=== PATIENT | female | born 1945 | race Caucasian/White ===

== ENCOUNTER → 2017-07-24 09:44 | Outpatient (CLI) | payer MEDICARE, SELFPAY ==
[2017-07-24 11:54] LABS: Absolute Lymphocyte Count 1.71 X10^3/ul (0.83-4.51); Absolute Neutrophil Count 6.3 X10^3/uL (2.0-7.7); Basophil# 0.04 X10^3/uL; Basophil% 0.4 % (0-1); Eosinophil# 0.16 X10^3/uL; Eosinophils% 1.8 % (0-5); Hematocrit 40.5 % (37-47); Hemoglobin 13.5 g/dl (12.0-15.0); Lymphocyte # 1.71 X10^3/ul (4.0); Lymphocyte % 19.2 % (19-41); Mean Corp Hgb Conc 33.3 g/gl (32-36); Mean Corpuscular Hgb 32.6 pg (27.0-32.0); Mean Corpuscular Volume 97.8 fL (81-99); Mean Platelet Vol. 10.5 fl (6.2-12.0); Monocyte# 0.65 X10^3/uL; Monocyte% 7.3 % (0-10); Neutrophil # 6.34 X10^3/uL (2.7-7.7); Neutrophil % 71.2 % (47-70); Platelet Count 335 K/mm3 (150-450); RBC Distribution Width CV 13.5 % (11.6-14.6); RBC Distribution Width SD 48.5 fl (35.1-43.9); Red Blood Count 4.14 M/mm3 (4.2-5.4); White Blood Count 8.9 K/mm3 (4.4-11.0)
[2017-07-24 11:57] LABS: POSITIVE COUNT NO; POSITIVE DIFFERENTIAL NO; POSITIVE MORPHOLOGY NO
[2017-07-24 12:16] LABS: ALB/GLOB Ratio 1.2 RATIO (0.9-2.4); AST(SGOT) 17 U/L (15-37); Alanine Aminotransfer ALT/SGPT 25 U/L (13-56); Albumin, Serum 3.9 g/dL (3.2-5.0); Alkaline Phosphatase 46 U/L (45-117); Anion Gap 9 (5-15); BUN 19 mg/dL (7-18); BUN/Creat Ratio 29.7 RATIO (10-20); Calcium,Total 9.1 mg/dL (8.5-10.1); Chloride 102 mmol/L (98-107); Cholesterol 214 mg/dL (200); Creatinine, Serum 0.64 mg/dL (0.55-1.02); EST Glomerular Filtration Rate 97 mL/min (>60); Est Glom Filt Rate - Afr Amer 117 mL/min (>60); Globulin 3.2 g/dL (2.2-4.2); Glucose 98 mg/dL (74-106); High Density Lipoprotein 83 mg/dL; Potassium 4.2 mmol/L (3.5-5.1); Protein, Total 7.1 g/dL (6.4-8.2); Sodium Level 138 mmol/L (136-145); T4 Total, Thyroxin 8.1 ug/dL (4.8-13.9); Thyroid Stim Hormone (TSH) 1.47 uIU/mL (0.358-3.74); Triglycerides 92 mg/dL; Very Low Density Lipoprotein 18 mg/dL (5-40)
== END ==
PROVIDERS: Family Provider Internal Medicine; PCP Internal Medicine; Visit Provider Physician Assistant
DX: R20.3 Hyperesthesia (principal); R25.1 Tremor, unspecified
CPT/HCPCS: 36415; 80053; 80061; 84436; 84443; 85025

== ENCOUNTER 2017-09-01 15:44 | Emergency (ER) | payer MEDICARE, SELFPAY ==
[2017-09-01 15:45] VITALS: BP 160/72; PULSE 82; RESP 18; TEMP 36.9; O2SAT 99; BMI 19.5
--- NOTE | 2017-09-01 16:04 | CT_ITS ---
STUDY: CT BRAIN WITHOUT CONTRAST REASON FOR EXAM: Female, 72 years old. Tremors. RADIATION DOSAGE (If Supplied By Facility): CTDIvol = ( 44.99 ) mGy, DLP = ( 728.62 ) mGycm TECHNIQUE: Transaxial CT imaging of the brain was performed without administration of intravenous contrast material. Individualized dose optimization techniques were used for this CT. COMPARISON: 08/02/2015. FINDINGS: Normal soft tissue structures. Normal calvarium. Normal size ventricles and extra-axial spaces for the patient's age. Normal white matter tracts of the cerebral hemispheres. Normal basal ganglia and thalami. Normal brainstem. Normal cerebellum. There is no intracranial hemorrhage. There are no findings of an acute ischemic infarction. Normal visualized paranasal sinuses. CT/Brain/Head without Contrast IMPRESSION: Normal unenhanced CT scan of the brain. Electronically Signed: Don Iyer MD at 17:25 EDT , Service support ,
--- NOTE | 2017-09-01 16:04 | EKG12_ITS ---
Test Reason : CP Blood Pressure : / mmHG Vent. Rate : 068 BPM Atrial Rate : 068 BPM P-R Int : 180 ms QRS Dur : 090 ms QT Int : 414 ms P-R-T Axes : 069 046 069 degrees QTc Int : 440 ms Normal sinus rhythm Normal ECG Confirmed by JAME MAGAÑA MD ([id number]), editor greeting card ALEXIA CORADO ([id number]) on 09/04/2017 2:29:45 PM Referred By: ED PHYSICIAN Confirmed By:JAME MAGAÑA MD
--- NOTE | 2017-09-01 16:05 | RAD_ITS ---
STUDY: X-RAY CHEST REASON FOR EXAM: Female, 72 years old. Palpitations. TECHNIQUE: Frontal and lateral views of the chest. COMPARISON: None. FINDINGS: Soft tissue density in both lung apices, most likely scarring but since there are no prior studies, CT scan with contrast recommended. The lungs are hyperexpanded. There are coarsened interstitial markings suggestive of mild chronic fibrosis. No gross focal infiltrates. No gross effusions. Normal size heart. Normal mediastinum and shawna. Normal visualized pulmonary arteries. Normal visualized aortic arch and descending thoracic aorta. Normal visualized thoracic spine. Normal visualized ribs, clavicles, and shoulders. There is no demonstrated abnormality of the visualized soft tissue structures of the upper abdomen. RAD/Chest PA and Lateral IMPRESSION: COPD. Soft tissue prominence in both lung apices, most likely scarring but CT scan with contrast recommended. Electronically Signed: Don Iyer MD at 17:16 EDT , Service support ,
--- NOTE | 2017-09-01 16:12 | ED.DCSUM_ITS ---
- ER Visit Summary Date of Service: 09/01/17 Chief Complaint: Tremors History of Present Illness: The patient is a 72 F increasing tremors. Patient states been dealing with left upper extremity tremors for the past year, over the past 3 months states she feels my insides are going to jump out.. Over the past 2 days starting having right upper extremity tremors. A month ago PCP started sertraline 25 mg daily. 4 days ago discussed with her PCP was increased to 50 mg. Denies any family history or history of Parkinson's. States has urinary frequency. No cough. Denies headache or vision changes. Denies history of strokes or heart attacks. Patient's history is limited states symptoms have been increasing and is concerned. Has an appointment with her PCP in 5 days. She does state feels like her heart is pounding. Physical Examination: General: Alert and oriented ?3, no acute distress HEENT: Normocephalic, atraumatic. Moist mucosa membranes Neck: supple, nontender. Cardiovascular: Regular rate and rhythm, no murmurs Respiratory: Normal breath sounds, symmetric, no distress Abdomen: Soft, nontender, nondistended Extremities: Nontender, no edema, pulses intact ?4 Neuro: no focal neurological deficits. No active tremors or resting tremors on exam. Test Results: CT head: No acute process. Two-view chest x-ray: Soft tissue prominence in the apices. CT chest: Apical scarring right greater than left. EKG sinus rate of 68, flattening T-wave in aVL. CBC hemoglobin 13.2 white count 10.7. Chemistries with potassium 3.9. Creatinine 0.67. UA with no infection. Emergency Department Course and Treatment: Patient vital signs stable, no active tremors on my evaluation. However she subjectively complains of this. She was given metoprolol 12 1/2 mg p.o. Workup initiated. Infectious workup negative. Head CT negative. Chest x-ray noted concerns for soft tissue prominences and the pain persists and recommended CT scan per radiology report. This is obtained noting concern for apical scarring right greater than left. They did recommend reevaluation 4-6 months time due to asymmetry. Discussed with patient and updated, tremors felt better. I did speak with covering PCP, Dr. Thompson, agrees with continuing Toprol at this time. Will decrease her sertraline down to 25 mg. She will keep her appointment as an outpatient. Discussed with patient who understands and agrees with plan. Treatment Plan: [] Disposition: Discharge Impression: 1. Tremors This note was generated with [employer] dictation software. It may contain incorrect words, spelling, and punctuation that were not noted in review of the chart prior to signing ED Disposition - Plan for ED Patient: Disposition: Home or Assisted Living Chief Complaint: General Illness Diagnosis: Tremors of nervous system Instructions: Essential Tremor Disorder Prescriptions: Metoprolol Succinate 12.5 mg PO DAILY #30 tab.er.24h Referrals: Kelly Leone DO [Primary Care Provider] - Keep Lyudmila appointment Additional Instructions: Decrease your sertraline to 25 mg daily. Take new prescription as prescribed. Follow-up with your doctor as scheduled.
[2017-09-01 16:21] VITALS: BP 161/74; PULSE 70; RESP 16; O2SAT 98
[2017-09-01] MEDS: Metoprolol Tartrate 25 MG Tablet 12.5 MG PO (16:22)
[2017-09-01 16:39] VITALS: BP 152/69; PULSE 65; RESP 16; O2SAT 99
[2017-09-01 16:52] LABS: Absolute Neutrophil Count 7.8 X10^3/uL (2.0-7.7); Basophil# 0.02 X10^3/uL; Basophil% 0.2 % (0-1); Eosinophil# 0.11 X10^3/uL; Eosinophils% 1.1 % (0-5); Hematocrit 38.2 % (37-47); Hemoglobin 13.2 g/dl (12.0-15.0); Lymphocyte % 17.4 % (19-41); Mean Corp Hgb Conc 34.6 g/gl (32-36); Mean Corpuscular Hgb 33.8 pg (27.0-32.0); Mean Corpuscular Volume 97.7 fL (81-99); Mean Platelet Vol. 9.6 fl (6.2-12.0); Monocyte# 0.63 X10^3/uL; Monocyte% 6.1 % (0-10); Neutrophil # 7.75 X10^3/uL (2.7-7.7); Platelet Count 367 K/mm3 (150-450); RBC Distribution Width CV 13.4 % (11.6-14.6); RBC Distribution Width SD 47.2 fl (35.1-43.9); Red Blood Count 3.91 M/mm3 (4.2-5.4); White Blood Count 10.3 K/mm3 (4.4-11.0)
[2017-09-01 16:53] LABS: POSITIVE COUNT NO; POSITIVE DIFFERENTIAL NO; POSITIVE MORPHOLOGY NO
[2017-09-01 17:09] LABS: Anion Gap 8 (5-15); BUN 22 mg/dL (7-18); BUN/Creat Ratio 32.8 RATIO (10-20); Calcium,Total 8.9 mg/dL (8.5-10.1); Chloride 99 mmol/L (98-107); Creatinine, Serum 0.67 mg/dL (0.55-1.02); EST Glomerular Filtration Rate 92 mL/min (>60); Est Glom Filt Rate - Afr Amer 111 mL/min (>60); Estimated Creatinine Clearance 39.47 ml/min; Glucose 102 mg/dL (74-106); Potassium 3.9 mmol/L (3.5-5.1); Sodium Level 133 mmol/L (136-145)
--- NOTE | 2017-09-01 17:30 | CT_ITS ---
STUDY: CT CHEST WITH CONTRAST REASON FOR EXAM: Female, 72 years old. Abnormal chest x-ray. RADIATION DOSAGE (If Supplied By Facility): CTDIvol = ( 9.23 ) mGy, DLP = ( 192.69 ) mGycm TECHNIQUE: Transaxial imaging was performed following intravenous administration of 100CC ml of Isovue 300 contrast material. Individualized dose optimization techniques were used for this CT. COMPARISON: None. FINDINGS: The soft tissue density seen in the apices on chest x-ray appears to represent asymmetric scarring, right worse than left, but to ensure benignity, recommend follow-up in 4-6 months. Lungs show hyperexpansion consistent with COPD. No focal infiltrates or effusions. Normal heart and pericardium. Normal mediastinum. Normal hilar regions. Normal enhanced pulmonary arteries. There is atherosclerotic calcification of the aortic arch with tortuosity and elongation of the aortic arch and descending thoracic aorta. Normal osseous structures. There is no demonstrated abnormality of the visualized upper abdomen. CT/Chest WITH Contrast IMPRESSION: Findings most consistent with scarring in the lung apices but there is some asymmetry and recommend follow-up in 4-6 months to ensure stability. There is probable COPD. Electronically Signed: Don Iyer MD at 19:07 EDT , Service support ,
[2017-09-01 17:55] LABS: Bacteria 0 SEEN /hpf (None Seen); Mucous, Urine 0 SEEN /hpf (<or=2+); White Blood Cells 0 SEEN /hpf (0-5)
[2017-09-01 17:57] LABS: Color, Urine Yellow (Yellow); Glucose, Dipstick Normal (Normal); Ketone-Dipstick Negative (Negative); Leukocyte Esterase-Dipstick Negative /ul (Negative); Nitrite-Dipstick Negative (Negative); Occult Blood-Urine 10 /ul (Negative); Protein-Dipstick Negative (Negative); Urine Bilirubin Dipstick Negative (Negative); Urine Clarity Clear (Clear); Urine Urobilinogen Normal (Normal)
[2017-09-01 18:03] LABS: Red Blood Cells-Urine 0-5 SEEN /hpf (0-5); Squamous Epithelial Cells - UA 0-5 SEEN /hpf (5-10); Transitional Epithelial - Ur 0 SEEN /hpf (0-5)
[2017-09-01 19:26] VITALS: BP 160/75; PULSE 66; RESP 15; O2SAT 99
[2017-09-01 19:44] VITALS: BP 139/68; PULSE 63; RESP 16; O2SAT 97
== END 2017-09-01 19:45 | disposition home or self-care (01) ==
PROVIDERS: Emergency Provider Emergency Medicine; Family Provider Internal Medicine; PCP Internal Medicine
DX: R25.1 Tremor, unspecified (principal); Z79.899 Other long term (current) drug therapy; Z72.0 Tobacco use
CPT/HCPCS: 70450; 71046; 71260; 80048; 81001; 85025; 93005; 96360; 99285; J7030; J7040; Q9967; A4216

== ENCOUNTER → 2017-11-27 12:14 | Outpatient (CLI) | payer MEDICARE, SELFPAY ==
--- NOTE | 2017-11-27 12:17 | BI_ITS ---
MAMMOGRAPHY - BILATERAL SCREENING REASON FOR EXAM: Female, 72 years old. Routine annual screening examination. PERTINENT HISTORY: Aunt with breast cancer. TECHNIQUE: Digital bilateral breast jayla (3D mammographic acquisition) in the CC and MLO projections. 2-D mediolateral oblique (MLO) and craniocaudad (CC) views of both breasts were obtained. CAD: Full Field Digital Mammography with Computer Added Detection was performed. COMPARISON: Comparison is made with prior study dated August 08, 2016 and October 09, 2014. FINDINGS: Breast Composition: The breasts are heterogeneously dense, which may obscure small masses. There are no dominant masses or suspicious calcifications. No other significant abnormalities are identified. There has been no significant change since the prior study. BI/SCREENING MAMM (CAD), BILAT IMPRESSION: Stable bilateral screening mammogram. Yearly follow-up mammogram recommended. (A) ASSESSMENT CATEGORY: BIRADS Category 1: Negative. A letter regarding these results will be sent to the patient by the facility within 30 days. Approximately 10% of breast cancers are not detected by mammography. A normal mammogram should not delay biopsy of a clinically suspicious abnormality. [id number] Electronically Signed: Shun Gallardo MD at 13:03 EDT Tel [phone], Service support ,
== END ==
PROVIDERS: Family Provider Internal Medicine; PCP Internal Medicine; Visit Provider Internal Medicine
DX: Z12.31 Encounter for screening mammogram for malignant neoplasm of breast (principal)
CPT/HCPCS: 77063; 77067

== ENCOUNTER → 2017-12-28 13:17 | Outpatient (CLI) | payer MEDICARE, SELFPAY ==
--- NOTE | 2017-12-28 13:25 | CT_ITS ---
STUDY: CT CHEST WITH CONTRAST REASON FOR EXAM: Female, 72 years old. COPD. Evaluate upper lobe abnormalities on prior scan RADIATION DOSAGE (If Supplied By Facility): CTDIvol = ( 10.79 ) mGy, DLP = ( 182.27 ) mGycm TECHNIQUE: Transaxial imaging was performed following intravenous administration of 100 ml of Isovue 300 contrast material. Multiplanar coronal and sagittal images were reformatted. Individualized dose optimization techniques were used for this CT. COMPARISON: September 01, 2017 FINDINGS: The lungs are normal. There is stable parenchymal and pleural fibrotic thickening of the pulmonary lung apices on the right more than the left, series 4 images through . Nodular components measuring up to 0.7 cm are stable. There are calcifications of the coronary arteries. Normal mediastinum. Normal hilar regions. Normal enhanced pulmonary arteries. There is atherosclerotic calcification of the aortic arch with tortuosity and elongation of the aortic arch and descending thoracic aorta. Degenerative change of the upper lumbar spine There is no demonstrated abnormality of the visualized upper abdomen. CT/Chest WITH Contrast IMPRESSION: Stable apical pleural and parenchymal fibrotic densities. Electronically Signed: Cb Krause MD at 10:07 EDT , Service support ,
[2017-12-28 13:45] LABS: CREATININE FINGERSTICK < 0.6 mg/dL (0.55-1.02); EGFR FINGERSTICK > 60.0000 mL/min (>60)
== END ==
PROVIDERS: Family Provider Internal Medicine; PCP Internal Medicine; Visit Provider Internal Medicine
DX: R91.8 Other nonspecific abnormal finding of lung field (principal)
CPT/HCPCS: 71260; Q9967

== ENCOUNTER → 2018-01-22 11:22 | Outpatient (CLI) | payer MEDICARE, SELFPAY ==
[2018-01-22 14:43] LABS: Ferritin 70 ng/mL (8-252); Iron 149 ug/dL (50-170); Iron Binding Capacity,Total 386 ug/dL (250-450); PERCENT IRON SATURATION 38.6 % (15.0-55.0); T4 Free Direct 0.89 ng/dL (0.76-1.46)
[2018-01-22 15:45] LABS: Absolute Lymphocyte Count 2.56 X10^3/ul (0.83-4.51); Basophil# 0.03 X10^3/uL; Basophil% 0.3 % (0-1); Eosinophil# 0.16 X10^3/uL; Eosinophils% 1.7 % (0-5); Hematocrit 38.6 % (37-47); Hemoglobin 13.5 g/dl (12.0-15.0); Lymphocyte # 2.56 X10^3/ul (4.0); Lymphocyte % 27.4 % (19-41); Mean Corpuscular Hgb 34.1 pg (27.0-32.0); Mean Corpuscular Volume 97.5 fL (81-99); Mean Platelet Vol. 10.2 fl (6.2-12.0); Monocyte# 0.58 X10^3/uL; Monocyte% 6.2 % (0-10); Neutrophil # 5.99 X10^3/uL (2.7-7.7); Neutrophil % 64.2 % (47-70); POSITIVE COUNT NO; POSITIVE DIFFERENTIAL NO; POSITIVE MORPHOLOGY NO; Platelet Count 327 K/mm3 (150-450); RBC Distribution Width CV 13.1 % (11.6-14.6); RBC Distribution Width SD 46.1 fl (35.1-43.9); Red Blood Count 3.96 M/mm3 (4.2-5.4); White Blood Count 9.3 K/mm3 (4.4-11.0)
[2018-01-23 08:41] LABS: T3 Total - Triiodothyronine 0.76 ng/mL (0.6-1.81); Vitamin B12 774 pg/mL (211-911); Vitamin D,25 Hydroxy 46.3 ng/mL (29.95-100.01)
[2018-01-24 18:44] LABS: Thyroid Stim Hormone (TSH) 1.18 uIU/mL (0.358-3.74)
[2018-01-24 20:07] LABS: Vitamin D 1,25-Dihydroxy 46.2 pg/mL (19.9-79.3)
[2018-01-25 11:33] LABS: ANTINUCLEAR ANTIBODIES DIRECT Negative (Negative)
[2018-01-27 09:36] LABS: DHEA Sulfate 53.3 ug/dL (20.4-186.6); T3 Reverse 12.3 ng/dL (9.2-24.1); Testosterone, % Free 2.19 % (0.50-2.80); Testosterone, Free 0.88 ng/dL (0.10-0.85); Testosterone, Total 40 ng/dL (3-41)
[2018-01-27 11:57] LABS: Zinc, Plasma or Serum 78 ug/dL (56-134)
== END ==
PROVIDERS: Family Provider Internal Medicine; PCP Internal Medicine; Visit Provider Dermatology
DX: L65.0 Telogen effluvium (principal)
CPT/HCPCS: 36415; 82306; 82607; 82627; 82652; 82728; 82746; 83540; 83550; 84402; 84403; 84439; 84443; 84480; 84481; 84482; 84630; 85025; 86038; 82626

== ENCOUNTER → 2018-03-15 10:05 | Outpatient (CLI) | payer MEDICARE, SELFPAY ==
--- NOTE | 2018-03-15 10:13 | MRI_ITS ---
STUDY: MRI LUMBAR SPINE WITHOUT CONTRAST REASON FOR EXAM: Female, 73 years old. Lumbago. Scoliosis. Sciatic nerve pain into right leg. TECHNIQUE: Standardized fat and water weighted pulse sequences were obtained in the sagittal and axial planes. COMPARISON: 08/18/2016. FINDINGS: T10-T11: (Sagittal only). Schmorl's nodes in the vertebral endplates. Normal disc height and morphology. Normal central canal and bilateral intervertebral neural foramina. T11-T12: (Sagittal only). Schmorl's node in the T11 inferior endplate. Normal T12 superior endplate. No ventral extradural defect. Normal central canal and bilateral intervertebral neural foramina. T12-L1: (Sagittal only). Normal endplates. Normal disc height and morphology. Normal central canal and bilateral intervertebral neural foramina. Normal lumbar lordosis. Moderate levo rotary scoliosis of the lumbar spine. Normal conus medullaris that terminates at the lower T12 vertebral body level. L1-2: Anterior and posterior marginal spurs. Pronounced disc space height narrowing with mild Modic type I degenerative vertebral marrow edema underneath the vertebral endplates. No extruded disc fragment. Small posterior bulging disc. Normal central canal and bilateral lateral recesses. Normal facet joints. Normal bilateral intervertebral neural foramina. L2-3: Anterior and posterior marginal spurs. Mild degenerative retrolisthesis of L2 on L3 and right lateral subluxation of L2 on L3. Moderately pronounced disc space height narrowing. Normal central canal and bilateral lateral recesses. Mild asymmetric degenerative facet arthropathy. Normal bilateral intervertebral neural foramina. L3-4: Normal endplates. Grade 1 right lateral subluxation of L3 on L4. Small right posterior paramedian disc protrusion causing right lateral recess stenosis. Normal central canal and left lateral recesses. Mild asymmetric degenerative facet arthropathy. Mild stenosis of the right intervertebral neural foramen. Normal left intervertebral neural foramen. L4-5: Mild left lateral subluxation of L4 on L5 and pronounced right-sided disc space height narrowing. Mild Modic type I degenerative vertebral marrow edema underneath the vertebral endplates. Normal central canal and right lateral recesses. Mild stenosis of the left lateral recesses. Mild degenerative facet arthropathy. L5-S1: Pronounced left-sided disc space height narrowing. Normal central canal and bilateral lateral recesses. Mild degenerative facet arthropathy. Moderate stenosis of the left intervertebral neural foramen with suspicious impingement of the left L5 nerve. Normal visualized sacral ala. Normal visualized paraspinous soft tissue structures. MRI/Spine Lumbar (Routine) IMPRESSION: 1. Grade 1 right lateral subluxation of L3 on L4, small right posterior paramedian disc protrusion and right lateral recess stenosis. 2. Right lateral subluxation of L2 on L3, mild degenerative retrolisthesis of L2 on L3 and moderately pronounced disc space height narrowing. 3. Pronounced L1-L2 disc space height narrowing with mild Modic type I degenerative vertebral marrow edema underneath the vertebral endplates and small posterior bulging disc. 4. Mild left lateral subluxation of L4 on L5, pronounced right-sided disc space height narrowing, mild Modic type I degenerative vertebral marrow edema underneath the vertebral endplates and mild stenosis of the left lateral recesses. 5. Pronounced left-sided L5-S1 disc space height narrowing and moderate stenosis of the left intervertebral neural foramen with suspicious impingement of the left L5 nerve. 6. No MRI evidence of lumbar extruded disc fragment. Electronically Signed: Castro Russ MD at 13:33 EDT , Service support ,
--- NOTE | 2018-03-15 10:13 | MRI_ITS ---
STUDY: MRI CERVICAL SPINE WITHOUT CONTRAST REASON FOR EXAM: Female, 73 years old. Right shoulder pain. Arthritis. TECHNIQUE: Standardized fat and water weighted pulse sequences were obtained in the sagittal and axial planes. COMPARISON: None FINDINGS: Normal foramen magnum and brainstem-cervical cord junction. Normal craniovertebral junction. Normal anterior atlantoaxial articulation. Normal odontoid process. Mild cervical kyphosis. Normal vertebral bodies and posterior osseous elements. C2-3: Normal endplates. Normal disc height, signal and morphology. Normal central canal and intervertebral neural foramina. C3-4: Normal endplates. Anterior and posterior marginal spurs. Pronounced disc space height narrowing. Normal central canal and bilateral intervertebral neural foramina. C4-5: Normal endplates. Small anterior and posterior marginal spurs. No extruded disc fragment. Normal central canal and bilateral intervertebral neural foramina. C5-6: Normal endplates. Prominent anterior marginal spurs. Pronounced disc space height narrowing. Normal central canal and bilateral intervertebral neural foramina. C6-7: Pronounced disc space height narrowing with Modic type I degenerative vertebral marrow edema underneath the vertebral endplates. Minimal anterior posterior marginal spurs. Normal central canal and bilateral intervertebral neural foramina. C7-T1: Normal endplates. Normal disc height, signal and morphology. Normal central canal and intervertebral neural foramina. T1-T2: (Sagittal only). Normal endplates. Normal disc height. Small posterior bulging disc. Normal central canal and bilateral intervertebral neural foramina. T2-T3: (Sagittal only). Normal T2 inferior endplate. Minimal anterior wedging of T3 superior endplates may be developmental or from remote injury. Tiny posterior bulging disc. Normal central canal and bilateral intervertebral neural foramina. T3-T4: (Sagittal only). Normal endplates. Normal disc height and morphology. Normal central canal and bilateral intervertebral neural foramina. T4-T5: (Sagittal only). Normal endplates. Normal disc height and morphology. Normal central canal and bilateral intervertebral neural foramina. Normal cervical cord. Normal upper thoracic spinal cord. Normal visualized soft tissue structures. MRI/Spine Cervical (Routine) IMPRESSION: 1. No MRI evidence of cervical extruded disc fragment, spinal stenosis or cervical nerve root displacement. 2. Pronounced C6-C7 disc space height narrowing with Modic type I degenerative vertebral marrow edema underneath the vertebral endplates. 3. Pronounced C5-C6 disc space height narrowing with prominent anterior marginal spurs. 4. Pronounced C3-C4 disc space height narrowing with anterior and posterior marginal spurs. Electronically Signed: Castro Russ MD at 14:09 EDT , Service support ,
== END ==
PROVIDERS: Family Provider Internal Medicine; PCP Internal Medicine
DX: M54.2 Cervicalgia (principal); M54.5 Low back pain
CPT/HCPCS: 72141; 72148

== ENCOUNTER 2018-05-30 10:00 | Outpatient (RCR) | payer MEDICARE, SELFPAY ==
--- NOTE | 2018-04-30 13:01 | HP.PTEVAL ---
Patient's Visit Information LYNN MEYERS is a 73 year old F referred to Physical Therapy by MACKENZIE JAIN with a diagnosis of SCOLIOSIS,PAIN LUMBAR SPONDYLOSIS. Date of Evaluation: 04/30/18 Physical Therapist: Simon Ashley PT, - Visit Plan Frequency: 2x /Week Duration: 4 Weeks Plan: POSTURAL EX'S,DLS,MODALTIES ,LE STRENGTHENING - Subjective Findings: This 73 y/o female presents to physical therapy with lumbar pain with radicular symtoms right leg . Patient seen DR Jain [facility] who was referred from pain management. Patient tried Chiropractor didnt help and tried epidural injections with no releive. Patient has parathesia/tingling right leg. Coughing/sneezing -. Bowel/bladder-. Pain can affect sleeping. Symptoms worse with walking ,standing,bending, lifting. Symptoms better with sitting,resting. Patient pain affects QOL and housework chores and ADL'S.Morning symtoms better,as the day goes on worse. VOCATION: retired. SOCIAL: - Pain Right Back Pain Intensity (Out of 10): 4 Pain Intensity Range: 10 Bilateral Lower Extremity Pain Intensity (Out of 10): 5 Pain Intensity Range: 10 - Objective POSTURE: mild foward posture. GAIT: mild foward posture reciprocal pattern. NEURO: c/o parathesia/tingling right leg,reflexes L3-4,L4-5,L5-S1. SYMMTRIES: MMT: quads/hams 4/5,hip flexion 4-/5,ankle 4/5. FLEXABLITY: hams WNL. LUMBAR ROM: flexion WFL,extesnion min loss , - Special Tests L/S Slump test left side: Negative L/S Slump test right side: Negative L/S Left Straight Leg Raise: Negative L/S Right Straight Leg Raise: Negative Lumbar Standing: Flexion - Mechanical Response: No effect Lumbar Standing: Flexion - Symptoms During Testing: Decreases Lumbar Standing: Flexion - Symptoms After Testing: No better Lumbar Standing: Extension - Mechanical Response: No effect Lumbar Standing: Extension - Symptoms During Testing: Increases Lumbar Standing: Extension - Symptoms After Testing: No worse Lumbar Lying: Flexion - Mechanical Response: No effect Lumbar Lying: Flexion - Symptoms During Testing: Decreases Lumbar Lying: Flexion - Symptoms After Testing: Better Lumbar Lying: Extension - Mechanical Response: No effect Lumbar Lying: Extension - Symptoms During Testing: Decreases Lumbar Lying: Extension - Symptoms After Testing: Better - Goals Goal 1:: Independant with HEP Goal Time Frame: 4-6 Weeks Goal 2:: Independant with posture for ADL'S Goal Time Frame: 4-6 Weeks Goal 3:: Patient to pain by 50% or greater to improve function with and standing. Goal Time Frame: 4-6 Weeks Goal 4:: Patient to improve lumbar ROM fot function of recovery . Goal Time Frame: 4-6 Weeks Goal 5:: Patient improve ERIC score by 5 points to improve QOL Goal Time Frame: 4-6 Weeks - Rehabilitation Potential Physical Therapy Diagnosis: Patient has lumbar pain with radicular symptosm with weakness legs ,core pain affecting ADL'S,impairs function with walking standing thus benifit from skilled PT Rehabilitation Potential: Good - Anticipated Interventions Patient/Client Instruction: Educate patient on: Condition, Plan of Care For the Purpose of:: To decrease pain, To increase ROM, To improve muscle performance and motor function, To increase tolerance to activity/condition/position, To improve ability of physical actions for home/community/work/leisure, To improve health of tissue, To decrease soft tissue restriction, To increase flexibility/ROM, To reduce risk of recurrence, To improve ability to perform tasks related to life management Therapeutic Exercise to Include: Strength training, Body mechanics, Postural training, Flexibilty training, Dynamic Lumbar Stabilization For the Purpose of:: To decrease pain, To increase ROM, To improve muscle performance and motor function, To increase tolerance to activity/condition/position, To improve ability of physical actions for home/community/work/leisure, To improve health of tissue, To decrease soft tissue restriction, To improve ability to perform tasks related to life management TENS: Yes IF ES: Yes Cryotherapy (ice pack, ice massage): Yes Thermo therapy (hot pack): Yes Ultrasound (thermal/non thermal): Yes Pelvic traction supine: Yes For the Purpose of:: To decrease pain, To decrease swelling/inflammation, To improve nutrient delivery to tissue, To improve muscle performance and motor function, To improve health of tissue, To decrease soft tissue restriction, To increase flexibility/ROM Thank you for the opportunity to evaluate your patient. For Medicare and Medicare HMO plans, please review the plan of care and approve it. It will need to be FAXED BACK to us at [phone] for Medicare purposes. For Medicare only, by signing this I certify the plan of care. Please let me know if there are questions or concerns regarding this plan of care. Physician Signature: Date:
--- NOTE | 2018-08-22 09:29 | HP.PTDCNRP_ITS ---
HP - Discharge Summary (1) - Patient Information LYNN MEYERS was seen in my office for initial evaluation on 04/30/18. The following Plan of Care was established for this patient: Initial Frequency: 2x /Week Initial Duration: 4 Weeks - Anticipated Interventions Patient/Client Instruction: Educate patient on: Condition, Plan of Care For the Purpose of:: To decrease pain, To increase ROM, To improve muscle perfor katherine and motor function, To increase tolerance to activity/condition/position, To improve ability of physical actions for home/community/work/leisure, To improve health of tissue, To decrease soft tissue restriction, To increase flexibility/ROM, To reduce risk of recurrence, To improve ability to perform tasks related to life management Therapeutic Exercise to Include: Strength training, Body mechanics, Postural training, Flexibilty training, Dynamic Lumbar Stabilization For the Purpose of:: To decrease pain, To increase ROM, To improve muscle performance and motor function, To increase tolerance to activity/condition/position, To improve ability of physical actions for home/community/work/leisure, To improve health of tissue, To decrease soft tissue restriction, To improve ability to perform tasks related to life management TENS: Yes IF ES: Yes Cryotherapy (ice pack, ice massage): Yes Thermo therapy (hot pack): Yes Ultrasound (thermal/non thermal): Yes Pelvic traction supine: Yes For the Purpose of:: To decrease pain, To decrease swelling/inflammation, To improve nutrient delivery to tissue, To improve muscle performance and motor function, To improve health of tissue, To decrease soft tissue restriction, To increase flexibility/ROM This patient was last seen in our office 05/30/18. Pertinent comments regarding their Physical therapy will appear below: This patient was seen for PT for lumbar pain focusing on DLS,postural ex's,modaliteis .Patient progressing towards goals. At this point I will be discontinuing this patient from physical therapy. I would be happy to see this patient again in the future if found appropriate by the physician. Thank you! Simon Ashley, PT, Cert MDT, OCS
== END 2018-05-30 19:00 | disposition home or self-care (01) ==
LOC: PT 10:00
PROVIDERS: Family Provider Internal Medicine; PCP Internal Medicine
DX: M41.9 Scoliosis, unspecified (principal); M47.896 Other spondylosis, lumbar region
CPT/HCPCS: 97035; 97110; 97162; 97530

== ENCOUNTER → 2018-12-04 | Outpatient (CLI) | payer MEDICARE, SELFPAY ==
--- NOTE | 2018-12-04 10:25 | BI_ITS ---
MAMMOGRAPHY - BILATERAL SCREENING REASON FOR EXAM: Female, 73 years old. Routine annual screening examination. PERTINENT HISTORY: Aunt with breast cancer. TECHNIQUE: Digital bilateral breast jayla (3D mammographic acquisition) in the CC and MLO projections. 2-D mediolateral oblique (MLO) and craniocaudad (CC) views of both breasts were obtained. CAD: Full Field Digital Mammography with Computer Added Detection was performed. COMPARISON: Comparison is made with prior study dated November 27, 2017 and August 08, 2016. FINDINGS: Breast Composition: The breasts are extremely dense, which lowers the sensitivity of mammography. There are no dominant masses or suspicious calcifications. No other significant abnormalities are identified. There has been no significant change since the prior study. BI/SCREENING MAMM (CAD), BILAT IMPRESSION: Stable bilateral screening mammogram. Yearly follow-up mammogram recommended. (A) ASSESSMENT CATEGORY: BIRADS Category 1: Negative. A letter regarding these results will be sent to the patient by the facility within 30 days. Approximately 10% of breast cancers are not detected by mammography. A normal mammogram should not delay biopsy of a clinically suspicious abnormality. [id number] Electronically Signed: Shun Gallardo, at 12:33 EDT , Service support ,
--- NOTE | 2018-12-04 11:17 | RAD_ITS ---
STUDY: X-RAY - SACRUM/COCCYX REASON FOR EXAM: Female, 73 years old. Tailbone pain TECHNIQUE: 3 view(s) of the sacrum and coccyx were obtained. COMPARISON: None. FINDINGS: Normal bilateral sacroiliac joints. Normal visualized sacral ala and fused sacral bodies. Normal sacrococcygeal junction with a normal angulation. Normal coccygeal segments. The presacral soft tissue structures are unremarkable. Scoliosis and degenerative changes lumbosacral spine. RAD/Sacrum-Coccyx min 2 Views IMPRESSION: Normal x-rays of the sacrum and coccyx. Electronically Signed: Nba Garcias MD at 23:25 EDT , Service support ,
== END | disposition home or self-care (01) ==
PROVIDERS: Family Provider Internal Medicine; PCP Internal Medicine; Referring Provider Internal Medicine; Visit Provider Internal Medicine
DX: Z12.31 Encounter for screening mammogram for malignant neoplasm of breast (principal); M53.3 Sacrococcygeal disorders, not elsewhere classified
CPT/HCPCS: 72220; 77067

== ENCOUNTER 2019-01-13 11:31 | Observation (INO) | payer MEDICARE, SELFPAY ==
[2019-01-13] VITALS (15 sets, daily range): BP systolic 116–177; BP diastolic 58–105; PULSE 58–73; RESP 15–18; TEMP 36.7–36.9; O2SAT 96–100; BMI 19.5; BMI 18.7; BMI 18.8
--- NOTE | 2019-01-13 11:47 | EKG12_ITS ---
Test Reason : WEAKNESS Blood Pressure : / mmHG Vent. Rate : 057 BPM Atrial Rate : 057 BPM P-R Int : 180 ms QRS Dur : 092 ms QT Int : 446 ms P-R-T Axes : 063 043 064 degrees QTc Int : 434 ms Sinus bradycardia Possible Left atrial enlargement Nonspecific ST and T wave abnormality Abnormal ECG Confirmed by MICHAEL LIMON, THALIA ([id number]), editor city JING MCCOY ([id number]) on 01/15/2019 11:52:32 AM Referred By: Payton Jenkins Confirmed By:THALIA RODRIGUEZ MD
--- NOTE | 2019-01-13 11:47 | RAD_ITS ---
STUDY: X-RAY CHEST REASON FOR EXAM: Female, 74 years old. Generalized weakness. TECHNIQUE: Single AP portable view of the chest. COMPARISON: September 01, 2017. Chest CT dated December 28, 2017. FINDINGS: Cardiac silhouette unremarkable. Pulmonary vascularity unremarkable. Aorta calcified. No focal patchy airspace opacities. No pleural effusions. COPD/emphysema. Basilar scar/atelectasis. Biapical capping. Upper abdomen unremarkable. Osseous structures intact. No pneumothorax. RAD/Chest 1 View IMPRESSION: No acute cardiopulmonary findings COPD/emphysema with basilar atelectasis/scar Biapical capping Electronically Signed: Kenyon Wylie DO at 12:22 EDT Tel , Service support ,
--- NOTE | 2019-01-13 11:47 | CT_ITS ---
STUDY: CT BRAIN WITHOUT CONTRAST REASON FOR EXAM: Female, 74 years old. Weakness. RADIATION DOSAGE (If Supplied By Facility): CTDIvol = ( 60.81 ) mGy, DLP = ( 1044.28 ) mGycm TECHNIQUE: Transaxial CT imaging of the brain was performed without administration of intravenous contrast material. Individualized dose optimization techniques were used for this CT. COMPARISON: January 01, 2018 FINDINGS: Normal soft tissue structures. Normal calvarium. Normal size ventricles and extra-axial spaces for the patient's age. There are areas of decreased attenuation within the white matter tracts of the supratentorial brain, consistent with microvascular disease changes. Normal basal ganglia and thalami. Normal brainstem. Normal cerebellum. There is no intracranial hemorrhage. There are no findings of an acute ischemic infarction. There is a stable round calcified focus within the left ethmoid sinuses which may reflect an underlying osteoma. CT/Brain/Head without Contrast IMPRESSION: No acute intracranial process. Small vessel ischemia. Electronically Signed: Elizabet Callahan MD at 12:26 EDT Tel , Service support ,
--- NOTE | 2019-01-13 11:49 | ED.VIS.STROK ---
History of Present Illness Chief Complaint: Weakness Informant: Patient, Family, Significant Other Onset: Today Quality and Location: Right Facial Droop, Right Arm Weakness, Slurred Speech Current Severity: Gone Associated Symptoms: Negative for: Headache Narrative: Patient had a 15 to 20-minute episode of what the was thought was right facial droop right arm weakness fall possibly right leg weakness and speech difficulties. This has significantly improved. This started about 2 hours ago. She currently has minimal symptoms. No injury. No prior events. Past Medical History - Allergies and Home Meds Allergies/Adverse Reactions: Allergies amoxicillin Allergy (Verified 09/01/17 16:25) Hives prednisone Adverse Reaction (Verified 09/01/17 16:25) Unknown Primary Care Physician: Kelly Leone DO [Primary Care Provider] - Prior records reviewed: Yes Past Medical History: - - Reviewed see Jorge L Surgical History: noncontributory Smoking Status: Current every day smoker Review of Systems All systems negative except as indicated General: Denies: Chills, Fever Eyes: Denies: Visual changes - left Cardiovascular: Denies: Chest pain, Heart racing Respiratory: Denies: Dyspnea, Cough Gastrointestinal: Denies: Abdominal pain, Nausea Musculoskeletal: Denies: Myalgias, Arthralgias Skin: Denies: Rash Neurological: Reports: Weakness, - - As in HPI. Denies: Headache Psych: Denies: Depression Hematologic: Denies: Easy bruising STROKE Vital Signs/Narrative: Vital Signs Temp Pulse Resp BP Pulse Ox 01/13/19 11:32 98.2 F 60 18 145/72 H 100 Inital Vital Signs reviewed: Yes - NIHSS Initial 1a Level of Consciousness: 0 1b LOC Questions (Score 2 if aphasic/stupor): 0 1c LOC Commands (Only score 1st attempt): 0 2 Best Gaze (If aphasic, use reflexive mvmts.): 0 3 Visual: 0 4 Facial Palsy: 0 5 Motor Arm Right (UN = amputation/fusion): 1 5 Motor Arm Left: 0 6 Motor Leg Right: 0 6 Motor Leg Left: 0 7 Limb ataxia (Only + if out of proportion): 0 8 Sensory (Aphasia/stupor=0 or 1, coma=2): 0 9 Best Language: 0 10 Dysarthria (mute, coma=2, intubated=UN): 0 11 Extinction and Inattention (only scored if +): 0 Total Score: 1 General: Well developed Head: Normocephalic ENT: Moist mucous membranes, No rhinorrhea Neck: Supple Cardiovascular: Regular rate, Regular rhythm Respiratory: No distress, CTA bilaterally Abdomen: Soft, Nontender Back: Nontender, Normal Inspection Extremities: Nontender, No edema Skin: Normal color, No rash Neurological: Alert, Oriented x3, - - Otherwise see NIH stroke scale Psychological: Normal affect Diagnostic/Tx/Re-eval - Medical Decision Making Stroke Team Activated: No - NIH is 1. Symptoms apparently almost fully resolved. Patient has an unremarkable work-up, however my worry is for a left MCA distribution ischemia. Her NIH stroke scale initially was a 1 now it is 0. I will admit for a neurological work-up Admit stable condition ED Disposition - Plan for ED Patient: Disposition: Home or Assisted Living Diagnosis: TIA (transient ischemic attack)
[2019-01-13 11:51] LABS: Bedside Glucose 119 mg/dL (70-110)
[2019-01-13 11:53] LABS: Absolute Lymphocyte Count 2.07 X10^3/uL (0.83-4.51); Absolute Neutrophil Count 5.9 X10^3/uL (2.0-7.7); Basophil# 0.07 X10^3/uL; Basophil% 0.8 % (0-1); Eosinophil# 0.23 X10^3/uL; Eosinophils% 2.6 % (0-5); Hematocrit 39.5 % (37-47); Hemoglobin 13.5 g/dL (12.0-15.0); Lymphocyte # 2.07 X10^3/ul (4.0); Lymphocyte % 23.1 % (19-41); Mean Corp Hgb Conc 34.2 g/dL (32-36); Mean Corpuscular Volume 99.5 fL (81-99); Mean Platelet Vol. 9.7 fl (6.2-12.0); Monocyte# 0.69 X10^3/uL; Monocyte% 7.7 % (0-10); NRBC Flagged by Analyzer 0 % (0-5); Neutrophil # 5.87 X10^3/uL (2.7-7.7); Neutrophil % 65.4 % (47-70); Platelet Count 316 K/mm3 (150-450); RBC Distribution Width CV 12.8 % (11.6-14.6); RBC Distribution Width SD 47.3 fl (35.1-43.9); Red Blood Count 3.97 M/mm3 (4.2-5.4)
[2019-01-13 11:56] LABS: Prothrombin Time (Protime)PT. 12.7 SECONDS (11.7-14.9)
[2019-01-13 11:57] LABS: Partial Thromboplast Time 23.9 Seconds (24.1-36.2)
[2019-01-13 12:11] LABS: Anion Gap 8 (5-15); BUN 17 mg/dL (7-18); BUN/Creat Ratio 21.7 RATIO (10-20); Chloride 102 mmol/L (98-107); Creatinine, Serum 0.78 mg/dL (0.55-1.02); EST Glomerular Filtration Rate 76 mL/min (>60); Est Glom Filt Rate - Afr Amer 92 mL/min (>60); Estimated Creatinine Clearance 38.29 ml/min; Glucose 98 mg/dL (74-106); Potassium 4.1 mmol/L (3.5-5.1); Sodium Level 136 mmol/L (136-145)
--- NOTE | 2019-01-13 13:02 | PCM.HP.STD ---
Problem List (1) TIA (transient ischemic attack) Status: Acute (2) COPD (chronic obstructive pulmonary disease) Status: Chronic Qualifiers: Emphysema type: unspecified (3) Hypertension Status: Chronic Qualifiers: Hypertension type: essential hypertension Qualified Code(s): I10 - Essential (primary) hypertension (4) Tobacco use Status: Chronic (5) Chronic back pain Status: Chronic Qualifiers: Back pain location: back pain in other location Qualified Code(s): M54.9 - Dorsalgia, unspecified; G89.29 - Other chronic pain (6) Essential tremor Status: Chronic (7) Chronic malnutrition Status: Chronic History of Present Illness Date of Admission: 01/13/19 Chief Complaint: Weakness, confusion, facial droop The patient is a 74 y/o F w/ PMHx: Tobacco use, chronic COPD, moderate to severe protein calorie malnutrition, hypertension, chronic neck pain following with pain management on chronic narcotic therapy, essential tremor, history of migraines who presents to [facility] on 01/13/19 with history of approximately 2.5 hours prior to ED presentation at approximately 11:30 AM following return from grocery store upon entering the door noted to be fatigued with questionable facial drooping per with then following attempt to bend over and take the collar off the dog collapse onto the floor secondary to severity of weakness, possibly right hemiplegia with difficulty speaking and concern for spouse of facial droop with improvement upon it ED presentation. In the ED NIH scale was given to for right arm drift and facial droop. Work-up in the ED included T 98.2, heart rate 60, BP 145/72, respiratory rate 18, 100% room air, CBC with W BC 9, hemoglobin 13.5, platelet 316 without shift, coags with PTT 23.9 otherwise unremarkable, BMP unremarkable, troponin less than 0.015, EKG with no acute evidence of ischemia, chest x-ray with no acute cardia pulmonary findings with chronic COPD, emphysematous changes with bibasilar atelectasis and scarring, biapical capping, CT head with no acute intercranial process with small vessel ischemic changes. Following evaluation of patient in the ED discussed case with neurologist, Dr. Spencer who noted intention to evaluate the patient. Past Medical History Past Medical History (Chronic Problems): Chronic Problems COPD (chronic obstructive pulmonary disease) (Chronic) Hypertension (Chronic) Tobacco use (Chronic) Chronic back pain (Chronic) Essential tremor (Chronic) Chronic malnutrition (Chronic) Allergies amoxicillin Allergy (Verified 09/01/17 16:25) Hives prednisone Adverse Reaction (Verified 09/01/17 16:25) Unknown Home Medications: Ambulatory Orders Medication Instructions Recorded Acetaminophen [Tylenol] 1,000 mg PO QHS 01/13/19 Albuterol IH (ProAir) [Proair Hfa 2 puff INHALATION Q6H PRN PRN 01/13/19 (SP)Vent Pts] Ascorbic Acid [Vitamin C] 1,000 mg PO DAILY 01/13/19 Biotin 5 mg PO DAILY 01/13/19 Budesonide/Formoterol 160/4.5 2 inhaler INHALATION BID 01/13/19 [Symbicort 160/4.5 Mcg Inhaler (SP)] Cholecalciferol (Vitamin D3) 1,000 unit PO DAILY 01/13/19 [Vitamin D3] Levocetirizine Dihydrochloride 5 mg PO DAILY PRN 01/13/19 [Xyzal] Lorazepam [Ativan] 0.5 mg PO DAILY PRN 01/13/19 Metoprolol Succinate 25 mg PO BID 01/13/19 Primidone 50 mg PO BID 01/13/19 Sertraline HCl [Zoloft] 50 mg PO DAILY 01/13/19 Tizanidine HCl [Zanaflex] 4 mg PO DAILY 01/13/19 Topiramate [Topamax] 50 mg PO DAILY 01/13/19 Surgical History: - - Neck fusion, tonsillectomy, appendectomy, bilateral tubal ligation. 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 Tobacco Use: Cigarettes Alcohol: None Drugs: None - *Family History Maternal History Items: - - Patient notes a maternal family history of WA, heart disease, at age 56 secondary to WA. Paternal History Items: - - Patient notes no market paternal family history clean heart disease, diabetes or cancer. Review of Systems Constitutional: Reports: Malaise, Weakness, Fatigue. Denies: Chills, Fever HEENT: Denies: Head Aches, Sinus Congestion, Sinus Drainage Cardiovascular: Denies: Chest Pain, Palpitations Respiratory: Denies: Cough, Shortness of breath at rest, Sputum production Gastrointestinal: Denies: Abdominal Pain, Nausea, Vomiting Genitourinary: Denies: Dysuria Musculoskeletal: Reports: Back Pain, Neck Pain. Denies: Joint Pain, Joint Tenderness Skin: Denies: Rash, Wounds Neurological: Reports: Balance problems, Confusion, Focal weakness. Denies: Numbness, Tingling Psychiatric: Denies: Anxiety, Depression, Homicidal Ideations, Suicidal Ideations Hematologic/ Lymphatic: Reports: Easy Bruising, Easy Bleeding VTE Information - Inpt Only VTE Present on Admission: No VTE Mechan Device Prophylaxis: SCD's VTE Pharm Prophylaxis ordered?: Yes Patient Problems: Active and Suspected Problems TIA (transient ischemic attack) (Acute) Stroke-like symptoms (Acute) Subjective: Seated upright in ED bed, fatigued appearance, no acute distress. Objective: Physical Examination: General: awake, alert, to self, place, gave wrong year and wrong president, remains cooperative, seated upright in the ED bed in no apparent distress. Skin: normal color, turgor, no icterus, cyanosis. HEENT: AT/NC, EOMI, PERRLA, mildly dry MM, no carotid bruits or JVD noted. Lungs: CTA bilaterally, moderate effort, moderate decrease BL bases, no rales, ronchi or wheezing. Heart: Regular rate and rhythm; no gallop, rub audible. Abdomen: soft, thin habitus, NTTP, ND, normal BS, no HSM. Extremities: no cyanosis, clubbing, or edema. Neurological: patient awake, alert, oriented as noted with wrong year and wrong president given; cognitive function not baseline intact; pupils equally reactive to light and accomodation; cranial nerves II-XII grossly normal except noted mild left-sided facial droop with flattening of the nasolabial fold as well as asymmetric left-sided inability to purse cheeks, moving all 4 extremities, negative Babinski, [id number] and [id number] bilaterally appropriate. Psychiatric: affect appears fatigued, no acute evidence of depressive or anxiety feelings. - Physical Exam Vital Signs Temp Pulse Resp BP Pulse Ox 98.2 F 60 18 145/72 H 100 01/13/19 11:32 01/13/19 11:32 01/13/19 11:32 01/13/19 11:32 01/13/19 12:04 Oxygen Delivery Method Room Air Weight: 110 lb 0.171 oz Body Mass Index (BMI) 19.5 Finger Stick Blood Glucose 119 Laboratory Tests Past 24 Hrs 01/13/19 01/13/19 01/13/19 11:40 11:40 11:40 WBC 9.0 RBC 3.97 L Hgb 13.5 Hct 39.5 MCV 99.5 H MCH 34.0 H MCHC 34.2 RDW Std Deviation 47.3 H RDW Coeff of Elvia 12.8 Plt Count 316 MPV 9.7 Immature Gran % (Auto) 0.400 Neut % (Auto) 65.4 Lymph % (Auto) 23.1 [place] % (Auto) 7.7 Eos % (Auto) 2.6 Baso % (Auto) 0.8 Absolute Neuts (auto) 5.9 Absolute Lymphs (auto) 2.07 Nucleated RBC % 0 PT 12.7 INR 1.0 APTT 23.9 L Sodium 136 Potassium 4.1 Chloride 102 Carbon Dioxide 26.0 Anion Gap 8 BUN 17 Creatinine 0.78 Estim Creat Clear Calc 38.29 Est GFR (MDRD) Af Amer 92 Est GFR (MDRD) Non-Af 76 BUN/Creatinine Ratio 21.7 H Glucose 98 Calcium 9.0 Troponin I < 0.015 POC Glucose 01/13/19 11:41 POC Glucose 119 H Assessment/Plan All Active Problems TIA (transient ischemic attack) (Acute) Stroke-like symptoms (Acute) The patient is a 74 y/o F w/ PMHx: Tobacco use, chronic COPD, moderate to severe protein calorie malnutrition, hypertension, chronic neck pain following with pain management on chronic narcotic therapy, essential tremor, migraine history who presents to [facility] on 01/13/19 with history of approximately 2.5 hours prior to ED presentation at approximately 11:30 AM following return from grocery store upon entering the door noted to be fatigued with questionable facial drooping per with then following attempt to bend over and take the collar off the dog collapse onto the floor secondary to severity of weakness, possibly right hemiplegia with difficulty speaking and concern for spouse of facial droop with improvement upon it ED presentation. 1. Aphasia, questionable right-sided hemiplegia, left-sided facial droop concerning for TIA/CVA versus questionable atypical complex migraine given history of migraines: Work-up in the ED included T 98.2, heart rate 60, BP 145/72, respiratory rate 18, 100% room air, CBC with WBC 9, hemoglobin 13.5, platelet 316 without shift, coags with PTT 23.9 otherwise unremarkable, BMP unremarkable, troponin less than 0.015, EKG with no acute evidence of ischemia, chest x-ray with no acute cardia pulmonary findings with chronic COPD, emphysematous changes with bibasilar atelectasis and scarring, biapical capping, CT head with no acute intercranial process with small vessel ischemic changes. Will admit to PCU, will obtain MRI Brain, CTA head and Neck, ECHO, PT/OT/Speech/Nutrition evaluation per protocol. Will consult Neurology for evaluation. Will allow permissive HTN, maintain on asa, moderate dose statin w/ AM FLP, fall precautions. Hemoglobin A1c, magnesium, TSH pending. 2. Chronic COPD: ATC duonebs, PRN albuterol, HOB, IS parameters. 3. Moderate to severe protein calorie malnutrition: Evidenced per habitus, muscle and fat loss evident, likely secondary to chronic underlying comorbidities as noted, nutrition consulted. 4. Tobacco Abuse: Encouraged cessation, inpatient consultation per RT, NR if desired. 5. Hypertension: We will maintain on permissive hypertension given #1 and transition to regimen once appropriate. 6. Anxiety and depression: Continue home Ativan and Zoloft regimen. 7. Chronic cervical pain: We will continue home Zanaflex regimen. Patient did note that she was on narcotic therapy but currently does not have any opiate on this. We will have hydrocodone pending med reconciliation. 8. History of migraines: We will continue home Topamax regimen. 1. DVT prophylaxis: SCDs, Lovenox. Code Visit Inpatient E&M: 30515 Init Hosp L3
--- NOTE | 2019-01-13 14:08 | ECHOD_ITS ---
Reason For Study: TIA/CVA Procedure This was a 2D Doppler, Color Flow transthoracic echocardiogram. The exam was of adequate technical quality. Exam performed portable in patient room. Left Ventricle Normal LV size. Left ventricular systolic function is normal. The estimated ejection fraction is 60 %. Diastolic function is indeterminate. No regional wall motion abnormalities noted. Right Ventricle Normal RV size. Normal systolic function. Atria Normal left atrium. Normal right atrium. No doppler evidence for ASD. Bubble contrast study negative for right to left interatrial shunt. Mitral Valve There is no mitral annular calcification. Mild diffuse mitral valve thickening. Mild mitral valve prolapse. Trivial mitral valve insufficiency. Tricuspid Valve Normal tricuspid valve. Trivial tricuspid valve insufficiency. Aortic Valve Trisinus/trileaflet aortic valve. Mild diffuse aortic valve thickening. Mild focal aortic valve calcification. Mild aortic stenosis. Mild (1+) aortic valve insufficiency. Pulmonic Valve The pulmonic valve is not well visualized. Trivial eccentric pulmonic valve insufficiency. Great Vessels Normal sized aortic root. Pericardium/Pleural No pericardial effusion. Medication Performed a rapid injection of agitated mix of 9 cc saline and 1cc air to assess for atrial septal defect. MMode/2D Measurements & Calculations LVIDd: 5.0 cm IVSd: 0.88 cm LVOT diam: 2.0 cm LVIDs: 3.4 cm LVPWd: 0.98 cm RVDd: 3.0 cm FS: 31.9 % LVOT area: 3.2 cm2 Ao root diam: 3.0 cm LAV(MOD-bp): 41.2 ml LVAd ap4: 25.2 cm2 LAV(MOD-bp) Indexed: 28.0 ml/m2 EDV(MOD-sp4): 75.4 ml LAV(MOD-sp2): 33.6 ml EDV(sp4-el): 77.2 ml LAV(MOD-sp4): 43.2 ml LVAs ap4: 15.7 cm2 ESV(MOD-sp4): 33.7 ml ESV(sp4-el): 34.1 ml EF(MOD-sp4): 55.3 % EF(sp4-el): 55.8 % SV(MOD-sp4): 41.7 ml SV(sp4-el): 43.1 ml LA A4 area: 16.6 cm2 LA dimension(2D): 3.4 cm RA A4 area: 13.1 cm2 Time Measurements MV dec time: 0.32 sec Doppler Measurements & Calculations MV E max ashok: 68.0 cm/sec Lat Peak E' Ashok: 8.1 cm/sec Med Peak E' Ashok: 5.9 cm/sec MV A max ashok: 96.1 cm/sec E/E' lat: 8.4 E/E' med: 11.5 MV E/A: 0.71 Ao V2 max: 230.7 cm/sec AI max ashok: 487.1 cm/sec LV V1 max: 105.9 cm/sec Ao max P.3 mmHg AI max P.9 mmHg LV V1 max P.5 mmHg Ao V2 mean: 158.9 cm/sec AI dec slope: 250.1 cm/sec2 LV V1 mean P.2 mmHg Ao mean P.5 mmHg AI P1/2t: 570.3 msec LV V1 mean: 69.7 cm/sec Ao V2 VTI: 53.7 cm LV V1 VTI: 22.9 cm MARYANN(I,D): 1.4 cm2 MARYANN(V,D): 1.5 cm2 SV(LVOT): 73.6 ml PA V2 max: 105.3 cm/sec Interpretation Summary Left ventricular systolic function is normal. The estimated ejection fraction is 60 %. Mild diffuse mitral valve thickening. Mild mitral valve prolapse. Trivial mitral valve insufficiency. Trivial tricuspid valve insufficiency. Mild aortic stenosis. Mild (1+) aortic valve insufficiency. Trivial eccentric pulmonic valve insufficiency. Diastolic function is indeterminate. Bubble contrast study negative for right to left interatrial shunt. Ordering Physician: Payton Jenkins Referring Physician: Payton Jenkins Performed By: Jennifer Alcala RDCS
--- NOTE | 2019-01-13 14:08 | CT_ITS ---
STUDY: CTA HEAD AND NECK WITH CONTRAST REASON FOR EXAM: Female, 74 years old. Stroke RADIATION DOSAGE (If Supplied By Facility): CTDIvol = ( 15.11 ) mGy, DLP = ( 438.56 ) mGycm TECHNIQUE: CT angiography was performed with a multi-detector CT scanner. Data acquisition was obtained from the skull base through the vertex following intravenous administration of 100CC IV Isovue 370. MIP images were reconstructed from the axial data set. Post-processing of the angiographic images was performed, with multiplanar reformation and 3D reconstruction. Individualized dose optimization techniques were used for this CT. COMPARISON: MR brain January 13, [address] head same day FINDINGS: Normal bilateral petrous carotid arteries. Normal right cavernous carotid artery with a normal supraclinoid bifurcation. Normal left cavernous carotid artery with a normal supraclinoid bifurcation. Normal right A1 segments of the anterior cerebral artery. Normal left A1 segments of the anterior cerebral artery. Normal intact anterior communicating artery (ACOM). Normal bilateral A2 segments of the anterior cerebral arteries. Normal right M1 and M2 segments of the middle cerebral arteries, with a normal M1 bifurcation. Normal left M1 and M2 segments of the middle cerebral arteries, with a normal M1 bifurcation. 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 Normal left posterior communicating artery (PCOM). Normal bilateral vertebral arteries. Normal basilar artery with a normal basilar bifurcation. The visualized bilateral superior cerebellar (SCA) arteries are normal. Normal bilateral P1, P2 and visualized P3 segments of the posterior cerebral arteries. There is no demonstrated aneurysm of the [place]. There is no demonstrated abnormality of the visualized brain. AORTIC ARCH: Normal visualized aortic arch. Normal origins of the brachiocephalic, left common carotid, Mild to moderate stenosis proximal left vertebral artery just proximal to the vertebral artery origin. RIGHT CAROTID ARTERIES: Normal right common carotid artery (CCA). There is mild atherosclerotic plaque formation with minimal narrowing of the right carotid bulb. There is mild atherosclerotic plaque formation of the origin of the right internal carotid artery with less than 50% cross sectional diameter stenosis. Normal visualized cervical portion of the right internal carotid artery. Normal origin of the right external carotid artery (ECA). LEFT CAROTID ARTERIES: Normal left common carotid artery (CCA). There is mild atherosclerotic plaque formation with minimal narrowing of the left carotid bulb. There is mild atherosclerotic plaque formation of the origin of the left internal carotid artery with less than 50% cross sectional diameter stenosis. Normal visualized cervical portion of the left internal carotid artery. Normal origin of the left external carotid artery (ECA). VERTEBRAL ARTERIES: Moderate focal plaque and moderate stenosis proximal vertebral artery on the right at the P1 P2 junction. Mixed plaque At the origin of the left vertebral artery and subclavian artery causing moderate stenosis at the origin of the vertebral arteries. 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 Moderate stenosis proximal right vertebral artery. Electronically Signed: Nba Garcias MD at 18:16 EDT , Service support ,
--- NOTE | 2019-01-13 14:08 | MRI_ITS ---
STUDY: MRI BRAIN WITHOUT CONTRAST REASON FOR EXAM: Female, 74 years old. CVA and bilateral leg weakness TECHNIQUE: Standardized multiplanar fat and water weighted pulse sequences were obtained. COMPARISON: CT brain January 13, 2019 FINDINGS: There is mild cerebral atrophy with widening of the extra-axial spaces and ventricular dilatation. There are a limited number of small white matter hyperintensities, distributed throughout the deep white matter tracts of the cerebral hemispheres, consistent with mild chronic white matter ischemic changes. There is no evidence for recent intracranial ischemia or other cause of cytotoxic edema on diffusion weighted imaging (DWI). Normal bilateral basal ganglia. Normal thalami. There is no extra-axial fluid accumulation. Normal flow voids within the major intracranial circulation suggesting patency by spin echo criteria. Normal sella turcica, pituitary gland, infundibular stalk, optic chiasm and hypothalamus. Normal tectal plate and pineal gland. Normal midbrain, mak and medulla. Normal cerebellum. Normal basal cisterns. Normal bilateral temporal bones. Normal bilateral internal auditory canals. No demonstrated orbital abnormality, within the constraints of a routine brain study. Normal visualized paranasal sinuses. Normal calvarium and skull base. Normal visualized soft tissue structures. Normal visualized upper cervical spine. MRI/Brain without Contrast IMPRESSION: No acute disease. Electronically Signed: Nba Garcias MD at 16:21 EDT , Service support ,
[2019-01-13 14:43] LABS: Magnesium 1.8 mg/dL (1.6-2.6); Thyroid Stim Hormone (TSH) 1.06 uIU/mL (0.358-3.74)
--- NOTE | 2019-01-13 14:48 | PCM.CONS.GEN ---
Problem List (1) Stroke-like symptoms Status: Acute Reason for Consult Date of Consultation: 01/13/19 Reason for Consultation: Strokelike symptoms History of Present Illness: The patient is a 74 year old F PMH HTN, chronic low back pain and neck pain, COPD, tobacco abuse, anxiety/depression admitted with strokelike symptoms. Per patient she is stooped down to remove the collar from her dog this morning 01/13/2019 at around 11 AM when she felt that both her legs were weak, had to be helped by the to get up, per documentation had noted right-sided facial weakness, right-sided weakness at that time, which had improved in about 15 to 20 minutes, NIHSS was 1 per ED documentation on admission. At present patient denies any focal motor weakness, sensory loss, headache, dizziness, speech disturbances, visual disturbances or facial weakness. Per patient she lives with her , does drive, denies any frequent falls, does not use any cane or walker to ambulate, does not need any help need assistance with her ADLs. She is not on aspirin at baseline. Patient has very easy bruisability. [] Past Medical History Allergies amoxicillin Allergy (Verified 09/01/17 16:25) Hives prednisone Adverse Reaction (Verified 09/01/17 16:25) Unknown Home Medications: Ambulatory Orders Medication Instructions Recorded Metoprolol Succinate 12.5 mg PO DAILY #30 tab.er.24h 09/01/17 Surgical History: noncontributory Lives: Spouse/ Significant Other Smoking Status: Current every day smoker Alcohol: None Drugs: None Review of Systems Constitutional: Reports: - - Complete ROS negative except as documented in HPI Patient Problems: Active and Suspected Problems TIA (transient ischemic attack) (Acute) Stroke-like symptoms (Acute) - Physical Exam General: Alert HEENT: Normocephalic Neck: Supple Lungs: Normal air movement Cardiovascular: Normal S1, Normal S2 Abdomen: Bowel Sounds Present Extremities: No cyanosis Neurological: - - Conscious, alert, CN II through XII grossly intact, power 5 x 5 both upper and lower extremities, no sensory loss, no cerebellar signs, gait deferred, reflexes + B/L B/S/T/K/A, NIHSS 0 at present, mRS 0 at baseline Psych/Mental Status: Normal Affect Vital Signs Temp Pulse Resp BP Pulse Ox 98.2 F 58 L 18 163/62 H 99 01/13/19 14:10 01/13/19 14:10 01/13/19 14:10 01/13/19 14:10 01/13/19 14:10 Oxygen Delivery Method Room Air Weight: 48 kg Body Mass Index (BMI) 18.7 Finger Stick Blood Glucose 119 Laboratory Tests Past 24 Hrs 01/13/19 01/13/19 01/13/19 11:40 11:40 11:40 WBC 9.0 RBC 3.97 L Hgb 13.5 Hct 39.5 MCV 99.5 H MCH 34.0 H MCHC 34.2 RDW Std Deviation 47.3 H RDW Coeff of Elvia 12.8 Plt Count 316 MPV 9.7 Immature Gran % (Auto) 0.400 Neut % (Auto) 65.4 Lymph % (Auto) 23.1 [place] % (Auto) 7.7 Eos % (Auto) 2.6 Baso % (Auto) 0.8 Absolute Neuts (auto) 5.9 Absolute Lymphs (auto) 2.07 Nucleated RBC % 0 PT 12.7 INR 1.0 APTT 23.9 L Sodium 136 Potassium 4.1 Chloride 102 Carbon Dioxide 26.0 Anion Gap 8 BUN 17 Creatinine 0.78 Estim Creat Clear Calc 38.29 Est GFR (MDRD) Af Amer 92 Est GFR (MDRD) Non-Af 76 BUN/Creatinine Ratio 21.7 H Glucose 98 Hemoglobin A1c Calcium 9.0 Magnesium Troponin I < 0.015 TSH 01/13/19 01/13/19 11:40 11:40 WBC RBC Hgb Hct MCV MCH MCHC RDW Std Deviation RDW Coeff of Elvia Plt Count MPV Immature Gran % (Auto) Neut % (Auto) Lymph % (Auto) [place] % (Auto) Eos % (Auto) Baso % (Auto) Absolute Neuts (auto) Absolute Lymphs (auto) Nucleated RBC % PT INR APTT Sodium Potassium Chloride Carbon Dioxide Anion Gap BUN Creatinine Estim Creat Clear Calc Est GFR (MDRD) Af Amer Est GFR (MDRD) Non-Af BUN/Creatinine Ratio Glucose Hemoglobin A1c Pending Calcium Magnesium 1.8 Troponin I TSH 1.06 POC Glucose 01/13/19 11:41 POC Glucose 119 H Assessment/Plan All Active Problems TIA (transient ischemic attack) (Acute) Stroke-like symptoms (Acute) The patient is a 74 year old F PMH HTN, chronic low back pain and neck pain, COPD, tobacco abuse, anxiety/depression admitted with strokelike symptoms. Per patient she is stooped down to remove the collar from her dog this morning 01/13/2019 at around 11 AM when she felt that both her legs were weak, had to be helped by the to get up, per documentation had noted right-sided facial weakness, right-sided weakness at that time, which had improved in about 15 to 20 minutes, NIHSS was 1 per ED documentation on admission. At present patient denies any focal motor weakness, sensory loss, headache, dizziness, speech disturbances, visual disturbances or facial weakness. Per patient she lives with her , does drive, denies any frequent falls, does not use any cane or walker to ambulate, does not need any help need assistance with her ADLs. She is not on aspirin at baseline. Patient has very easy bruisability. Impression Possible TIA Plan ?Started on aspirin 81 mg once daily. Bleeding risk discussed in detail with the patient. Patient she has easy bruisability, has multiple ecchymotic areas in the extremities and also around the right elbow. Patient not on aspirin at baseline. ?Lipitor 40 mg p.o. nightly ?CT head done on admission did not report anything acute. ?MRI brain without contrast ?CTA head/neck ?TTE ?LDL?, HbA1c? ?Stroke risk factors discussed in detail with the patient and stroke education provided. ?Patient counseled to quit smoking ?Permissive hypertension for at least 24 hours. ?PT/OT/ST ?GI/DVT prophylaxis ?Fall precautions ?Further medical management per hospitalist team ?Please call with questions if any ?Follow-up with neurology as outpatient in 3 to 4 weeks ?Thank you for allowing us to part spent in patient's care and management This note has been generated using [employer] dictation software. It may contain incorrect words, spellings and punctuation's that were not noted in the review of the note prior to signing. Code Visit Inpatient E&M: 78110 Init Hosp L3
[2019-01-13 14:57] LABS: Hemoglobin A1c 5.8 % (4.2-6.3)
[2019-01-13] MEDS: Aspirin 325 MG Tablet PO (16:19)
[2019-01-13] MEDS: 0.9% Normal Saline 1,000 ML 125 ML IV (16:19)
[2019-01-13] MEDS: Ipratropium/Albuterol Sulfate 3 ML AMPUL.NEB INHALATION (19:06)
[2019-01-13] MEDS: Acetaminophen 500 MG Tablet 1000 MG PO (22:04)
[2019-01-13] MEDS: Primidone 50 MG Tablet PO (22:04)
[2019-01-13] MEDS: Atorvastatin Calcium 40 MG Tablet PO (22:04)
[2019-01-14 00:10] VITALS: BMI 18.7
[2019-01-14] MEDS: 0.9% Normal Saline 1,000 ML 125 ML IV ×2 (00:17→08:56)
[2019-01-14 03:03] VITALS: PULSE 61
[2019-01-14 04:02] VITALS: BP 153/67; PULSE 64; RESP 10; TEMP 36.6; O2SAT 98
[2019-01-14] MEDS: Enoxaparin 40 MG/0.4 ML Syringe SC (05:57)
[2019-01-14 06:08] LABS: Absolute Lymphocyte Count 2.11 X10^3/uL (0.83-4.51); Absolute Neutrophil Count 3.7 X10^3/uL (2.0-7.7); Basophil# 0.07 X10^3/uL; Eosinophil# 0.25 X10^3/uL; Eosinophils% 3.7 % (0-5); Hemoglobin 12.1 g/dL (12.0-15.0); Lymphocyte # 2.11 X10^3/ul (4.0); Lymphocyte % 31.2 % (19-41); Mean Corp Hgb Conc 33.6 g/dL (32-36); Mean Corpuscular Hgb 33.2 pg (27.0-32.0); Mean Corpuscular Volume 98.9 fL (81-99); Mean Platelet Vol. 9.9 fl (6.2-12.0); Monocyte# 0.61 X10^3/uL; NRBC Flagged by Analyzer 0 % (0-5); Neutrophil % 54.7 % (47-70); Platelet Count 286 K/mm3 (150-450); RBC Distribution Width CV 13.1 % (11.6-14.6); RBC Distribution Width SD 47.7 fl (35.1-43.9); Red Blood Count 3.64 M/mm3 (4.2-5.4); White Blood Count 6.8 K/mm3 (4.4-11.0)
[2019-01-14 06:29] LABS: Anion Gap 6 (5-15); BUN 18 mg/dL (7-18); BUN/Creat Ratio 28.1 RATIO (10-20); Calcium,Total 8.4 mg/dL (8.5-10.1); Chloride 109 mmol/L (98-107); Cholesterol 204 mg/dL (200); Creatinine, Serum 0.64 mg/dL (0.55-1.02); EST Glomerular Filtration Rate 96 mL/min (>60); Est Glom Filt Rate - Afr Amer 116 mL/min (>60); Estimated Creatinine Clearance 36.83 ml/min; Glucose 94 mg/dL (74-106); High Density Lipoprotein 73 mg/dL; Potassium 4.2 mmol/L (3.5-5.1); Sodium Level 140 mmol/L (136-145); Triglycerides 133 mg/dL; Very Low Density Lipoprotein 27 mg/dL (5-40)
[2019-01-14 07:11] VITALS: PULSE 62
[2019-01-14] MEDS: Ipratropium/Albuterol Sulfate 3 ML AMPUL.NEB INHALATION ×2 (07:30→14:02)
[2019-01-14 08:03] VITALS: O2SAT 96
[2019-01-14] MEDS: Sertraline 50 MG Tablet PO (08:54)
[2019-01-14] MEDS: tiZANidine HCl 2 MG Tablet 4 MG PO (08:54)
[2019-01-14] MEDS: Primidone 50 MG Tablet PO (08:55)
[2019-01-14] MEDS: Aspirin 81 MG TAB.CHEW PO (08:55)
[2019-01-14] MEDS: Loratadine 10 MG Tablet 5 MG PO (08:55)
[2019-01-14 09:14] VITALS: BP 155/53; PULSE 66; RESP 18; TEMP 36.8; O2SAT 100
--- NOTE | 2019-01-14 11:02 | CASEMGMT ---
SW completed PHQ-9 as patient may have had a TIA per Neurology's note. However, when SW went to complete document patient told SW the doctor told her she did not have either. However, she was willing to complete a PHQ-9 with SW. Patient scored a 2 which indicates minimal depression. Kimberli THOMAS MSW
--- NOTE | 2019-01-14 11:16 | DCINST_ITS ---
- Discharge Diagnoses Current Active Problems: Current Active and Chronic Problems TIA (transient ischemic attack) (Acute) Stroke-like symptoms (Acute) COPD (chronic obstructive pulmonary disease) (Chronic) Hypertension (Chronic) Tobacco use (Chronic) Chronic back pain (Chronic) Essential tremor (Chronic) Chronic malnutrition (Chronic) You will use the following diet at home:: Regular Your food should be the consistency of: Regular Discharge Activity: May Not Drive Call your doctor if you observe: Fever of 101 or Higher, Numbness or Tingling, Inability to urinate, Inability to have a bowel movement, Using more than one pad per hour, Shortness of breath, Dizziness, Fainting spells, Swelling in the ankles, Chest pain, Increased palpitations (irregular heartbeat) Allergies/Adverse Reactions: Allergies amoxicillin Allergy (Verified 09/01/17 16:25) Hives prednisone Adverse Reaction (Verified 09/01/17 16:25) Unknown Medications to take at Discharge Acetaminophen [Tylenol] 1,000 mg PO QHS 01/13/19 Albuterol IH (ProAir) [Proair Hfa] 2 puff INHALATION Q6H PRN PRN 01/13/19 Ascorbic Acid [Vitamin C] 1,000 mg PO DAILY 01/13/19 Biotin 5 mg PO DAILY 01/13/19 Budesonide/Formoterol 160/4.5 [Symbicort 160/4.5 Mcg Inhaler (SP)] 2 inhaler INHALATION BID 01/13/19 Cholecalciferol (Vitamin D3) [Vitamin D3] 1,000 unit PO DAILY 01/13/19 Levocetirizine Dihydrochloride [Xyzal] 5 mg PO DAILY PRN 01/13/19 Lorazepam [Ativan] 0.5 mg PO DAILY PRN 01/13/19 Metoprolol Succinate 25 mg PO BID 01/13/19 Primidone 50 mg PO BID 01/13/19 Sertraline HCl [Zoloft] 50 mg PO DAILY 01/13/19 Topiramate [Topamax] 50 mg PO DAILY 01/13/19 Aspirin [Aspirin, Baby] 81 mg PO DAILY@0800 #30 tab.chew 01/14/19 Atorvastatin Calcium [Lipitor] 40 mg PO QHS #30 tab 01/14/19 Tizanidine HCl [Zanaflex] 2 mg PO DAILY #0 08/27/19 The following prescriptions were given: Aspirin [Aspirin, Baby] 81 mg PO DAILY@0800 #30 tab.chew Transmission Status: Pending to [id number] Atorvastatin Calcium [Lipitor] 40 mg PO QHS #30 tab Transmission Status: Pending to [id number] Primary Care Physician: Kelly Leone DO [Primary Care Provider] - Please follow up with your Primary Care Physician in: in 1-2 week Test Results: Test results from this visit will be discussed in further detail at your follow- up appointment, if applicable. Please Follow Up With: Frederick Spencer MD When: in 4 weeks Please Follow Up With: Raleigh Gonzalez MD When: in 4 weeks for subclavian steel syndrome.
--- NOTE | 2019-01-14 11:22 | PN.NEURO_ITS ---
Patient Problems: Active and Suspected Problems TIA (transient ischemic attack) (Acute) Stroke-like symptoms (Acute) Subjective: No issues overnight. MRI brain did not show any acute stroke. CTA head/neck did not show any hemodynamically significant stenosis of the ICA but reported to show moderate stenosis proximal left vertebral artery and subclavian artery. No symptoms suggestive of subclavian steal clinically at present. - Physical Exam General: Alert HEENT: Normocephalic Neck: Supple Lungs: Normal air movement Cardiovascular: Normal S1, Normal S2 Abdomen: Bowel Sounds Present Extremities: No cyanosis Neurological: - - Conscious, alert, CN II through XII grossly intact, power 5 x 5 both upper and lower extremities, no sensory loss, no cerebellar signs, gait deferred, reflexes + B/L B/S/T/K/A, NIHSS 0 at present, mRS 0 at baseline Psych/Mental Status: Normal Affect Vital Signs Temp Pulse Resp BP Pulse Ox 98.2 F 66 18 155/53 H 100 01/14/19 09:14 01/14/19 09:14 01/14/19 09:14 01/14/19 09:14 01/14/19 09:14 Oxygen Delivery Method Room Air Weight: 48 kg Body Mass Index (BMI) 18.7 Finger Stick Blood Glucose 119 Intake and Output for Last 24 Hours 01/12/19 01/13/19 01/14/19 23:59 23:59 23:59 Intake Total 960 / 960 Balance 960 / 960 Laboratory Tests Past 24 Hrs 01/13/19 01/13/19 01/13/19 11:40 11:40 11:40 WBC 9.0 RBC 3.97 L Hgb 13.5 Hct 39.5 MCV 99.5 H MCH 34.0 H MCHC 34.2 RDW Std Deviation 47.3 H RDW Coeff of Elvia 12.8 Plt Count 316 MPV 9.7 Immature Gran % (Auto) 0.400 Neut % (Auto) 65.4 Lymph % (Auto) 23.1 [place] % (Auto) 7.7 Eos % (Auto) 2.6 Baso % (Auto) 0.8 Absolute Neuts (auto) 5.9 Absolute Lymphs (auto) 2.07 Nucleated RBC % 0 PT 12.7 INR 1.0 APTT 23.9 L Sodium 136 Potassium 4.1 Chloride 102 Carbon Dioxide 26.0 Anion Gap 8 BUN 17 Creatinine 0.78 Estim Creat Clear Calc 38.29 Est GFR (MDRD) Af Amer 92 Est GFR (MDRD) Non-Af 76 BUN/Creatinine Ratio 21.7 H Glucose 98 Hemoglobin A1c Calcium 9.0 Magnesium Troponin I < 0.015 Triglycerides Cholesterol LDL Cholesterol VLDL Cholesterol HDL Cholesterol TSH 01/13/19 01/13/19 01/14/19 11:40 11:40 05:40 WBC 6.8 RBC 3.64 L Hgb 12.1 Hct 36.0 L MCV 98.9 MCH 33.2 H MCHC 33.6 RDW Std Deviation 47.7 H RDW Coeff of [place]via 13.1 Plt Count 286 MPV 9.9 Immature Gran % (Auto) 0.400 Neut % (Auto) 54.7 Lymph % (Auto) 31.2 [place] % (Auto) 9.0 Eos % (Auto) 3.7 Baso % (Auto) 1.0 Absolute Neuts (auto) 3.7 Absolute Lymphs (auto) 2.11 Nucleated RBC % 0 PT INR APTT Sodium Potassium Chloride Carbon Dioxide Anion Gap BUN Creatinine Estim Creat Clear Calc Est GFR (MDRD) Af Amer Est GFR (MDRD) Non-Af BUN/Creatinine Ratio Glucose Hemoglobin A1c 5.8 Calcium Magnesium 1.8 Troponin I Triglycerides Cholesterol LDL Cholesterol VLDL Cholesterol HDL Cholesterol TSH 1.06 01/14/19 05:40 WBC RBC Hgb Hct MCV MCH MCHC RDW Std Deviation RDW Coeff of [place]via Plt Count MPV Immature Gran % (Auto) Neut % (Auto) Lymph % (Auto) [place] % (Auto) Eos % (Auto) Baso % (Auto) Absolute Neuts (auto) Absolute Lymphs (auto) Nucleated RBC % PT INR APTT Sodium 140 Potassium 4.2 Chloride 109 H Carbon Dioxide 25.0 Anion Gap 6 BUN 18 Creatinine 0.64 Estim Creat Clear Calc 36.83 Est GFR (MDRD) Af Amer 116 Est GFR (MDRD) Non-Af 96 BUN/Creatinine Ratio 28.1 H Glucose 94 Hemoglobin A1c Calcium 8.4 L Magnesium Troponin I Triglycerides 133 Cholesterol 204 H LDL Cholesterol 104 VLDL Cholesterol 27 HDL Cholesterol 73 TSH POC Glucose 01/13/19 11:41 POC Glucose 119 H Medical Necessity - Tobacco Use Smoking Status: Current every day smoker Tobacco Use: Cigarettes Assessment/Plan All Active Problems TIA (transient ischemic attack) (Acute) Stroke-like symptoms (Acute) The patient is a 74 year old F PMH HTN, chronic low back pain and neck pain, COPD, tobacco abuse, anxiety/depression admitted with strokelike symptoms. Per patient she is stooped down to remove the collar from her dog yesterday morning 01/13/2019 at around 11 AM when she felt that both her legs were weak, had to be helped by the to get up, per documentation had noted right-sided facial weakness, right-sided weakness at that time, which had improved in about 15 to 20 minutes, NIHSS was 1 per ED documentation on admission. At present patient denies any focal motor weakness, sensory loss, headache, dizziness, speech disturbances, visual disturbances or facial weakness. Per patient she lives with her , does drive, denies any frequent falls, does not use any cane or walker to ambulate, does not need any help need assistance with her ADLs. She is not on aspirin at baseline. Patient has very easy bruisability. Impression Possible TIA Plan ?Started on aspirin 81 mg once daily. Bleeding risk discussed in detail with the patient. Patient she has easy bruisability, has multiple ecchymotic areas in the extremities and also around the right elbow. Patient not on aspirin at baseline. ?Lipitor 40 mg p.o. nightly ?CT head done on admission did not report anything acute. ?MRI brain without contrast no acute stroke ?CTA head/neck did not show any hemodynamically significant stenosis of the ICA but reported to show moderate stenosis proximal left vertebral artery and subclavian artery. But no symptoms of subclavian steal present clinically at present ?TTE-p ?LDL?104, HbA1c?5.8 ?Vascular surgery consult as outpatient for moderate subclavian stenosis as reported in the CTA head/neck. ?Stroke risk factors discussed in detail with the patient and stroke education provided. ?Patient counseled to quit smoking ?Goal blood pressure less than 130/80 mmHg and goal HbA1c less than 7%. ?PT/OT/ST ?GI/DVT prophylaxis ?Fall precautions ?Further medical management per hospitalist team ?Please call with questions if any ?Follow-up with neurology as outpatient in 3 to 4 weeks ?Thank you for allowing us to part spent in patient's care and management This note has been generated using [employer] software. It may contain incorrect words, spellings and punctuation's that were not noted in the review of the note prior to signing.
--- NOTE | 2019-01-14 12:36 | CASEMGMT ---
TERRI NORRIS Note: Intro role of CM to patient and [facility] form explained re: Observation status for treatment of TIA. Explained hospitalization will be paid per? insurance policy for Outpatient billing?and condition will continue to be evaluated for Inpt necessity. Also let pt know that [facility] sends paper in the billing packet with their phone number if questions arise. Discussed Pharmacy section of [facility] form and self administered medication guideline.? Pt verbalizes understanding and does not have further questions. Form signed and placed in chart, copy to pt. ALLISON MURRAY BSN CM
--- NOTE | 2019-01-14 13:21 | PCM.DC.SUM ---
Discharge Date and Diagnosis - Problem List Patient Problems: Active and Suspected Problems TIA (transient ischemic attack) (Acute) Stroke-like symptoms (Acute) Date of Admission: 01/13/19 Date of Discharge: 01/14/19 - Primary Discharge Diagnosis Active and Suspected Problems TIA (transient ischemic attack) (Acute) - Secondary Discharge Diagnosis Chronic Problems COPD (chronic obstructive pulmonary disease) (Chronic) Hypertension (Chronic) Tobacco use (Chronic) Chronic back pain (Chronic) Essential tremor (Chronic) Chronic malnutrition (Chronic) Hospital Course and Treatment Summary of Care Provided: The patient is a 74 year old F with multiple comorbidities including hypertension, COPD, chronic neck and back pain follows Dr. Vasquez and is on pain management and muscle relaxant was admitted which she felt both legs for a week when she bent down to remove collar from her dog. As per the , she also had right-sided facial drooping, right-sided weakness at that time which improved in 15 to 20 minutes. In ED, NIH stroke scale was 1. The patient was admitted on PCU. Full stroke work-up was done. MRI brain is negative. CTA head and neck did not report acute. CTA head neck shows moderate proximal stenosis of left vertebral artery and subclavian artery. On exam, no clinical findings of subclavian steal syndrome was found. Patient was started on baby aspirin although she has minor easy bruising. Fasting profile shows total cholesterol 204, LDL 104, TG 133, HDL 73. Started on atorvastatin 40 mg daily. A1c 5.8. Patient had TTE reported normal. EF 60%. Normal left atrium. Bubble contrast study negative. Patient was seen by PT OT speech evaluation. PT recommended outpatient rehab. Patient was advised for fall precaution. Discharge medication reconciliation done. Discharge follow-up instructions completed. Discharge process discussed with the patient and all questions were answered to patient's satisfaction. Follow-up in neurology clinic in 4 weeks, vascular surgery, Dr. Gonzalez in 4 weeks and PCP in 1 to 2 weeks. Patient was counseled for smoking cessation. Total time spent, exact 35 minutes on discharge meds reconciliation, examination, review of imaging and blood test and discussion with the patient on follow-up instructions. [] Laboratory Results 01/13/19 11:40: Magnesium 1.8, TSH 1.06 01/13/19 11:40: Hemoglobin A1c 5.8 01/14/19 05:40: WBC 6.8, RBC 3.64 L, Hgb 12.1, Hct 36.0 L, MCV 98.9, MCH 33.2 H, MCHC 33.6, RDW Std Deviation 47.7 H, RDW Coeff of Elvia 13.1, Plt Count 286, MPV 9.9, Immature Gran % (Auto) 0.400, Neut % (Auto) 54.7, Lymph % (Auto) 31.2, [place] % (Auto) 9.0, Eos % (Auto) 3.7, Baso % (Auto) 1.0, Absolute Neuts (auto) 3.7, Absolute Lymphs (auto) 2.11, Nucleated RBC % 0 01/14/19 05:40: Sodium 140, Potassium 4.2, Chloride 109 H, Carbon Dioxide 25.0, Anion Gap 6, BUN 18, Creatinine 0.64, Estim Creat Clear Calc 36.83, Est GFR (MDRD) Af Amer 116, Est GFR (MDRD) Non-Af 96, BUN/Creatinine Ratio 28.1 H, Glucose 94, Calcium 8.4 L, Triglycerides 133, Cholesterol 204 H, LDL Cholesterol 104, VLDL Cholesterol 27, HDL Cholesterol 73 Clinical Impression(s) from Imaging Studies Brain CT 01/13/19 11:47 IMPRESSION: No acute intracranial process. Small vessel ischemia. 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 Electronically Signed: Nba Garcias MD at 16:21 EDT , Service support , Head/Neck CTA 01/13/19 14:08 IMPRESSION: Moderate stenosis proximal left vertebral artery and subclavian artery. Query subclavian steal syndrome. Moderate stenosis proximal right vertebral artery. Patient Problems: Active and Suspected Problems TIA (transient ischemic attack) (Acute) Stroke-like symptoms (Acute) - Physical Exam General: Alert, Oriented x3, Cooperative HEENT: Atraumatic, PERRLA, EOMI, Normocephalic Neck: Supple, No JVD, Negative Carotid Bruits Lungs: Clear to auscultation, No rhonchi, No wheeze, No rales, Diminished Cardiovascular: Regular rate, Regular Rhythm, Normal S1, Normal S2, Murmur - Systolic murmur present. Abdomen: Bowel Sounds Present, Soft, Non Tender, Non-Distended Extremities: No edema, Capillary Refill Less than 3 Seconds, - - To examine clinically significant left subclavian stenosis, left upper extremity was raised and active rotation was done but patient did not feel dizzy, lightheaded or blurry vision. No arm claudication. Skin: No rashes, No breakdown Musculoskeletal: No Tenderness to Palpation of Joints or Extremities, Arthritic Changes, Muscle Wasting Neurological: Cranial nerves II-XII grossly intact, Deep Tendon Reflexes 2+/4 and Symmetrical, Neuro grossly intact, Motor Exam 5/5 strength throughout - Gross muscle strength is 5/5 at major joints in upper and lower extremities. Psych/Mental Status: Normal Affect, Appropriate Vital Signs Temp Pulse Resp BP Pulse Ox 98.2 F 66 18 155/53 H 100 01/14/19 09:14 01/14/19 09:14 01/14/19 09:14 01/14/19 09:14 01/14/19 09:14 Oxygen Delivery Method Room Air Weight: 105 lb 13.15 oz Body Mass Index (BMI) 18.7 Finger Stick Blood Glucose 119 Intake and Output for Last 24 Hours 01/12/19 01/13/19 01/14/19 23:59 23:59 23:59 Intake Total 960 / 960 2423.75 / 2423.75 Balance 960 / 960 2423.75 / 2423.75 Laboratory Tests Past 24 Hrs 01/13/19 01/13/19 01/14/19 11:40 11:40 05:40 WBC 6.8 RBC 3.64 L Hgb 12.1 Hct 36.0 L MCV 98.9 MCH 33.2 H MCHC 33.6 RDW Std Deviation 47.7 H RDW Coeff of Elvia 13.1 Plt Count 286 MPV 9.9 Immature Gran % (Auto) 0.400 Neut % (Auto) 54.7 Lymph % (Auto) 31.2 [place] % (Auto) 9.0 Eos % (Auto) 3.7 Baso % (Auto) 1.0 Absolute Neuts (auto) 3.7 Absolute Lymphs (auto) 2.11 Nucleated RBC % 0 Sodium Potassium Chloride Carbon Dioxide Anion Gap BUN Creatinine Estim Creat Clear Calc Est GFR (MDRD) Af Amer Est GFR (MDRD) Non-Af BUN/Creatinine Ratio Glucose Hemoglobin A1c 5.8 Calcium Magnesium 1.8 Triglycerides Cholesterol LDL Cholesterol VLDL Cholesterol HDL Cholesterol TSH 1.06 01/14/19 05:40 WBC RBC Hgb Hct MCV MCH MCHC RDW Std Deviation RDW Coeff of Elvia Plt Count MPV Immature Gran % (Auto) Neut % (Auto) Lymph % (Auto) [place] % (Auto) Eos % (Auto) Baso % (Auto) Absolute Neuts (auto) Absolute Lymphs (auto) Nucleated RBC % Sodium 140 Potassium 4.2 Chloride 109 H Carbon Dioxide 25.0 Anion Gap 6 BUN 18 Creatinine 0.64 Estim Creat Clear Calc 36.83 Est GFR (MDRD) Af Amer 116 Est GFR (MDRD) Non-Af 96 BUN/Creatinine Ratio 28.1 H Glucose 94 Hemoglobin A1c Calcium 8.4 L Magnesium Triglycerides 133 Cholesterol 204 H LDL Cholesterol 104 VLDL Cholesterol 27 HDL Cholesterol 73 TSH Discharge Activity: May Not Drive Call your doctor if you observe: Fever of 101 or Higher, Numbness or Tingling, Inability to urinate, Inability to have a bowel movement, Using more than one pad per hour, Shortness of breath, Dizziness, Fainting spells, Swelling in the ankles, Chest pain, Increased palpitations (irregular heartbeat) Home Medications: Medications to take at Discharge Acetaminophen [Tylenol] 1,000 mg PO QHS 01/13/19 Albuterol IH (ProAir) [Proair Hfa] 2 puff INHALATION Q6H PRN PRN 01/13/19 Ascorbic Acid [Vitamin C] 1,000 mg PO DAILY 01/13/19 Biotin 5 mg PO DAILY 01/13/19 Budesonide/Formoterol 160/4.5 [Symbicort 160/4.5 Mcg Inhaler (SP)] 2 inhaler INHALATION BID 01/13/19 Cholecalciferol (Vitamin D3) [Vitamin D3] 1,000 unit PO DAILY 01/13/19 Levocetirizine Dihydrochloride [Xyzal] 5 mg PO DAILY PRN 01/13/19 Lorazepam [Ativan] 0.5 mg PO DAILY PRN 01/13/19 Metoprolol Succinate 25 mg PO BID 01/13/19 Primidone 50 mg PO BID 01/13/19 Sertraline HCl [Zoloft] 50 mg PO DAILY 01/13/19 Topiramate [Topamax] 50 mg PO DAILY 01/13/19 Aspirin [Aspirin, Baby] 81 mg PO DAILY@0800 #30 tab.chew 01/14/19 Atorvastatin Calcium [Lipitor] 40 mg PO QHS #30 tab 01/14/19 Tizanidine HCl [Zanaflex] 2 mg PO DAILY #0 01/14/19 Following Prescrptions Were Given to Patient: Aspirin [Aspirin, Baby] 81 mg PO DAILY@0800 #30 tab.chew Transmission Status: Pending to [id number] Atorvastatin Calcium [Lipitor] 40 mg PO QHS #30 tab Transmission Status: Pending to [id number] Primary Care Physician: Kelly Leone DO [Primary Care Provider] - Please follow up with your Primary Care Physician in: in 1-2 week Please Follow Up With: Frederick Spencer MD When: in 4 weeks Please Follow Up With: Raleigh Gonzalez MD When: in 4 weeks for subclavian steel syndrome. Medical Necessity - Tobacco Use Smoking Status: Current every day smoker Tobacco Use: Cigarettes Meaningful Use Info Meaningful Use Diagnoses (Choose all that apply): None applicable Code Visit OBSV E&M: 86381 Observation care discharge
--- NOTE | 2019-01-14 13:36 | CASEMGMT ---
Therapy is recommending OP PT for pt at this time. This RN CM to room to discuss therapy recommendations at this time and pt declines OP therapy at this time. Pt voices no further questions/concerns/needs at this time. S[place]en RN CM
== END 2019-01-14 13:51 | disposition home or self-care (01) ==
LOC: ED 12:58 → PCU 01-14 07:23
PROVIDERS: Admitting Provider Family Medicine; Emergency Provider Emergency Medicine; Family Provider Internal Medicine; PCP Internal Medicine; Referring Provider Family Medicine; Visit Provider Internal Medicine
DX: G45.9 Transient cerebral ischemic attack, unspecified (principal); J44.9 Chronic obstructive pulmonary disease, unspecified; I10 Essential (primary) hypertension; G25.0 Essential tremor; G89.29 Other chronic pain; E43 Unspecified severe protein-calorie malnutrition; Z68.1 Body mass index [BMI] 19.9 or less, adult; F17.210 Nicotine dependence, cigarettes, uncomplicated; R29.810 Facial weakness; R47.81 Slurred speech; Z79.899 Other long term (current) drug therapy; Z79.51 Long term (current) use of inhaled steroids; Z79.891 Long term (current) use of opiate analgesic; G43.909 Migraine, unspecified, not intractable, without status migrainosus; F41.9 Anxiety disorder, unspecified; F32.9 Major depressive disorder, single episode, unspecified
CPT/HCPCS: 36415; 70450; 70496; 70498; 70551; 71045; 80048; 80061; 82962; 83036; 83735; 84443; 84484; 85025; 85610; 85730; 92610; 93005; 93306; 94640; 96360; 96361; 96372; 97162; 97166; 99218; 99284; 99406; J7030; Q9967; A4216; G0378

== ENCOUNTER 2019-08-01 13:00 | Outpatient (RCR) | payer MEDICARE, SELFPAY ==
--- NOTE | 2019-06-24 16:09 | HP.PTEVAL_ITS ---
Patient's Visit Information LYNN MEYERS is a 74 year old F referred to Physical Therapy by Kelly Leone DO with a diagnosis of Sciatica. lumbar DDD. Date of Evaluation: 06/24/19 Physical Therapist: Kenyon Cintron DPT, OCS, CSCS - Visit Plan Frequency: 2x /Week Duration: 4-6 Weeks Plan: 2x/week for 3-6 weeks starting with AT for core adn LE strength and ROM lumbar and thoracic. Teach NS. May progress to I pool or land exercises depending on patients desire. start with 3 weeks in the water. - Subjective Findings: I have scoliosis and arthirtis. Sciatica is bad. Also has tremors. Daily back pain, from R neck to LB and R LE laterally. Daily gets to 6/10 much of time. Worse with walking adn steps to basement. Sweeping adn cleaning is worse. Feels better to sit. Lying in recliner or bed is pretty good. Needs to lie down daily. Sleep is not great but not due to back pain. Basic ADLS and bathing and bathrrom and dress are all I. Not employed. Spends day cookign adn cleaning and shopping. Lives with and a dog and cat. Had one fall when dog took bath rug away, otherwise no falls. - Pain LB, R LE Pain Intensity (Out of 10): 1 Pain Intensity Range: 0, 8 - Objective R rib hum thoracic scolisosis. Kyphotic thoracic posture, decreased lumbar lordosis. LB AROM, ext max limited, flexion mod limited, SB mod limited B, all without increased pain today. LE flexibility WFL. reflexes 2/3 patella and achilles without clonus, does havve some tremors in hands as she sits. Sensa tion LE WNL to gross light touch. Strength LE 4/5 ankles and knees, 4- hips and 3+ core. UE AROM and strength WFL. - slump and SLR test. - lumbar compression test. - Balance Scores Functional Gait Assessment Score: 25 % Disability: 16.6700 - Goals Goal 1:: Patient feel 75% better overall in pain with 1/10 at worst. Goal Time Frame: 4-6 Weeks Goal 2:: Able to housekeeper cleaning cooking without increased pain. Goal Time Frame: 4-6 Weeks Goal 3:: I appropr HEP to minimize future problems. Goal Time Frame: 4-6 Weeks Goal 4:: Oswestry 25% disability or less Goal Time Frame: 4-6 Weeks - Rehabilitation Potential Physical Therapy Diagnosis: Sciatica Rehabilitation Potential: Fair - Anticipated Interventions Patient/Client Instruction: Educate patient on: Condition, Plan of Care For the Purpose of:: To decrease pain, To improve muscle performance and motor function, To increase tolerance to activity/condition/position, To improve ability of physical actions for home/community/work/leisure Therapeutic Exercise to Include: Strength training, Postural training, Flexibilty training, Gait and locomotor training, Neuromotor development, In an aquatic setting, Passive ROM, Active ROM, Dynamic Lumbar Stabilization For the Purpose of:: To decrease pain, To improve muscle performance and motor function, To increase tolerance to activity/condition/position, To improve ability of physical actions for home/community/work/leisure Thank you for the opportunity to evaluate your patient. For Medicare and Medicare HMO plans, please review the plan of care and approve it. It will need to be FAXED BACK to us at [phone] for Medicare purposes. For Medicare only, by signing this I certify the plan of care. Please let me know if there are questions or concerns regarding this plan of care. Physician Signature: Date:
--- NOTE | 2019-07-17 11:16 | HP.PTREVAL_ITS ---
Kelly Leone, DO, It has been my pleasure to treat LYNN MEYERS over the last 8 visits for Sciatica. lumbar DDD. Please see the progress note below for an update on the physical therapy plan of care! Subjective: Still sore R shoulder adn down sciatic. Up to 5/10 daily. Feels good when gets out of water but the same by the time she gets home. Sleeping is fine. Lukas had pain clinic in past which made her back worse. Also had other treatment LB whcih did not help. Dr. Vasquez's office has her on pain pills 3x/day. Will see pain doctor in three weeks. Doing neck ROM at home and LE stretches quad daily. Objective/Function: LB AROM ext min limited no pain increased. Flexion mod limited with tightness HS described as pain. sB full without pain. Pt ambulates I but stiff in legs and trunk with very little movment. 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 Goals appropriate but progress will be slow. Plan Plan: 2x/week for 3 weeks for. continued pool instruction in ex to gain I with ...core strength, HS/quad stretching, LE strength adn UE /postural strength then pics to I. Goals Goal 1:: Patient feel 75% better overall in pain with 1/10 at worst. Goal Time Frame: 4-6 Weeks Goal Progress: Not Progressing Goal 2:: Able to cooker sulfate without increased pain. Goal Time Frame: 4-6 Weeks Goal Progress: Not Progressing Goal 3:: I appropr HEP to minimize future problems. Goal Time Frame: 4-6 Weeks Goal Progress: Progressing Goal 4:: Oswestry 25% disability or less Goal Time Frame: 4-6 Weeks Goal Progress: not met. Anticipated Interventions Patient/Client Instruction: Educate patient on: Condition, Plan of Care For the Purpose of:: To decrease pain, To improve muscle performance and motor function, To increase tolerance to activity/condition/position, To improve ability of physical actions for home/community/work/leisure Therapeutic Exercise to Include: Strength training, Postural training, Flexibilty training, Gait and locomotor training, Neuromotor development, In an aquatic setting, Passive ROM, Active ROM, Dynamic Lumbar Stabilization For the Purpose of:: To decrease pain, To improve muscle performance and motor function, To increase tolerance to activity/condition/position, To improve ability of physical actions for home/community/work/leisure Please do not hesitate to contact me at [phone] by phone or if you have questions or concerns regarding this new plan of care! Sincerely, Kenyon Cintron, IVÁNT, OCS, CSCS
--- NOTE | 2019-07-23 11:45 | HP.PTREVAL_ITS ---
Kelly Leone, DO, It has been my pleasure to treat LYNN MEYERS over the last 9 visits for Sciatica. lumbar DDD. Please see the progress note below for an update on the physical therapy plan of care! Subjective: Wants to do land onstead of pool, more likely to stic with it senior care. Will change appointments up front. Objective/Function: Did well with exercises adn can do at home. Same POC on land instad of in pool, same goals, fair prognosis Plan Plan: Change of plan to 2x/week for 3 weeks for land based therapy... ensure LB ROM and add HS stretch, mat based adn band based core and postural strength to HEP as tolerated, also RC strength. Goals Goal 1:: Patient feel 75% better overall in pain with 1/10 at worst. Goal Time Frame: 4-6 Weeks Goal Progress: Not Progressing Goal 2:: Able to cooker cleaner without increased pain. Goal Time Frame: 4-6 Weeks Goal Progress: Not Progressing Goal 3:: I appropr HEP to minimize future problems. Goal Time Frame: 4-6 Weeks Goal Progress: Progressing Goal 4:: Oswestry 25% disability or less Goal Time Frame: 4-6 Weeks Goal Progress: not met. Anticipated Interventions Patient/Client Instruction: Educate patient on: Condition, Plan of Care For the Purpose of:: To decrease pain, To improve muscle performance and motor function, To increase tolerance to activity/condition/position, To improve ability of physical actions for home/community/work/leisure Therapeutic Exercise to Include: Strength training, Postural training, Flexibilty training, Gait and locomotor training, Neuromotor development, In an aquatic setting, Passive ROM, Active ROM, Dynamic Lumbar Stabilization For the Purpose of:: To decrease pain, To improve muscle performance and motor function, To increase tolerance to activity/condition/position, To improve ability of physical actions for home/community/work/leisure Please do not hesitate to contact me at [phone] by phone or if you have questions or concerns regarding this new plan of care! Sincerely, Kenyon Cintron, DPT, OCS, CSCS
--- NOTE | 2019-10-14 14:32 | HP.PT.NRP ---
LYNN MEYERS was seen in my office for initial evaluation on 06/24/19. The following Plan of Care was established for this patient: Initial Frequency: 2x /Week Initial Duration: 4-6 Weeks Patient/Client Instruction: Educate patient on: Condition, Plan of Care For the Purpose of:: To decrease pain, To improve muscle performance and motor function, To increase tolerance to activity/condition/position, To improve ability of physical actions for home/community/work/leisure Therapeutic Exercise to Include: Strength training, Postural training, Flexibilty training, Gait and locomotor training, Neuromotor development, In an aquatic setting, Passive ROM, Active ROM, Dynamic Lumbar Stabilization For the Purpose of:: To decrease pain, To improve muscle performance and motor function, To increase tolerance to activity/condition/position, To improve ability of physical actions for home/community/work/leisure This patient was last seen in our office 08/01/19. Pertinent comments regarding their Physical therapy will appear below: Pt seen 11 visits adn was doing pretty well with her therapy. She cancelled or no showed the next 2 weeks of visits presumably due to coronavirus. I have called two times to see if she needed to return unable to get thorough. I will disocntinue at this time due to nonattendance. At this point I will be discontinuing this patient from physical therapy. I would be happy to see this patient again in the future if found appropriate by the physician. Thank you! Kenyon Cintron, DPT, OCS, CSCS
== END 2019-08-01 19:00 | disposition home or self-care (01) ==
LOC: PT 13:00
PROVIDERS: Family Provider Internal Medicine; PCP Internal Medicine; Referring Provider Internal Medicine; Visit Provider Internal Medicine
DX: M51.16 Intervertebral disc disorders with radiculopathy, lumbar region (principal)
CPT/HCPCS: 97110; 97113; 97162; 97164

== ENCOUNTER → 2019-10-07 11:13 | Outpatient (CLI) | payer MEDICARE, SELFPAY ==
[2019-10-07 12:50] LABS: Absolute Lymphocyte Count 1.45 X10^3/uL (0.83-4.51); Absolute Neutrophil Count 6.5 X10^3/uL (2.0-7.7); Basophil# 0.08 X10^3/uL; Basophil% 0.9 % (0-1); Eosinophil# 0.23 X10^3/uL; Eosinophils% 2.6 % (0-5); Lymphocyte # 1.45 X10^3/ul (4.0); Lymphocyte % 16.3 % (19-41); Mean Corp Hgb Conc 32.5 g/dL (32-36); Mean Corpuscular Hgb 33.1 pg (27.0-32.0); Mean Corpuscular Volume 101.8 fL (81-99); Mean Platelet Vol. 10.2 fl (6.2-12.0); Monocyte# 0.56 X10^3/uL; Monocyte% 6.3 % (0-10); NRBC Flagged by Analyzer 0 % (0-5); Neutrophil # 6.52 X10^3/uL (2.7-7.7); Neutrophil % 73.6 % (47-70); Platelet Count 350 K/mm3 (150-450); RBC Distribution Width CV 12.9 % (11.6-14.6); RBC Distribution Width SD 48.8 fl (35.1-43.9); Red Blood Count 3.93 M/mm3 (4.2-5.4); White Blood Count 8.9 K/mm3 (4.4-11.0)
[2019-10-07 13:06] LABS: Vitamin D,25 Hydroxy 33.2 ng/mL
[2019-10-07 13:12] LABS: ALB/GLOB Ratio 1.2 RATIO (0.9-2.4); AST(SGOT) 15 U/L (15-37); Alanine Aminotransfer ALT/SGPT 30 U/L (13-56); Alkaline Phosphatase 59 U/L (45-117); Anion Gap 6 (5-15); BUN 17 mg/dL (7-18); BUN/Creat Ratio 22.4 RATIO (10-20); Calcium,Total 9.1 mg/dL (8.5-10.1); Chloride 101 mmol/L (98-107); Cholesterol 238 mg/dL (200); Creatinine, Serum 0.76 mg/dL (0.55-1.02); EST Glomerular Filtration Rate 79 mL/min (>60); Est Glom Filt Rate - Afr Amer 95 mL/min (>60); Globulin 3.3 g/dL (2.2-4.2); Glucose 102 mg/dL (74-106); High Density Lipoprotein 98 mg/dL; Potassium 3.7 mmol/L (3.5-5.1); Protein, Total 7.3 g/dL (6.4-8.2); Sodium Level 135 mmol/L (136-145); Thyroid Stim Hormone (TSH) 1.02 uIU/mL (0.358-3.74); Triglycerides 103 mg/dL; Very Low Density Lipoprotein 21 mg/dL (5-40)
== END ==
PROVIDERS: PCP Internal Medicine; Referring Provider Internal Medicine; Visit Provider Internal Medicine
DX: E78.00 Pure hypercholesterolemia, unspecified (principal); E55.9 Vitamin D deficiency, unspecified; R25.1 Tremor, unspecified
CPT/HCPCS: 36415; 80053; 80061; 82306; 84443; 85025

== ENCOUNTER → 2020-06-04 10:24 | Outpatient (CLI) | payer MEDICARE, SELFPAY ==
[2020-06-04 12:36] LABS: Absolute Lymphocyte Count 1.41 X10^3/uL (0.83-4.51); Absolute Neutrophil Count 8.8 X10^3/uL (2.0-7.7); Basophil# 0.09 X10^3/uL; Basophil% 0.8 % (0-1); Eosinophil# 0.21 X10^3/uL; Eosinophils% 1.9 % (0-5); Hematocrit 36.7 % (37-47); Hemoglobin 12.4 g/dL (12.0-15.0); Lymphocyte # 1.41 X10^3/ul (4.0); Lymphocyte % 12.7 % (19-41); Mean Corp Hgb Conc 33.8 g/dL (32-36); Mean Corpuscular Hgb 33.4 pg (27.0-32.0); Mean Corpuscular Volume 98.9 fL (81-99); Mean Platelet Vol. 10.2 fl (6.2-12.0); Monocyte# 0.61 X10^3/uL; Monocyte% 5.5 % (0-10); NRBC Flagged by Analyzer 0 % (0-5); Neutrophil # 8.77 X10^3/uL (2.7-7.7); Neutrophil % 78.7 % (47-70); Platelet Count 348 K/mm3 (150-450); RBC Distribution Width CV 13.2 % (11.6-14.6); RBC Distribution Width SD 47.6 fl (35.1-43.9); Red Blood Count 3.71 M/mm3 (4.2-5.4); White Blood Count 11.1 K/mm3 (4.4-11.0)
[2020-06-04 12:42] LABS: Prothrombin Time (Protime)PT. 12.6 SECONDS (11.7-14.9)
[2020-06-04 12:43] LABS: Partial Thromboplast Time 25.5 Seconds (24.1-36.2)
[2020-06-04 12:57] LABS: Vitamin B12 735 pg/mL (211-911)
[2020-06-04 12:59] LABS: ALB/GLOB Ratio 1.5 RATIO (0.9-2.4); AST(SGOT) 17 U/L (15-37); Alanine Aminotransfer ALT/SGPT 10 U/L (13-56); Albumin, Serum 4.1 g/dL (3.2-5.0); Alkaline Phosphatase 52 U/L (45-117); Anion Gap 6 (5-15); BUN 24 mg/dL (7-18); BUN/Creat Ratio 29.7 RATIO (10-20); Calcium,Total 9.2 mg/dL (8.5-10.1); Chloride 101 mmol/L (98-107); Creatinine, Serum 0.81 mg/dL (0.55-1.02); EST Glomerular Filtration Rate 73 mL/min (>60); Est Glom Filt Rate - Afr Amer 88 mL/min (>60); Globulin 2.8 g/dL (2.2-4.2); Glucose 113 mg/dL (74-106); Protein, Total 6.9 g/dL (6.4-8.2); Sodium Level 133 mmol/L (136-145)
== END ==
PROVIDERS: PCP Internal Medicine; Referring Provider Dermatology; Visit Provider Dermatology
DX: D75.89 Other specified diseases of blood and blood-forming organs (principal); L30.9 Dermatitis, unspecified; R23.3 Spontaneous ecchymoses; E24.9 Cushing's syndrome, unspecified
CPT/HCPCS: 80053; 82530; 82607; 85025; 85610; 85730

== ENCOUNTER → 2020-06-10 | Outpatient (CLI) | payer MEDICARE, SELFPAY ==
[2020-06-13 14:07] LABS: Cortisol, Urinary Free 6 ug/L (Undefined)
[2020-06-13 15:21] LABS: Cortisol, Free 24Ur 10 ug/24 hr (6-42)
== END | disposition home or self-care (01) ==
PROVIDERS: PCP Internal Medicine; Referring Provider Dermatology; Visit Provider Dermatology
DX: E24.9 Cushing's syndrome, unspecified (principal); R23.3 Spontaneous ecchymoses
CPT/HCPCS: 81050; 82530

== ENCOUNTER → 2020-07-29 10:14 | Outpatient (CLI) | payer MEDICARE, SELFPAY ==
[2020-07-29 12:09] LABS: Absolute Neutrophil Count 6.3 X10^3/uL (2.0-7.7); Basophil# 0.07 X10^3/uL; Basophil% 0.8 % (0-1); Eosinophil# 0.29 X10^3/uL; Eosinophils% 3.4 % (0-5); Hematocrit 37.5 % (37-47); Hemoglobin 11.9 g/dL (12.0-15.0); Lymphocyte % 17.4 % (19-41); Mean Corp Hgb Conc 31.7 g/dL (32-36); Mean Corpuscular Hgb 32.4 pg (27.0-32.0); Mean Corpuscular Volume 102.2 fL (81-99); Mean Platelet Vol. 10.7 fl (6.2-12.0); Monocyte# 0.43 X10^3/uL; NRBC Flagged by Analyzer 0 % (0-5); Neutrophil # 6.28 X10^3/uL (2.7-7.7); Neutrophil % 72.8 % (47-70); Platelet Count 293 K/mm3 (150-450); RBC Distribution Width CV 13.2 % (11.6-14.6); RBC Distribution Width SD 50.2 fl (35.1-43.9); Red Blood Count 3.67 M/mm3 (4.2-5.4); White Blood Count 8.6 K/mm3 (4.4-11.0)
== END ==
PROVIDERS: PCP Internal Medicine; Referring Provider Dermatology; Visit Provider Dermatology
DX: R23.3 Spontaneous ecchymoses (principal)
CPT/HCPCS: 36415; 85025

== ENCOUNTER 2020-08-20 11:24 | Emergency (ER) | payer MEDICARE, SELFPAY ==
[2020-08-20 11:25] VITALS: BP 134/88; PULSE 65; RESP 14; TEMP 35.8; O2SAT 100; BMI 20.2
--- NOTE | 2020-08-20 11:47 | CT_ITS ---
STUDY: CT PELVIS WITHOUT CONTRAST REASON FOR EXAM: Female, 75 years old. Inguinal pain RADIATION DOSAGE (If Supplied By Facility): CTDIvol = ( 27.38 ) mGy, DLP = ( 825.65 ) mGycm TECHNIQUE: Transaxial imaging of the pelvis was performed with oral contrast, and without intravenous administration of contrast material. Individualized dose optimization techniques were used for this CT. COMPARISON: None. FINDINGS: Normal urinary bladder. Normal visualized small intestine. Normal visualized colon. There is no pelvic fluid. There is no pelvic mass lesion or lymphadenopathy. Atherosclerotic calcification of the distal abdominal aorta. Minimal dilatation of the distal abdominal aorta with a transverse dimension of 2.7 cm. Calcified plaques of the common iliac arteries bilaterally. No evidence of inguinal hernia. Disc space narrowing and spondylosis at the L3-L4 and L4-L5 levels. Levoscoliosis. CT/Pelvis without IV Contrast IMPRESSION: No evidence of a inguinal hernia. Electronically Signed: Shun Gallardo MD at 12:19 EDT , Service support ,
--- NOTE | 2020-08-20 12:07 | RAD_ITS ---
STUDY: X-RAY - RIGHT KNEE REASON FOR EXAM: Female, 75 years old. Injury/Pain TECHNIQUE: 4 view(s) of the knee. COMPARISON: None. FINDINGS: Normal visualized distal femur. Normal visualized proximal tibia and fibula. Normal proximal tibiofibular articulation. Normal medial femorotibial compartment. Normal lateral femorotibial compartment. Normal patellofemoral articulation. Tiny joint effusion. RAD/Knee 4 or More Views IMPRESSION: Tiny joint effusion. Electronically Signed: Shun Gallardo MD at 12:21 EDT , Service support ,
--- NOTE | 2020-08-20 12:42 | ED.DCSUM_ITS ---
- ER Visit Summary Date of Service: 08/20/20 Chief Complaint: Right hip and knee pain History of Present Illness: The patient is a 75 F who presents with right hip and knee pain that has been getting worse over the past 3 weeks. Patient states that has gradually gotten worse. Patient states the pain is constant. Patient states the pain is worse with weightbearing. Patient describes the pain as aching and just hurts. Patient denies any paresthesias or weakness. Patient denies any trauma or injury. Patient states that her primary care physician referred her to the emergency department for x-rays. Physical Examination: Vital signs are stable. Patient is afebrile. Patient is in no acute distress. Musculoskeletal exam reveals some mild tenderness in the right inguinal area as well as the posterior aspect of the right hip. There is no deformity. There is no pain with internal and external rotation. There is good range of motion of the right hip. There is mild tenderness over the right knee as well. There is no deformity. There is no effusion. There is no bony crepitance or step-off. There is good range of motion. There is no laxity appreciated. Abdomen is soft. Bowel sounds are normal. There is no abdominal tenderness. I do not appreciate an inguinal or femoral hernia. Cranial nerves II through XII are intact. There are no focal motor or sensory deficits noted. Patient was able to stand and ambulate from chair to cot. Test Results: CT scan of the pelvis was obtained. There is no inguinal hernia. There is no hip fracture. This was interpreted by the radiologist and reviewed by myself. X-rays of the right knee were obtained. There are 4 views. On my interpretation, there is no acute fracture. There are no degenerative changes. There is no dislocation. Radiologist also interpreted the x-ray and agrees. Emergency Department Course and Treatment: Patient was advised of her findings. Patient was instructed to use ice to the area. Patient was instructed to cont inue Tylenol or ibuprofen as needed for pain. Patient was instructed to follow- up with her primary care physician in 5 to 7 days. Patient understood and was agreeable with the plan. All questions were answered. Disposition: Discharge home Impression: 1. Right hip strain 2. Right knee pain This note was generated with [employer] software. It may contain incorrect words, spelling, and punctuation that were not noted in review of the chart prior to signing ED Disposition - Plan for ED Patient: Disposition: Home or Assisted Living Diagnosis: Strain of right hip and thigh Instructions: ED Hip Strain Referrals: Kelly Leone DO [Primary Care Provider] - 5-7 Days
== END 2020-08-20 12:53 | disposition home or self-care (01) ==
PROVIDERS: Emergency Provider Emergency Medicine; PCP Internal Medicine
DX: M25.561 Pain in right knee (principal); S76.011A Strain of muscle, fascia and tendon of right hip, initial encounter; J44.9 Chronic obstructive pulmonary disease, unspecified; K21.9 Gastro-esophageal reflux disease without esophagitis; I10 Essential (primary) hypertension; Z86.73 Personal history of transient ischemic attack (TIA), and cerebral infarction without residual deficits; Z87.891 Personal history of nicotine dependence; Z79.51 Long term (current) use of inhaled steroids; Z79.899 Other long term (current) drug therapy; X58.XXXA Exposure to other specified factors, initial encounter; Y93.89 Activity, other specified; Y92.89 Other specified places as the place of occurrence of the external cause; Y99.8 Other external cause status
CPT/HCPCS: 72192; 73564; 99282

== ENCOUNTER → 2020-09-10 12:11 | Outpatient (CLI) | payer MEDICARE, SELFPAY ==
--- NOTE | 2020-09-10 12:13 | RAD_ITS ---
STUDY: X-RAY - PELVIS AND RIGHT HIP REASON FOR EXAM: Female, 75 years old. Hip pain. TECHNIQUE: 3 views of the pelvis and hip. COMPARISON: None. FINDINGS: There is a non-specific bowel gas pattern. Normal visualized soft tissue structures. Generalized osteopenia. Normal bilateral iliac wings, sacroiliac joints and visualized sacrum. Normal bilateral superior and inferior pubic rami. Normal pubic symphysis. Normal bilateral ischial tuberosities. Mild arthrosis of both hips. RAD/HIP, UNI W/ Pelvis 2-3 Views IMPRESSION: Osteopenia with mild arthrosis of both hips. Electronically Signed: Eddie Wolfe MD at 12:43 EDT , Service support ,
== END ==
PROVIDERS: PCP Internal Medicine; Referring Provider Nurse Practitioner Family; Visit Provider Nurse Practitioner Family
DX: M25.551 Pain in right hip (principal)
CPT/HCPCS: 73502

== ENCOUNTER → 2020-10-01 10:52 | Outpatient (CLI) | payer MEDICARE, SELFPAY ==
--- NOTE | 2020-10-01 11:12 | MRI_ITS ---
STUDY: MRI LUMBAR SPINE WITHOUT CONTRAST REASON FOR EXAM: Female, 75 years old. ARTHROPATHY, LUMBAR SPINAL STENOSIS, DISPLACEMENT OF DISC TECHNIQUE: Standardized fat and water weighted pulse sequences were obtained in the sagittal and axial planes. COMPARISON: 03/15/2018 FINDINGS: T12-L1: Normal endplates. Normal disc height, hydration and morphology. Normal bilateral facet joints. Normal central canal and bilateral lateral recesses. Normal bilateral intervertebral neural foramina. Normal lumbar lordosis. Moderate levoscoliosis centered at L4 Normal conus medullaris that terminates at the T12/L1. L1-2: No change in the mild bilobed disc protrusion asymmetric to the left with a left foraminal protrusion which produces mild spinal stenosis and moderate left neural foraminal stenosis. L2-3: Moderate bilateral facet hypertrophy with fluid in the facet joints consistent with instability and moderate ligament flavum hypertrophy. No change in the 2 mm retrolisthesis of L2 on L3 with a mild bilobed disc protrusion which produces mild spinal stenosis and moderate bilateral neural foraminal stenosis. L3-4: Moderate bilateral facet hypertrophy with fluid in the facet joints consistent with instability and moderate ligament flavum hypertrophy. No change in the 2 mm retrolisthesis of L3 on L4 with a moderate broad disc protrusion which produces moderate spinal stenosis with mild right lateral recess stenosis, moderate left lateral recess stenosis with abutment of the left L4 nerve root, severe right neural foraminal stenosis and moderate left neural foraminal stenosis. L4-5: Mild bilateral facet hypertrophy and moderate ligament flavum hypertrophy. No change in the mild broad disc protrusion which produces mild spinal stenosis, severe right neural foraminal stenosis and mild left neural foraminal stenosis. L5-S1: No change in the mild broad disc protrusion and left foraminal protrusion which produces mild spinal stenosis, mild right lateral recess stenosis, moderate left lateral recess stenosis with abutment of the left S1 nerve root and severe left neural foraminal stenosis with effacement the left L5 nerve root laterally. Normal visualized sacral ala. Normal visualized paraspinous soft tissue structures. MRI/Spine Lumbar (Routine) IMPRESSION: No change from 03/15/2018. Electronically Signed: Rui Cao MD at 13:32 EDT Tel , Service support ,
== END ==
PROVIDERS: PCP Internal Medicine; Referring Provider Nurse Practitioner Family; Visit Provider Nurse Practitioner Family
DX: M51.37 Other intervertebral disc degeneration, lumbosacral region (principal); M48.061 Spinal stenosis, lumbar region without neurogenic claudication; M47.817 Spondylosis without myelopathy or radiculopathy, lumbosacral region; M46.96 Unspecified inflammatory spondylopathy, lumbar region; M48.07 Spinal stenosis, lumbosacral region; M51.16 Intervertebral disc disorders with radiculopathy, lumbar region
CPT/HCPCS: 72148

== ENCOUNTER 2020-10-27 15:49 | Emergency (ER) | payer MEDICARE, SELFPAY ==
[2020-10-20 09:03] VITALS: BMI 20.2
[2020-10-27 15:52] VITALS: BP 128/63; PULSE 74; RESP 18; TEMP 37; O2SAT 98; BMI 20.3
[2020-10-27] MEDS: Morphine 4 MG/ML Syringe IV (16:46)
[2020-10-27] MEDS: Ondansetron 4 MG/2 ML Vial IV (16:46)
--- NOTE | 2020-10-27 16:59 | ED.VIS.BACK ---
HPI History of Present Illness Chief Complaint: Back Informant: patient Onset/Context/Timing Onset: Weeks Timing: Continuous Quality: Aching Location: Lumbar, Buttock and Right Leg Current Severity: Severe Maximum Severity: Severe Worsened by: improves with Movement, Ambulation, Bending and Lifting Relieved by: Nothing Associated Symptoms Associated Symptoms: Radiation to Right Leg; Negative for Numbness, Tingling, Radiation to Left Leg, Fever, Abdominal Pain, Dysuria, Unable to Ambulate, Unable to Transfer, Urinary Retention, Urinary Incontinence, Constipation and Fecal Incontinence Narrative Narrative: Patient is an elderly woman with history of back problems. She had an MRI of the lumbar spine performed on August 01. The MRI was compared to image obtained March 15, 2018. Conclusion by the radiologist was no change from March 15, 2018. She reports pain in her right buttocks low back anterior right thigh. She also complains of pain in her groin. She denies bowel bladder dysfunction. She denies saddle paresthesia or anesthesia. She denies foot drop. Denies buckling of her knees. She states the medicine she has been prescribed to control the pain is not working. She denies fever, chills night sweats. She has had no recent injection. She has no other symptoms. MRI reveals moderate levoscoliosis centered at L4. There is a normal conus medullary us that terminates at T12-L1. There is no change in the mild bilobed disc protrusion asymmetric to the left with left foraminal protrusion which produces minor spinal stenosis and moderate left neuroforaminal stenosis. There is moderate bilateral facet hypertrophy with fluid in the facet joints consistent with instability and moderate ligamentum flavum hypertrophy at L2-L3. There is no change in the retrolisthesis of L2 on L3. There is mild bilobed disc protrusion which produces mild spinal stenosis and moderate bilateral neural foramen stenosis. Similar findings are noted at L3-4. There is moderate left lateral recess stenosis with abutment of the left L4 nerve root and severe right neural foramen stenosis and moderate left neuroforaminal stenosis. There is mild bilateral facet hypertrophy and moderate ligamentum flavum hypertrophy at L4-5. This is unchanged. There is severe right neuronal foramen stenosis and mild left stenosis. There is no change in the mild broad disc protrusion and left foraminal protrusion which produces mild spent spinal stenosis at L 5?S1. There is recess stenosis with abutment of the left S1 nerve root. Patient has no significant findings noted on the right that would explain today's symptoms. [facility] Medical History Anxiety COPD (chronic obstructive pulmonary disease) GERD (gastroesophageal reflux disease) Hypercholesteremia Lumbar disc disease with radiculopathy Memory impairment Memory loss Myalgia, unspecified site Osteopenia Other intervertebral disc degeneration, lumbar region Postmenopausal Sciatica Scoliosis Tremor Vitamin D deficiency Home Medications acetaminophen 1,000 mg PO QHS 01/13/19 [History Last Taken Unknown] albuterol sulfate 2 puff INHALATION Q6H PRN PRN 01/13/19 [History Last Taken Unknown] ascorbic acid (vitamin C) 1,000 mg PO DAILY 01/13/19 [History Last Taken Unknown] biotin 5 mg PO DAILY 01/13/19 [History Last Taken Unknown] budesonide-formoterol 2 inhaler INHALATION BID 01/13/19 [History Last Taken Unknown] cholecalciferol (vitamin D3) 1,000 unit PO DAILY 01/13/19 [History Last Taken Unknown] levocetirizine 5 mg PO DAILY PRN 01/13/19 [History Last Taken Unknown] lorazepam 0.5 mg PO DAILY PRN 01/13/19 [History Last Taken Unknown] metoprolol succinate 25 mg PO BID 01/13/19 [History Last Taken Unknown] sertraline 100 mg PO DAILY 01/13/19 [History Last Taken Unknown] omega-3 fatty acids 1,000 mg capsule 1,000 mg PO DAILY 10/09/19 [History Last Taken Unknown] tramadol 50 mg tablet 100 mg PO DAILY tablet 03/30/20 [History Last Taken Unknown] trazodone 50 mg tablet See Rx Instructions .ROUTE .COMPLEX #30 tablet 07/06/20 [Rx Last Taken Unknown] buspirone 5 mg tablet 5 mg PO BID #180 tablet 09/09/20 [Rx Last Taken Unknown] carbidopa 25 mg-levodopa 100 mg tablet 1 tab PO TID #270 tablet 09/09/20 [Rx Last Taken Unknown] pramipexole 0.125 mg tablet 0.125 mg PO TID #90 tablet 09/09/20 [Rx Last Taken Unknown] tizanidine 4 mg capsule 4 mg PO BID PRN cap 09/09/20 [History Last Taken Unknown] Allergy/AdvReac Type Severity Reaction Status Date / Time amoxicillin Allergy Hives Verified 10/27/20 15:50 Penicillins AdvReac Intermediate Hives Verified 10/27/20 15:50 prednisone AdvReac Unknown Verified 10/27/20 15:50 Family History Father H/O ulcer disease Mother Heart disease Sister Cancer Sister Thyroid disorder Surgical History H/O tubal ligation History of appendectomy History of tonsillectomy Social History (Updated 10/27/20 @ 17:[address] Jeovanny Snider MD) household members: spouse Smoking Status: Former smoker quit date: 05/21/19 alcohol intake: current alcohol intake frequency: holidays/special occasions only substance use type: does not use ROS ROS ED Constitutional Constitutional ED: Denies chills, fever(s), subjective, sweats or weight loss Eyes Eyes: Denies blurry vision or change in vision ENT ENT ED: Denies ear pain, rhinorrhea or sore throat Cardiovascular Cardiovascular: Denies chest pain, orthopnea, paroxysmal nocturnal dyspnea or racing heartbeat Respiratory/Chest Respiratory/Chest: Denies dyspnea, dyspnea on exertion, orthopnea, paroxysmal nocturnal dyspnea or sputum Gastrointestinal Gastrointestinal: Denies abdominal pain, constipation, diarrhea, nausea or vomiting Genitourinary Genitourinary ED: Denies dysuria, hematuria or urinary frequency Musculoskeletal Musculoskeletal: Reports back pain; Denies arthralgias, myalgias or neck pain Integumentary Denies rash Neurologic Neurologic: Denies headache(s), paresthesias or weakness Hematologic/Lymphatic Hematologic/Lymphatic: Denies easy bleeding or easy bruising EXAM Physical Exam Const Vital Signs: 10/27/20 15:52 Temperature 98.6 F Temperature Source Oral Pulse Rate 74 Respiratory Rate 18 Blood Pressure 128/63 H Blood Pressure Mean 84 Pulse Ox 98 Oxygen Delivery Method Room Air Positive well nourished and well developed General Appearance ED: well developed and other Place him with a flat affect. ; Negative for pallor HEENT Reports moist mucous membranes HEENT Narrative: There is no asymmetry. Nares patent. Posterior pharynx erythema or exudate. Negative for trauma or tenderness Eyes PERRL and EOMs intact bilaterally General Eye ED: Negative for pale conjunctiva or scleral icterus Neck no lymphadenopathy, supple and no JVD Resp normal respiratory effort and clear to auscultation bilaterally Cardio regular rate, regular rhythm, S1 normal heart sound, S2 normal heart sound and no murmurs GI normal to inspection, nondistended, normoactive bowel sounds, soft to palpation, non-tender and non-distended GI Narrative: There is no abdominal bruit. Palpation: Negative for hepatomegaly, splenomegaly or pulsatile mass Back/Spine normal to inspection General Back: Negative for CVA tenderness Cervical Spine: Negative for cervical spine tenderness Thoracic Spine / Upper Back: paraspinal muscle tenderness Lumbar Spine / Lower Back: straight leg raise negative bilaterally, straight leg raise positive right and straight leg raise positive - left Extremity normal to inspection and no clubbing, cyanosis or edema Extremity Narrative: DP and PT pulse are palpable and symmetric. Patient complained of pain in the buttocks area with logrolling of the right lower extremity. General Extremety ED: Negative for edema or tenderness General Extremity: Negative for edema Neuro Neuro Narrative: There is no clonus. There is 5/5 strength with plantar and dorsiflexion of the foot. Deep Tendon Reflexes: Rt Patellar (L4): 1+, Lt Patellar (L4): 1+, Rt Ankle (S1): 1+ and Lt Ankle (S1): 1+ Deep Tendon Reflexes Back: Rt Patellar (L4): 1+, Lt Patellar (L4): 1+, Rt Ankle (S1): 1+ and Lt Ankle (S1): 1+ Plantar Reflex: Downgoing: bilateral Psych Mood & Affect: depressed Skin no rashes or lesions noted and no wounds General Skin Exam: Negative for jaundice or pallor MDM MDM MDM Narrative Medical decision making narrative: Patient has muscular low back pain most likely due to degenerative disc disease. Will review MRI. MRI reveals more significant pathology on the left side and does not explain her right-sided pain. Since patient has no objective unilateral findings will treat her with IV morphine and she is to follow-up with her physician regarding pain management since this has been an ongoing process for years. Discharge Plan Triage Chief Complaint: Back ED Provider: Jeovanny Snider Dx/Rx/DC Orders Clinical Impression: Acute exacerbation of chronic low back pain Instructions: ED Back Pain (Acute or Chronic) Prescriptions: No Action omega-3 fatty acids [Fish Oil Concentrate] 1,000 mg capsule 1,000 mg PO DAILY RF: 0 tramadol 50 mg tablet 100 mg PO DAILY RF: 0 trazodone 50 mg tablet See Rx Instructions .ROUTE .COMPLEX Qty: 30 RF: 2 tizanidine 4 mg capsule 4 mg PO BID PRN (Reason: muscle spasticity) RF: 0 buspirone 5 mg tablet 5 mg PO BID Qty: 180 RF: 0 carbidopa-levodopa [Sinemet] 25-100 mg tablet 1 tab PO TID Qty: 270 RF: 0 pramipexole 0.125 mg tablet 0.125 mg PO TID Qty: 90 RF: 2 biotin 5 MG capsule 5 mg PO DAILY RF: 0 ascorbic acid (vitamin C) 1,000 MG tablet extended release 1,000 mg PO DAILY RF: 0 acetaminophen 500 MG tablet 1,000 mg PO QHS RF: 0 lorazepam 0.5 MG tablet 0.5 mg PO DAILY PRN (Reason: Anxiety) RF: 0 metoprolol succinate 25 MG tablet extended release 24 hr 25 mg PO BID RF: 0 albuterol sulfate 1 PUFF inhaler 2 puff INHALATION Q6H PRN PRN (Reason: BREATHING) RF: 0 sertraline 50 MG tablet 100 mg PO DAILY RF: 0 cholecalciferol (vitamin D3) 1,000 UNIT capsule 1,000 unit PO DAILY RF: 0 budesonide-formoterol 1 INHALER inhaler 2 inhaler INHALATION BID RF: 0 levocetirizine 5 MG tablet 5 mg PO DAILY PRN (Reason: NASAL DRAINAGE) RF: 0 Primary Care Provider: Kelly Leone Referrals: Kelly Leone DO [Primary Care Provider] - As Needed Disposition Disposition: Home, self care
[2020-10-27 17:24] VITALS: BP 150/75; PULSE 71; RESP 18; O2SAT 98
--- NOTE | 2020-10-27 17:27 | ED.RN ---
ATTEMPTED TO CALL , BUT NO ANSWER. WILL ATTEMPT AGAIN
== END 2020-10-27 18:05 | disposition home or self-care (01) ==
PROVIDERS: Emergency Provider Emergency Medicine; PCP Internal Medicine
DX: G89.29 Other chronic pain (principal); M54.5 Low back pain; F41.9 Anxiety disorder, unspecified; J44.9 Chronic obstructive pulmonary disease, unspecified; K21.9 Gastro-esophageal reflux disease without esophagitis; E78.00 Pure hypercholesterolemia, unspecified; Z79.51 Long term (current) use of inhaled steroids; Z79.899 Other long term (current) drug therapy; Z87.891 Personal history of nicotine dependence
CPT/HCPCS: 96374; 96375; 99285; A4216; J2405

== ENCOUNTER 2020-10-28 08:05 | Observation (INO) | payer MEDICARE, SELFPAY ==
[2020-10-27 15:52] VITALS: BMI 20.3
[2020-10-28] VITALS (8 sets, daily range): BP systolic 122–151; BP diastolic 56–70; PULSE 74–90; RESP 15–18; TEMP 36.6–37.1; O2SAT 96–99; BMI 19.5; BMI 18.0
--- NOTE | 2020-10-28 08:24 | EKG12_ITS ---
Test Reason : FALL Blood Pressure : / mmHG Vent. Rate : 073 BPM Atrial Rate : 073 BPM P-R Int : 176 ms QRS Dur : 094 ms QT Int : 398 ms P-R-T Axes : 071 037 072 degrees QTc Int : 438 ms Normal sinus rhythm Possible Left atrial enlargement ST & T wave abnormality, consider anterolateral ischemia Abnormal ECG Confirmed by GÓMEZ LIMON, JAME ([id number]), city editor JING MCCOY ([id number]) on 11/01/2020 1:48:57 PM Referred By: MYRNA Confirmed By:JAME MAGAÑA MD
--- NOTE | 2020-10-28 08:26 | VDLE_ITS ---
Reason For Study: swelling RIGHT GSV is normal. CFV is compressible, spontaneous, phasic, competent and demonstrates normal augmentation. FV is compressible, spontaneous, phasic, competent and demonstrates normal augmentation. POP V is compressible, spontaneous, phasic, competent and demonstrates normal augmentation. T/P Trunk is compressible. PTV, Peroneal V, and Soleus V are dilated and noncompressible. Procedure This is a venous duplex using B-mode, color flow and spectral Doppler. Exam performed portable in ED. The exam was abbreviated due to the COVID 19 protocol. The exam was diagnostic. A preliminary report was called and/or faxed to ED RN. VL/Venous Duplex US, Unilateral Interpretation Summary Acute deep vein thrombosis is noted in the right posterior tibial vein. Acute d eep vein thrombosis is noted in the right peroneal vein. Acute deep vein thrombosis is noted in the right soleus vein. The remainder of the right lower extremity deep venous system is patent and com pressible. Valvular competence appears intact within the proximal deep venous system on the right . The right great saphenous vein appears patent and compressible segmentally. Ordering Physician: Kaity Iyer Performed By: Declan Vaughn RVT
--- NOTE | 2020-10-28 08:28 | EDS_ITS ---
HPI HPI - Fall History of Present Illness Chief Complaint: Fall Informant: patient Narrative Narrative: Patient is a 75-year-old female with history of chronic low back pain, sciatica, dementia and Parkinson's disease presenting for multiple falls. Patient been dealing with severe pain in her right lower back rating to her leg. She is seen in the ER yesterday for pain. Since her discharge patient has had 2 more falls. States each time she tries to get out of her chair she has severe pain in her right leg and her leg gives out and she falls. Patient denies any numbness in her leg. She notes it has been slightly more swollen. Patient had a recent MRI which did not show any acute changes but patient does have associated disease to cause the pain. Patient notes the pain does not radiate into her groin if she tries to move her leg. She states she can lift her leg off the bed because it is too painful. She took a tramadol last night before she went to bed. Patient did not hit her head with the falls. She and her do not feel that she is safe to be at home currently with at least falls. Patient denies any incontinence. She has some chronic constipation which is unchanged. She denies any numbness in her perineal region. No other complaints at this time. Tetanus Immunization: Unknown Prior similar symptoms: Yes PFSH [facility] Medical History Anxiety COPD (chronic obstructive pulmonary disease) GERD (gastroesophageal reflux disease) Hypercholesteremia Lumbar disc disease with radiculopathy Memory impairment Memory loss Myalgia, unspecified site Osteopenia Other intervertebral disc degeneration, lumbar region Postmenopausal Sciatica Scoliosis Tremor Vitamin D deficiency Home Medications acetaminophen 1,000 mg PO QHS 01/13/19 [History Last Taken Unknown] albuterol sulfate 2 puff INHALATION Q6H PRN PRN 01/13/19 [History Last Taken Unknown] ascorbic acid (vitamin C) 1,000 mg PO DAILY 01/13/19 [History Last Taken Unknown] biotin 5 mg PO DAILY 01/13/19 [History Last Taken Unknown] budesonide-formoterol 2 inhaler INHALATION BID 01/13/19 [History Last Taken Unknown] cholecalciferol (vitamin D3) 1,000 unit PO DAILY 01/13/19 [History Last Taken Unknown] levocetirizine 5 mg PO DAILY PRN 01/13/19 [History Last Taken Unknown] lorazepam 0.5 mg PO DAILY PRN 01/13/19 [History Last Taken Unknown] metoprolol succinate 25 mg PO BID 01/13/19 [History Last Taken Unknown] sertraline 100 mg PO DAILY 01/13/19 [History Last Taken Unknown] omega-3 fatty acids 1,000 mg capsule 1,000 mg PO DAILY 10/09/19 [History Last Taken Unknown] tramadol 50 mg tablet 100 mg PO DAILY tablet 03/30/20 [History Last Taken Unknown] trazodone 50 mg tablet See Rx Instructions .ROUTE .COMPLEX #30 tablet 07/06/20 [Rx Last Taken Unknown] buspirone 5 mg tablet 5 mg PO BID #180 tablet 09/09/20 [Rx Last Taken Unknown] carbidopa 25 mg-levodopa 100 mg tablet 1 tab PO TID #270 tablet 09/09/20 [Rx Last Taken Unknown] pramipexole 0.125 mg tablet 0.125 mg PO TID #90 tablet 09/09/20 [Rx Last Taken Unknown] tizanidine 4 mg capsule 4 mg PO BID PRN cap 09/09/20 [History Last Taken Unknown] Allergy/AdvReac Type Severity Reaction Status Date / Time amoxicillin Allergy Hives Verified 10/28/20 08:07 Penicillins AdvReac Intermediate Hives Verified 10/28/20 08:07 prednisone AdvReac Unknown Verified 10/28/20 08:07 Family History Father H/O ulcer disease Mother Heart disease Sister Cancer Sister Thyroid disorder Surgical History H/O tubal ligation History of appendectomy History of tonsillectomy Social History (Updated 10/27/20 @ 17:[address] Jeovanny Snider MD) household members: spouse Smoking Status: Former smoker quit date: 05/21/19 alcohol intake: current alcohol intake frequency: holidays/special occasions only substance use type: does not use ROS ROS ED Constitutional Constitutional ED: Reports frequent falls; Denies fever(s) Eyes Eyes: Denies change in vision or eye pain ENT ENT ED: Denies dental pain, mouth lesions or nasal trauma Cardiovascular Cardiovascular: Denies chest pain or syncope Respiratory/Chest Respiratory/Chest: Denies cough or dyspnea Gastrointestinal Gastrointestinal: Denies abdominal pain or nausea Genitourinary Genitourinary ED: Denies dysuria or hematuria Musculoskeletal Musculoskeletal: Reports back pain and other Details: right hip pain ; Denies myalgias Integumentary Reports Abrasions; Denies wounds Neurologic Neurologic: Reports weakness; Denies headache(s) or paresthesias Psychiatric Psychiatric: Denies anxiety or depression Hematologic/Lymphatic Hematologic/Lymphatic: Denies easy bleeding or easy bruising EXAM Physical Exam Const Vital Signs: 10/28/20 08:07 10/28/20 10:06 10/28/20 10:37 Temperature 98.8 F 98.8 F Temperature Source Oral Oral Pulse Rate 74 79 79 Respiratory Rate 16 15 15 Respiratory Effort Normal Non-Labored Respiratory Depth Normal Respiratory Pattern Normal Blood Pressure 122/70 H 122/70 H 122/70 H Blood Pressure Mean 87 87 87 Pulse Ox 98 99 99 Oxygen Delivery Method Room Air Room Air Room Air Positive well nourished and well developed General Appearance ED: well developed HEENT Reports head/scalp atraumatic, hearing grossly normal bilaterally and TM's normal bilaterally normocephalic and atraumatic; Negative for Stockton's sign, raccoon eyes or scalp tenderness Nose: no nasal discharge Tympanic Membrane ED: Yes TM's normal bilaterally Tympanic Membrane: TM's normal bilaterally Mouth ED: Yes other Mouth: other Other Details: No Malocclusion Eyes PERRL Neck full ROM Thyroid: Negative for tender Chest Wall inspection of chest normal and palpation of chest normal Chest: Negative for crepitus Resp normal respiratory effort, no retractions and clear to auscultation bilaterally Cardio regular rate and regular rhythm Jugular Venous Distention: Negative for JVD Peripheral Pulses: pulses 2+ throughout GI non-tender and non-distended Palpation: soft; Negative for guarding or rebound tenderness present Back/Spine Cervical Spine: Negative for cervical spine tenderness Thoracic Spine / Upper Back: Negative for thoracic spinal tenderness Lumbar Spine / Lower Back: Negative for lumbar spinal tenderness Extremity normal to inspection and full ROM Extremity Narrative: pelvis stable, patient holds her right lower extremity externally rotated and is slightly shortened. Patient is tenderness palpation with logroll of her right lower extremity and hip/groin area. No direct tenderness palpation of the hip itself. She has equal pulses in her feet bilaterally. No significant edema of the lower extremities is appreciated however patient does have some slight swelling around her. Normal range of motion of the left elbow and no pain with flexion, extension, pronation or supination. No bony tenderness. Neuro oriented x3, moves all extremities and no sensory deficits noted Sensorium / Orientation: alert Motor Exam: strength 5/5 throughout Psych mental status grossly normal Skin no wounds Skin Narrative: 3cm skin tear of her left elbow Trauma: abrasion MDM MDM MDM Narrative Medical decision making narrative: Patient evaluated after 2 falls since disch arge from the ER yesterday. On evaluation she is not having significant pain this time. She is holding her right lower extremity externally rotated and shortened so I did obtain a hip and pelvis x-ray. In addition she notes that she has been having some swelling around her knee when she stands so venous duplex obtained. Patient is found to have thrombus of the posterior tibial vein, peroneal vein and soleus vein. In addition on hip x-ray she has destruction of the right femoral head and femoral neck with associated soft tissue swelling. There is concern for osteomyelitis based on the read so I did add on ESR and a CRP as well as blood cultures. Case is discussed with orthopedic on-call, Dr. Tran, who will see her in the hospital but feels that treating her blood clot is the first priority. Patient is admitted to medicine service and started on a heparin drip in case she does need any intervention. Her CRP is elevated however her white blood cell count is normal. I do question if she could have some type of septic arthritis however we will hold off on antibiotics at this time as she does not have any systemic symptoms and the destruction could be more of an avascular necrosis process. Patient is agreeable with this plan of care. Lab Data Labs: Laboratory Results - last 24 hr 10/28/20 10/28/20 10/28/20 08:55 08:55 08:55 WBC 8.4 RBC 3.72 L Hgb 11.9 L Hct 36.2 L MCV 97.3 MCH 32.0 MCHC 32.9 RDW Std Deviation 43.4 RDW Coeff of Elvia 12.1 Plt Count 416 MPV 9.4 Immature Gran % (Auto) 0.700 Neut % (Auto) 74.9 H Lymph % (Auto) 14.5 L [place] % (Auto) 8.2 Eos % (Auto) 1.3 Baso % (Auto) 0.4 Absolute Neuts (auto) 6.3 Absolute Lymphs (auto) 1.22 Nucleated RBC % 0 ESR APTT Sodium 132 L Potassium 4.3 Chloride 95 L Carbon Dioxide 32.0 Anion Gap 5 BUN 16 Creatinine 0.69 Estim Creat Clear Calc 37.70 Est GFR (MDRD) Af Amer 106 Est GFR (MDRD) Non-Af 88 BUN/Creatinine Ratio 23.2 H Glucose 115 H Calcium 9.6 Troponin I < 0.015 C-React Prot Ext Range Urine Color Urine Clarity Urine pH Ur Specific [place] Urine Protein Urine Glucose (UA) Urine Ketones Urine Occult Blood Urine Nitrite Urine Bilirubin Urine Urobilinogen Ur Leukocyte Esterase Urine RBC Urine WBC Ur Squamous Epith Cells Urine Bacteria Urine Mucus 10/28/20 10/28/20 10/28/20 08:55 08:55 10:10 WBC RBC Hgb Hct MCV MCH MCHC RDW Std Deviation RDW Coeff of Elvia Plt Count MPV Immature Gran % (Auto) Neut % (Auto) Lymph % (Auto) [place] % (Auto) Eos % (Auto) Baso % (Auto) Absolute Neuts (auto) Absolute Lymphs (auto) Nucleated RBC % ESR 27 APTT Sodium Potassium Chloride Carbon Dioxide Anion Gap BUN Creatinine Estim Creat Clear Calc Est GFR (MDRD) Af Amer Est GFR (MDRD) Non-Af BUN/Creatinine Ratio Glucose Calcium Troponin I C-React Prot Ext Range 103.00 H Urine Color Straw Urine Clarity Clear Urine pH 7.0 Ur Specific [place] 1.010 Urine Protein Negative Urine Glucose (UA) Normal Urine Ketones 5 H Urine Occult Blood 10 H Urine Nitrite Negative Urine Bilirubin Negative Urine Urobilinogen Normal Ur Leukocyte Esterase Negative Urine RBC 0 SEEN Urine WBC 0 SEEN Ur Squamous Epith Cells 0-5 SEEN Urine Bacteria 1+ Urine Mucus 0 SEEN 10/28/20 10:45 WBC RBC Hgb Hct MCV MCH MCHC RDW Std Deviation RDW Coeff of Elvia Plt Count MPV Immature Gran % (Auto) Neut % (Auto) Lymph % (Auto) [place] % (Auto) Eos % (Auto) Baso % (Auto) Absolute Neuts (auto) Absolute Lymphs (auto) Nucleated RBC % ESR APTT Cancelled Sodium Potassium Chloride Carbon Dioxide Anion Gap BUN Creatinine Estim Creat Clear Calc Est GFR (MDRD) Af Amer Est GFR (MDRD) Non-Af BUN/Creatinine Ratio Glucose Calcium Troponin I C-React Prot Ext Range Urine Color Urine Clarity Urine pH Ur Specific [place] Urine Protein Urine Glucose (UA) Urine Ketones Urine Occult Blood Urine Nitrite Urine Bilirubin Urine Urobilinogen Ur Leukocyte Esterase Urine RBC Urine WBC Ur Squamous Epith Cells Urine Bacteria Urine Mucus Radiography Diagnostic Testing: Radiology Impression Hip/Pelvis X-Ray 10/28/20 09:20 IMPRESSION: Destruction of the right femoral head and femoral neck with cephalic migration of the distal femur. Diffuse soft tissue swelling. Osteomyelitis should be ruled out. Electronically Signed: Shun Gallardo MD at 9:41 EDT , Service support , Rhythm Strip Rhythm Strip: Sinus Rhythm Rate: 73 Ectopy: None EKG Initial EKG: Attestation: I personally reviewed and interpreted this EKG as follows: Interpretation: Sinus Rhythm Comments: Normal sinus rhythm rate of 73 Normal axis Normal intervals Normal ST segments Discharge Plan Triage Chief Complaint: Fall ED Provider: Kaity Iyer Dx/Rx/DC Orders Clinical Impression: Acute deep vein thrombosis (DVT) of distal vein of right lower extremity, Avascular necrosis of bone of right hip, Falls frequently, Skin tear of left elbow without complication Primary Care Provider: Kelly Leone Disposition Disposition: Acute Care [facility]
[2020-10-28] MEDS: Diphth,Pertuss(Acell),Tet Vac 0.5 ML Vial IM (08:58)
[2020-10-28] MEDS: Morphine 2 MG/ML Syringe IV (09:03)
[2020-10-28 09:09] LABS: Absolute Lymphocyte Count 1.22 X10^3/uL (0.83-4.51); Absolute Neutrophil Count 6.3 X10^3/uL (2.0-7.7); Basophil# 0.03 X10^3/uL; Basophil% 0.4 % (0-1); Eosinophil# 0.11 X10^3/uL; Eosinophils% 1.3 % (0-5); Hematocrit 36.2 % (37-47); Hemoglobin 11.9 g/dL (12.0-15.0); Lymphocyte # 1.22 X10^3/ul (0.83-4.51); Lymphocyte % 14.5 % (19-41); Mean Corp Hgb Conc 32.9 g/dL (32-36); Mean Corpuscular Volume 97.3 fL (81-99); Mean Platelet Vol. 9.4 fl (6.2-12.0); Monocyte# 0.69 X10^3/uL; Monocyte% 8.2 % (0-10); NRBC Flagged by Analyzer 0 % (0-5); Neutrophil # 6.29 X10^3/uL (2.7-7.7); Neutrophil % 74.9 % (47-70); Platelet Count 416 K/mm3 (150-450); RBC Distribution Width CV 12.1 % (11.6-14.6); RBC Distribution Width SD 43.4 fl (35.1-43.9); Red Blood Count 3.72 M/mm3 (4.2-5.4); White Blood Count 8.4 K/mm3 (4.4-11.0)
[2020-10-28 09:19] LABS: Anion Gap 5 (5-15); BUN 16 mg/dL (7-18); BUN/Creat Ratio 23.2 RATIO (10-20); Calcium,Total 9.6 mg/dL (8.5-10.1); Chloride 95 mmol/L (98-107); Creatinine, Serum 0.69 mg/dL (0.55-1.02); EST Glomerular Filtration Rate 88 mL/min (>60); Est Glom Filt Rate - Afr Amer 106 mL/min (>60); Glucose 115 mg/dL (74-106); Potassium 4.3 mmol/L (3.5-5.1); Sodium Level 132 mmol/L (136-145)
--- NOTE | 2020-10-28 09:20 | RAD_ITS ---
STUDY: X-RAY - PELVIS AND RIGHT HIP REASON FOR EXAM: Female, 75 years old. Injury/Pain TECHNIQUE: 3 views of the pelvis and hip. COMPARISON: Comparison is made with prior study dated 09/10/2020. FINDINGS: There is a non-specific bowel gas pattern. Normal visualized soft tissue structures. There is narrowing with cortical sclerosis and osteophyte formation of the sacroiliac joint consistent with degenerative osteoarthritic changes. Normal bilateral superior and inferior pubic rami. Normal pubic symphysis. Normal bilateral ischial tuberosities. Since prior study, there has been destruction of the right femoral head and neck with cephalic migration of the distal femur. Diffuse soft tissue swelling. Osteomyelitis should be ruled out. RAD/HIP, UNI W/ Pelvis 2-3 Views IMPRESSION: Destruction of the right femoral head and femoral neck with cephalic migration of the distal femur. Diffuse soft tissue swelling. Osteomyelitis should be ruled out. Electronically Signed: Shun Gallardo MD at 9:41 EDT , Service support ,
[2020-10-28 10:14] LABS: Mucous, Urine 0 SEEN /hpf (<or=2+); Red Blood Cells-Urine 0 SEEN /hpf (0-5); White Blood Cells 0 SEEN /hpf (0-5)
[2020-10-28 10:18] LABS: Color, Urine Straw (Yellow); Glucose, Dipstick Normal (Normal); Ketone-Dipstick 5 mg/dl (Negative); Leukocyte Esterase-Dipstick Negative /ul (Negative); Nitrite-Dipstick Negative (Negative); Occult Blood-Urine 10 /ul (Negative); Protein-Dipstick Negative (Negative); Urine Bilirubin Dipstick Negative (Negative); Urine Clarity Clear (Clear); Urine Urobilinogen Normal (Normal)
[2020-10-28 10:19] LABS: Erythrocyte Sedimentation Rate 27 mm/hr (0-30)
[2020-10-28 10:25] LABS: Bacteria 1+ /hpf (None Seen); Squamous Epithelial Cells - UA 0-5 SEEN /hpf (5-10)
--- NOTE | 2020-10-28 10:30 | NURSING ---
DR GAO FOR DR LEON
--- NOTE | 2020-10-28 10:38 | NURSING ---
MED SURG DVT, RT HIP INJURY MURRAY
[2020-10-28] MEDS: Heparin Injection (Vial) 5,000 UNIT/ML VIAL 3500 UNIT IV (10:51)
--- NOTE | 2020-10-28 10:59 | NURSING ---
PT NEEDS HEMOLIZED. NEEDS REDRAWN
--- NOTE | 2020-10-28 11:26 | ED.RN ---
Pt updated at this time on admission. States he will not be in till this afternoon.
[2020-10-28] MEDS: HEPARIN/D5w 25,000 UNITS 25,000 UNITS/250 ML IV.SOLN. 7 UNITS IV (11:32)
[2020-10-28 11:39] LABS: Partial Thromboplast Time 196.7 Seconds (24.1-36.2)
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
--- NOTE | 2020-10-28 13:59 | NURSING ---
Heparin gtt restarted, see EMAR for time. This nurse decreased rate of infusion by 3ml/hr, pt was running at 7mls/hr so pt is now running at 4ml/hr. Next PTT draw is ordered for today 10/28/20 at 1800. Will continue to monitor.
[2020-10-28] MEDS: 0.9% Saline Lock 10 ML Syringe IV (14:01)
[2020-10-28] MEDS: tiZANidine HCl 2 MG Tablet 4 MG PO (16:20)
[2020-10-28] MEDS: Carbidopa/Levodopa 25/100 Tablet PO (16:21)
[2020-10-28] MEDS: Pramipexole Di-HCl 0.125 MG Tablet PO ×2 (16:21→21:26)
--- NOTE | 2020-10-28 16:25 | NT.THERAPY_ITS ---
Medical Nutrition Therapy - History Nutrition Services has been consulted to:: Manage nutrient details of diet order Current diet/nutrition support order:: Regular diet. 120ml ensure enlive 4 times per day w/ medpass - Anthropometric Measurements Height:: 5 ft 3.5 in Weight:: 46.9 kg Body Mass Index (BMI):: 18.0 - Relevant Labs Relevant Labs:: RBC 3.72 M/mm3 (4.2-5.4) L 10/28/20 08:55 Hgb 11.9 g/dL (12.0-15.0) L 10/28/20 08:55 Hct 36.2 % (37-47) L 10/28/20 08:55 Neut % (Auto) 74.9 % (47-70) H 10/28/20 08:55 Lymph % (Auto) 14.5 % (19-41) L 10/28/20 08:55 APTT 196.7 Seconds (24.1-36.2) H* 10/28/20 11:20 Sodium 132 mmol/L (136-145) L 10/28/20 08:55 Chloride 95 mmol/L (98-107) L 10/28/20 08:55 BUN/Creatinine Ratio 23.2 RATIO (10-20) H 10/28/20 08:55 Glucose 115 mg/dL (74-106) H 10/28/20 08:55 C-React Prot Ext Range 103.00 mg/L (0.0-3.0) H 10/28/20 08:55 - Assessment Food and Nutrient Intake: Pt loved ensure enlive today and also willing to try magic cup with meals. PO/hao used to be better but, has been quite poor due to ongoing hip pain. UBE~113-114 lbs about 2-3 months ago; calculated ~10% wt loss which is significant for severe malnutrition. +NFPA showing muscle/fat wasting in face, clavicle and temporal region as well as arms and legs. Pt denies difficulty chewing/swallowing. - Nutrition Diagnosis: Clinical Problem Acute Disease or Injury Related Malnutrition Clinical Problem - Etiology: Severe malnutrition in the context of acute injury related to hip injury/pain; ongoing poor appetite Clinical Problem - Signs/Symptoms: as evidenced by ~10% wt loss in the past 2-3 months, oral intake meeting less than 50% estimated nutrition needs x past 2-3 months and +NFPA showing moderate to severe muscle/fat wasting in face, clavicle and temporal region as well as arms and legs. Status: Active Problem - Protein Calorie Malnutrition Evidence of Malnutrition Exists: Yes Severe Protein Calorie Malnutrition:: Acute Illness/Injury - Nutrition Intervention Nutrition Prescription: Estimated nutrition needs~4713-7996 kcal (35 kcal/Kg) and ~60-65 gm pro (1.3 gm pro/Kg) per day. Estimated fluid needs~1400- 1600ml/day (30-34 ml/Kg). - Food / Nutrient Delivery Interventions Summary of nutrition intervention:: Nutrition education provided, Provide oral nutrition supplement Nutrition support ordered as / adjusted to:: Continue regular diet. Continue 120ml ensure enlive 4 times per day with medpass for additional 700 calories and 40 gm protein per day. Will add chocolate magic cup BID with lunch and dinner for additional 580 calories and 18 gm protein per day. Will adjust ONS as needed to optimize oral intake and replete nutrition for wt gain. Nutrition education provided?: Yes - MNT Monitoring Active Nutrition Patient: Yes Nutrition Status: Requires Follow Up 3-5 Days
[2020-10-28] MEDS: traMADol 50 MG Tablet 100 MG PO (17:16)
[2020-10-28 18:28] LABS: Partial Thromboplast Time 31.3 Seconds (24.1-36.2)
[2020-10-28] MEDS: Heparin Injection (Vial) 5,000 UNIT/ML VIAL IV (18:41)
[2020-10-28] MEDS: Albuterol 2.5 MG/3 ML VIAL.NEB. INHALATION (18:47)
[2020-10-28] MEDS: Budesonide Respules 0.5 MG/2 ML AMPUL.NEB. INHALATION (18:47)
[2020-10-28] MEDS: Metoprolol(XL)Succ 25 MG Tablet PO (21:26)
[2020-10-28] MEDS: traZODone 50 MG Tablet 25 MG PO (21:26)
[2020-10-28] MEDS: Acetaminophen 500 MG Tablet 1000 MG PO (21:27)
[2020-10-28] MEDS: busPIRone 5 MG Tablet PO (21:27)
[2020-10-29] VITALS (7 sets, daily range): BP systolic 107–135; BP diastolic 50–72; PULSE 72–82; RESP 15–18; TEMP 36.5–36.9; O2SAT 96–100
[2020-10-29 01:16] LABS: Partial Thromboplast Time 44.7 Seconds (24.1-36.2)
[2020-10-29] MEDS: tiZANidine HCl 2 MG Tablet 4 MG PO ×2 (03:06→23:08)
[2020-10-29] MEDS: Carbidopa/Levodopa 25/100 Tablet PO ×3 (06:12→16:33)
[2020-10-29] MEDS: Pramipexole Di-HCl 0.125 MG Tablet PO ×3 (06:12→20:16)
[2020-10-29] MEDS: Albuterol 2.5 MG/3 ML VIAL.NEB. INHALATION (07:13)
[2020-10-29] MEDS: Budesonide Respules 0.5 MG/2 ML AMPUL.NEB. INHALATION (07:13)
[2020-10-29 07:19] LABS: Absolute Lymphocyte Count 1.51 X10^3/uL (0.83-4.51); Basophil# 0.04 X10^3/uL; Basophil% 0.5 % (0-1); Eosinophil# 0.28 X10^3/uL; Eosinophils% 3.8 % (0-5); Hematocrit 32.6 % (37-47); Hemoglobin 10.7 g/dL (12.0-15.0); Lymphocyte # 1.51 X10^3/ul (0.83-4.51); Lymphocyte % 20.4 % (19-41); Mean Corp Hgb Conc 32.8 g/dL (32-36); Mean Corpuscular Hgb 31.8 pg (27.0-32.0); Mean Platelet Vol. 9.6 fl (6.2-12.0); Monocyte% 8.1 % (0-10); NRBC Flagged by Analyzer 0 % (0-5); Neutrophil # 4.96 X10^3/uL (2.7-7.7); Neutrophil % 66.8 % (47-70); Platelet Count 407 K/mm3 (150-450); RBC Distribution Width CV 12.1 % (11.6-14.6); RBC Distribution Width SD 43.3 fl (35.1-43.9); Red Blood Count 3.36 M/mm3 (4.2-5.4); White Blood Count 7.4 K/mm3 (4.4-11.0)
[2020-10-29 07:32] LABS: Anion Gap 6 (5-15); BUN 19 mg/dL (7-18); BUN/Creat Ratio 33.7 RATIO (10-20); Calcium,Total 9.2 mg/dL (8.5-10.1); Chloride 98 mmol/L (98-107); Creatinine, Serum 0.56 mg/dL (0.55-1.02); EST Glomerular Filtration Rate 111 mL/min (>60); Est Glom Filt Rate - Afr Amer 134 mL/min (>60); Estimated Creatinine Clearance 35.44 ml/min; Glucose 132 mg/dL (74-106); Potassium 4.1 mmol/L (3.5-5.1); Sodium Level 134 mmol/L (136-145)
[2020-10-29 07:38] LABS: Partial Thromboplast Time 59.7 Seconds (24.1-36.2)
--- NOTE | 2020-10-29 07:52 | NURSING ---
This nurse is aware of PTT result of 59.7 and per policy/order for heparin gtt protocol, rate is to stay the same at this time.
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
--- NOTE | 2020-10-29 10:25 | CASEMGMT ---
TERRI NORRIS Assessment: Face to Face with pt for initial transition planning/care coordination assessment. TERRI NORRIS introduced self and role at [facility], pt voices understanding and consents to assessment. Pt is A/O x4 and answers all questions appropriately at this time. Pt sitting up in bed in no distress. Care providers, pharmacy, and demographics verified/updated. Admitting Dx: DVT, R hip injury PCP: Sulema Specialists: Rm, surgeon; neurologist- pt unsure of name Preferred Pharmacy: [facility] Insurance: [employer] [facility] Prescription Benefit: yes LW/HPOA: Pt denies having a LW/DPOA. LNOK: David Jacobo, Living Arrangements: Pt lives with in a single story house with 4 steps to enter with a rail. Pt states she needs a little assistance with ADL's although she does not have it. She states she sponge bathes herself now. She reports that her has a bad back and cannot help. Transportation: Pt states she can drive but has not recently. States her transports to medical appts. Denies concerns with transportation. DME/HHC/SNF: Pt has a cane, walker and grab bars in the bathroom. She normally does not use AD. Pt denies previous history of HHC or SNF. Pt states no concerns with going home at time of dc if she does not need assistance. If she needs assistance she states her cannot take care of her. She would be willing to go for therapy short term if needed. Notified MICHAELA Mohr. Pt states no further concerns/needs. CM to follow. Advised pt to ask CM if any further question/concerns/needs arise, voices understanding. Pt Goal: Home Plan: TBD
[2020-10-29] MEDS: Omega-3 Acid Ethyl Esters 1 GM Capsule PO (10:52)
[2020-10-29] MEDS: Ascorbic Acid 500 MG Tablet 1000 MG PO (10:53)
[2020-10-29] MEDS: Sertraline 100 MG Tablet PO (10:54)
[2020-10-29] MEDS: busPIRone 5 MG Tablet PO ×2 (10:55→20:16)
[2020-10-29] MEDS: Cholecalciferol (VIT D3) 25 MCG TABLET (1,000 UNITS) PO (10:55)
[2020-10-29] MEDS: traMADol 50 MG Tablet 100 MG PO (10:57)
[2020-10-29] MEDS: Metoprolol(XL)Succ 25 MG Tablet PO ×2 (10:57→20:16)
--- NOTE | 2020-10-29 12:36 | MRI_ITS ---
STUDY: MR PELVIS WITH T WITHOUT CONTRAST REASON FOR EXAM: Female, 75 years old. Destruction of right femoral head TECHNIQUE: Standardized fat and water weighted pulse sequences were obtained in all 3 orthogonal planes, pre-and post contrast administration. iv 10cc dotarem was administered for the contrast portion of the examination. COMPARISON: None. FINDINGS: Normal urinary bladder. Normal visualized small intestine. Normal visualized colon. There is no pelvic fluid. There is no pelvic mass lesion or lymphadenopathy. Normal visualized pelvic arteries. Moderate size joint effusion of the right hip joint with destruction of the femoral head and neck with a distracted pathologic fracture as well as destruction of the acetabulum of the hip joint consistent with septic arthritis. There is extension of the joint effusion with a sinus tract extending anteriorly terminating in a 2 x 12 cm fluid collection along the anterior aspect of the right rectus femoris muscle consistent with an abscess. Normal abdominal wall. MRI/Pelvis W/WO Contrast IMPRESSION: Septic arthritis of the right hip joint with destruction of the femoral head and neck with a pathologic fracture, osteomyelitis of the acetabulum and a 2 x 12 cm abscess along the anterior aspect of the rectus femoris muscle. Electronically Signed: Rui Cao MD at 17:40 EDT Tel , Service support ,
[2020-10-29 13:34] LABS: Partial Thromboplast Time 39.2 Seconds (24.1-36.2)
[2020-10-29] MEDS: Heparin Injection (Vial) 5,000 UNIT/ML VIAL IV (14:49)
--- NOTE | 2020-10-29 14:52 | NURSING ---
PTT is 39.2. This nurse followed protocol of heparin gtt and increased rate of heparin to 9ml/hr and bolused with 1000mg of heparin via IV. Next PTT will be in 6hrs.
--- NOTE | 2020-10-29 14:52 | CASEMGMT ---
TERRI NORRIS in to pt room. Pt gives permission to write that pt is currently in the hospital on [facility] letterhead and requests it be given to her so she can give to her . This was done at this time. Letter reads as follows: 10.29.2020 To Whom It May Concern, Vicky Jacobo is currently hospitalized at [facility]. Thank you, Marissa Alvarenga RN CM [phone]
[2020-10-29] MEDS: HEPARIN/D5w 25,000 UNITS 25,000 UNITS/250 ML IV.SOLN. 9 UNITS IV (16:32)
[2020-10-29] MEDS: Morphine 2 MG/ML Syringe IV (18:22)
[2020-10-29] MEDS: 0.9% Saline Lock 10 ML Syringe IV (18:23)
[2020-10-29] MEDS: Acetaminophen 500 MG Tablet 1000 MG PO (20:16)
[2020-10-29] MEDS: traZODone 50 MG Tablet 25 MG PO (20:17)
[2020-10-29 21:31] LABS: Partial Thromboplast Time 69.1 Seconds (24.1-36.2)
[2020-10-30] VITALS (7 sets, daily range): BP systolic 139–150; BP diastolic 59–81; PULSE 70–78; RESP 16–18; TEMP 36.4–37; O2SAT 91–97
[2020-10-30 04:09] LABS: Absolute Lymphocyte Count 2.27 X10^3/uL (0.83-4.51); Absolute Neutrophil Count 5.9 X10^3/uL (2.0-7.7); Basophil# 0.06 X10^3/uL; Basophil% 0.6 % (0-1); Eosinophil# 0.46 X10^3/uL; Eosinophils% 4.9 % (0-5); Hematocrit 35.4 % (37-47); Hemoglobin 11.3 g/dL (12.0-15.0); Lymphocyte # 2.27 X10^3/ul (0.83-4.51); Lymphocyte % 24.1 % (19-41); Mean Corp Hgb Conc 31.9 g/dL (32-36); Mean Corpuscular Hgb 31.7 pg (27.0-32.0); Mean Corpuscular Volume 99.2 fL (81-99); Mean Platelet Vol. 9.9 fl (6.2-12.0); Monocyte# 0.72 X10^3/uL; Monocyte% 7.6 % (0-10); NRBC Flagged by Analyzer 0 % (0-5); Neutrophil # 5.86 X10^3/uL (2.7-7.7); Neutrophil % 62.2 % (47-70); Platelet Count 424 K/mm3 (150-450); RBC Distribution Width CV 12.2 % (11.6-14.6); RBC Distribution Width SD 44.3 fl (35.1-43.9); Red Blood Count 3.57 M/mm3 (4.2-5.4); White Blood Count 9.4 K/mm3 (4.4-11.0)
[2020-10-30 04:16] LABS: Partial Thromboplast Time 36.5 Seconds (24.1-36.2)
[2020-10-30] MEDS: Heparin Injection (Vial) 5,000 UNIT/ML VIAL IV (04:31)
[2020-10-30] MEDS: Carbidopa/Levodopa 25/100 Tablet PO ×3 (05:23→14:36)
[2020-10-30] MEDS: Pramipexole Di-HCl 0.125 MG Tablet PO ×2 (05:23→14:36)
[2020-10-30] MEDS: Budesonide Respules 0.5 MG/2 ML AMPUL.NEB. INHALATION (07:25)
[2020-10-30] MEDS: Albuterol 2.5 MG/3 ML VIAL.NEB. INHALATION ×2 (07:25→13:51)
--- NOTE | 2020-10-30 08:19 | CASEMGMT ---
Tertiary facilities in-network with patient's insurance: [facility], [facility], Dian, Christi Verma, EMMANUEL, , Alen, VIDAU
--- NOTE | 2020-10-30 10:26 | PCA ---
Received phone call from [employer] transfer line requesting a demographic sheet, pt demographic sheet faxed to [facility] @ [phone]
--- NOTE | 2020-10-30 10:38 | PCM.DC ---
Discharge Instructions Follow Up Care Test Results: Test results from this visit will be discussed in further detail at your follow-up appointment, if applicable. Discharge Plan Admission Admit Date/Time: 10/28/20 12:48 Attending Provider: Alcon Van Primary Care Provider: Kelly Leone Consulting Providers: Theo Nunez Discharge Orders/Prescriptions Prescriptions: No Action omega-3 fatty acids [Fish Oil Concentrate] 1,000 mg capsule 1,000 mg PO DAILY RF: 0 tramadol 50 mg tablet 100 mg PO DAILY RF: 0 trazodone 50 mg tablet See Rx Instructions .ROUTE .COMPLEX Qty: 30 RF: 2 tizanidine 4 mg capsule 4 mg PO BID PRN (Reason: muscle spasticity) RF: 0 buspirone 5 mg tablet 5 mg PO BID Qty: 180 RF: 0 carbidopa-levodopa [Sinemet] 25-100 mg tablet 1 tab PO TID Qty: 270 RF: 0 pramipexole 0.125 mg tablet 0.125 mg PO TID Qty: 90 RF: 2 biotin 5 MG capsule 5 mg PO DAILY RF: 0 ascorbic acid (vitamin C) 1,000 MG tablet extended release 1,000 mg PO DAILY RF: 0 acetaminophen 500 MG tablet 1,000 mg PO QHS RF: 0 lorazepam 0.5 MG tablet 0.5 mg PO DAILY PRN (Reason: Anxiety) RF: 0 metoprolol succinate 25 MG tablet extended release 24 hr 25 mg PO BID RF: 0 albuterol sulfate 1 PUFF inhaler 2 puff INHALATION Q6H PRN PRN (Reason: BREATHING) RF: 0 sertraline 50 MG tablet 100 mg PO DAILY RF: 0 cholecalciferol (vitamin D3) 1,000 UNIT capsule 1,000 unit PO DAILY RF: 0 budesonide-formoterol 1 INHALER inhaler 2 inhaler INHALATION BID RF: 0 levocetirizine 5 MG tablet 5 mg PO DAILY PRN (Reason: NASAL DRAINAGE) RF: 0 Referrals / Follow Up: Kelly Leone DO [Primary Care Provider] - Disposition Disposition (needs filled in before D/C Order can be placed): [facility]
[2020-10-30] MEDS: busPIRone 5 MG Tablet PO (10:44)
[2020-10-30] MEDS: Omega-3 Acid Ethyl Esters 1 GM Capsule PO (10:44)
[2020-10-30] MEDS: Ascorbic Acid 500 MG Tablet 1000 MG PO (10:45)
[2020-10-30] MEDS: Metoprolol(XL)Succ 25 MG Tablet PO (10:45)
[2020-10-30] MEDS: Sertraline 100 MG Tablet PO (10:46)
[2020-10-30] MEDS: traMADol 50 MG Tablet 100 MG PO (10:49)
[2020-10-30] MEDS: Cholecalciferol (VIT D3) 25 MCG TABLET (1,000 UNITS) PO (10:50)
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
[2020-10-30 11:59] LABS: Partial Thromboplast Time 87.3 Seconds (24.1-36.2)
--- NOTE | 2020-10-30 13:14 | PCA ---
[facility] tx line called. Bed available for pt. pt going to surgical unit, 5260 report number is [phone]
--- NOTE | 2020-10-30 14:00 | NURSING ---
attempt to call report to [facility] x2 unsuccessful, nurse unavailable to call report
[2020-10-30] MEDS: HEPARIN/D5w 25,000 UNITS 25,000 UNITS/250 ML IV.SOLN. 9 UNITS IV (14:34)
--- NOTE | 2020-10-30 15:32 | NURSING ---
[facility] after report given to them and [facility]
== END 2020-10-30 15:30 | disposition short-term general hospital (02) | DRG 549 ==
LOC: ED 10:41 → MS3 11:09
PROVIDERS: Admitting Provider Family Medicine; Emergency Provider Emergency Medicine; PCP Internal Medicine; Visit Provider Family Medicine
DX: M00.9 Pyogenic arthritis, unspecified (principal); I82.441 Acute embolism and thrombosis of right tibial vein; I82.451 Acute embolism and thrombosis of right peroneal vein; M89.8X5 Other specified disorders of bone, thigh; G89.29 Other chronic pain; R29.6 Repeated falls; Z23 Encounter for immunization; M25.551 Pain in right hip; E78.5 Hyperlipidemia, unspecified; F02.80 Dementia in other diseases classified elsewhere, unspecified severity, without behavioral disturbance, psychotic disturbance, mood disturbance, and anxiety; G20 Parkinson's disease; I10 Essential (primary) hypertension; J44.9 Chronic obstructive pulmonary disease, unspecified; I82.461 Acute embolism and thrombosis of right calf muscular vein; F41.9 Anxiety disorder, unspecified; F32.9 Major depressive disorder, single episode, unspecified; K21.9 Gastro-esophageal reflux disease without esophagitis; E55.9 Vitamin D deficiency, unspecified; M41.9 Scoliosis, unspecified; S51.012A Laceration without foreign body of left elbow, initial encounter; M51.16 Intervertebral disc disorders with radiculopathy, lumbar region; Z79.51 Long term (current) use of inhaled steroids; Z87.891 Personal history of nicotine dependence; Z79.899 Other long term (current) drug therapy; W19.XXXA Unspecified fall, initial encounter
CPT/HCPCS: 36415; 72197; 73502; 80048; 81001; 84484; 85025; 85652; 85730; 86140; 87040; 90715; 93005; 93971; 94640; 96365; 96366; 96374; 96375; 96376; 99285; A9575; A4216; J2405

== ENCOUNTER → 2020-12-14 16:37 | Outpatient (CLI) | payer MEDICARE, SELFPAY ==
[2020-10-28 16:27] VITALS: BMI 18.0
--- NOTE | 2020-12-14 12:59 | EKG12_ITS ---
Test Reason : PREOP Blood Pressure : / mmHG Vent. Rate : 062 BPM Atrial Rate : 062 BPM P-R Int : 184 ms QRS Dur : 090 ms QT Int : 438 ms P-R-T Axes : 068 048 078 degrees QTc Int : 444 ms Normal sinus rhythm ST & T wave abnormality, consider lateral ischemia Abnormal ECG Confirmed by MICHAEL LIMON, THALIA ([id number]), editorial assistant JING MCCOY ([id number]) on 12/15/2020 1:16:19 PM Referred By: Remigio Sanders Confirmed By:THALIA RODRIGUEZ MD
--- NOTE | 2020-12-14 13:00 | RAD_ITS ---
STUDY: X-RAY CHEST REASON FOR EXAM: Female, 75 years old. PREOP TECHNIQUE: PA and lateral views of the chest. COMPARISON: Comparison is made with prior study dated 01/13/2019. FINDINGS: There is hyperinflation of the lungs consistent with chronic obstructive lung disease (COPD). There is no demonstrated pleural abnormality. Normal size heart. Normal mediastinum and shawna. Normal visualized pulmonary arteries. There is atherosclerotic calcification of the aortic arch with tortuosity. There are degenerative changes of the visualized thoracic spine. Normal visualized ribs, clavicles, and shoulders. There is no demonstrated abnormality of the visualized soft tissue structures of the upper abdomen. RAD/Chest PA and Lateral IMPRESSION: Hyperinflation. Electronically Signed: Shun Gallardo MD at 22:37 EDT , Service support ,
[2020-12-14 13:01] LABS: Absolute Lymphocyte Count 1.43 X10^3/uL (0.83-4.51); Absolute Neutrophil Count 7.2 X10^3/uL (2.0-7.7); Basophil# 0.06 X10^3/uL; Basophil% 0.6 % (0-1); Eosinophils% 2.1 % (0-5); Hemoglobin 11.8 g/dL (12.0-15.0); Lymphocyte # 1.43 X10^3/ul (0.83-4.51); Lymphocyte % 15.1 % (19-41); Mean Corp Hgb Conc 32.8 g/dL (32-36); Mean Corpuscular Hgb 31.8 pg (27.0-32.0); Mean Platelet Vol. 9.8 fl (6.2-12.0); Monocyte# 0.59 X10^3/uL; Monocyte% 6.2 % (0-10); NRBC Flagged by Analyzer 0 % (0-5); Neutrophil # 7.16 X10^3/uL (2.7-7.7); Neutrophil % 75.7 % (47-70); Platelet Count 290 K/mm3 (150-450); RBC Distribution Width CV 14.6 % (11.6-14.6); RBC Distribution Width SD 51.8 fl (35.1-43.9); Red Blood Count 3.71 M/mm3 (4.2-5.4); White Blood Count 9.5 K/mm3 (4.4-11.0)
[2020-12-14 13:09] LABS: International Normalized Ratio 1.2; Partial Thromboplast Time 27.7 Seconds (24.1-36.2); Prothrombin Time (Protime)PT. 14.1 SECONDS (11.7-14.9)
[2020-12-14 13:34] LABS: AST(SGOT) 13 U/L (15-37); Alanine Aminotransfer ALT/SGPT 16 U/L (13-56); Albumin, Serum 3.4 g/dL (3.2-5.0); Alkaline Phosphatase 77 U/L (45-117); Anion Gap 5 (5-15); BUN 15 mg/dL (7-18); BUN/Creat Ratio 28.5 RATIO (10-20); Bilirubin, Direct 0.08 mg/dL (0.00-0.30); Calcium,Total 9.4 mg/dL (8.5-10.1); Chloride 99 mmol/L (98-107); Creatinine, Serum 0.53 mg/dL (0.55-1.02); EST Glomerular Filtration Rate 120 mL/min (>60); Est Glom Filt Rate - Afr Amer 145 mL/min (>60); Globulin 3.4 g/dL (2.2-4.2); Glucose 112 mg/dL (74-106); Potassium 3.8 mmol/L (3.5-5.1); Protein, Total 6.8 g/dL (6.4-8.2); Sodium Level 134 mmol/L (136-145)
== END ==
PROVIDERS: Anesthesiology; PCP Internal Medicine; Referring Provider Specialist; Visit Provider Specialist
DX: Z01.818 Encounter for other preprocedural examination (principal)
CPT/HCPCS: 36415; 71046; 80048; 80076; 83735; 85025; 85610; 85730; 87077; 87081; 93005

== ENCOUNTER → 2020-12-27 06:44 | Outpatient (CLI) | payer MEDICARE, SELFPAY ==
[2020-10-28 16:27] VITALS: BMI 18.0
--- NOTE | 2020-12-29 12:14 | STRESSREP_ITS ---
Stress Test Report Date: 12/27/2020 Procedure: Pharmacologic stress nuclear imaging study Indications: Abnormal EKG Consent: Per the patient Procedure: The patient underwent pharmacologic (Regadenoson) evaluation with a peak heart rate of 85 beats per minute (59%predicted maximal heart rate) and a peak blood pressure of 140/88 mmHg. The baseline ECG demonstrated normal sinus rhythm, nonspecific ST-T changes. EKG during lexiscan infusion revealed no significant ischemic ST-T changes. EKG post infusion revealed no significant ischemic ST-T changes [There were no cardiac dysrhythmias pretest, during pharmacologic infusion, or recovery]. [There was no complaint of chest discomfort during pharmacologic infusion or recovery]. The examination was discontinued secondary to completion of protocol. Impression: 1. Lexiscan stress test test is negative for Lexiscan infusion induced EKG changes of ischemia. 2. Lexiscan stress test test is negative for Lexiscan infusion induced chest pain. 3. Results of the nuclear portion of the test is as below Myocardial perfusion imaging study: Technique: The patient was injected with 12 millicuries of technetium 99m Cardiolite and subsequently rest SPECT Cardiolite nuclear imaging was obtained in the horizontal long, vertical long, and short axis views. The patient underwent pharmacologic [Regadenoson 0.4mg] evaluation. Please see above for details. The patient was injected with 32.7 millicuries of technetium 99m Cardiolite and subsequently stress SPECT Cardiolite nuclear imaging was obtained in the horizontal long, vertical long, and short axis views. A gated Cardiolite study at peak stress was obtained. Interpretation: Rest and stress SPECT Cardiolite nuclear imaging status post realignment, normalization, and attenuation correction demonstrate overall normal myocardial radioisotope uptake. Gated images reveal no significant regional wall motion abnormalities. The reported LVEF is 69%. Impression: 1. There is no evidence of significant ischemia or infarction. 2. Estimated ejection fraction is 69%. This note was generated with [employer] software. It may contain incorrect words, spelling, and punctuation that were not noted in checking the note before signing.
== END ==
PROVIDERS: PCP Internal Medicine; Referring Provider Internal Medicine; Visit Provider Internal Medicine
DX: R94.31 Abnormal electrocardiogram [ECG] [EKG] (principal)
CPT/HCPCS: 78452; 93017; A9500; A4216; J2785

== ENCOUNTER 2021-02-02 15:56 | Observation (INO) | payer MEDICARE, SELFPAY ==
[2021-02-02] VITALS (18 sets, daily range): BP systolic 126–165; BP diastolic 44–120; PULSE 56–90; RESP 16–18; TEMP 36.1–36.8; O2SAT 95–100; BMI 18.6
--- NOTE | 2021-02-02 | HIP_PTH ---
PATIENT: LYNN MEYERS LOC: [facility] U#:[id number] AGE/SX: 76/F ROOM: [facility]319 RE02/02/[address]: Dr. Kenyon Armstrong DO : 1945 BED: 1 DIS: 02/04/2021 SPEC #: [id number] RECD: 02/03/21 10:59 STATUS: OMAYRA REQ #: [id number] MICKEY: 02/02/21 00:[address]: Remigio Sanders DEPT: SURGICAL PATHOLOGY RECD BY: Clifton Montgomery ENTERED: 02/03/21 10:59 SP TYPE: TOTAL HIP OTHR DR: DO Dr. Arnold Reddy MD Dr. Kathleen Fearon, DO Dr. Robert Leininger, MD Dr. Steven Widmer, MD Tissues: Hip, NOS Procedures: Decalcification bone/plaque Surgery Specimen Level IV Comments: @ Ordering doctor for DEC edited from to @ sonny SALAZAR at 02/03/21 1449 @ Ordering doctor for SUIV edited from to @ by MARTIN at 02/03/21 1449 @ Submitting doctor edited from to DR.SWIDME Dulce Maria SALAZAR at 02/03/21 1449 HEADER OPERATION: ERAS, antibiotic spacer, right hip PRE-OP DIAGNOSIS: Destruction of right femoral head, concern for infection TISSUE SUBMITTED: Femoral head right hip MICROSCOPIC DIAGNOSIS Bone and soft tissue of right hip, total hip resection: Severe articular erosion with reactive and reparative change. AM:noe 02/07/2021 MICROSCOPIC DESCRIPTION Slides are reviewed. GROSS DESCRIPTION Received in fixative is one container labeled with the patient's name and designated left femoral head. The specimen consists of multiple irregular fragments of gomez bone ranging in size from 1.7 to 4 cm. Light gomez adherent soft tissue measures 2 x 2 x 0.5 cm. Distinct articular surface is not identified. Veneer Stacker sections are submitted in two cassettes as follows: 1 ? soft tissue, 2 ? bone after decalcification. / AM:noe 02/03/21 TC:5 CPT: 59791, 84382
[2021-02-02] MEDS: Celecoxib 200 MG Capsule 400 MG PO (10:48)
[2021-02-02] MEDS: Acetaminophen 500 MG Tablet 1000 MG PO ×2 (10:48→20:17)
[2021-02-02] MEDS: Gabapentin 600 MG Tablet PO (10:48)
[2021-02-02] MEDS: Lactated Ringers 1,000 ML 100 ML IV ×2 (10:49→16:30)
[2021-02-02] MEDS: Metoprolol Tartrate 25 MG Tablet PO (11:51)
[2021-02-02 13:05] LABS: Bedside Glucose 86 mg/dL (70-110)
[2021-02-02] MEDS: Cefazolin 2 GM in 0.9% Normal Saline 100 ML IV (13:15)
--- NOTE | 2021-02-02 14:42 | OP.PCM_ITS ---
Report of Operation Date of Procedure: 02/02/21 Pre-Operative Diagnosis: Right hip [place] infection with osteomyelitis Post-Operative Diagnosis: Right hip severe inflammatory process with femoral head necrosis Surgery/Procedure Performed:: Right hip debridement of muscle synovium bone and fascia with hemiarthroplasty and placement of nonbiodegradable antibiotic delivery system Description of Surgical Findings:: Patient had significant osteonecrosis of the femoral head. Femoral head was lodged in the acetabulum. The femoral neck had severe necrosis and was proximallized. It appeared to be severe surrounding inflammatory disease. None of negative evidence to proceed with plan other than what was previously discussed however no gross purulence or definitive signs of infection. Anterior fluid collections appear to be all synovial fluid. Surgeon: Remigio Sanders valve repairer reclamation: Isai Juárez Type of Anesthesia: Spinal Anesthesiologist: Kody Mcintosh Special Medications: 2 g Ancef, 2 g TXA lavage and wound at completion of case. Specimen's removed: Femoral head and neck cut were sent to pathology. 3 separate specimens were sent to micrology Estimated Blood Loss (mL): 250 Fluids Replaced: 1000 mL crystalloid Description of Procedure: Components used: 1. [place] Accolade c size 2 collared stem, 127 neck angle 2. Andreas cobalt-chromium Unitrax femoral head with 12 mm sleeve. Brief history operative indications: 76-year-old female presented to my office with significant history of severe right hip pain. She had bounced around from different hospitals on admission. She had significant evidence of inflammation with anterior fluid collections consistent with potential abscesses on a MRI. She was shipped to a tertiary care center eventually because she developed a DVT in her case became complex. She did have an aspiration that showed no growth however no cell count was appreciated from the outside institution. On my review of her case due to the severe bone necrosis and evidence of significant inflammation on the MRI I did recommend a antibiotic spacer with tissues specimens prior to proceeding with total hip replacement implants. Patient demonstrated understanding and did wish to proceed. Risks and benefits were discussed with the patient which included but were not limited to blood loss, DVTs, PEs, infection, neurovascular damage, and dislocation. In light of all this patient did agree to proceed with a right hip spacer. In the meantime patient developed atrial fibrillation and required cardiac clearance which took significant time. She eventually obtain medical clearance. Procedure: On the date of procedure the patient's r hip was marked in the preoperative area. Patient was then taken back to the operating room where anesthesia ass umed control of the C-spine and airway and administered anesthetic. Patient was transferred to the operating table and placed in the lateral decubitus position with the affected hip up. The patient was secured in the bed with the lateral positioners and leg lengths were checked. The r lower extremity was then prepped out in a sterile fashion using chlorhexidine while the surgeon scrubbed. Upon reentering the room the r lower extremity was draped in the standard orthopedic fashion and the incision was marked. A timeout was called and everyone agreed upon the side, the site, the procedure be performed, antibiotics given, and patient's identity. At this time incision was made through skin, subcutaneous tissue, and fat down to fascia. The fascia was then incised and a Charley retractor was placed. The soft tissue was then cleared from the posterior external rotators and the piriformis was identified. Piriformis was taken down and tagged. The remainder of the short external rotators were taken down. Capsulotomy was made and the posterior capsule was tagged. The retractors were then placed inside the capsule. The femoral neck was identified and a cleanup cut was made. The head had been significantly necrosis off and we originally thought had been completely eroded. We completed our synovectomy at this point directing our attention anteriorly. The anterior fluid noted on the MRI appeared to be synovial in nature no purulence or abscess was encountered. There was significant tissue collection in the acetabulum and as we carefully debrided this out we were able to note the residual femoral head still in the acetabulum. This was removed and sent to pathology. At this point based on the abnormal shape of the acetabulum we did elect to ream the acetabulum for mary ridement in preparation for the hemiarthroplasty spacer. We reamed up to 47 mm and obtained a good fit. At this time we took the trial head and noted good fit with stability. Attention was then turned to the femur where the proximal femur was appropriately exposed using a chaparro retractor. The paperboard boxes estimator was used to remove the lateral bone. Canal finder was used to verify the canal. The pro ximal femoral femur was then sequentially broached to a size 3 broach which had an appropriate fit. The broach was left in place. The calcar reamer was used to clean up the neck cut. We trialed with a size 3 knowing that we were going to use a size 2 with a collar in order to get a bigger cement mantle for local cement delivery. We trialed with a +8. Knowing that the size 2 stem would be 5 mm less in length than the size 3. This gave us a stable hip. Leg lengths were not completely corrected however based on the patient's significant leg length discrepancy from the femoral head corrosion we are happy with the correction we got as the hip was tight. The hip was dislocated, trial components were removed. Wound was copiously irrigated out with normal saline 6 L under low- pressure lavage. While we are doing this on the back table we opened up 2 g of vancomycin and 2.4 g of tobramycin for our cement. Cement was mixed on the back table by hand. After the cement was ready and the wound had been copiously irrigated out with a normal saline the proximal femur was again exposed. The final components were verified and opened. The wound was copiously irrigated out with normal saline. The acetabulum was checked for any residual debris. The final components were placed and cemented. The size 2 stem with a collar sat precisely where the femoral neck cut had been made. After this was done we verified we had the appropriate depth and position of the implant we opened up the +12 mm 47 mm femoral head. Trunnion was cleaned and femoral head was impacted into place. Frankel taper was verified. Traction and external rotation were again used to reduce the hip. After adequate reduction the hip remained stable with appropriate leg lengths. The wound was then copiously irrigated with normal saline once more, and hemostasis was obtained. The posterior capsule and piriformis were repaired through drill holes to the greater trochanter . Closure was then done using #1 Vicryl to close the fascia. A 2-0 Vicryl interrupted sutures were used to close the subcutaneous skin. Skin kanu were used for final skin closure. A sterile dressing was placed. Patient was awakened by anesthesia and transferred [facility]. Patient was then transferred to the PACU for recovery. Postoperative plan: We will consult infectious disease for their input on antibiotic treatment. My plan at this time is to proceed with treatment for infection and follow cultures. If all cultures are negative we may be able to expedite the process. Plan is for the patient to have a second surgery with more permanent implants after we can appropriately treat infection or verify no significant infection. Patient will get in-house physical therapy and will be 50% weightbearing on the right lower extremity. Patient will follow up in office in 2 weeks for a wound check and x-rays. Admit VTE Documentation VTE Present on Admission: No VTE Mechan Device Prophylaxis: SCD's and Thigh High JAY Hose VTE Pharm Prophylaxis ordered?: Yes
--- NOTE | 2021-02-02 15:35 | RAD_ITS ---
HISTORY: Post Op -- AP both hips on single zoraida/lateral of op hip PACU EXAMINATION/TECHNIQUE: XR Hip Unilateral with Pelvis when performed; 2-3 Views: COMPARISON: 10/28/20 FINDINGS: 2 views of the right hip show right hip replacement in anatomic alignment with overlying skin kanu and subcutaneous emphysema. Left hip is unchanged. No acute fracture or destructive bony lesion identified. RAD/Hip Min 2 Views (Portable) IMPRESSION: Status post right hip replacement. at 1628 Reported and signed by: Bhavin Mueller MD Electronically Signed: Bhavin Mueller MD at 16:26 EDT Tel , Service support ,
[2021-02-02] MEDS: Lactated Ringers 1,000 ML 999 ML IV (15:37)
--- NOTE | 2021-02-02 16:32 | SUR.PHASEI ---
Patient resting comfortably in PACU, awaiting clean room on third floor. Report given to Haily MURRAY, [facility]. Patient unable to grossly move legs or feel sensation from the spinal. Will continue to monitor.
[2021-02-02] MEDS: Albuterol 2.5 MG/3 ML VIAL.NEB. INHALATION (18:56)
[2021-02-02] MEDS: Budesonide Respules 0.5 MG/2 ML AMPUL.NEB. INHALATION (18:57)
[2021-02-02 19:10] LABS: Anion Gap 5 (5-15); BUN 19 mg/dL (7-18); BUN/Creat Ratio 28.4 RATIO (10-20); Calcium,Total 8.9 mg/dL (8.5-10.1); Chloride 102 mmol/L (98-107); Creatinine, Serum 0.67 mg/dL (0.55-1.02); EST Glomerular Filtration Rate 91 mL/min (>60); Est Glom Filt Rate - Afr Amer 110 mL/min (>60); Estimated Creatinine Clearance 35.42 ml/min; Glucose 133 mg/dL (74-106); Potassium 4.7 mmol/L (3.5-5.1); Sodium Level 135 mmol/L (136-145)
[2021-02-02] MEDS: Carbidopa/Levodopa 25/100 Tablet PO (19:20)
[2021-02-02] MEDS: oxyCODONE 5 MG Tablet PO (20:17)
--- NOTE | 2021-02-02 20:17 | PN.HOSP_ITS ---
Subjective Subjective Patient is 76-year-old female significant history of Parkinson disease; TIA and COPD who is status post right hip debridement of muscle synovium bone and fascia with hemiarthroplasty and placement of nonbiodegradable antibiotic delivery system of postop day 0. Hospital medicine has been consulted for management of chronic medical conditions. Patient complains of pain in her right hip. She denies any other symptoms at this time. Objective Data Objective Data Vital Signs: Vital Signs Temp Pulse Resp BP Pulse Ox 97.8 F 80 16 131/68 H 98 02/02/21 18:53 02/02/21 18:56 02/02/21 18:56 02/02/21 18:53 02/02/21 18:56 Oxygen Flow Rate (L/min) 2 Oxygen Delivery Method Room Air Weight: 47.627 kg Body Mass Index (BMI) 18.6 Intake & Output: Intake and Output for Last 24 Hours 01/31/21 02/01/21 02/02/21 23:59 23:59 23:59 Intake Total 2453 / 2453 Balance 2453 / 2453 Lab / Micro Data Result Diagrams: 02/02/21 18:22 02/02/21 18:22 Labs: Laboratory Results - last 24 hr 02/02/21 10:25: POC Glucose 86 02/02/21 18:22: Sodium 135 L, Potassium 4.7, Chloride 102, Carbon Dioxide 28.0, Anion Gap 5, BUN 19 H, Creatinine 0.67, Estim Creat Clear Calc 35.42, Est GFR (MDRD) Af Amer 110, Est GFR (MDRD) Non-Af 91, BUN/Creatinine Ratio 28.4 H, Glucose 133 H, Calcium 8.9 Micro: Microbiology 02/01/21 12:40 Interface Orders SARS-CoV-2 Antigen (Rapid) - Final Radiography Diagnostic Testing: Radiology Impression Hip X-Ray 02/02/21 15:35 IMPRESSION: Status post right hip replacement. at 1168 Reported and signed by: Bhavin Mueller MD Electronically Signed: Bhavin Mueller MD at 16:26 EDT Tel , Service support , Physical Exam Narrative Physical exam: General: Well-nourished, well-developed. Head: Normocephalic, atraumatic, no tenderness Eyes: PERRLA, EOMI ENT, no trauma, moist mucous membranes, no rhinorrhea Neck: Nontender, full range of motion, no spinal tenderness, deformities, step- off CVS: Regular rate and rhythm. S1-S2 present. Murmur is present. No gallop or rub. Respiratory : clear to auscultation bilaterally, chest wall nontender, no wheezing Abdomen: Soft, nontender, nondistended, normal bowel sounds, no masses : Deferred Back: Nontender, no CVA tenderness, no midline spinal tenderness, deformities, step-offs Extremities: Tender right hip. Dressing of right hip in place. Left hip nontender. Skin: Normal color, no trauma, abrasions Neuro: Alert, oriented, cranial nerves II through XII grossly intact. Psychiatry: Normal mood. Normal affect. Not depressed. Not anxious. Assessment & Plan Assessment/Plan (1) Femur head necrosis: QUALIFIERS: Laterality: right Qualified Code(s): M87.051 - Idiopathic aseptic necrosis of right femur (2) Osteomyelitis hip: (3) Essential hypertension: (4) Parkinson's disease: (5) COPD (chronic obstructive pulmonary disease): QUALIFIERS: COPD type: chronic bronchitis Chronic bronchitis type: simple Qualified Code(s): J41.0 - Simple chronic bronchitis PLAN: Femoral head necrosis/osteomyelitis Status post right hip debridement of muscle synovium bone and fascia with hemiarthroplasty and placement of nonbiodegradable antibiotic delivery system. Agrees with vancomycin and cefepime. Agrees with current pain regimen Counselled to use incentive spirometer. Parkinson's disease Carbidopa levodopa continued Depression/anxiety disorder Zoloft continue History of TIA Eliquis continued Hypertension Blood pressure is not within goal Metoprolol continued. Trend blood pressure and adjust blood pressure medications. COPD Stable Inhalers continued DVT prophylaxis On Eliquis; JAY gimenez and SHIRAs. Thank you for the consult. Internal medicine service to continue to follow. Charges/Coding Visit Charges Inpatient E&M: 15310 Subs Hosp L2
[2021-02-02] MEDS: Pramipexole Di-HCl 0.125 MG Tablet PO (20:18)
[2021-02-02] MEDS: Senna/Docusate Sodium 1 Tablet 2 TABLET PO (20:18)
[2021-02-02] MEDS: traZODone 50 MG Tablet PO (20:18)
[2021-02-02] MEDS: busPIRone 5 MG Tablet PO (20:18)
[2021-02-02] MEDS: Metoprolol(XL)Succ 25 MG Tablet PO (20:26)
--- NOTE | 2021-02-02 20:58 | PCM.RX.CS ---
Consult Pharmacy has been consulted to manage selected antiobiotic: Vancomycin Type of Consult: New start Suspected Infection: Osteomyelitis Labs: Sodium 135 mmol/L (136-145) L 02/02/21 18:22 Potassium 4.7 mmol/L (3.5-5.1) 02/02/21 18:22 Chloride 102 mmol/L (98-107) 02/02/21 18:22 Carbon Dioxide 28.0 mmol/L (21.0-32.0) 02/02/21 18:22 Anion Gap 5 (5-15) 02/02/21 18:22 BUN 19 mg/dL (7-18) H 02/02/21 18:22 Creatinine 0.67 mg/dL (0.55-1.02) 02/02/21 18:22 Est GFR (MDRD) Af Amer 110 mL/min (>60) 02/02/21 18:22 Est GFR (MDRD) Non-Af 91 mL/min (>60) 02/02/21 18:22 BUN/Creatinine Ratio 28.4 RATIO (10-20) H 02/02/21 18:22 Glucose 133 mg/dL (74-106) H 02/02/21 18:22 Microbiology: Microbiology 02/01/21 12:40 Interface Orders SARS-CoV-2 Antigen (Rapid) - Final Goal Trough: 15-20 mcg/mL Pharmacy Plan for Drug Dosing: NEW START IV VANCOMYCIN Consulting Physician: Dr. Villaseñor Indication: R-hip osteo Goal Trough: 15-20 SrCr: 0.67 CrCl: 35 mL/min Comments: Loading dose of 1250mg IV x1 ordered and administered 02/02/21 @1920 Vancomcyin Dose: 750mg IV Q24hr to start 02/03/21 @1900 Pending Level: 02/04/21 @1830, prior to 3rd total dose per protocol Pharmacy Service will continue to monitor and adjust dosing as required.
[2021-02-03] VITALS (8 sets, daily range): BP systolic 100–140; BP diastolic 40–60; PULSE 79–86; RESP 16–18; TEMP 36.6–36.8; O2SAT 94–100
[2021-02-03] MEDS: Pramipexole Di-HCl 0.125 MG Tablet PO ×3 (06:10→22:47)
[2021-02-03] MEDS: Carbidopa/Levodopa 25/100 Tablet PO ×2 (06:10→16:26)
[2021-02-03] MEDS: Acetaminophen 500 MG Tablet 1000 MG PO ×3 (06:10→22:42)
[2021-02-03 06:33] LABS: Anion Gap 5 (5-15); BUN 16 mg/dL (7-18); BUN/Creat Ratio 26.2 RATIO (10-20); Calcium,Total 8.7 mg/dL (8.5-10.1); Chloride 104 mmol/L (98-107); Creatinine, Serum 0.61 mg/dL (0.55-1.02); EST Glomerular Filtration Rate 101 mL/min (>60); Est Glom Filt Rate - Afr Amer 122 mL/min (>60); Estimated Creatinine Clearance 35.42 ml/min; Glucose 116 mg/dL (74-106); Potassium 4.3 mmol/L (3.5-5.1); Sodium Level 136 mmol/L (136-145)
[2021-02-03 06:38] LABS: Hematocrit 32.5 % (37-47); Hemoglobin 10.7 g/dL (12.0-15.0); Mean Corp Hgb Conc 32.9 g/dL (32-36); Mean Corpuscular Hgb 32.9 pg (27.0-32.0); Mean Platelet Vol. 10.1 fl (6.2-12.0); Platelet Count 259 K/mm3 (150-450); RBC Distribution Width CV 13.8 % (11.6-14.6); RBC Distribution Width SD 50.9 fl (35.1-43.9); Red Blood Count 3.25 M/mm3 (4.2-5.4); White Blood Count 9.3 K/mm3 (4.4-11.0)
[2021-02-03] MEDS: Budesonide Respules 0.5 MG/2 ML AMPUL.NEB. INHALATION ×2 (07:05→19:27)
[2021-02-03] MEDS: Albuterol 2.5 MG/3 ML VIAL.NEB. INHALATION ×2 (07:06→19:27)
[2021-02-03] MEDS: Famotidine 20 MG Tablet PO (08:22)
[2021-02-03] MEDS: busPIRone 5 MG Tablet PO ×2 (08:23→22:42)
[2021-02-03] MEDS: Multivitamins,Therapeutic Tablet 1 TABLET PO (08:23)
[2021-02-03] MEDS: Ascorbic Acid 500 MG Tablet 1000 MG PO (08:23)
[2021-02-03] MEDS: Cholecalciferol (VIT D3) 25 MCG TABLET (1,000 UNITS) 100 MCG PO (08:24)
[2021-02-03] MEDS: APIXABAN 5 MG TABLET PO ×2 (08:24→22:47)
[2021-02-03] MEDS: Metoprolol(XL)Succ 25 MG Tablet PO ×2 (08:24→22:47)
[2021-02-03] MEDS: Senna/Docusate Sodium 1 Tablet 2 TABLET PO ×2 (08:24→22:43)
[2021-02-03] MEDS: oxyCODONE 5 MG Tablet PO (08:28)
[2021-02-03] MEDS: Ensure Surgery 237 ML LIQUID PO ×3 (08:29→17:16)
--- NOTE | 2021-02-03 09:01 | PCS.PANDOC ---
PANDEMIC DOCUMENTATION INITIATED: Date: 01/03/2021 Time: 189902/02/21 184
--- NOTE | 2021-02-03 09:18 | CASEMGMT ---
Social Work Note SW received email from TCU stating pt's daughter Delilah Laurent ([phone]) is requesting TCU for pt at discharge. TCU is able to accept pt. SW will meet with pt to confirm discharge plans. Kaci Mohr GRIZZLYMAN, PNEUMATIC DRUM SANDER
[2021-02-03] MEDS: Sertraline 50 MG Tablet PO (09:29)
--- NOTE | 2021-02-03 09:49 | PN.ORTHO_ITS ---
Subjective Subjective The patient was sitting in bedside chair upon examination. Patient denies any chest pain, shortness of breath, dizziness, lightheadedness, nausea or vomiting, or calf pain. Pain is controlled on medications. No adverse overnight events. Per nursing patient has had confusion overnight. Upon walking into the room patient handed me her hospital phone to talk with her . Her states her daughter has reached out to the stepdown unit here at the hospital and states there is a room available. He had many questions with regards to postoperative care. I discussed with him that she will be followed by her infectious disease doctor and are waiting plan with regards to antibiotics. I instructed him that the current cultures are pending. Discharge planning will be determined once infectious disease has examined the patient and chart. Patient's voiced understanding and agreement with treatment plan. Objective Data Objective Data Vital Signs: Vital Signs Temp Pulse Resp BP Pulse Ox 97.9 F 79 16 100/40 L 94 02/03/21 08:00 02/03/21 08:24 02/03/21 08:00 02/03/21 08:00 02/03/21 08:00 Oxygen Flow Rate (L/min) 2 Oxygen Delivery Method Room Air Weight: 47.627 kg Body Mass Index (BMI) 18.6 Intake & Output: Intake and Output for Last 24 Hours 02/01/21 02/02/21 02/03/21 23:59 23:59 23:59 Intake Total 2828 / 3178 1650 / 1650 Output Total 1600 / 1600 Balance 2828 / 2678 50 / 50 Lab / Micro Data Result Diagrams: 02/03/21 05:50 02/03/21 05:50 Labs: Laboratory Results - last 24 hr 02/02/21 10:25: POC Glucose 86 02/02/21 18:22: Sodium 135 L, Potassium 4.7, Chloride 102, Carbon Dioxide 28.0, Anion Gap 5, BUN 19 H, Creatinine 0.67, Estim Creat Clear Calc 35.42, Est GFR (MDRD) Af Amer 110, Est GFR (MDRD) Non-Af 91, BUN/Creatinine Ratio 28.4 H, Glucose 133 H, Calcium 8.9 02/03/21 05:50: WBC 9.3, RBC 3.25 L, Hgb 10.7 L, Hct 32.5 L, MCV 100.0 H, MCH 32.9 H, MCHC 32.9, RDW Std Deviation 50.9 H, RDW Coeff of Elvia 13.8, Plt Count 259, MPV 10.1 02/03/21 05:50: Sodium 136, Potassium 4.3, Chloride 104, Carbon Dioxide 27.0, Anion Gap 5, BUN 16, Creatinine 0.61, Estim Creat Clear Calc 35.42, Est GFR (MDRD) Af Amer 122, Est GFR (MDRD) Non-Af 101, BUN/Creatinine Ratio 26.2 H, Glucose 116 H, Calcium 8.7 Micro: Microbiology 02/01/21 12:40 Interface Orders SARS-CoV-2 Antigen (Rapid) - Final Radiography Diagnostic Testing: Radiology Impression Hip X-Ray 02/02/21 15:35 IMPRESSION: Status post right hip replacement. at 1628 Reported and signed by: Bhavin Mueller MD Electronically Signed: Bhavin Mueller MD at 16:26 EDT Tel , Service support , Physical Exam Narrative Vital signs stable and afebrile. Patient is able to plantarflex and dorsiflex actively. Sensation is intact to light touch to saphenous, sural, superficial and deep peroneal, and tibial distribution. Dressing is clean dry and intact. Negative Homans bilaterally, negative signs and symptoms of DVT. Const alert and no apparent distress Assessment & Plan Assessment/Plan (1) Osteomyelitis hip: (2) Femur head necrosis: QUALIFIERS: Laterality: right Qualified Code(s): M87.051 - Idiopathic aseptic necrosis of right femur PLAN: 1. S/P right hip debridement of muscle synovium bone and fascia with hemiarthroplasty and placement of nonbiodegradable antibiotic delivery system POD #1 2. Continue Pain Medications: Tylenol. Oxycodone was discontinued as she was having postoperative confusion. She was placed on tramadol for breakthrough pain 3. DVT Prophylaxis: Patient is currently placed back on her Eliquis for DVT prophylaxis. Patient reports previous DVT in the past 4. PT/OT: 50% weightbearing right lower extremity with walker. Appreciate assessment from physical therapy. Patient has been very limited with her mobility prior to the surgery due to her presurgical circumstances. Patient was primarily in a wheelchair before surgery. 5. H & H: 10.7/32.5, asymptomatic. Postoperative anemia secondary to acute blood loss from surgery without any intra operative complications. 6. Continue postoperative medical management per medicine 7. Infectious disease consult: Appreciate input for management of antibiotics. Current cultures are pending in the chart. 8. Encouraged Incentive Spirometry 9. Disposition: Case was discussed with case management and there is a bed laureen ilable for patient at the transitional care unit at [facility]. Discharge planning will be determined once infectious disease has established appropriate treatment plan. I discussed with the patient and her the possibility of IV antibiotics and placement of PICC line if needed per infectious disease. Probable discharge could be tomorrow depending upon plan set forth by infectious disease. I discussed with nursing to minimize narcotics due to confusion overnight. She will utilize Tylenol primarily and I did switch from oxycodone to tramadol. Per patient's OARRS report she has been on tramadol in the past. I have reviewed the [place] Automated Rx Reporting System (OARRS) report for this patient for refill pattern and other prescriber involvement as part of the hao ropriate surveillance for the provision of acute and chronic controlled medications. The report was requested and reviewed on the date of this entry and was considered in the prescribing process.
--- NOTE | 2021-02-03 10:36 | CASEMGMT ---
Social Work Assessment Referral Date: 02/03/2021 Date of Assessment: 02/03/2021 Reason for consult: TCU Informant: JAYLEEN SABILLON Personal Status: SW met with pt to complete initial assessment. SW introduced self and role at [facility]. Pt is alert and orientated x3. Living Arrangements: Pt states she lives with her in a one story home with ramps to enter. Pt states there are railings by the ramps. ADLs: Pt states she was able to walk, but required assistance with cooking, cleaning, freight trucker. Transportation: [employer]: Walker, wheelchair, bar in tub, shower seat PCP: Dr. Leone Pharmacy: Pt states she is currently using [facility], but states her is in the middle of changing her pharmacy to [facility] pharmacy\ Supports: Pt also states she has two step daughters: Delilah and Kassi Substance Abuse Hx: Pt states she used to smoke cigarettes but quit 2.5 years ago Mental Health Hx: Pt denied. Pt states she will sometimes get down about her pain and restrictions. Pt states I am able to get out of it though, I am not a depressed person. HHC: Pt states she has had HHC in the past, not sure of agency SNF: Pt states she has been to [facility] SW spoke with pt that her step daughter Delilah had called in and requested [facility] TCU at discharge. Pt states she is aware of this, agreeable to [facility] TCU. Patient was provided a list of SNF providers including quality and resource use data and consistent with the patient?s preferred geographic region, medical needs, and insurance network. Pt preferred provider is [facility] TCU. MICHAELA explained that TCU is able to accept pt when pt is medically ready, likely tomorrow. Pt states understanding. SW placed a call to [facility] with TCU and updated her likely discharge tomorrow. Plan: TCU tomorrow Kaci Mohr TRASH MAN, CALL PERSON
--- NOTE | 2021-02-03 11:31 | PCM.CONS.GEN ---
Assessment & Plan Assessment/Plan (1) Femur head necrosis: QUALIFIERS: Laterality: right Qualified Code(s): M87.051 - Idiopathic aseptic necrosis of right femur PLAN: Taken to OR 02/02/[address] Sanders for R hip spacer placement. Surg cx pending. On empiric vanc/cefepime. No systemic symptoms. Will order picc. Reports hives with PCN. Plan at this point will be to treat suspected osteo with 6 weeks iv abx, depending on further cx growth. Reports prior h/o covid, encouraged her to get vaccine for prevention. Will follow, thank you, d/w Dr. Sanders yesterday HPI Consult Data Date of Consult: 02/03/21 HPI Narrative HPI Narrative: LYNN MEYERS, is a 76 F who presented for spacer placement in R hip by Dr. Sanders on 02/02/21. Had longstanding R hip pain, worsened over past 7 months. No fever or chills, no night sweats, no redness or drainage. Had covid a month ago, has not been vaccinated. Had aspiration done at OSH, reportedly neg. Taken to OR yesterday, fluid collections drained, osteonecrosis resected, spacer placed. Surg cx pending. Given cefazolin tia-op, then vanc/cefepime. Feeling ok this AM. Full ROS performed and neg except as noted above. [facility] Medical History Anxiety Arthritis Cardiology follow-up encounter Chronic back pain Chronic malnutrition Chronic pain COPD (chronic obstructive pulmonary disease) Depression Difficulty swallowing DVT (deep venous thrombosis) Easy bruising Essential hypertension Essential tremor Former smoker GERD (gastroesophageal reflux disease) History of pain when walking History of Parkinson's disease Hx of cardiovascular stress test Hypercholesteremia Hypertension Lumbar disc disease with radiculopathy Memory loss Mild cognitive impairment Myalgia, unspecified site Osteopenia Other intervertebral disc degeneration, lumbar region Parkinson's disease Postmenopausal Sciatica Scoliosis Skin tear of left elbow without complication TIA (transient ischemic attack) (01/13/19) Tremor Uses wheelchair Vitamin D deficiency Wears partial dentures Home Medications acetaminophen 1,000 mg PO TID 01/13/19 [History Last Taken 02/02/21] albuterol sulfate 2 puff INHALATION Q6H PRN PRN 01/13/19 [History Last Taken Unknown] ascorbic acid (vitamin C) 1,000 mg PO DAILY 01/13/19 [History Last Taken Unknown] biotin 5 mg PO DAILY 01/13/19 [History Last Taken Unknown] budesonide-formoterol 2 inhaler INHALATION BID 01/13/19 [History Last Taken Unknown] cholecalciferol (vitamin D3) 4,000 unit PO DAILY 01/13/19 [History Last Taken Unknown] metoprolol succinate 25 mg PO BID 01/13/19 [History Last Taken Unknown] sertraline 50 mg PO DAILY 01/13/19 [History Last Taken Unknown] apixaban [Eliquis] 5 mg PO BID 12/10/20 [History Last Taken Unknown] buspirone 5 mg PO BID 12/10/20 [History Last Taken Unknown] calcium carb-mag ox-zinc gluc 1 tab PO DAILY 12/10/20 [History Last Taken Unknown] multivitamin 1 cap PO DAILY 12/10/20 [History Last Taken Unknown] polyethylene glycol 3350 [Miralax] 17 g PO PRN PRN 12/10/20 [History Last Taken Unknown] pramipexole 0.125 mg PO TID 12/10/20 [History Last Taken Unknown] trazodone 50 mg PO QHS 12/10/20 [History Last Taken Unknown] carbidopa-levodopa 1 tab PO BID 01/20/21 [History Last Taken Unknown] Allergy/AdvReac Type Severity Reaction Status Date / Time amoxicillin Allergy Hives Verified 02/02/21 10:03 Penicillins AdvReac Intermediate Hives Verified 02/02/21 10:03 prednisone AdvReac Unknown Verified 02/02/21 10:03 Family History Father H/O ulcer disease Mother Heart disease Sister Cancer Sister Thyroid disorder Surgical History H/O tubal ligation History of appendectomy History of tonsillectomy Social History household members: spouse Smoking Status: Former smoker quit date: 05/21/19 alcohol intake: current alcohol intake frequency: holidays/special occasions only substance use type: does not use Physical Exam Const alert, oriented x3 and no apparent distress General Appearance: cooperative Exam Limitations: no limitations HEENT normocephalic and head/scalp atraumatic Eyes PERRL and EOMs intact bilaterally Neck supple and No nodes Lymph Lymphatic: no lymphadenopathy noted Resp normal air movement and clear to auscultation bilaterally Cardio regular rate and regular rhythm GI normal to inspection, nondistended, normoactive bowel sounds Extremity no clubbing, cyanosis or edema Skin no rashes or lesions noted Skin Narrative: Hip bandaged Neuro CN's II-XII intact bilaterally Lab / Micro Data Result Diagrams: 02/03/21 05:50 02/03/21 05:50 Labs: Laboratory Results - last 24 hr 02/02/21 18:22: Sodium 135 L, Potassium 4.7, Chloride 102, Carbon Dioxide 28.0, Anion Gap 5, BUN 19 H, Creatinine 0.67, Estim Creat Clear Calc 35.42, Est GFR (MDRD) Af Amer 110, Est GFR (MDRD) Non-Af 91, BUN/Creatinine Ratio 28.4 H, Glucose 133 H, Calcium 8.9 02/03/21 05:50: WBC 9.3, RBC 3.25 L, Hgb 10.7 L, Hct 32.5 L, MCV 100.0 H, MCH 32.9 H, MCHC 32.9, RDW Std Deviation 50.9 H, RDW Coeff of Elvia 13.8, Plt Count 259, MPV 10.1 02/03/21 05:50: Sodium 136, Potassium 4.3, Chloride 104, Carbon Dioxide 27.0, Anion Gap 5, BUN 16, Creatinine 0.61, Estim Creat Clear Calc 35.42, Est GFR (MDRD) Af Amer 122, Est GFR (MDRD) Non-Af 101, BUN/Creatinine Ratio 26.2 H, Glucose 116 H, Calcium 8.7 Micro: Microbiology 02/03/21 10:35 Nasal Secretion SARS-CoV-2 Antigen (Rapid) - Final 02/02/21 14:20 Tissue - Synovium Gram Stain - Final 02/02/21 14:20 Tissue - Synovium Wound Culture - Preliminary No growth-Final to follow 02/02/21 14:17 Tissue - Acetabular Membrane, Right Gram Stain - Final 02/02/21 14:17 Tissue - Acetabular Membrane, Right Wound Culture - Preliminary No growth-Final to follow 02/02/21 14:14 Bone - Femoral Head Gram Stain - Final 02/02/21 14:14 Bone - Femoral Head Wound Culture - Preliminary No growth-Final to follow
[2021-02-03] MEDS: traMADol 50 MG Tablet PO (11:52)
[2021-02-03] MEDS: traZODone 50 MG Tablet PO (22:46)
[2021-02-04] VITALS (9 sets, daily range): BP systolic 114–139; BP diastolic 52–58; PULSE 74–94; RESP 16–18; TEMP 36.3–37.1; O2SAT 90–100
[2021-02-04] MEDS: traMADol 50 MG Tablet PO ×3 (02:56→21:20)
[2021-02-04 05:23] LABS: Hematocrit 32.4 % (37-47); Hemoglobin 10.6 g/dL (12.0-15.0); Mean Corp Hgb Conc 32.7 g/dL (32-36); Mean Corpuscular Hgb 32.6 pg (27.0-32.0); Mean Corpuscular Volume 99.7 fL (81-99); Mean Platelet Vol. 10.5 fl (6.2-12.0); Platelet Count 236 K/mm3 (150-450); RBC Distribution Width SD 51.3 fl (35.1-43.9); Red Blood Count 3.25 M/mm3 (4.2-5.4); White Blood Count 8.8 K/mm3 (4.4-11.0)
[2021-02-04] MEDS: Pramipexole Di-HCl 0.125 MG Tablet PO ×3 (06:00→21:19)
[2021-02-04] MEDS: Acetaminophen 500 MG Tablet 1000 MG PO ×3 (06:00→21:20)
[2021-02-04] MEDS: Carbidopa/Levodopa 25/100 Tablet PO ×2 (06:02→16:51)
--- NOTE | 2021-02-04 06:22 | PN.ORTHO_ITS ---
Subjective Subjective The patient was sitting in bed upon examination. Patient denies any chest pain, shortness of breath, dizziness, lightheadedness, nausea or vomiting, or calf pain. Pain is controlled on medications. No adverse overnight events. Patient appears to be doing well this morning. Infectious disease had seen her yesterd ay. He will continue with IV antibiotics vancomycin/cefepime. Patient is scheduled to get PICC line this morning. She states the right hip pain is well controlled. Objective Data Objective Data Vital Signs: Vital Signs Temp Pulse Resp BP Pulse Ox 98.7 F 75 18 139/52 H 100 02/04/21 02:46 02/04/21 02:46 02/04/21 02:46 02/04/21 02:46 02/04/21 02:46 Oxygen Flow Rate (L/min) 2 Oxygen Delivery Method Room Air Weight: 47.627 kg Body Mass Index (BMI) 18.6 Intake & Output: Intake and Output for Last 24 Hours 02/02/21 02/03/21 02/04/21 23:59 23:59 23:59 Intake Total 2828 / 3178 3355 / 3355 200 / 200 Output Total 3300 / 3300 900 / 900 Balance 2828 / 2678 55 / 55 -700 / -700 Lab / Micro Data Result Diagrams: 02/04/21 04:55 02/03/21 05:50 Labs: Laboratory Results - last 24 hr 02/03/21 05:50: WBC 9.3, RBC 3.25 L, Hgb 10.7 L, Hct 32.5 L, MCV 100.0 H, MCH 32.9 H, MCHC 32.9, RDW Std Deviation 50.9 H, RDW Coeff of Elvia 13.8, Plt Count 2 59, MPV 10.1 02/03/21 05:50: Sodium 136, Potassium 4.3, Chloride 104, Carbon Dioxide 27.0, Anion Gap 5, BUN 16, Creatinine 0.61, Estim Creat Clear Calc 35.42, Est GFR (MDRD) Af Amer 122, Est GFR (MDRD) Non-Af 101, BUN/Creatinine Ratio 26.2 H, Glucose 116 H, Calcium 8.7 02/04/21 04:55: WBC 8.8, RBC 3.25 L, Hgb 10.6 L, Hct 32.4 L, MCV 99.7 H, MCH 32.6 H, MCHC 32.7, RDW Std Deviation 51.3 H, RDW Coeff of Elvia 14.0, Plt Count 236, MPV 10.5 Micro: Microbiology 02/03/21 10:35 Nasal Secretion SARS-CoV-2 Antigen (Rapid) - Final 02/02/21 14:20 Tissue - Synovium Gram Stain - Final 02/02/21 14:20 Tissue - Synovium Wound Culture - Preliminary No growth-Final to follow 02/02/21 14:17 Tissue - Acetabular Membrane, Right Gram Stain - Final 02/02/21 14:17 Tissue - Acetabular Membrane, Right Wound Culture - Preliminary No growth-Final to follow 02/02/21 14:14 Bone - Femoral Head Gram Stain - Final 02/02/21 14:14 Bone - Femoral Head Wound Culture - Preliminary No growth-Final to follow 02/01/21 12:40 Interface Orders SARS-CoV-2 Antigen (Rapid) - Final Physical Exam Narrative Vital signs stable and afebrile. Patient is able to plantarflex and dorsiflex actively. Sensation is intact to light touch to saphenous, sural, superficial and deep peroneal, and tibial distribution. Dressing is clean dry and intact. Negative Homans bilaterally, negative signs and symptoms of DVT. Const alert and no apparent distress Assessment & Plan Assessment/Plan (1) Osteomyelitis hip: (2) Femur head necrosis: QUALIFIERS: Laterality: right Qualified Code(s): M87.051 - Idiopathic aseptic necrosis of right femur PLAN: 1. S/P right hip debridement of muscle synovium bone and fascia with hemiarthroplasty and placement of nonbiodegradable antibiotic delivery system POD #2 2. Continue Pain Medications: Continue with Tylenol primarily for pain control. Utilize tramadol for breakthrough pain 3. DVT Prophylaxis: Patient is currently placed back on her Eliquis for DVT prophylaxis. Patient reports previous DVT in the past 4. PT/OT: 50% weightbearing right lower extremity with walker. Appreciate assessment from physical therapy. Patient has been very limited with her mobility prior to the surgery due to her presurgical circumstances. Patient was primarily in a wheelchair before surgery. Physical therapy does recommend continued skilled therapy to facilitate increase safety of transfers and gait and safe return to home 5. H & H: 10.6/32.4, asymptomatic. Postoperative anemia secondary to acute blood loss from surgery without any intra operative complications. 6. Continue postoperative medical management per medicine 7. Infectious disease consult: Current plan will be placement of PICC line this morning. Continue with recommendations from infectious disease with antibiotics vancomycin/cefepime. Patient will continue to follow infectious disease. Current microbiology cultures are without growth 8. Encouraged Incentive Spirometry 9. Disposition: Plan is for discharge to the transitional care unit at [facility] today. Patient will require PICC line for 6 weeks of IV antibiotics. Patient will continue to follow with infectious disease for this management of antibiotics. Her pain is been well controlled on Tylenol and occasional tramadol. She will continue with her Eliquis for DVT prophylaxis. Patient will follow-up per our postop instructions. She will remain 50% weightbearing on the right lower extremity with a walker. I have reviewed the [place] Automated Rx Reporting System (OARRS) report for this patient for refill pattern and other prescriber involvement as part of the appropriate surveillance for the provision of acute and chronic controlled medications. The report was requested and reviewed on the date of this entry and was considered in the prescribing process.
--- NOTE | 2021-02-04 06:29 | TREXTCAR_ITS ---
Diet 02/03/21 04:40 Diet: Regular - General Is pt able to select menu?: Yes Wound(s) right hip: Wound Type: Surgical Incision Dressing Change: Okay to remove dressing on February 08, 2021. No tape on skin Therapies Weight Bearing: Partial weight bearing (50% weightbearing right lower extremity with walker) Physical Therapy: Eval and Treat Occupational Therapy: Eval and Treat Problem/Diagnosis (1) Osteomyelitis hip: Status: Acute Comment: Continue antibiotics per infectious disease: Currently on vancomycin/cefepime (2) Femur head necrosis: Status: Acute Allergies/Procedures Done in Hospital Allergies amoxicillin Allergy (Verified 02/02/21 10:03) Hives Penicillins Adverse Reaction (Intermediate, Verified 02/02/21 10:03) Hives prednisone Adverse Reaction (Verified 02/02/21 10:03) Unknown Procedures: PICC line placement (We will continue 6 weeks IV antibiotics per infectious disease) Type of Care/Length of Stay Estimated LOS: Convalescent Care Less Than 30 days Type of Care Needed: Skilled Rehab Potential: Good Prognosis: Good Additional Orders/Day of Discharge Day of Discharge: 02/04/21 Dietary and Speech Recommendations Dietitian Recommendations/Changes: Continue Regular diet with ensure sx. Discharge Plan Admission Admit Date/Time: 02/02/21 15:56 Attending Provider: Kenyon Armstrong Primary Care Provider: Kelly Leone Consulting Providers: Arnold Ramirez ; Steven Villaseñor Discharge Orders/Prescriptions Prescriptions: New cefepime 2 gram Recon Soln 2 g IV Q8 Qty: 0 RF: 0 sennosides-docusate sodium [Stool Softener-Stimulant Laxat] 8.6-50 mg Tablet 2 tab PO BID Qty: 0 RF: 0 tramadol 50 mg Tablet 50 mg PO Q6H PRN PRN (Reason: Pain Score 4-10) Qty: 28 RF: 0 acetaminophen 500 mg Tablet 1,000 mg PO TID Qty: 0 RF: 0 vancomycin in 0.9 % sodium chl 750 mg/250 mL solution 750 mg IV Q24H Qty: 250 RF: 0 vancomycin 1,000 mg Recon Soln 1 ea IV PRN PRN (Reason: Rx To Dose) Qty: 0 RF: 0 Continued biotin 5 MG capsule 5 mg PO DAILY RF: 0 ascorbic acid (vitamin C) 1,000 MG tablet extended release 1,000 mg PO DAILY RF: 0 metoprolol succinate 25 MG tablet extended release 24 hr 25 mg PO BID RF: 0 albuterol sulfate 1 PUFF inhaler 2 puff INHALATION Q6H PRN PRN (Reason: BREATHING) RF: 0 sertraline 50 MG tablet 50 mg PO DAILY RF: 0 cholecalciferol (vitamin D3) 1,000 UNIT capsule 4,000 unit PO DAILY RF: 0 budesonide-formoterol 1 INHALER inhaler 2 inhaler INHALATION BID RF: 0 polyethylene glycol 3350 [Miralax] 17 gram Powder In Packet 17 g PO PRN PRN (Reason: Constipation) RF: 0 multivitamin Capsule 1 cap PO DAILY RF: 0 Eliquis 5 mg Tablet 5 mg PO BID RF: 0 calcium carb-mag ox-zinc gluc 333-133-5 mg Tablet 1 tab PO DAILY RF: 0 buspirone 5 mg tablet 5 mg PO BID RF: 0 trazodone 50 mg tablet 50 mg PO QHS RF: 0 pramipexole 0.125 mg tablet 0.125 mg PO TID RF: 0 carbidopa-levodopa 25-100 mg tablet 1 tab PO BID RF: 0 Discontinued acetaminophen 500 MG tablet 1,000 mg PO TID RF: 0 Referrals / Follow Up: Kelly Leone DO [Primary Care Provider] - Isai Juárez PA-C [PHYSICIAN SUPERVISOR INSTRUMENT MECHANICS] - 02/17/21 2:15 pm Disposition Disposition (needs filled in before D/C Order can be placed): [facility]
[2021-02-04] MEDS: Albuterol 2.5 MG/3 ML VIAL.NEB. INHALATION ×4 (06:52→19:24)
[2021-02-04] MEDS: Budesonide Respules 0.5 MG/2 ML AMPUL.NEB. INHALATION ×2 (06:52→19:24)
[2021-02-04] MEDS: Metoprolol(XL)Succ 25 MG Tablet PO ×2 (08:45→21:21)
[2021-02-04] MEDS: Sertraline 50 MG Tablet PO (08:45)
[2021-02-04] MEDS: Famotidine 20 MG Tablet PO (08:46)
[2021-02-04] MEDS: Multivitamins,Therapeutic Tablet 1 TABLET PO (08:46)
[2021-02-04] MEDS: busPIRone 5 MG Tablet PO ×2 (08:46→21:27)
[2021-02-04] MEDS: Senna/Docusate Sodium 1 Tablet 2 TABLET PO ×2 (08:46→21:20)
[2021-02-04] MEDS: APIXABAN 5 MG TABLET PO ×2 (08:46→21:20)
[2021-02-04] MEDS: Ascorbic Acid 500 MG Tablet 1000 MG PO (08:46)
[2021-02-04] MEDS: Cholecalciferol (VIT D3) 25 MCG TABLET (1,000 UNITS) 100 MCG PO (08:48)
[2021-02-04] MEDS: Ensure Surgery 237 ML LIQUID PO ×2 (08:55→12:06)
--- NOTE | 2021-02-04 09:08 | CASEMGMT ---
Addendum entered by Kaic Mohr 02/04/21 10:43: SW in to speak with pt. SW informed pt that she will be discharged to TCU today. Pt states understanding. SW asked pt if he is aware that she will be discharged to TCU and pt states he is aware but she was going to call him to let him know where. SW offered to call pt's David to update, pt agreeable. SW attempted to call pt's David, no answer, unable to leave message. Plan: TCU skilled today Original Note: Social Work Note Pt to discharge to TCU today. SW placed a call to Krystin with TCU and left message updating her pt to discharge to TCU today. Plan: Discharge to TCU skilled today Kaci Mohr GEARMAN, JEEP MECHANIC
--- NOTE | 2021-02-04 12:58 | CHAPLAIN ---
Type of Pastoral Visit _x__ Initial Visit ___ Follow-up Visit ___ On-call Visit ___ General Patient Visit ___ Spiritual Assessment ___ Family Conference ___ Bereavement ___ Rapid Response ___ Code Blue ___ Other (describe below) Pastoral Care Referral From _x__ Patient ___ Family ___ Nurse ___ Physician ___ Restaurant Inspector ___ [place]lower ___ Other (describe below) Sacrament/Intervention _x__ Active listening ___ Anointing ___ Pentecostalism ___ Bereavement ___ Communion ___ Leesa exploration ___ _x__ Life review _x__ Prayer ___ Reconciliation ___ Sacrament of Sick ___ Supportive presence ___ Wedding ___ Other (describe below) Pastoral Comments patient is eager to talk and have visit for spiritual care; pt explains her recent health needs; pt welcomes prayer
--- NOTE | 2021-02-04 15:51 | PN.ID_ITS ---
Physical Exam Narrative Feeling ok, picc pending, no fever, no n/v/d. Const alert General Appearance: cooperative Resp normal air movement and clear to auscultation bilaterally Cardio regular rate and regular rhythm GI normal to inspection, nondistended, normoactive bowel sounds Skin no rashes or lesions noted ID ID: Route of nutrition/ use of supplements: [] Nutritional Intake: [] IV Site: [] Baker Catheter: [] Assessment & Plan Assessment/Plan (1) Femur head necrosis: QUALIFIERS: Laterality: right Qualified Code(s): M87.051 - Idiopathic aseptic necrosis of right femur PLAN: Taken to OR 02/02/[address] Sanders for R hip spacer placement. Surg cx neg so far. On empiric vanc/cefepime. No systemic symptoms. Reports hives with PCN. Plan at this point will be to treat suspected osteo with 6 weeks iv vanc/ceftriaxone, stop 03/16/21. Reports prior h/o covid, encouraged her to get vaccine for prevention. Will follow, d/w case management associate
--- NOTE | 2021-02-04 18:15 | NURSING ---
Report called to TCU RN. Patient ready to be moved to that floor. That RN will call when they have her room ready.
--- NOTE | 2021-02-04 18:36 | CASEMGMT ---
Social Work Note SW is leaving for the day. SW in to speak with pt. Pt states she hasn't been able to get a hold of her David. MICHAELA informed David that this worker also tried to call David earlier but he didn't answer. SW informed pt that this worker will try and call David again. Pt states understanding. MICHAELA palced a call to pt's David and updated him that pt will discharge to TCU today. David states understanding. Plan: TCU skilled today Kaci Mohr COMMISSIONING AGENT, AZURE ARCHITECT
[2021-02-04 18:55] LABS: Vancomycin, Trough Level 4.6 ug/mL (5.0-15.0)
[2021-02-04] MEDS: traZODone 50 MG Tablet PO (21:20)
--- NOTE | 2021-02-04 21:41 | NURSING ---
called tcu rn rosario notified her that pt has had her hs meds and to see if tcu ready for pt to come over. tcu aide to come and transport pt. ms primary rn notified.
--- NOTE | 2021-02-04 22:46 | PCM.RX.CS ---
Consult Pharmacy has been consulted to manage selected antiobiotic: Vancomycin Type of Consult: Follow-up Suspected Infection: Osteomyelitis Prior Doses of Antibiotics Received/Current Regimen: Medications Vancomycin HCl () 500 mg in 100 mls @ 100 mls/hr IV Q12H ANT Vancomycin HCl 750 mg/ Sodium (Chloride) 265 mls @ 250 mls/hr IV Q24H ANT Stop: 02/04/21 23:00 Last Admin: 02/04/21 22:23 Dose: Infused Labs: Sodium 136 mmol/L (136-145) 02/03/21 05:50 Potassium 4.3 mmol/L (3.5-5.1) 02/03/21 05:50 Chloride 104 mmol/L (98-107) 02/03/21 05:50 Carbon Dioxide 27.0 mmol/L (21.0-32.0) 02/03/21 05:50 Anion Gap 5 (5-15) 02/03/21 05:50 BUN 16 mg/dL (7-18) 02/03/21 05:50 Creatinine 0.61 mg/dL (0.55-1.02) 02/03/21 05:50 Est GFR (MDRD) Af Amer 122 mL/min (>60) 02/03/21 05:50 Est GFR (MDRD) Non-Af 101 mL/min (>60) 02/03/21 05:50 BUN/Creatinine Ratio 26.2 RATIO (10-20) H 02/03/21 05:50 Glucose 116 mg/dL (74-106) H 02/03/21 05:50 Vancomycin Trough 4.6 ug/mL (5.0-15.0) L 02/04/21 18:18 Microbiology: Microbiology 02/02/21 14:14 Bone - Femoral Head Gram Stain - Final 02/02/21 14:14 Bone - Femoral Head Wound Culture - Preliminary No growth-Final to follow 02/02/21 14:14 Bone - Femoral Head Anaerobic Culture - Preliminary No growth in 48 hours. 02/02/21 14:17 Tissue - Acetabular Membrane, Right Gram Stain - Final 02/02/21 14:17 Tissue - Acetabular Membrane, Right Wound Culture - Preliminary No growth-Final to follow 02/02/21 14:17 Tissue - Acetabular Membrane, Right Anaerobic Culture - Preliminary No growth in 48 hours. 02/02/21 14:20 Tissue - Synovium Gram Stain - Final 02/02/21 14:20 Tissue - Synovium Wound Culture - Preliminary No growth-Final to follow 02/02/21 14:20 Tissue - Synovium Anaerobic Culture - Preliminary No growth in 48 hours. 02/03/21 10:35 Nasal Secretion SARS-CoV-2 Antigen (Rapid) - Final 02/01/21 12:40 Interface Orders SARS-CoV-2 Antigen (Rapid) - Final Weight used for dosin kg Estimated Creatinine Clearance: 44 Goal Trough: 15-20 mcg/mL Pharmacy Plan for Drug Dosing: Vancomycin trough level of 4.6 was well below target range of 15-20. Dosing will be adjusted to 500mg q12h, and another trough will be drawn prior to the 4th dose of the new regimen. Pharmacy Service will continue to monitor and adjust dosing as required. Follow-Up Labs: Trough Vancomycin Labs to be done on [date and time ordered]: 02/06/21 @2030
== END 2021-02-04 22:30 | DRG 482 ==
LOC: MS3 02-04 08:35 → ACINP 09-15 15:23
PROVIDERS: Internal Medicine Infectious Disease; Admitting Provider Specialist; PCP Internal Medicine
PROC: (CPT 20704; principal; 2021-02-02 12:20)
DX: M87.051 Idiopathic aseptic necrosis of right femur (principal); G20 Parkinson's disease; J44.9 Chronic obstructive pulmonary disease, unspecified; E78.00 Pure hypercholesterolemia, unspecified; F32.9 Major depressive disorder, single episode, unspecified; F41.9 Anxiety disorder, unspecified; I10 Essential (primary) hypertension; Z99.3 Dependence on wheelchair; Z86.73 Personal history of transient ischemic attack (TIA), and cerebral infarction without residual deficits; Z66 Do not resuscitate; Z86.718 Personal history of other venous thrombosis and embolism; Z87.891 Personal history of nicotine dependence; Z79.02 Long term (current) use of antithrombotics/antiplatelets; Z79.51 Long term (current) use of inhaled steroids; Z79.01 Long term (current) use of anticoagulants; K21.9 Gastro-esophageal reflux disease without esophagitis; M51.36 Other intervertebral disc degeneration, lumbar region; M41.9 Scoliosis, unspecified; R25.1 Tremor, unspecified; E55.9 Vitamin D deficiency, unspecified
CPT/HCPCS: 27125; 11981; 01210; 36415; 36569; 73502; 80048; 80202; 82962; 85027; 87015; 87070; 87075; 87102; 87116; 87205; 87206; 87426; 88305; 88311; 94640; 96365; 96366; 96367; 97162; 97166; 97530; 99218; 99251; C1776; C9803; J7040; J7050; J7120; G0378; G0463; J0696; J3260; J3475

== ENCOUNTER 2021-02-04 22:25 | Inpatient (IN) | payer MEDICARE, SELFPAY ==
[2021-02-04 23:12] VITALS: BP 108/46; PULSE 84; RESP 14; O2SAT 99; BMI 20.4
--- NOTE | 2021-02-04 23:14 | HP.PCM_ITS ---
HPI - General General Date of Admission: 02/04/21 HPI Narrative LYNN MEYERS, is a 76 Female with followin02/02/2021 Dr. Sanders performed right hip debridement of muscle synovium bone and fascia with hemiarthroplasty. And placement of nonbiodegradable antibiotic delivery system. 02/03/2021 Dr. Villaseñor consulted for idiopathic with aseptic necrosis of right femur. Surgical cultures pending. Vancomycin/Cefepime, plan intravenous antibiotics for 6 weeks for osteomyelitis right hip. Surgical cultures negative so far. PICC line ordered. Stop date antibiotics 03/16/2021. 02/04/2021 Admit to TCU with debility, here for rehabilitation, strengthening, intravenous antibiotics prior to discharge home with . [facility] Medical History Anxiety Arthritis Cardiology follow-up encounter Chronic back pain Chronic malnutrition Chronic pain COPD (chronic obstructive pulmonary disease) Depression Difficulty swallowing DVT (deep venous thrombosis) Easy bruising Essential hypertension Essential tremor Former smoker GERD (gastroesophageal reflux disease) History of pain when walking History of Parkinson's disease Hx of cardiovascular stress test Hypercholesteremia Hypertension Lumbar disc disease with radiculopathy Memory loss Mild cognitive impairment Myalgia, unspecified site Osteopenia Other intervertebral disc degeneration, lumbar region Parkinson's disease Postmenopausal Sciatica Scoliosis Skin tear of left elbow without complication TIA (transient ischemic attack) (01/13/19) Tremor Uses wheelchair Vitamin D deficiency Wears partial dentures Home Medications albuterol sulfate 2 puff INHALATION Q6H PRN PRN 01/13/19 [History Last Taken Unknown] ascorbic acid (vitamin C) 1,000 mg PO DAILY 01/13/19 [History Last Taken Unknown] biotin 5 mg PO DAILY 01/13/19 [History Last Taken Unknown] budesonide-formoterol 2 inhaler INHALATION BID 01/13/19 [History Last Taken Unknown] cholecalciferol (vitamin D3) 4,000 unit PO DAILY 01/13/19 [History Last Taken Unknown] metoprolol succinate 25 mg PO BID 01/13/19 [History Last Taken Unknown] sertraline 50 mg PO DAILY 01/13/19 [History Last Taken Unknown] Eliquis 5 mg PO BID 12/10/20 [History Last Taken Unknown] buspirone 5 mg PO BID 12/10/20 [History Last Taken Unknown] calcium carb-mag ox-zinc gluc 1 tab PO DAILY 12/10/20 [History Last Taken Unknown] multivitamin 1 cap PO DAILY 12/10/20 [History Last Taken Unknown] polyethylene glycol 3350 [Miralax] 17 g PO PRN PRN 12/10/20 [History Last Taken Unknown] pramipexole 0.125 mg PO TID 12/10/20 [History Last Taken Unknown] trazodone 50 mg PO QHS 12/10/20 [History Last Taken Unknown] carbidopa-levodopa 1 tab PO BID 01/20/21 [History Last Taken Unknown] acetaminophen 1,000 mg PO TID 02/04/21 [History Last Taken Unknown] ceftriaxone 2 g IV DAILY #40 ea 02/04/21 [Rx Last Taken Unknown] sennosides-docusate sodium [Stool Softener-Stimulant Laxat] 2 tab PO BID 02/04/21 [History Last Taken Unknown] tramadol 50 mg PO Q6H PRN PRN #28 tab 02/04/21 [Rx Last Taken Unknown] vancomycin 1 ea IV PRN PRN #0 ea 02/04/21 [Rx Last Taken Unknown] vancomycin 750 mg IV DAILY 02/04/21 [History Last Taken Unknown] Allergy/AdvReac Type Severity Reaction Status Date / Time amoxicillin Allergy Hives Verified 02/02/21 10:03 Penicillins AdvReac Intermediate Hives Verified 02/02/21 10:03 prednisone AdvReac Unknown Verified 02/02/21 10:03 Family History Father H/O ulcer disease Mother Heart disease Sister Cancer Sister Thyroid disorder Surgical History H/O tubal ligation History of appendectomy History of tonsillectomy Social History household members: spouse Smoking Status: Former smoker quit date: 05/21/19 alcohol intake: current alcohol intake frequency: holidays/special occasions only substance use type: does not use ROS Constitutional Constitutional: Denies chills, fever(s) or weight gain ENT HEENT: Denies headache(s), nasal congestion or nasal discharge Cardiovascular Cardiovascular: Denies chest pain or palpitations Respiratory/Chest Respiratory/Chest: Denies cough, excessive phlegm production or shortness of breath with exertion Gastrointestinal Gastrointestinal: Denies abdominal pain, nausea or vomiting Genitourinary Genitourinary: Denies dysuria Musculoskeletal Musculoskeletal: Denies joint pain or joint swelling Integumentary Integumentary: Denies rash or wounds Neurologic Neurologic: Denies focal weakness, numbness or tingling Psychiatric Psychiatric: Reports auditory hallucinations; Denies anxiety, depression, homicidal ideation or suicidal ideation Physical Exam Const alert and oriented x3 General Appearance: cooperative HEENT normocephalic Eyes PERRL and EOMs intact bilaterally Neck supple, no JVD and no carotid bruits Resp normal respiratory effort, normal air movement and clear to auscultation bilaterally Cardio regular rate and regular rhythm GI normal to inspection, nondistended, normoactive bowel sounds, non-tender and non-distended Extremity normal capillary refill General Extremity: Negative for edema Skin no rashes or lesions noted General Skin Exam: no breakdown Psych affect normal Appearance: appropriate Assessment & Plan Assessment/Plan (1) 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 Sanders, admitted to TCU with debility, here for rehabilitation, strengthening, vermin exterminator intravenous antibiotics, prior to discharge home with . * Debility - PT/OT. * Pain - Tylenol 1000mg TID, Tramadol 50mg Q6H PRN pain (4-10). * Bowel - Miralax 17mg daily PRN, Senna/colace 2 tablets twice daily, * Adult immunization - Administer prevnar 13, pneumovax 23, fluzone, covid19 vaccine as appropriate. * DVT prophylaxis - Not necessary, on Eliquis. * Right hip infection status post debridement, hemiarthroplasty, antibiotic spacer - Cefepime 2gm IV Q8H, Vancomycin 750mg IV Q24H thru 03/16/2021, consult Dr. Villaseñor. * Biotin deficiency - Biotin 5mg daily. * Vitamin C deficiency - Vitamin C 1000mg daily. * Hypertension - Metoprolol succinate 25mg twice daily. * COPD - Symbicort 160/4.5mg 2 puffs twice daily, Albuterol MDI 2 puffs Q6H PRN. * Depression - Sertraline 50mg daily, stable chronic vermin exterminator use, GDR not recommended. * Vitamin D deficiency - D3 1000IU daily. * Nutrition - MVI daily. * DVT/PE - Eliquis 5mg twice daily. * Anxiety - Buspar 5mg twice daily, stable chronic fdc use, GDR not recommended. * Insomnia - Trazodone 50mg QHS. * Parkinson Disease - Sinemet 25/100mg twice daily, Mirapex 0.125mg TID.
--- NOTE | 2021-02-05 | NURSING ---
Pt. declines to complete admission paperwork, too tired
--- NOTE | 2021-02-05 01:50 | PCM.RX.CS ---
Consult Pharmacy has been consulted to manage selected antiobiotic: Vancomycin Type of Consult: New start Suspected Infection: Osteomyelitis Prior Doses of Antibiotics Received/Current Regimen: Medications Vancomycin HCl () 500 mg in 100 mls @ 100 mls/hr IV Q12H ANT Weight used for dosin kg Estimated Creatinine Clearance: 66 Goal Trough: 15-20 mcg/mL Pharmacy Plan for Drug Dosing: Continuing vancomycin dosing from [facility] transfer. 02/04 trough draw there was low at 4.6. Dosing was increased to 500mg q12h, which will be continued. Another trough will be drawn 02/06/21. The stop date of 03/16/21 suggested by ID will be followed on pharmacy dosing notes. Pharmacy Service will continue to monitor and adjust dosing as required. Follow-Up Labs: Trough Vancomycin Labs to be done on [date and time ordered]: 02/06/21 @2030
--- NOTE | 2021-02-05 03:46 | NURSING ---
Presents as A&Ox3. Patient states code status to be Full code.
--- NOTE | 2021-02-05 03:48 | NURSING ---
Per [facility] [place] pharmacist, Cefepim was changed to BID due to kidney function.
[2021-02-05 06:00] VITALS: TEMP 36.7
[2021-02-05] MEDS: 0.9% Saline Lock 10 ML Syringe IV ×3 (06:24→21:42)
[2021-02-05] MEDS: Acetaminophen 500 MG Tablet 1000 MG PO ×3 (06:30→21:49)
[2021-02-05] MEDS: Ascorbic Acid 500 MG Tablet 1000 MG PO (06:30)
[2021-02-05] MEDS: Sertraline 50 MG Tablet PO (06:30)
[2021-02-05] MEDS: Cholecalciferol (VIT D3) 25 MCG TABLET (1,000 UNITS) 100 MCG PO (06:30)
[2021-02-05] MEDS: APIXABAN 5 MG TABLET PO ×2 (06:30→17:19)
[2021-02-05] MEDS: Pramipexole Di-HCl 0.125 MG Tablet PO ×3 (06:31→21:49)
[2021-02-05] MEDS: Senna/Docusate Sodium 1 Tablet 2 TABLET PO ×2 (06:31→17:19)
[2021-02-05] MEDS: busPIRone 5 MG Tablet PO ×2 (06:31→17:19)
[2021-02-05 06:32] VITALS: BP 146/56; PULSE 77
[2021-02-05] MEDS: Metoprolol(XL)Succ 25 MG Tablet PO ×2 (06:32→17:19)
[2021-02-05] MEDS: Calcium Carbonate 500 MG Tablet PO (06:32)
[2021-02-05] MEDS: Carbidopa/Levodopa 25/100 Tablet PO ×2 (06:33→15:38)
[2021-02-05] MEDS: Fluticasone/Salmeterol 232-14 Inhaler 1 PUFF INHALATION ×2 (06:44→17:19)
[2021-02-05 06:54] LABS: Absolute Lymphocyte Count 1.39 X10^3/uL (0.83-4.51); Absolute Neutrophil Count 5.9 X10^3/uL (2.0-7.7); Basophil# 0.05 X10^3/uL; Basophil% 0.6 % (0-1); Eosinophil# 0.25 X10^3/uL; Hematocrit 29.5 % (37-47); Hemoglobin 9.6 g/dL (12.0-15.0); Lymphocyte # 1.39 X10^3/ul (0.83-4.51); Lymphocyte % 16.7 % (19-41); Mean Corp Hgb Conc 32.5 g/dL (32-36); Mean Corpuscular Hgb 32.7 pg (27.0-32.0); Mean Corpuscular Volume 100.3 fL (81-99); Mean Platelet Vol. 10.4 fl (6.2-12.0); Monocyte# 0.67 X10^3/uL; Monocyte% 8.1 % (0-10); NRBC Flagged by Analyzer 0 % (0-5); Neutrophil % 71.1 % (47-70); Platelet Count 212 K/mm3 (150-450); RBC Distribution Width CV 14.2 % (11.6-14.6); RBC Distribution Width SD 51.9 fl (35.1-43.9); Red Blood Count 2.94 M/mm3 (4.2-5.4); White Blood Count 8.3 K/mm3 (4.4-11.0)
[2021-02-05 07:21] LABS: Anion Gap 7 (5-15); BUN 18 mg/dL (7-18); BUN/Creat Ratio 35.6 RATIO (10-20); Calcium,Total 8.6 mg/dL (8.5-10.1); Chloride 102 mmol/L (98-107); Creatinine, Serum 0.51 mg/dL (0.55-1.02); EST Glomerular Filtration Rate 125 mL/min (>60); Est Glom Filt Rate - Afr Amer 152 mL/min (>60); Estimated Creatinine Clearance 38.97 ml/min; Glucose 110 mg/dL (74-106); Sodium Level 132 mmol/L (136-145)
--- NOTE | 2021-02-05 08:01 | NURSING ---
Reattempt to complete admission paperwork, pt. eating breakfast, paper work will need to be completed at a later time.
--- NOTE | 2021-02-05 08:03 | NURSING ---
PICC flush per order, dual lumen, blood return observed to both lumens. Dressing dry and intact, redness observed to insertion site, no edema, no heat, no drainage to site.
[2021-02-05] MEDS: Multivitamins,Therapeutic Tablet 1 TABLET PO (08:36)
[2021-02-05] MEDS: Tuberculin,Purif.prot.deriv. 50 TU/ML Vial 0.1 ML ID (10:28)
[2021-02-05] MEDS: Vancomycin IV 500 MG/100 ML BAG 100 MG IV ×2 (10:36→21:43)
[2021-02-05] MEDS: traMADol 50 MG Tablet PO (12:29)
[2021-02-05 15:22] VITALS: BP 136/58; PULSE 80; RESP 16; TEMP 36.7; O2SAT 94
[2021-02-05 17:19] VITALS: BP 136/58; PULSE 80
[2021-02-05 20:09] VITALS: PULSE 86; RESP 16; O2SAT 94
[2021-02-05] MEDS: traZODone 50 MG Tablet PO (21:49)
[2021-02-06] MEDS: traMADol 50 MG Tablet PO ×2 (02:10→23:02)
[2021-02-06] MEDS: Carbidopa/Levodopa 25/100 Tablet PO ×2 (05:20→15:20)
[2021-02-06] MEDS: APIXABAN 5 MG TABLET PO ×2 (05:20→17:50)
[2021-02-06] MEDS: busPIRone 5 MG Tablet PO ×2 (05:20→17:50)
[2021-02-06] MEDS: Cholecalciferol (VIT D3) 25 MCG TABLET (1,000 UNITS) 100 MCG PO (05:20)
[2021-02-06 05:21] VITALS: BP 118/61; PULSE 75
[2021-02-06] MEDS: Ascorbic Acid 500 MG Tablet 1000 MG PO (05:21)
[2021-02-06] MEDS: Pramipexole Di-HCl 0.125 MG Tablet PO ×3 (05:21→22:54)
[2021-02-06] MEDS: Metoprolol(XL)Succ 25 MG Tablet PO ×2 (05:21→17:50)
[2021-02-06] MEDS: Calcium Carbonate 500 MG Tablet PO (05:22)
[2021-02-06] MEDS: Acetaminophen 500 MG Tablet 1000 MG PO ×3 (05:22→22:55)
[2021-02-06] MEDS: Senna/Docusate Sodium 1 Tablet 2 TABLET PO ×2 (05:22→17:49)
[2021-02-06] MEDS: Fluticasone/Salmeterol 232-14 Inhaler 1 PUFF INHALATION ×2 (05:24→17:49)
[2021-02-06] MEDS: Sertraline 50 MG Tablet PO (05:25)
[2021-02-06 07:35] LABS: Erythrocyte Sedimentation Rate 49 mm/hr (0-30)
[2021-02-06] MEDS: Multivitamins,Therapeutic Tablet 1 TABLET PO (07:45)
[2021-02-06] MEDS: Vancomycin IV 500 MG/100 ML BAG 100 MG IV ×2 (09:11→22:49)
[2021-02-06] MEDS: 0.9% Saline Lock 10 ML Syringe IV (09:12)
[2021-02-06 13:06] VITALS: BP 129/50; PULSE 78; RESP 16; TEMP 36.8; O2SAT 96
[2021-02-06 17:50] VITALS: PULSE 76
[2021-02-06 21:41] LABS: Vancomycin, Trough Level 8.2 ug/mL (5.0-15.0)
[2021-02-06] MEDS: traZODone 50 MG Tablet PO (22:54)
--- NOTE | 2021-02-07 00:43 | PCM.RX.CS ---
Consult Pharmacy has been consulted to manage selected antiobiotic: Vancomycin Type of Consult: Follow-up Suspected Infection: Osteomyelitis Prior Doses of Antibiotics Received/Current Regimen: Medications Vancomycin HCl 750 mg/ Sodium (Chloride) 265 mls @ 250 mls/hr IV Q12H ANT Stop: 03/16/21 11:01 Discontinued Medications Vancomycin HCl () 500 mg in 100 mls @ 100 mls/hr IV Q12H ANT Stop: 03/16/21 09:01 Last Admin: 02/06/21 22:49 Dose: 100 mls/hr Labs: Sodium 132 mmol/L (136-145) L 02/05/21 06:40 Potassium 4.0 mmol/L (3.5-5.1) 02/05/21 06:40 Chloride 102 mmol/L (98-107) 02/05/21 06:40 Carbon Dioxide 23.0 mmol/L (21.0-32.0) 02/05/21 06:40 Anion Gap 7 (5-15) 02/05/21 06:40 BUN 18 mg/dL (7-18) 02/05/21 06:40 Creatinine 0.51 mg/dL (0.55-1.02) L 02/05/21 06:40 Est GFR (MDRD) Af Amer 152 mL/min (>60) 02/05/21 06:40 Est GFR (MDRD) Non-Af 125 mL/min (>60) 02/05/21 06:40 BUN/Creatinine Ratio 35.6 RATIO (10-20) H 02/05/21 06:40 Glucose 110 mg/dL (74-106) H 02/05/21 06:40 Vancomycin Trough 8.2 ug/mL (5.0-15.0) 02/06/21 21:00 Weight used for dosin kg Estimated Creatinine Clearance: 39 Goal Trough: 15-20 mcg/mL Pharmacy Plan for Drug Dosing: Vancomycin trough level of 8.2 was still below the target range. Will increase dose to 750mg and re-draw a trough prior to the fourth dose of this new regimen. Pharmacy Service will continue to monitor and adjust dosing as required. Follow-Up Labs: Trough Vancomycin Labs to be done on [date and time ordered]: 02/08/21 @5413
[2021-02-07 05:15] VITALS: BP 117/50; PULSE 70
[2021-02-07] MEDS: Calcium Carbonate 500 MG Tablet PO (05:15)
[2021-02-07] MEDS: Metoprolol(XL)Succ 25 MG Tablet PO ×2 (05:15→17:03)
[2021-02-07] MEDS: APIXABAN 5 MG TABLET PO ×2 (05:16→17:03)
[2021-02-07] MEDS: Ascorbic Acid 500 MG Tablet 1000 MG PO (05:16)
[2021-02-07] MEDS: Cholecalciferol (VIT D3) 25 MCG TABLET (1,000 UNITS) 100 MCG PO (05:16)
[2021-02-07] MEDS: Carbidopa/Levodopa 25/100 Tablet PO ×2 (05:16→15:14)
[2021-02-07] MEDS: Sertraline 50 MG Tablet PO (05:16)
[2021-02-07] MEDS: Pramipexole Di-HCl 0.125 MG Tablet PO ×3 (05:17→22:51)
[2021-02-07] MEDS: Senna/Docusate Sodium 1 Tablet 2 TABLET PO ×2 (05:17→17:03)
[2021-02-07] MEDS: busPIRone 5 MG Tablet PO ×2 (05:17→17:04)
[2021-02-07] MEDS: Acetaminophen 500 MG Tablet 1000 MG PO ×3 (05:18→22:51)
[2021-02-07] MEDS: Fluticasone/Salmeterol 232-14 Inhaler 1 PUFF INHALATION ×2 (05:18→17:02)
[2021-02-07] MEDS: traMADol 50 MG Tablet PO ×3 (05:23→22:57)
[2021-02-07 05:35] LABS: Hematocrit 29.2 % (37-47); Hemoglobin 9.4 g/dL (12.0-15.0)
--- NOTE | 2021-02-07 08:50 | NURSING ---
Resident educated on the COVID 19 Vaccine, Does not want to receive it.
[2021-02-07] MEDS: Multivitamins,Therapeutic Tablet 1 TABLET PO (09:37)
[2021-02-07] MEDS: Iron Polysaccharide Complex 150 MG CAPSULE PO (09:39)
[2021-02-07] MEDS: 0.9% Saline Lock 10 ML Syringe IV (10:33)
[2021-02-07 12:48] VITALS: PULSE 78; RESP 18; O2SAT 96
--- NOTE | 2021-02-07 16:26 | PCM.PN.ID ---
Physical Exam Narrative Feeling better, pain controlled, no fever, no n/v/d. Const alert and no apparent distress General Appearance: cooperative Resp normal air movement and clear to auscultation bilaterally Cardio regular rate and regular rhythm GI normal to inspection, nondistended, normoactive bowel sounds Skin no rashes or lesions noted ID ID: Route of nutrition/ use of supplements: [] Nutritional Intake: [] IV Site: [] Baker Catheter: [] Assessment & Plan Assessment/Plan (1) Femur head necrosis: QUALIFIERS: Laterality: right Qualified Code(s): M87.051 - Idiopathic aseptic necrosis of right femur PLAN: Taken to OR 02/02/[address] Sanders for R hip spacer placement. Surg cx neg so far. On empiric vanc/cefepime. No systemic symptoms. Reports hives with PCN. Treating for suspected osteo with 6 weeks iv vanc/ceftriaxone, stop 03/16/21. Reports prior h/o covid, encouraged her to get vaccine for prevention. 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
[2021-02-07 17:03] VITALS: BP 131/53; PULSE 78
[2021-02-07 17:05] VITALS: BP 131/53; PULSE 78; RESP 18; TEMP 36.6; O2SAT 96
[2021-02-07] MEDS: traZODone 50 MG Tablet PO (22:51)
[2021-02-08] MEDS: traMADol 50 MG Tablet PO ×2 (05:19→13:56)
[2021-02-08] MEDS: Fluticasone/Salmeterol 232-14 Inhaler 1 PUFF INHALATION ×2 (05:21→17:21)
[2021-02-08] MEDS: Senna/Docusate Sodium 1 Tablet 2 TABLET PO ×2 (05:22→17:21)
[2021-02-08] MEDS: Cholecalciferol (VIT D3) 25 MCG TABLET (1,000 UNITS) 100 MCG PO (05:23)
[2021-02-08] MEDS: Carbidopa/Levodopa 25/100 Tablet PO ×2 (05:23→17:21)
[2021-02-08] MEDS: Ascorbic Acid 500 MG Tablet 1000 MG PO (05:23)
[2021-02-08] MEDS: Calcium Carbonate 500 MG Tablet PO (05:23)
[2021-02-08 05:24] VITALS: BP 107/50; PULSE 79
[2021-02-08] MEDS: busPIRone 5 MG Tablet PO ×2 (05:24→17:21)
[2021-02-08] MEDS: Sertraline 50 MG Tablet PO (05:24)
[2021-02-08] MEDS: APIXABAN 5 MG TABLET PO ×2 (05:24→17:21)
[2021-02-08] MEDS: Metoprolol(XL)Succ 25 MG Tablet PO ×2 (05:24→17:21)
[2021-02-08] MEDS: Pramipexole Di-HCl 0.125 MG Tablet PO ×3 (05:26→22:34)
[2021-02-08] MEDS: Acetaminophen 500 MG Tablet 1000 MG PO ×3 (05:26→22:34)
[2021-02-08] MEDS: Iron Polysaccharide Complex 150 MG CAPSULE PO (08:06)
[2021-02-08] MEDS: Multivitamins,Therapeutic Tablet 1 TABLET PO (08:06)
[2021-02-08 10:00] VITALS: PULSE 90; RESP 18; O2SAT 90
[2021-02-08] MEDS: 0.9% Saline Lock 10 ML Syringe IV (10:09)
--- NOTE | 2021-02-08 14:18 | PCM.PN.RX ---
Progress Note - Pharmacy Subjective: TCU Admission Objective: Allergies amoxicillin Allergy (Verified 02/02/21 10:03) Hives Penicillins Adverse Reaction (Intermediate, Verified 02/02/21 10:03) Hives prednisone Adverse Reaction (Verified 02/02/21 10:03) Unknown Current Medications Generic Name Dose Route Start Last Admin Trade Name Freq PRN Reason Stop Dose Admin Acetaminophen 1,000 mg 02/05/21 06:00 02/08/21 13:55 Acetaminophen 500 Mg Tablet PO 1,000 mg TID ANT Administration Albuterol Sulfate 2 puff 02/04/21 23:32 Albuterol Sulfate Hfa 6.7 Gm Inhaler (200 Puffs) INHALATION Q6H PRN PRN BREATHING Apixaban 5 mg 02/05/21 06:00 02/08/21 05:24 Apixaban 5 Mg Tablet PO 5 mg BID ANT Administration Ascorbic Acid 1,000 mg 02/05/21 06:00 02/08/21 05:23 Ascorbic Acid 500 Mg Tablet PO 1,000 mg DAILY ANT Administration Buspirone HCl 5 mg 02/05/21 06:00 02/08/21 05:24 Buspirone 5 Mg Tablet PO 5 mg BID ANT Administration Calcium Carbonate 500 mg 02/05/21 06:00 02/08/21 05:23 Calcium Carbonate 500 Mg Tablet PO 500 mg DAILY ANT Administration Carbidopa/Levodopa 1 tablet 02/05/21 07:00 02/08/21 05:23 Carbidopa/Levodopa 25/100 Tablet PO 1 tablet BIDAC ANT Administration Cholecalciferol 100 mcg 02/05/21 06:00 02/08/21 05:23 Cholecalciferol (Vit D3) 25 Mcg Tablet (1,000 Units) PO 100 mcg DAILY ANT Administration Heparin Sodium (Beef Lung) 50 units 02/05/21 00:11 Heparin Pf Lock 10 Units/Ml 50 Units/5 Ml Syringe IV UD PRN PICC Line Heparin Flush Heparin Sodium (Beef Lung) 50 units 02/05/21 10:16 Heparin Pf Lock 10 Units/Ml 50 Units/5 Ml Syringe IV UD PRN PICC Line Heparin Flush Heparin Sodium (Beef Lung) 50 units 02/07/21 07:51 Heparin Pf Lock 10 Units/Ml 50 Units/5 Ml Syringe IV UD PRN PICC Line Heparin Flush Sodium Chloride 250 mls @ 15 mls/hr 02/05/21 04:45 02/07/21 16:11 IV Infused .[id number] PRN Infusion Saline Flush Vancomycin HCl 750 mg/ Sodium 265 mls @ 250 mls/hr 02/07/21 11:00 02/08/21 11:34 Chloride IV 03/16/21 11:01 250 mls/hr Q12H ANT Administration Ceftriaxone Sodium 2 gm/ 50 mls @ 100 mls/hr 02/07/21 14:30 02/08/21 10:09 Sodium Chloride IV 100 mls/hr Q24 ANT Administration Metoprolol Succinate 25 mg 02/05/21 06:00 02/08/21 05:24 Metoprolol(Xl)Succ 25 Mg Tablet PO 25 mg BID ANT Administration Multivitamins 1 tablet 02/05/21 08:00 02/08/21 08:06 Multivitamins,Therapeutic Tablet PO 1 tablet DAILYCM ANT Administration Polyethylene Glycol 17 gm 02/04/21 23:32 Polyethylene Glycol 3350 17 Gm Packet PO DAILY PRN PRN Constipation Polysaccharide Iron Complex 150 mg 02/07/21 08:00 02/08/21 08:06 Iron Polysaccharide Complex 150 Mg Capsule PO 150 mg DAILYCM ANT Administration Pramipexole Dihydrochloride 0.125 mg 02/05/21 06:00 02/08/21 13:54 Pramipexole Di-Hcl 0.125 Mg Tablet PO 0.125 mg TID ANT Administration Fluticasone/Salmeterol 1 puff 02/05/21 06:00 02/08/21 05:21 Fluticasone/Salmeterol 232-14 Inhaler INHALATION 1 puff BID ANT Administration Senna/Docusate Sodium 2 tablet 02/05/21 06:00 02/08/21 05:22 Senna/Docusate Sodium 1 Tablet PO 2 tablet BID ANT Administration Sertraline HCl 50 mg 02/05/21 06:00 02/08/21 05:24 Sertraline 50 Mg Tablet PO 50 mg DAILY ANT Administration Sodium Chloride 10 - 40 ml 02/05/21 00:11 02/08/21 10:09 0.9% Saline Lock 10 Ml Syringe IV 20 ml UD PRN Administration Open End PICC Flush Sodium Chloride 10 - 40 ml 02/05/21 00:11 0.9 % Nacl (Sterile) Posiflush 10 Ml IV UD PRN Port access or dressing change Sodium Chloride 10 - 40 ml 02/05/21 10:16 0.9% Saline Lock 10 Ml Syringe IV UD PRN Open End PICC Flush Sodium Chloride 10 - 40 ml 02/05/21 10:16 0.9 % Nacl (Sterile) Posiflush 10 Ml IV UD PRN Port access or dressing change Sodium Chloride 10 - 40 ml 02/07/21 07:51 0.9% Saline Lock 10 Ml Syringe IV UD PRN Open End PICC Flush Sodium Chloride 10 - 40 ml 02/07/21 07:51 0.9 % Nacl (Sterile) Posiflush 10 Ml IV UD PRN Port access or dressing change Tramadol HCl 50 mg 02/04/21 23:32 02/08/21 13:56 Tramadol 50 Mg Tablet PO 50 mg Q6H PRN PRN Administration Pain Score 4-10 Trazodone HCl 50 mg 02/05/21 22:00 02/07/21 22:51 Trazodone 50 Mg Tablet PO 50 mg QHS ANT Administration Tuberculin PPD 0.1 ml 02/12/21 10:00 Tuberculin,Purif.Prot.Deriv. 50 Tu/Ml Vial ID 02/12/21 10:01 X1 ONE Problem List (Last Reviewed 02/04/21 @ 23:[address] 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 (Acute) Femur head necrosis (Acute) Vital Signs Temp Pulse Resp BP Pulse Ox 97.9 F 79 18 107/50 L 96 02/07/21 17:05 02/08/21 05:24 02/07/21 17:05 02/08/21 05:24 02/07/21 17:05 Oxygen Delivery Method Room Air Weight: 54.136 kg Body Mass Index (BMI) 20.4 Sodium 132 mmol/L (136-145) L 02/05/21 06:40 Potassium 4.0 mmol/L (3.5-5.1) 02/05/21 06:40 Chloride 102 mmol/L (98-107) 02/05/21 06:40 Carbon Dioxide 23.0 mmol/L (21.0-32.0) 02/05/21 06:40 Anion Gap 7 (5-15) 02/05/21 06:40 BUN 18 mg/dL (7-18) 02/05/21 06:40 Creatinine 0.51 mg/dL (0.55-1.02) L 02/05/21 06:40 Est GFR (MDRD) Af Amer 152 mL/min (>60) 02/05/21 06:40 Est GFR (MDRD) Non-Af 125 mL/min (>60) 02/05/21 06:40 BUN/Creatinine Ratio 35.6 RATIO (10-20) H 02/05/21 06:40 Glucose 110 mg/dL (74-106) H 02/05/21 06:40 Vancomycin Trough 8.2 ug/mL (5.0-15.0) 02/06/21 21:00 Assessment/Plan: 1. Pain: acetaminophen 1000mg PO TID and tramadol 50mg PO Q6H PRN pain 4-10. Please continue to monitor for increased pain, PRN usage, constipation, renal function, and respiratory depression. *2. Right hip infection s/p debridement/hemiarthroplasty/antibiotic spacer: ceftriaxone 2gm Q24H and vancomycin 750mg IV Q12H thru 03/16/21. Please consider adding a stop date to ceftriaxone. Thanks. Please continue to monitor for S/S of infection, renal function and diarrhea. 3. Hypertension: metoprolol succinate 25mg PO BID. Please continue to monitor HR (last 79) and BP (last 107/50). 4. COPD: fluticasone/salmeterol 232/14mcg inhalation BID and albuterol MDI 2puffs Q6H PRN breathing. Please continue to monitor HR, thrush and PRN usage. Please rinse mouth with water after each fluticasone/salmeterol administration to decrease the likelihood of thrush. 5. DVT/PE: apixaban 5mg PO BID. Please continue to monitor for S/S of bleeding/DVT and hemoglobin (last 9.4g/dL). 6. Parkinson Disease: Sinemet 25/100mg PO BIDAC and pramipexole 0.125mg PO TID. Please continue to monitor for S/S of Parkinson and GI side effects. 7. Nutrition/vitamin D deficiency/vitamin C deficiency/overall health: calcium carbonate 500mg PO DAILYCM, multivitamin 1T PO DAILYCM, ascorbic acid 1000mg PO daily and cholecalciferol 100mcg PO daily. Please continue to monitor vitamin D levels (last 11/08/20) and calcium levels (last 8.6mg/dL). 8. Iron deficiency (hemoglobin 9.4g/dL): Ferrex 150mg PO DAILYCM. Please continue to monitor hemoglobin, constipation and dark stools. Psychotropic Medications: 1, Depression: sertraline 50mg PO daily. Please see physician note regarding GDR. 2. Anxiety: buspirone 5mg PO BID. Please see physician note regarding GDR. 3. Insomnia: trazodone 50mg PO QHS. Please consider GDR by 07/2021 if clinically appropriate. Thanks. Unnecessary Medications: None Bowel Regimen: Miralax 17gm PO daily PRN constipation and senna/docusate 2T PO BID. Please continue to monitor for constipation and PRN usage. Date of Note:: 02/08/21
[2021-02-08 14:20] VITALS: BP 118/70; PULSE 78; RESP 18; TEMP 36.9; O2SAT 90
[2021-02-08 17:21] VITALS: PULSE 79
[2021-02-08] MEDS: traZODone 50 MG Tablet PO (22:34)
[2021-02-08 22:47] LABS: Vancomycin, Trough Level 13.5 ug/mL (5.0-15.0)
--- NOTE | 2021-02-08 22:58 | PCM.RX.CS ---
Consult Pharmacy has been consulted to manage selected antiobiotic: Vancomycin Type of Consult: Follow-up Suspected Infection: Osteomyelitis Prior Doses of Antibiotics Received/Current Regimen: Medications Vancomycin HCl 750 mg/ Sodium (Chloride) 265 mls @ 250 mls/hr IV Q12H ANT Stop: 03/16/21 11:01 Last Admin: 02/08/21 12:40 Dose: Infused Labs: Sodium 132 mmol/L (136-145) L 02/05/21 06:40 Potassium 4.0 mmol/L (3.5-5.1) 02/05/21 06:40 Chloride 102 mmol/L (98-107) 02/05/21 06:40 Carbon Dioxide 23.0 mmol/L (21.0-32.0) 02/05/21 06:40 Anion Gap 7 (5-15) 02/05/21 06:40 BUN 18 mg/dL (7-18) 02/05/21 06:40 Creatinine 0.51 mg/dL (0.55-1.02) L 02/05/21 06:40 Est GFR (MDRD) Af Amer 152 mL/min (>60) 02/05/21 06:40 Est GFR (MDRD) Non-Af 125 mL/min (>60) 02/05/21 06:40 BUN/Creatinine Ratio 35.6 RATIO (10-20) H 02/05/21 06:40 Glucose 110 mg/dL (74-106) H 02/05/21 06:40 Vancomycin Trough 13.5 ug/mL (5.0-15.0) 02/08/21 22:10 Weight used for dosin kg Estimated Creatinine Clearance: 39 Goal Trough: 15-20 mcg/mL Pharmacy Plan for Drug Dosing: Vancomycin trough level was 13.5. It has been climbing steadily with dose adjustment, so will continue same dosing to avoid over-shooting the target range. But will redraw another trough in 4 doses (2 days). Pharmacy Service will continue to monitor and adjust dosing as required. Follow-Up Labs: Trough Vancomycin Labs to be done on [date and time ordered]: 02/10/21 @1030
[2021-02-09] MEDS: 0.9% Saline Lock 10 ML Syringe IV ×3 (00:18→12:59)
[2021-02-09] MEDS: traMADol 50 MG Tablet PO (03:27)
[2021-02-09 05:58] VITALS: BP 131/76; PULSE 80; RESP 16; TEMP 36.5; O2SAT 97
[2021-02-09 05:58] LABS: Hematocrit 27.2 % (37-47); Hemoglobin 8.7 g/dL (12.0-15.0)
[2021-02-09] MEDS: Acetaminophen 500 MG Tablet 1000 MG PO ×3 (06:01→22:06)
[2021-02-09] MEDS: Cholecalciferol (VIT D3) 25 MCG TABLET (1,000 UNITS) 100 MCG PO (06:02)
[2021-02-09] MEDS: busPIRone 5 MG Tablet PO ×2 (06:02→17:43)
[2021-02-09] MEDS: Ascorbic Acid 500 MG Tablet 1000 MG PO (06:02)
[2021-02-09 06:03] VITALS: BP 131/76; PULSE 80
[2021-02-09] MEDS: Senna/Docusate Sodium 1 Tablet 2 TABLET PO ×2 (06:03→17:43)
[2021-02-09] MEDS: Metoprolol(XL)Succ 25 MG Tablet PO ×2 (06:03→17:42)
[2021-02-09] MEDS: Sertraline 50 MG Tablet PO (06:04)
[2021-02-09] MEDS: Carbidopa/Levodopa 25/100 Tablet PO ×2 (06:04→15:30)
[2021-02-09] MEDS: APIXABAN 5 MG TABLET PO ×2 (06:05→17:43)
[2021-02-09] MEDS: Calcium Carbonate 500 MG Tablet PO (06:05)
[2021-02-09] MEDS: Pramipexole Di-HCl 0.125 MG Tablet PO ×3 (06:06→22:06)
[2021-02-09] MEDS: Fluticasone/Salmeterol 232-14 Inhaler 1 PUFF INHALATION ×2 (06:07→17:44)
[2021-02-09] MEDS: Iron Polysaccharide Complex 150 MG CAPSULE PO (08:21)
[2021-02-09] MEDS: Multivitamins,Therapeutic Tablet 1 TABLET PO (08:21)
[2021-02-09] MEDS: Alteplase 2 MG/2 ML Vial IV (12:57)
--- NOTE | 2021-02-09 15:30 | CASEMGMT ---
Social Work IDT met with patient and via conference call for care plan meeting. Discussed patient's progress in therapy and nursing. Pt is on IV ATBs with stop date 03/16. Explained [facility] insurance with NRD 02/15 and continued stay is not guaranteed each review. Pt cannot self administer IVs r/t cognition impairment. appears to have some cognitive deficit as well and IDT is recommending he assist with IVs. Goal is for pt to remain in TCU until end of IVs then DC home with . Palliative Screen completed - referral made to [facility]. SW to continue to follow. Supriya Tavarez, CLINICAL NURSE EDUCATOR DATA MANAGEMENT ANALYST
[2021-02-09 15:32] VITALS: BP 108/41; PULSE 77; RESP 16; TEMP 36.1; O2SAT 96
[2021-02-09 17:42] VITALS: PULSE 77
[2021-02-09] MEDS: traZODone 50 MG Tablet PO (22:06)
[2021-02-10] MEDS: APIXABAN 5 MG TABLET PO (05:47)
[2021-02-10] MEDS: Senna/Docusate Sodium 1 Tablet 2 TABLET PO ×2 (05:47→16:58)
[2021-02-10 05:48] VITALS: BP 145/82; PULSE 75
[2021-02-10] MEDS: Metoprolol(XL)Succ 25 MG Tablet PO ×2 (05:48→16:58)
[2021-02-10] MEDS: Ascorbic Acid 500 MG Tablet 1000 MG PO (05:48)
[2021-02-10] MEDS: Calcium Carbonate 500 MG Tablet PO (05:48)
[2021-02-10] MEDS: busPIRone 5 MG Tablet PO ×2 (05:48→16:58)
[2021-02-10] MEDS: Acetaminophen 500 MG Tablet 1000 MG PO ×3 (05:49→21:21)
[2021-02-10] MEDS: Carbidopa/Levodopa 25/100 Tablet PO ×2 (05:49→16:03)
[2021-02-10] MEDS: Pramipexole Di-HCl 0.125 MG Tablet PO ×3 (05:49→21:21)
[2021-02-10] MEDS: Cholecalciferol (VIT D3) 25 MCG TABLET (1,000 UNITS) 100 MCG PO (05:49)
[2021-02-10] MEDS: Fluticasone/Salmeterol 232-14 Inhaler 1 PUFF INHALATION ×2 (05:50→16:57)
[2021-02-10] MEDS: Sertraline 50 MG Tablet PO (05:50)
[2021-02-10] MEDS: Multivitamins,Therapeutic Tablet 1 TABLET PO ×2 (09:08→09:09)
[2021-02-10] MEDS: 0.9% Saline Lock 10 ML Syringe IV ×2 (09:11→23:06)
[2021-02-10] MEDS: Iron Polysaccharide Complex 150 MG CAPSULE PO (09:31)
[2021-02-10 11:16] LABS: Vancomycin, Trough Level 12.5 ug/mL (5.0-15.0)
--- NOTE | 2021-02-10 15:18 | PCM.RX.CS ---
Consult Pharmacy has been consulted to manage selected antiobiotic: Vancomycin Type of Consult: Follow-up Prior Doses of Antibiotics Received/Current Regimen: 02/09/21 1130 02/09/21 2201 02/10/21 1137 Labs: Sodium 132 mmol/L (136-145) L 02/05/21 06:40 Potassium 4.0 mmol/L (3.5-5.1) 02/05/21 06:40 Chloride 102 mmol/L (98-107) 02/05/21 06:40 Carbon Dioxide 23.0 mmol/L (21.0-32.0) 02/05/21 06:40 Anion Gap 7 (5-15) 02/05/21 06:40 BUN 18 mg/dL (7-18) 02/05/21 06:40 Creatinine 0.51 mg/dL (0.55-1.02) L 02/05/21 06:40 Est GFR (MDRD) Af Amer 152 mL/min (>60) 02/05/21 06:40 Est GFR (MDRD) Non-Af 125 mL/min (>60) 02/05/21 06:40 BUN/Creatinine Ratio 35.6 RATIO (10-20) H 02/05/21 06:40 Glucose 110 mg/dL (74-106) H 02/05/21 06:40 Vancomycin Trough 12.5 ug/mL (5.0-15.0) 02/10/21 10:40 Weight used for dosin kg Estimated Creatinine Clearance: 39 Goal Trough: 15-20 mcg/mL Pharmacy Plan for Drug Dosing: patient trough is 12.5. Increase vancomycin to 1000mg q12h and draw a trough 30 minutes before 4 th dose. 02/12/21@1100 Pharmacy Service will continue to monitor and adjust dosing as required. Follow-Up Labs: Trough Vancomycin Labs to be done on [date and time ordered]: 02/12/2021 @ 1100
[2021-02-10 15:41] VITALS: BP 109/58; PULSE 76; RESP 14; TEMP 36.4; O2SAT 95
[2021-02-10 16:58] VITALS: BP 153/63; PULSE 74
[2021-02-10] MEDS: traZODone 50 MG Tablet PO (21:21)
[2021-02-10] MEDS: Vancomycin IV 1,000 MG/200 ML BAG 200 MG IV (23:06)
[2021-02-11] MEDS: Cholecalciferol (VIT D3) 25 MCG TABLET (1,000 UNITS) 100 MCG PO (05:17)
[2021-02-11 05:18] VITALS: BP 139/57; PULSE 79
[2021-02-11] MEDS: Calcium Carbonate 500 MG Tablet PO (05:18)
[2021-02-11] MEDS: Sertraline 50 MG Tablet PO (05:18)
[2021-02-11] MEDS: Ascorbic Acid 500 MG Tablet 1000 MG PO (05:18)
[2021-02-11] MEDS: Senna/Docusate Sodium 1 Tablet 2 TABLET PO ×2 (05:18→17:38)
[2021-02-11] MEDS: busPIRone 5 MG Tablet PO ×2 (05:18→17:38)
[2021-02-11] MEDS: Metoprolol(XL)Succ 25 MG Tablet PO ×2 (05:18→17:37)
[2021-02-11] MEDS: Carbidopa/Levodopa 25/100 Tablet PO ×2 (05:19→17:39)
[2021-02-11] MEDS: Acetaminophen 500 MG Tablet 1000 MG PO ×3 (05:22→21:07)
[2021-02-11] MEDS: Fluticasone/Salmeterol 232-14 Inhaler 1 PUFF INHALATION ×2 (05:24→17:37)
[2021-02-11] MEDS: Pramipexole Di-HCl 0.125 MG Tablet PO ×3 (05:25→21:08)
[2021-02-11 05:57] LABS: Hematocrit 29.2 % (37-47); Hemoglobin 9.3 g/dL (12.0-15.0)
--- NOTE | 2021-02-11 07:05 | NURSING ---
Walked with pt to br then back to bed, asked pt if she has ever had a sleep study done, throughout the night noted pt snoring and having periods of 3 second apneas. Pt states she has not had one, doesn't feel like she needs one, states I won't wear one of those masks. Encouraged pt to think about looking into it so she can get better rest.
[2021-02-11] MEDS: Iron Polysaccharide Complex 150 MG CAPSULE PO (09:57)
[2021-02-11] MEDS: 0.9% Saline Lock 10 ML Syringe IV ×2 (09:58→23:06)
[2021-02-11] MEDS: Vancomycin IV 1,000 MG/200 ML BAG 200 MG IV ×2 (10:56→23:06)
[2021-02-11 15:01] VITALS: BP 118/54; PULSE 74; RESP 18; TEMP 36.2; O2SAT 96
[2021-02-11 17:37] VITALS: PULSE 74
[2021-02-11] MEDS: traZODone 50 MG Tablet PO (21:08)
[2021-02-11] MEDS: Menthol/Lanolin/Calamine/Znox 113 GM Tube 1 APPLIC TOPICAL (21:15)
[2021-02-12] MEDS: Cholecalciferol (VIT D3) 25 MCG TABLET (1,000 UNITS) 100 MCG PO (05:41)
[2021-02-12] MEDS: Ascorbic Acid 500 MG Tablet 1000 MG PO (05:41)
[2021-02-12] MEDS: Acetaminophen 500 MG Tablet 1000 MG PO ×3 (05:41→22:51)
[2021-02-12 05:42] VITALS: BP 148/61; PULSE 75
[2021-02-12] MEDS: Senna/Docusate Sodium 1 Tablet 2 TABLET PO ×2 (05:42→17:11)
[2021-02-12] MEDS: Calcium Carbonate 500 MG Tablet PO (05:42)
[2021-02-12] MEDS: Pramipexole Di-HCl 0.125 MG Tablet PO ×3 (05:42→22:52)
[2021-02-12] MEDS: busPIRone 5 MG Tablet PO ×2 (05:42→17:11)
[2021-02-12] MEDS: Metoprolol(XL)Succ 25 MG Tablet PO ×2 (05:42→17:11)
[2021-02-12] MEDS: Sertraline 50 MG Tablet PO (05:42)
[2021-02-12] MEDS: Fluticasone/Salmeterol 232-14 Inhaler 1 PUFF INHALATION ×2 (05:42→17:11)
[2021-02-12] MEDS: Carbidopa/Levodopa 25/100 Tablet PO ×2 (05:42→16:33)
[2021-02-12] MEDS: Menthol/Lanolin/Calamine/Znox 113 GM Tube 1 APPLIC TOPICAL ×2 (05:44→17:12)
[2021-02-12] MEDS: Iron Polysaccharide Complex 150 MG CAPSULE PO (08:40)
[2021-02-12] MEDS: Multivitamins,Therapeutic Tablet 1 TABLET PO (08:40)
[2021-02-12 08:53] LABS: Absolute Lymphocyte Count 2.25 X10^3/uL (0.83-4.51); Absolute Neutrophil Count 6.4 X10^3/uL (2.0-7.7); Basophil# 0.08 X10^3/uL; Basophil% 0.8 % (0-1); Eosinophil# 0.33 X10^3/uL; Eosinophils% 3.3 % (0-5); Hematocrit 31.7 % (37-47); Hemoglobin 10.2 g/dL (12.0-15.0); Lymphocyte # 2.25 X10^3/ul (0.83-4.51); Lymphocyte % 22.4 % (19-41); Mean Corp Hgb Conc 32.2 g/dL (32-36); Mean Corpuscular Hgb 32.8 pg (27.0-32.0); Mean Corpuscular Volume 101.9 fL (81-99); Mean Platelet Vol. 10.2 fl (6.2-12.0); Monocyte# 0.82 X10^3/uL; Monocyte% 8.2 % (0-10); NRBC Flagged by Analyzer 0 % (0-5); Neutrophil # 6.42 X10^3/uL (2.7-7.7); Platelet Count 444 K/mm3 (150-450); RBC Distribution Width CV 13.9 % (11.6-14.6); RBC Distribution Width SD 52.1 fl (35.1-43.9); Red Blood Count 3.11 M/mm3 (4.2-5.4)
[2021-02-12 08:56] LABS: Erythrocyte Sedimentation Rate 66 mm/hr (0-30)
[2021-02-12 09:21] LABS: Anion Gap 7 (5-15); BUN 17 mg/dL (7-18); BUN/Creat Ratio 27.8 RATIO (10-20); Calcium,Total 9.8 mg/dL (8.5-10.1); Chloride 102 mmol/L (98-107); Creatinine, Serum 0.61 mg/dL (0.55-1.02); EST Glomerular Filtration Rate 101 mL/min (>60); Est Glom Filt Rate - Afr Amer 122 mL/min (>60); Estimated Creatinine Clearance 38.97 ml/min; Glucose 112 mg/dL (74-106); Potassium 3.9 mmol/L (3.5-5.1); Sodium Level 136 mmol/L (136-145)
[2021-02-12] MEDS: 0.9% Saline Lock 10 ML Syringe IV ×3 (10:45→23:01)
[2021-02-12 11:47] LABS: Vancomycin, Trough Level 15.6 ug/mL (5.0-15.0)
[2021-02-12] MEDS: Vancomycin IV 1,000 MG/200 ML BAG 200 MG IV ×2 (12:09→22:53)
--- NOTE | 2021-02-12 12:23 | PCM.RX.CS ---
Consult Pharmacy has been consulted to manage selected antiobiotic: Vancomycin Type of Consult: Follow-up Suspected Infection: Osteomyelitis Prior Doses of Antibiotics Received/Current Regimen: Currently on 1gm iv q12h. Labs: Sodium 136 mmol/L (136-145) 02/12/21 08:10 Potassium 3.9 mmol/L (3.5-5.1) 02/12/21 08:10 Chloride 102 mmol/L (98-107) 02/12/21 08:10 Carbon Dioxide 27.0 mmol/L (21.0-32.0) 02/12/21 08:10 Anion Gap 7 (5-15) 02/12/21 08:10 BUN 17 mg/dL (7-18) 02/12/21 08:10 Creatinine 0.61 mg/dL (0.55-1.02) 02/12/21 08:10 Est GFR (MDRD) Af Amer 122 mL/min (>60) 02/12/21 08:10 Est GFR (MDRD) Non-Af 101 mL/min (>60) 02/12/21 08:10 BUN/Creatinine Ratio 27.8 RATIO (10-20) H 02/12/21 08:10 Glucose 112 mg/dL (74-106) H 02/12/21 08:10 Vancomycin Trough 15.6 ug/mL (5.0-15.0) H 02/12/21 10:50 Weight used for dosin.1 kg Estimated Creatinine Clearance: ~39ml/min Goal Trough: 15-20 mcg/mL Pharmacy Plan for Drug Dosing: Trough today was 15.6 with goal range of 15-20mcg/ml. Renal function reviewed and stable. Will continue same dose and get another trough level in 4 days per protocol. Pharmacy Service will continue to monitor and adjust dosing as required. Follow-Up Labs: Trough Vancomycin - 9.29.21@1100 before 1130 dose
[2021-02-12] MEDS: Tuberculin,Purif.prot.deriv. 50 TU/ML Vial 0.1 ML ID (13:26)
[2021-02-12 14:30] VITALS: BP 133/61; PULSE 85; RESP 20; TEMP 36; O2SAT 97
[2021-02-12 17:11] VITALS: PULSE 70
[2021-02-12] MEDS: traZODone 50 MG Tablet PO (22:52)
[2021-02-13] MEDS: traMADol 50 MG Tablet PO ×2 (02:41→23:26)
[2021-02-13 05:35] VITALS: BP 133/62; PULSE 74; RESP 16; TEMP 36.2; O2SAT 97
[2021-02-13] MEDS: Fluticasone/Salmeterol 232-14 Inhaler 1 PUFF INHALATION ×2 (05:36→17:25)
[2021-02-13] MEDS: Pramipexole Di-HCl 0.125 MG Tablet PO ×3 (05:37→22:14)
[2021-02-13] MEDS: Cholecalciferol (VIT D3) 25 MCG TABLET (1,000 UNITS) 100 MCG PO (05:37)
[2021-02-13] MEDS: Sertraline 50 MG Tablet PO (05:37)
[2021-02-13] MEDS: Carbidopa/Levodopa 25/100 Tablet PO ×2 (05:38→15:39)
[2021-02-13] MEDS: Ascorbic Acid 500 MG Tablet 1000 MG PO (05:38)
[2021-02-13] MEDS: Acetaminophen 500 MG Tablet 1000 MG PO ×3 (05:38→22:13)
[2021-02-13] MEDS: Calcium Carbonate 500 MG Tablet PO (05:38)
[2021-02-13 05:39] VITALS: BP 133/62; PULSE 74
[2021-02-13] MEDS: Senna/Docusate Sodium 1 Tablet 2 TABLET PO ×2 (05:39→17:25)
[2021-02-13] MEDS: Metoprolol(XL)Succ 25 MG Tablet PO ×2 (05:39→17:25)
[2021-02-13] MEDS: busPIRone 5 MG Tablet PO ×2 (05:39→17:26)
[2021-02-13] MEDS: Menthol/Lanolin/Calamine/Znox 113 GM Tube 1 APPLIC TOPICAL ×2 (05:40→17:26)
[2021-02-13 07:19] LABS: Hematocrit 26.2 % (37-47); Hemoglobin 8.7 g/dL (12.0-15.0)
[2021-02-13] MEDS: Multivitamins,Therapeutic Tablet 1 TABLET PO (08:06)
[2021-02-13] MEDS: Iron Polysaccharide Complex 150 MG CAPSULE PO (08:06)
[2021-02-13] MEDS: 0.9% Saline Lock 10 ML Syringe IV ×2 (10:30→23:23)
[2021-02-13] MEDS: Vancomycin IV 1,000 MG/200 ML BAG 200 MG IV ×2 (11:43→23:20)
[2021-02-13 11:50] VITALS: PULSE 76; RESP 16; O2SAT 96
[2021-02-13 14:38] VITALS: BP 118/64; PULSE 76; RESP 16; TEMP 36.6; O2SAT 96
[2021-02-13 17:25] VITALS: BP 122/95; PULSE 77
[2021-02-13] MEDS: traZODone 50 MG Tablet PO (22:14)
[2021-02-14 05:43] VITALS: BP 123/69; PULSE 77; RESP 12; TEMP 36.5; O2SAT 97
[2021-02-14] MEDS: Cholecalciferol (VIT D3) 25 MCG TABLET (1,000 UNITS) 100 MCG PO (05:45)
[2021-02-14] MEDS: Menthol/Lanolin/Calamine/Znox 113 GM Tube 1 APPLIC TOPICAL ×2 (05:45→16:31)
[2021-02-14] MEDS: Calcium Carbonate 500 MG Tablet PO (05:46)
[2021-02-14] MEDS: Acetaminophen 500 MG Tablet 1000 MG PO ×3 (05:46→20:59)
[2021-02-14] MEDS: Senna/Docusate Sodium 1 Tablet 2 TABLET PO ×2 (05:47→16:30)
[2021-02-14] MEDS: Carbidopa/Levodopa 25/100 Tablet PO ×2 (05:47→16:30)
[2021-02-14] MEDS: Ascorbic Acid 500 MG Tablet 1000 MG PO (05:47)
[2021-02-14] MEDS: Sertraline 50 MG Tablet PO (05:47)
[2021-02-14 05:48] VITALS: BP 123/69; PULSE 77
[2021-02-14] MEDS: busPIRone 5 MG Tablet PO ×2 (05:48→16:30)
[2021-02-14] MEDS: Pramipexole Di-HCl 0.125 MG Tablet PO ×3 (05:48→20:59)
[2021-02-14] MEDS: Metoprolol(XL)Succ 25 MG Tablet PO ×2 (05:48→16:30)
[2021-02-14] MEDS: Fluticasone/Salmeterol 232-14 Inhaler 1 PUFF INHALATION ×2 (05:49→16:33)
--- NOTE | 2021-02-14 06:00 | NURSING ---
Addendum entered by Kaci Quiroga 02/14/21 12:23: R' SPOKE WITH . R' IS NOW WILLING TO RESUME ELIQUIS. HAS A MONTH SUPPLY AT HOME. Original Note: Eliquis to resume today. Pt refuses to take medication due to cost and would like an alternative. Informed pt surgeon's office may need to be contacted or concern to be discussed w/ Dr. Collier for an alternative.
[2021-02-14] MEDS: Multivitamins,Therapeutic Tablet 1 TABLET PO (08:07)
[2021-02-14] MEDS: Iron Polysaccharide Complex 150 MG CAPSULE PO (08:07)
[2021-02-14] MEDS: 0.9% Saline Lock 10 ML Syringe IV ×3 (10:03→23:24)
[2021-02-14] MEDS: Vancomycin IV 1,000 MG/200 ML BAG 200 MG IV ×2 (11:03→23:25)
[2021-02-14 12:11] LABS: Vancomycin, Trough Level 17.1 ug/mL (5.0-15.0)
--- NOTE | 2021-02-14 12:46 | PCM.RX.CS ---
Consult Pharmacy has been consulted to manage selected antiobiotic: Vancomycin Type of Consult: Follow-up Labs: Sodium 136 mmol/L (136-145) 02/12/21 08:10 Potassium 3.9 mmol/L (3.5-5.1) 02/12/21 08:10 Chloride 102 mmol/L (98-107) 02/12/21 08:10 Carbon Dioxide 27.0 mmol/L (21.0-32.0) 02/12/21 08:10 Anion Gap 7 (5-15) 02/12/21 08:10 BUN 17 mg/dL (7-18) 02/12/21 08:10 Creatinine 0.61 mg/dL (0.55-1.02) 02/12/21 08:10 Est GFR (MDRD) Af Amer 122 mL/min (>60) 02/12/21 08:10 Est GFR (MDRD) Non-Af 101 mL/min (>60) 02/12/21 08:10 BUN/Creatinine Ratio 27.8 RATIO (10-20) H 02/12/21 08:10 Glucose 112 mg/dL (74-106) H 02/12/21 08:10 Vancomycin Trough 17.1 ug/mL (5.0-15.0) H 02/14/21 11:03 Goal Trough: 15-20 mcg/mL Pharmacy Plan for Drug Dosing: VANCOMYCIN LEVEL RECEIVED Current Vancomycin Dose: 1000mg q12h (1130,2330) Number of Doses Received: Vancomycin Level: 17.1 Hours Since Last Dose: 11.5 Renal Function: SrCr 0.61 Renal Function Trend: currently stable Lab/Micro: Vancomycin Plan/Comments: based on 12 hour trough level, which is within ordered goal range of 15-20, recommend continuing current dose 1000mg q12h. will check trough again in 4 more doses Pending Level: 02/16/21 at 1100 Pharmacy Service will continue to monitor and adjust dosing as required. Follow-Up Labs: Trough Vancomycin - 02/16/21 at 1100
[2021-02-14 14:35] VITALS: BP 106/76; PULSE 78; RESP 14; TEMP 36.3; O2SAT 96
--- NOTE | 2021-02-14 14:38 | PCM.CONS.P ---
Assessment & Plan Assessment/Plan (1) Debility: (2) COPD (chronic obstructive pulmonary disease): QUALIFIERS: COPD type: chronic bronchitis Chronic bronchitis type: simple Qualified Code(s): J41.0 - Simple chronic bronchitis (3) Parkinson's disease: (4) Avascular necrosis of bone of right hip: (5) Osteomyelitis hip: (6) Insomnia: QUALIFIERS: Insomnia type: unspecified Qualified Code(s): G47.00 - Insomnia, unspecified (7) Anxiety: (8) Hypertension: QUALIFIERS: Hypertension type: unspecified Qualified Code(s): I10 - Essential (primary) hypertension (9) Restless leg syndrome: (10) Depression: QUALIFIERS: Depression Type: unspecified Qualified Code(s): F32.9 - Major depressive disorder, single episode, unspecified (11) Osteoarthritis: QUALIFIERS: Laterality: bilateral Osteoarthritis location: hip Osteoarthritis type: unspecified Qualified Code(s): M16.0 - Bilateral primary osteoarthritis of hip (12) Transient ischemic attack: (13) Low back pain: QUALIFIERS: Back pain laterality: midline Chronicity: chronic Sciatica presence: unspecified whether sciatica present Qualified Code(s): M54.5 - Low back pain; G89.29 - Other chronic pain PLAN: 76-year-old female with COPD, Parkinson's, admitted to TCU for rehab after insertion of a hip spacer with antibiotics 02/02/2021. Palliative seeing the patient today for consultation regarding her COPD, Parkinson's, multiple comorbidities, and supportive management. 1. Debility: Improving, she is receiving therapy. Pain is been controlled to her hip. Monitor 2. COPD: Does not appear to be in exacerbation at this time, continue with her inhalers. We will follow-up for shortness of breath 3. Parkinson's disease/anxiety: She is on Sinemet, Mirapex, sertraline, buspirone. Seems to be controlled at this point, monitor for changes. 4. Avascular necrosis right hip s/p antibiotic spacer/insomnia/HTN/RLS/depression/OA/TIA/chronic low back pain: Complicates overall care, management, recovery, and prognosis. Defer management to PCP and specialist. Thank you for the opportunity to participate in this patient's care, please do not hesitate to contact [facility] Palliative with any further questions or concerns. Palliative direct line is [phone]. Patient declines her services at this time, she does have a brochure and my contact information in case she would decide she would like to hear more about palliative care. Greater than 50% of F2F visit dedicated to education and counseling of palliative care services, medications, comorbid conditions and potential assistance with management, and plan of care moving forward. Start time: 1435 End time: 1324 HPI Consult Data Date of Consult: 02/14/21 HPI Narrative HPI Narrative: LYNN MEYERS, is a 76 F who presented to [facility] transitional care unit (TCU) 02/04/2021 for rehab after 2 hospitalizations for aseptic necrosis of right femur. Patient underwent right hip debridement with hemiarthroplasty and antibiotic spacer placement 02/02/[address] Sanders. She also had multiple previous DVTs to the right lower extremity. Patient has been doing well on the rehab unit. Her pain has been controlled according to nursing. Palliative care was consulted for severe COPD and Parkinson's disease. She has had some memory loss according to the medical record. She was having uncontrolled pain symptoms, however that has improved. Currently on 1 g of acetaminophen 3 times a day scheduled, tramadol 50 mg every 6 hours as needed, which she is taking approximately 2-3 times per 24 hours. Patient has albuterol inhalers every 6h inhaler as needed at home, as well as budesonide/formoterol. She takes trazodone for sleep. Patient reports her pain has essentially resolved, she does have occasional aches, depending upon what she is doing. Therapy does aggravated a little at times. Tylenol and tramadol are effective. She denies any N/V/D. Bowels are moving okay, last bowel movement 02/12. She did have a drop in her hemoglobin 02/12 was 10.2, 02/13 8.7. No blood in her stool or urine. No cough, fevers, chills, shortness of breath, or chest pain. No dizziness or syncope. She is doing well with therapy. Discussed palliative services, patient does not feel she requires her services at this time. [facility] Medical History Anxiety Arthritis Cardiology follow-up encounter Chronic back pain Chronic malnutrition Chronic pain COPD (chronic obstructive pulmonary disease) Depression Difficulty swallowing DVT (deep venous thrombosis) Easy bruising Essential hypertension Essential tremor Former smoker GERD (gastroesophageal reflux disease) History of pain when walking History of Parkinson's disease Hx of cardiovascular stress test Hypercholesteremia Hypertension Lumbar disc disease with radiculopathy Memory loss Mild cognitive impairment Myalgia, unspecified site Osteopenia Other intervertebral disc degeneration, lumbar region Parkinson's disease Postmenopausal Sciatica Scoliosis Skin tear of left elbow without complication TIA (transient ischemic attack) (01/13/19) Tremor Uses wheelchair Vitamin D deficiency Wears partial dentures Home Medications albuterol sulfate 2 puff INHALATION Q6H PRN PRN 01/13/19 [History Last Taken Unknown] ascorbic acid (vitamin C) 1,000 mg PO DAILY 01/13/19 [History Last Taken Unknown] biotin 5 mg PO DAILY 01/13/19 [History Last Taken Unknown] budesonide-formoterol 2 inhaler INHALATION BID 01/13/19 [History Last Taken Unknown] cholecalciferol (vitamin D3) 4,000 unit PO DAILY 01/13/19 [History Last Taken Unknown] metoprolol succinate 25 mg PO BID 01/13/19 [History Last Taken Unknown] sertraline 50 mg PO DAILY 01/13/19 [History Last Taken Unknown] Eliquis 5 mg PO BID 12/10/20 [History Last Taken Unknown] buspirone 5 mg PO BID 12/10/20 [History Last Taken Unknown] calcium carb-mag ox-zinc gluc 1 tab PO DAILY 12/10/20 [History Last Taken Unknown] multivitamin 1 cap PO DAILY 12/10/20 [History Last Taken Unknown] polyethylene glycol 3350 [Miralax] 17 g PO PRN PRN 12/10/20 [History Last Taken Unknown] pramipexole 0.125 mg PO TID 12/10/20 [History Last Taken Unknown] trazodone 50 mg PO QHS 12/10/20 [History Last Taken Unknown] carbidopa-levodopa 1 tab PO BID 01/20/21 [History Last Taken Unknown] acetaminophen 1,000 mg PO TID 02/04/21 [History Last Taken Unknown] ceftriaxone 2 g IV DAILY #40 ea 02/04/21 [Rx Last Taken Unknown] sennosides-docusate sodium [Stool Softener-Stimulant Laxat] 2 tab PO BID 02/04/21 [History Last Taken Unknown] tramadol 50 mg PO Q6H PRN PRN #28 tab 02/04/21 [Rx Last Taken Unknown] vancomycin 1 ea IV PRN PRN #0 ea 02/04/21 [Rx Last Taken Unknown] vancomycin 750 mg IV DAILY 02/04/21 [History Last Taken Unknown] Allergy/AdvReac Type Severity Reaction Status Date / Time amoxicillin Allergy Hives Verified 02/02/21 10:03 Penicillins AdvReac Intermediate Hives Verified 02/02/21 10:03 prednisone AdvReac Unknown Verified 02/02/21 10:03 Family History Father H/O ulcer disease Mother Heart disease Sister Cancer Sister Thyroid disorder Surgical History H/O tubal ligation History of appendectomy History of tonsillectomy Social History household members: spouse Smoking Status: Former smoker quit date: 05/21/19 alcohol intake: current alcohol intake frequency: holidays/special occasions only substance use type: does not use ROS ROS Narrative Review of systems otherwise negative from a constitutional, HEENT, respiratory, cardiovascular, GI, genitourinary, musculoskeletal, skin, neurologic, psychiatric and hematologic system unless stated above. Physical Exam Const alert, oriented x3 and no apparent distress General Appearance: cooperative and comfortable HEENT normocephalic and head/scalp atraumatic Neck supple General: trachea midline Resp normal respiratory effort Effort and Inspection: able to speak in complete sentences and symmetric chest movement Auscultation: clear to auscultation bilaterally and diminished lung sounds Cardio regular rate, regular rhythm, S1 normal heart sound and S2 normal heart sound GI normal to inspection, nondistended, normoactive bowel sounds Extremity no clubbing, cyanosis or edema Skin Skin Narrative: Hip incision open to air, healing nicely Neuro CN's II-XII intact bilaterally and no focal motor deficits Psych mental status grossly normal Speech: normal speech Attention / Concentration: other Distracted
[2021-02-14 16:30] VITALS: PULSE 78
[2021-02-14] MEDS: APIXABAN 5 MG TABLET PO (16:30)
--- NOTE | 2021-02-14 17:41 | NURSING ---
R' WANTED DR CARPIO TO CALL HIM FOR UPDATE. DR CARPIO TRIED TO CALL TWICE BUT NO ANSWER AND UNABLE TO LEAVE MESSAGE. NOTIFIED R' AND VERIFIED PHONE NUMBER.
[2021-02-14] MEDS: traZODone 50 MG Tablet PO (20:59)
[2021-02-14] MEDS: traMADol 50 MG Tablet PO (23:22)
[2021-02-15 05:58] VITALS: BP 145/87; PULSE 72; RESP 16; TEMP 36.4; O2SAT 97
[2021-02-15] MEDS: Fluticasone/Salmeterol 232-14 Inhaler 1 PUFF INHALATION ×2 (06:00→17:30)
[2021-02-15] MEDS: Menthol/Lanolin/Calamine/Znox 113 GM Tube 1 APPLIC TOPICAL ×2 (06:00→17:32)
[2021-02-15] MEDS: Sertraline 50 MG Tablet PO (06:04)
[2021-02-15] MEDS: Cholecalciferol (VIT D3) 25 MCG TABLET (1,000 UNITS) 100 MCG PO (06:04)
[2021-02-15 06:05] VITALS: BP 145/87; PULSE 72
[2021-02-15] MEDS: Metoprolol(XL)Succ 25 MG Tablet PO ×2 (06:05→17:33)
[2021-02-15] MEDS: Senna/Docusate Sodium 1 Tablet 2 TABLET PO ×2 (06:05→17:30)
[2021-02-15] MEDS: Calcium Carbonate 500 MG Tablet PO (06:05)
[2021-02-15] MEDS: Acetaminophen 500 MG Tablet 1000 MG PO ×3 (06:06→22:06)
[2021-02-15] MEDS: Ascorbic Acid 500 MG Tablet 1000 MG PO (06:06)
[2021-02-15] MEDS: busPIRone 5 MG Tablet PO ×2 (06:07→17:31)
[2021-02-15] MEDS: APIXABAN 5 MG TABLET PO ×2 (06:07→17:32)
[2021-02-15] MEDS: Pramipexole Di-HCl 0.125 MG Tablet PO ×3 (06:07→22:06)
[2021-02-15] MEDS: Carbidopa/Levodopa 25/100 Tablet PO ×2 (06:09→15:49)
[2021-02-15] MEDS: Iron Polysaccharide Complex 150 MG CAPSULE PO (08:09)
[2021-02-15] MEDS: Multivitamins,Therapeutic Tablet 1 TABLET PO (08:09)
[2021-02-15] MEDS: 0.9% Saline Lock 10 ML Syringe IV ×2 (09:37→23:34)
[2021-02-15] MEDS: Vancomycin IV 1,000 MG/200 ML BAG 200 MG IV ×2 (11:09→23:38)
[2021-02-15 14:03] VITALS: PULSE 70; RESP 14; O2SAT 93
--- NOTE | 2021-02-15 15:04 | MDS.RN ---
Information for the mds was obtained from review of the clinical record, interview of resident, staff, and direct observation of resident's care.
[2021-02-15 17:33] VITALS: BP 135/57; PULSE 70
[2021-02-15 19:58] VITALS: BP 135/57; PULSE 70; RESP 14; TEMP 36.6; O2SAT 93
[2021-02-15] MEDS: traZODone 50 MG Tablet PO (22:06)
[2021-02-15] MEDS: traMADol 50 MG Tablet PO (22:09)
[2021-02-16] MEDS: Fluticasone/Salmeterol 232-14 Inhaler 1 PUFF INHALATION ×2 (05:46→18:03)
[2021-02-16] MEDS: Sertraline 50 MG Tablet PO (05:46)
[2021-02-16] MEDS: APIXABAN 5 MG TABLET PO ×2 (05:46→18:00)
[2021-02-16] MEDS: Senna/Docusate Sodium 1 Tablet 2 TABLET PO ×2 (05:46→18:00)
[2021-02-16] MEDS: Cholecalciferol (VIT D3) 25 MCG TABLET (1,000 UNITS) 100 MCG PO (05:46)
[2021-02-16] MEDS: Calcium Carbonate 500 MG Tablet PO (05:47)
[2021-02-16] MEDS: Carbidopa/Levodopa 25/100 Tablet PO ×2 (05:47→16:05)
[2021-02-16] MEDS: Ascorbic Acid 500 MG Tablet 1000 MG PO (05:47)
[2021-02-16 05:48] VITALS: BP 150/55; PULSE 74
[2021-02-16] MEDS: Acetaminophen 500 MG Tablet 1000 MG PO ×3 (05:48→22:45)
[2021-02-16] MEDS: busPIRone 5 MG Tablet PO ×2 (05:48→17:59)
[2021-02-16] MEDS: Metoprolol(XL)Succ 25 MG Tablet PO ×2 (05:48→18:00)
[2021-02-16] MEDS: Pramipexole Di-HCl 0.125 MG Tablet PO ×3 (05:49→22:45)
[2021-02-16] MEDS: Menthol/Lanolin/Calamine/Znox 113 GM Tube 1 APPLIC TOPICAL ×2 (05:59→22:45)
[2021-02-16 06:09] LABS: Hematocrit 29.1 % (37-47); Hemoglobin 9.6 g/dL (12.0-15.0)
[2021-02-16] MEDS: Multivitamins,Therapeutic Tablet 1 TABLET PO (09:21)
[2021-02-16] MEDS: Iron Polysaccharide Complex 150 MG CAPSULE PO (09:21)
[2021-02-16] MEDS: 0.9% Saline Lock 10 ML Syringe IV ×2 (10:23→23:43)
[2021-02-16 11:46] LABS: Vancomycin, Trough Level 18.8 ug/mL (5.0-15.0)
[2021-02-16] MEDS: Vancomycin IV 1,000 MG/200 ML BAG 200 MG IV ×2 (12:01→23:42)
--- NOTE | 2021-02-16 12:59 | PCM.RX.CS ---
Consult Pharmacy has been consulted to manage selected antiobiotic: Vancomycin Type of Consult: Follow-up Suspected Infection: Other Prior Doses of Antibiotics Received/Current Regimen: On 1gm iv q12h. Labs: Sodium 136 mmol/L (136-145) 02/12/21 08:10 Potassium 3.9 mmol/L (3.5-5.1) 02/12/21 08:10 Chloride 102 mmol/L (98-107) 02/12/21 08:10 Carbon Dioxide 27.0 mmol/L (21.0-32.0) 02/12/21 08:10 Anion Gap 7 (5-15) 02/12/21 08:10 BUN 17 mg/dL (7-18) 02/12/21 08:10 Creatinine 0.61 mg/dL (0.55-1.02) 02/12/21 08:10 Est GFR (MDRD) Af Amer 122 mL/min (>60) 02/12/21 08:10 Est GFR (MDRD) Non-Af 101 mL/min (>60) 02/12/21 08:10 BUN/Creatinine Ratio 27.8 RATIO (10-20) H 02/12/21 08:10 Glucose 112 mg/dL (74-106) H 02/12/21 08:10 Vancomycin Trough 18.8 ug/mL (5.0-15.0) H 02/16/21 11:03 Weight used for dosin.9 kg Estimated Creatinine Clearance: 39 ml/min Goal Trough: 15-20 mcg/mL Pharmacy Plan for Drug Dosing: Pharmacy Service will continue to monitor and adjust dosing as required. Follow-Up Labs: Trough Vancomycin - 10.1.21 @1100 before 1130 dose
[2021-02-16 16:10] VITALS: BP 119/49; PULSE 70; RESP 17; TEMP 36.3; O2SAT 96
[2021-02-16 18:00] VITALS: PULSE 76
[2021-02-16] MEDS: traMADol 50 MG Tablet PO (20:18)
[2021-02-16 22:30] VITALS: PULSE 75; RESP 16; O2SAT 98
[2021-02-16] MEDS: traZODone 50 MG Tablet PO (22:45)
[2021-02-17] MEDS: 0.9% Saline Lock 10 ML Syringe IV ×2 (01:12→10:25)
--- NOTE | 2021-02-17 04:22 | NURSING ---
Pt. requests to speak with social media job titles regarding possibility of finishing IV ATB at homes, states my can do it for me. Voicemail left for heating worker requesting follow-up with patient per pt. request.
[2021-02-17] MEDS: Cholecalciferol (VIT D3) 25 MCG TABLET (1,000 UNITS) 100 MCG PO (05:37)
[2021-02-17] MEDS: Ascorbic Acid 500 MG Tablet 1000 MG PO (05:37)
[2021-02-17 05:38] VITALS: BP 139/59; PULSE 70
[2021-02-17] MEDS: Metoprolol(XL)Succ 25 MG Tablet PO ×2 (05:38→18:34)
[2021-02-17] MEDS: Acetaminophen 500 MG Tablet 1000 MG PO ×3 (05:40→20:31)
[2021-02-17] MEDS: busPIRone 5 MG Tablet PO ×2 (05:40→18:32)
[2021-02-17] MEDS: APIXABAN 5 MG TABLET PO ×2 (05:40→18:32)
[2021-02-17] MEDS: Sertraline 50 MG Tablet PO (05:40)
[2021-02-17] MEDS: Calcium Carbonate 500 MG Tablet PO (05:40)
[2021-02-17] MEDS: Fluticasone/Salmeterol 232-14 Inhaler 1 PUFF INHALATION ×2 (05:41→18:32)
[2021-02-17] MEDS: Pramipexole Di-HCl 0.125 MG Tablet PO ×3 (05:41→20:31)
[2021-02-17] MEDS: Senna/Docusate Sodium 1 Tablet 2 TABLET PO ×2 (05:41→18:32)
[2021-02-17] MEDS: Carbidopa/Levodopa 25/100 Tablet PO ×2 (05:41→16:13)
[2021-02-17] MEDS: Menthol/Lanolin/Calamine/Znox 113 GM Tube 1 APPLIC TOPICAL ×2 (05:41→18:36)
[2021-02-17] MEDS: Multivitamins,Therapeutic Tablet 1 TABLET PO (08:32)
[2021-02-17] MEDS: Iron Polysaccharide Complex 150 MG CAPSULE PO (08:32)
[2021-02-17] MEDS: Vancomycin IV 1,000 MG/200 ML BAG 200 MG IV ×2 (11:28→23:21)
--- NOTE | 2021-02-17 16:43 | CASEMGMT ---
Social Work Left message with to offer nursing family training on pt's IVs to determine if is capable. SW to continue to follow. Supriya Tavarez, CEMENT CRUSHER OPERATOR COMMUNITY OUTREACH COORDINATOR
[2021-02-17 18:34] VITALS: BP 124/54; PULSE 71
[2021-02-17 18:39] VITALS: BP 124/54; PULSE 71; RESP 16; TEMP 36.6; O2SAT 94
--- NOTE | 2021-02-17 19:04 | NURSING ---
Patient spoke with Dr. Villaseñor this shift about IV therapy and how she can get home sooner.
[2021-02-17 20:00] VITALS: PULSE 72; RESP 14; O2SAT 96
[2021-02-17] MEDS: traMADol 50 MG Tablet PO (20:25)
[2021-02-17] MEDS: traZODone 50 MG Tablet PO (20:31)
[2021-02-18] MEDS: Fluticasone/Salmeterol 232-14 Inhaler 1 PUFF INHALATION ×2 (05:17→17:09)
[2021-02-18] MEDS: Calcium Carbonate 500 MG Tablet PO (05:18)
[2021-02-18] MEDS: Acetaminophen 500 MG Tablet 1000 MG PO ×3 (05:18→20:11)
[2021-02-18] MEDS: Sertraline 50 MG Tablet PO (05:18)
[2021-02-18] MEDS: Senna/Docusate Sodium 1 Tablet 2 TABLET PO ×2 (05:18→17:08)
[2021-02-18] MEDS: busPIRone 5 MG Tablet PO ×2 (05:18→17:08)
[2021-02-18 05:19] VITALS: BP 134/53; PULSE 75
[2021-02-18] MEDS: Metoprolol(XL)Succ 25 MG Tablet PO ×2 (05:19→17:09)
[2021-02-18] MEDS: APIXABAN 5 MG TABLET PO ×2 (05:19→17:08)
[2021-02-18] MEDS: Cholecalciferol (VIT D3) 25 MCG TABLET (1,000 UNITS) 100 MCG PO (05:19)
[2021-02-18] MEDS: Ascorbic Acid 500 MG Tablet 1000 MG PO (05:19)
[2021-02-18] MEDS: Pramipexole Di-HCl 0.125 MG Tablet PO ×3 (05:20→20:11)
[2021-02-18] MEDS: Multivitamins,Therapeutic Tablet 1 TABLET PO (08:24)
[2021-02-18] MEDS: Iron Polysaccharide Complex 150 MG CAPSULE PO (08:24)
[2021-02-18] MEDS: Carbidopa/Levodopa 25/100 Tablet PO ×2 (08:25→16:31)
[2021-02-18] MEDS: Menthol/Lanolin/Calamine/Znox 113 GM Tube 1 APPLIC TOPICAL ×2 (08:25→16:29)
[2021-02-18 10:00] VITALS: PULSE 77; RESP 16; O2SAT 96
[2021-02-18] MEDS: 0.9% Saline Lock 10 ML Syringe IV ×2 (10:39→23:57)
[2021-02-18 11:37] LABS: Vancomycin, Trough Level 19.5 ug/mL (5.0-15.0)
--- NOTE | 2021-02-18 13:05 | PCM.RX.CS ---
Consult Pharmacy has been consulted to manage selected antiobiotic: Vancomycin Type of Consult: Follow-up Prior Doses of Antibiotics Received/Current Regimen: currently on vanc 1000mg IV q12h Labs: Sodium 136 mmol/L (136-145) 02/12/21 08:10 Potassium 3.9 mmol/L (3.5-5.1) 02/12/21 08:10 Chloride 102 mmol/L (98-107) 02/12/21 08:10 Carbon Dioxide 27.0 mmol/L (21.0-32.0) 02/12/21 08:10 Anion Gap 7 (5-15) 02/12/21 08:10 BUN 17 mg/dL (7-18) 02/12/21 08:10 Creatinine 0.61 mg/dL (0.55-1.02) 02/12/21 08:10 Est GFR (MDRD) Af Amer 122 mL/min (>60) 02/12/21 08:10 Est GFR (MDRD) Non-Af 101 mL/min (>60) 02/12/21 08:10 BUN/Creatinine Ratio 27.8 RATIO (10-20) H 02/12/21 08:10 Glucose 112 mg/dL (74-106) H 02/12/21 08:10 Vancomycin Trough 19.5 ug/mL (5.0-15.0) H 02/18/21 10:56 Weight used for dosin kg Estimated Creatinine Clearance: 39ml/min Pharmacy Plan for Drug Dosing: The vanc trough level drawn at 10:56 today (11.5 hours after the previous dose) was 19.5. Since the dose was increased to 1000mg IV q12h on 02/10/21, the trough has gone from 12.5 to 15.6 to 17.1 to 18.8 and now to 19.5. Most likely, the next trough would be above 20, so will decrease the dose back down to 750mg IV q12h and repeat the trough level before the 4th dose. Pharmacy Service will continue to monitor and adjust dosing as required. Follow-Up Labs: Trough Vancomycin Labs to be done on [date and time ordered]: 02/19/21 23:30
--- NOTE | 2021-02-18 14:18 | PCM.PN.ID ---
Physical Exam Narrative Feeling well, no fever, no n/v/d, wants to go home Const alert and no apparent distress General Appearance: cooperative Resp normal air movement and clear to auscultation bilaterally Cardio regular rate and regular rhythm GI normal to inspection, nondistended, normoactive bowel sounds Skin no rashes or lesions noted ID ID: Route of nutrition/ use of supplements: [] Nutritional Intake: [] IV Site: [] Baker Catheter: [] Assessment & Plan Assessment/Plan (1) Femur head necrosis: QUALIFIERS: Laterality: right Qualified Code(s): M87.051 - Idiopathic aseptic necrosis of right femur PLAN: Taken to OR 02/02/[address] Sanders for R hip spacer placement. Surg cx neg. Reports hives with PCN. Treating for suspected osteo with 6 weeks iv vanc/ceftriaxone, stop 03/16/21. Wrote rx. Reports prior h/o covid, encouraged her to get vaccine for prevention. Will follow. ID followup as needed. 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
--- NOTE | 2021-02-18 14:48 | NURSING ---
Complains of itching to feet. Red and raised areas observed. Dr Collier aware and observes area. Also complains of itchiness to vaginal area. Orders received.
[2021-02-18 15:35] VITALS: BP 127/57; PULSE 76; RESP 18; TEMP 36.4; O2SAT 98
[2021-02-18] MEDS: FLUCONAZOLE 150 MG TABLET PO (16:27)
[2021-02-18] MEDS: Clotrimazole/Betamethasone 1 Tube 1 APPLIC TOPICAL (16:27)
[2021-02-18 17:09] VITALS: PULSE 76
[2021-02-18] MEDS: traZODone 50 MG Tablet PO (20:11)
[2021-02-18] MEDS: traMADol 50 MG Tablet PO (23:52)
--- NOTE | 2021-02-19 | NURSING ---
Patient complained of discomfort in right armpit, on assessment has localized area of raised red rash with very small blisters.
[2021-02-19 05:04] VITALS: BP 155/70; PULSE 69
[2021-02-19] MEDS: Fluticasone/Salmeterol 232-14 Inhaler 1 PUFF INHALATION ×2 (05:05→17:20)
[2021-02-19] MEDS: Clotrimazole/Betamethasone 1 Tube 1 APPLIC TOPICAL ×2 (05:06→17:20)
[2021-02-19] MEDS: Ascorbic Acid 500 MG Tablet 1000 MG PO (05:07)
[2021-02-19] MEDS: Sertraline 50 MG Tablet PO (05:07)
[2021-02-19] MEDS: APIXABAN 5 MG TABLET PO ×2 (05:08→17:20)
[2021-02-19] MEDS: Pramipexole Di-HCl 0.125 MG Tablet PO ×3 (05:08→20:52)
[2021-02-19] MEDS: busPIRone 5 MG Tablet PO ×2 (05:08→17:20)
[2021-02-19] MEDS: Carbidopa/Levodopa 25/100 Tablet PO ×2 (05:08→15:54)
[2021-02-19] MEDS: Cholecalciferol (VIT D3) 25 MCG TABLET (1,000 UNITS) 100 MCG PO (05:08)
[2021-02-19 05:09] VITALS: PULSE 69
[2021-02-19] MEDS: Acetaminophen 500 MG Tablet 1000 MG PO ×3 (05:09→20:52)
[2021-02-19] MEDS: Metoprolol(XL)Succ 25 MG Tablet PO ×2 (05:09→17:29)
[2021-02-19] MEDS: Calcium Carbonate 500 MG Tablet PO (05:09)
[2021-02-19] MEDS: Senna/Docusate Sodium 1 Tablet 2 TABLET PO ×2 (05:12→17:20)
[2021-02-19 07:27] LABS: Absolute Lymphocyte Count 1.01 X10^3/uL (0.83-4.51); Absolute Neutrophil Count 3.5 X10^3/uL (2.0-7.7); Basophil# 0.07 X10^3/uL; Basophil% 1.3 % (0-1); Eosinophil# 0.29 X10^3/uL; Eosinophils% 5.2 % (0-5); Hematocrit 27.3 % (37-47); Lymphocyte # 1.01 X10^3/ul (0.83-4.51); Lymphocyte % 18.1 % (19-41); Mean Corpuscular Hgb 32.3 pg (27.0-32.0); Mean Corpuscular Volume 97.8 fL (81-99); Mean Platelet Vol. 9.5 fl (6.2-12.0); Monocyte# 0.69 X10^3/uL; Monocyte% 12.4 % (0-10); NRBC Flagged by Analyzer 0 % (0-5); Neutrophil # 3.48 X10^3/uL (2.7-7.7); Neutrophil % 62.5 % (47-70); Platelet Count 431 K/mm3 (150-450); RBC Distribution Width CV 13.8 % (11.6-14.6); Red Blood Count 2.79 M/mm3 (4.2-5.4); White Blood Count 5.6 K/mm3 (4.4-11.0)
[2021-02-19 07:55] LABS: Anion Gap 7 (5-15); BUN 16 mg/dL (7-18); BUN/Creat Ratio 29.4 RATIO (10-20); Calcium,Total 9.4 mg/dL (8.5-10.1); Chloride 102 mmol/L (98-107); Creatinine, Serum 0.54 mg/dL (0.55-1.02); EST Glomerular Filtration Rate 115 mL/min (>60); Est Glom Filt Rate - Afr Amer 140 mL/min (>60); Estimated Creatinine Clearance 38.97 ml/min; Glucose 100 mg/dL (74-106); Potassium 3.9 mmol/L (3.5-5.1); Sodium Level 137 mmol/L (136-145)
[2021-02-19] MEDS: Iron Polysaccharide Complex 150 MG CAPSULE PO (08:53)
[2021-02-19] MEDS: Multivitamins,Therapeutic Tablet 1 TABLET PO (08:53)
[2021-02-19 09:24] LABS: Erythrocyte Sedimentation Rate 41 mm/hr (0-30)
[2021-02-19] MEDS: 0.9% Saline Lock 10 ML Syringe IV (09:40)
[2021-02-19 13:49] VITALS: PULSE 78; RESP 16; O2SAT 96
[2021-02-19 15:32] VITALS: BP 132/60; PULSE 78; RESP 16; TEMP 36.7; O2SAT 96
[2021-02-19 17:29] VITALS: BP 132/60; PULSE 78
[2021-02-19] MEDS: traZODone 50 MG Tablet PO (20:52)
[2021-02-19] MEDS: traMADol 50 MG Tablet PO (23:22)
[2021-02-20 00:10] LABS: Vancomycin, Trough Level 15.3 ug/mL (5.0-15.0)
[2021-02-20] MEDS: 0.9% Saline Lock 10 ML Syringe IV ×4 (00:35→11:18)
--- NOTE | 2021-02-20 01:29 | PCM.RX.CS ---
Consult Pharmacy has been consulted to manage selected antiobiotic: Vancomycin Type of Consult: Follow-up Suspected Infection: Osteomyelitis Prior Doses of Antibiotics Received/Current Regimen: Medications Vancomycin HCl 750 mg/ Sodium (Chloride) 265 mls @ 250 mls/hr IV Q12H ANT Last Admin: 02/20/21 00:34 Dose: 250 mls/hr Labs: Sodium 137 mmol/L (136-145) 02/19/21 07:16 Potassium 3.9 mmol/L (3.5-5.1) 02/19/21 07:16 Chloride 102 mmol/L (98-107) 02/19/21 07:16 Carbon Dioxide 28.0 mmol/L (21.0-32.0) 02/19/21 07:16 Anion Gap 7 (5-15) 02/19/21 07:16 BUN 16 mg/dL (7-18) 02/19/21 07:16 Creatinine 0.54 mg/dL (0.55-1.02) L 02/19/21 07:16 Est GFR (MDRD) Af Amer 140 mL/min (>60) 02/19/21 07:16 Est GFR (MDRD) Non-Af 115 mL/min (>60) 02/19/21 07:16 BUN/Creatinine Ratio 29.4 RATIO (10-20) H 02/19/21 07:16 Glucose 100 mg/dL (74-106) 02/19/21 07:16 Vancomycin Trough 15.3 ug/mL (5.0-15.0) H 02/19/21 23:36 Weight used for dosin.9 kg Estimated Creatinine Clearance: 76 Goal Trough: 15-20 mcg/mL Pharmacy Plan for Drug Dosing: Vancomycin trough level of 15.3 was within target range. Will continue same dosing and re-draw a trough 02/23/21. Pharmacy Service will continue to monitor and adjust dosing as required. Follow-Up Labs: Trough Vancomycin Labs to be done on [date and time ordered]: 02/23/21 @1139
[2021-02-20] MEDS: Acetaminophen 500 MG Tablet 1000 MG PO ×3 (05:28→20:58)
[2021-02-20] MEDS: Cholecalciferol (VIT D3) 25 MCG TABLET (1,000 UNITS) 100 MCG PO (05:28)
[2021-02-20] MEDS: Ascorbic Acid 500 MG Tablet 1000 MG PO (05:28)
[2021-02-20] MEDS: Calcium Carbonate 500 MG Tablet PO (05:28)
[2021-02-20] MEDS: Senna/Docusate Sodium 1 Tablet 2 TABLET PO ×2 (05:30→17:03)
[2021-02-20] MEDS: Fluticasone/Salmeterol 232-14 Inhaler 1 PUFF INHALATION ×2 (05:30→17:04)
[2021-02-20] MEDS: APIXABAN 5 MG TABLET PO ×2 (05:30→17:03)
[2021-02-20] MEDS: Pramipexole Di-HCl 0.125 MG Tablet PO ×3 (05:30→20:58)
[2021-02-20] MEDS: Clotrimazole/Betamethasone 1 Tube 1 APPLIC TOPICAL ×2 (05:30→15:43)
[2021-02-20] MEDS: Carbidopa/Levodopa 25/100 Tablet PO ×2 (05:30→15:42)
[2021-02-20] MEDS: busPIRone 5 MG Tablet PO ×2 (05:30→17:02)
[2021-02-20] MEDS: Menthol/Lanolin/Calamine/Znox 113 GM Tube 1 APPLIC TOPICAL ×2 (05:31→17:04)
[2021-02-20 05:32] VITALS: BP 145/61; PULSE 70
[2021-02-20] MEDS: Metoprolol(XL)Succ 25 MG Tablet PO ×2 (05:32→17:03)
[2021-02-20] MEDS: Sertraline 50 MG Tablet PO (05:33)
[2021-02-20] MEDS: Multivitamins,Therapeutic Tablet 1 TABLET PO (08:29)
[2021-02-20] MEDS: Iron Polysaccharide Complex 150 MG CAPSULE PO (08:29)
[2021-02-20] MEDS: traMADol 50 MG Tablet PO (15:41)
[2021-02-20 16:00] VITALS: BP 143/63; PULSE 69; RESP 16; TEMP 36.2; O2SAT 98
[2021-02-20 17:03] VITALS: PULSE 69
[2021-02-20 20:45] VITALS: PULSE 78; RESP 18; O2SAT 96
[2021-02-20] MEDS: traZODone 50 MG Tablet PO (20:58)
--- NOTE | 2021-02-20 21:33 | NURSING ---
notified via telephone of pharmacy alert related to ordered cream for feet and continued warmth and redness to bilat feet. Per d/c ordered creams to feet. No further orders recieved at this time.
[2021-02-21] MEDS: 0.9% Saline Lock 10 ML Syringe IV (00:15)
[2021-02-21] MEDS: Fluticasone/Salmeterol 232-14 Inhaler 1 PUFF INHALATION ×2 (05:33→18:56)
[2021-02-21] MEDS: Senna/Docusate Sodium 1 Tablet 2 TABLET PO ×2 (05:34→18:58)
[2021-02-21] MEDS: Cholecalciferol (VIT D3) 25 MCG TABLET (1,000 UNITS) 100 MCG PO (05:34)
[2021-02-21 05:35] VITALS: BP 155/67; PULSE 67
[2021-02-21] MEDS: Acetaminophen 500 MG Tablet 1000 MG PO ×3 (05:35→21:18)
[2021-02-21] MEDS: Ascorbic Acid 500 MG Tablet 1000 MG PO (05:35)
[2021-02-21] MEDS: Metoprolol(XL)Succ 25 MG Tablet PO ×2 (05:35→18:57)
[2021-02-21] MEDS: Carbidopa/Levodopa 25/100 Tablet PO ×2 (05:36→16:36)
[2021-02-21] MEDS: busPIRone 5 MG Tablet PO ×2 (05:36→18:57)
[2021-02-21] MEDS: Pramipexole Di-HCl 0.125 MG Tablet PO ×3 (05:36→21:18)
[2021-02-21] MEDS: Calcium Carbonate 500 MG Tablet PO (05:36)
[2021-02-21] MEDS: APIXABAN 5 MG TABLET PO ×2 (05:36→19:01)
[2021-02-21] MEDS: Menthol/Lanolin/Calamine/Znox 113 GM Tube 1 APPLIC TOPICAL ×2 (05:37→19:00)
[2021-02-21] MEDS: Sertraline 50 MG Tablet PO (05:37)
[2021-02-21 06:03] LABS: Hematocrit 30.2 % (37-47); Hemoglobin 9.5 g/dL (12.0-15.0)
[2021-02-21] MEDS: Iron Polysaccharide Complex 150 MG CAPSULE PO (08:38)
[2021-02-21] MEDS: Multivitamins,Therapeutic Tablet 1 TABLET PO (09:01)
--- NOTE | 2021-02-21 14:24 | CASEMGMT ---
Social Work Spoke with - schedule IV training at 10 am 02/22. Will continue to follow. Supriya Tavarez MSW PETAL CUTTER
[2021-02-21 16:00] VITALS: BP 118/90; PULSE 71; RESP 16; TEMP 36.6; O2SAT 95
--- NOTE | 2021-02-21 17:06 | CHAPLAIN ---
Type of Pastoral Visit _x__ Initial Visit ___ Follow-up Visit ___ On-call Visit ___ General Patient Visit ___ Spiritual Assessment ___ Family Conference ___ Bereavement ___ Rapid Response ___ Code Blue ___ Other (describe below) Pastoral Care Referral From _x__ Patient ___ Family ___ Nurse ___ Physician ___ Deputy Commissioner ___ Critical Care Physician Assistant ___ Other (describe below) Sacrament/Intervention _x__ Active listening ___ Anointing ___ Anabaptism ___ Bereavement ___ Communion ___ Leesa exploration ___ ___ Life review _x__ Prayer ___ Reconciliation ___ Sacrament of Sick _x__ Supportive presence ___ Wedding ___ Other (describe below) Pastoral Comments patient was anxious to talk and have prayer support for self and for her [id number] who is ill; pt expresses that she really wants to get home and her is going to learn to care for her there;
[2021-02-21 18:57] VITALS: BP 118/90; PULSE 71
[2021-02-21 19:12] VITALS: PULSE 71; RESP 16; O2SAT 95
[2021-02-21] MEDS: traZODone 50 MG Tablet PO (21:17)
[2021-02-21] MEDS: traMADol 50 MG Tablet PO (22:28)
[2021-02-22] MEDS: 0.9% Saline Lock 10 ML Syringe IV ×2 (01:24→23:50)
[2021-02-22] MEDS: Cholecalciferol (VIT D3) 25 MCG TABLET (1,000 UNITS) 100 MCG PO (05:38)
[2021-02-22] MEDS: Acetaminophen 500 MG Tablet 1000 MG PO ×3 (05:39→21:11)
[2021-02-22] MEDS: Ascorbic Acid 500 MG Tablet 1000 MG PO (05:40)
[2021-02-22] MEDS: Senna/Docusate Sodium 1 Tablet 2 TABLET PO ×2 (05:41→17:01)
[2021-02-22] MEDS: Sertraline 50 MG Tablet PO (05:41)
[2021-02-22] MEDS: APIXABAN 5 MG TABLET PO ×2 (05:41→17:02)
[2021-02-22] MEDS: Pramipexole Di-HCl 0.125 MG Tablet PO ×3 (05:41→21:12)
[2021-02-22] MEDS: busPIRone 5 MG Tablet PO ×2 (05:42→17:03)
[2021-02-22] MEDS: Calcium Carbonate 500 MG Tablet PO (05:42)
[2021-02-22] MEDS: Carbidopa/Levodopa 25/100 Tablet PO ×2 (05:42→15:29)
[2021-02-22] MEDS: Fluticasone/Salmeterol 232-14 Inhaler 1 PUFF INHALATION ×2 (05:43→17:01)
[2021-02-22 05:44] VITALS: BP 155/55; PULSE 77
[2021-02-22] MEDS: Metoprolol(XL)Succ 25 MG Tablet PO ×2 (05:44→17:02)
[2021-02-22] MEDS: Multivitamins,Therapeutic Tablet 1 TABLET PO (08:16)
[2021-02-22] MEDS: Iron Polysaccharide Complex 150 MG CAPSULE PO (08:17)
--- NOTE | 2021-02-22 12:52 | PCA ---
Pt rang out to use the restroom, when assisting pt she begain telling me how bad her feet were red and itchy. asked me to ask dr. burt if she was able to get something else for them. i informed pt that would be sure to let her nurse know. nurse notified
[2021-02-22 16:16] VITALS: BP 139/61; PULSE 68; RESP 16; TEMP 36.9; O2SAT 97
[2021-02-22 17:02] VITALS: BP 139/61; PULSE 68
[2021-02-22] MEDS: Menthol/Lanolin/Calamine/Znox 113 GM Tube 1 APPLIC TOPICAL (17:04)
--- NOTE | 2021-02-22 19:09 | NURSING ---
Pt c/o BLE having red rash and itching. Dr. Collier updated new order to consult podiatry entered.
[2021-02-22] MEDS: traMADol 50 MG Tablet PO (20:01)
[2021-02-22] MEDS: traZODone 50 MG Tablet PO (21:11)
[2021-02-23 02:05] VITALS: PULSE 77; RESP 16; O2SAT 98
[2021-02-23] MEDS: Fluticasone/Salmeterol 232-14 Inhaler 1 PUFF INHALATION ×2 (05:27→17:22)
[2021-02-23] MEDS: Calcium Carbonate 500 MG Tablet PO (05:28)
[2021-02-23] MEDS: busPIRone 5 MG Tablet PO ×2 (05:29→17:20)
[2021-02-23] MEDS: Ascorbic Acid 500 MG Tablet 1000 MG PO (05:30)
[2021-02-23] MEDS: Senna/Docusate Sodium 1 Tablet 2 TABLET PO ×2 (05:30→17:20)
[2021-02-23] MEDS: Sertraline 50 MG Tablet PO (05:30)
[2021-02-23] MEDS: APIXABAN 5 MG TABLET PO ×2 (05:30→17:20)
[2021-02-23] MEDS: Pramipexole Di-HCl 0.125 MG Tablet PO ×3 (05:30→20:42)
[2021-02-23] MEDS: Acetaminophen 500 MG Tablet 1000 MG PO ×3 (05:30→20:41)
[2021-02-23 05:31] VITALS: BP 150/65; PULSE 74
[2021-02-23] MEDS: Metoprolol(XL)Succ 25 MG Tablet PO ×2 (05:31→17:21)
[2021-02-23] MEDS: Cholecalciferol (VIT D3) 25 MCG TABLET (1,000 UNITS) 100 MCG PO (05:31)
[2021-02-23] MEDS: Menthol/Lanolin/Calamine/Znox 113 GM Tube 1 APPLIC TOPICAL (05:44)
[2021-02-23] MEDS: Carbidopa/Levodopa 25/100 Tablet PO ×2 (07:50→16:21)
[2021-02-23] MEDS: Multivitamins,Therapeutic Tablet 1 TABLET PO (07:50)
[2021-02-23] MEDS: Iron Polysaccharide Complex 150 MG CAPSULE PO (07:50)
--- NOTE | 2021-02-23 08:23 | CASEMGMT ---
Addendum entered by Supriya Tavarez 02/23/21 12:26: [facility] can have SOC 02/25. Spoke with about DC 02/25 prior to administration of first dose since second dose is around 11 pm. agreeable and feels comfortable administering, just needs teaching of correct equipment. Referred to [facility] to provide meds and supplies. No other DME needs. Notified Palliative of DC. Plan: DC home 02/25, [facility] PT/OT/SN Original Note: Social Work Followed up with nursing about IV teaching. is coming in again this afternoon for more teaching. However, is being taught on different equipment than the patient will have at home. MICHAELA Sanders, contacted [facility] whom will be administering IVs on their equipment - they stated Ceftriaxone will be administered as an IV push and the Vanc will be administered with a elastomeric ball pump. would need taught by [facility] on correct equipment. Nursing stated thus, has done well. and pt requested [facility] for services at [place]. Left message with [facility] for referral. Awaiting outcome as pt would need SOC day after DC - awaiting availability. [facility] will need to order supplies. Will continue to follow. Supriya Tavarez, CLAIRE LIMAW
--- NOTE | 2021-02-23 09:12 | NURSING ---
pt was in shower, PAULINE called out and noted skin tear to RT FA near picc drsg, cleansed with NS, applied adaptic, 2x2 and wrapped with farhad. pt has fragile skin. order placed for dressing changes daily & PRN
[2021-02-23] MEDS: 0.9% Saline Lock 10 ML Syringe IV ×2 (10:53→23:35)
[2021-02-23 11:59] LABS: Vancomycin, Trough Level 13.9 ug/mL (5.0-15.0)
[2021-02-23] MEDS: DiphenhydrAMINE 25 MG Capsule PO ×2 (14:58→23:33)
--- NOTE | 2021-02-23 15:13 | PCM.RX.CS ---
Consult Pharmacy has been consulted to manage selected antiobiotic: Vancomycin Type of Consult: Follow-up Prior Doses of Antibiotics Received/Current Regimen: currently on vanc 750mg IV q12h Labs: Sodium 137 mmol/L (136-145) 02/19/21 07:16 Potassium 3.9 mmol/L (3.5-5.1) 02/19/21 07:16 Chloride 102 mmol/L (98-107) 02/19/21 07:16 Carbon Dioxide 28.0 mmol/L (21.0-32.0) 02/19/21 07:16 Anion Gap 7 (5-15) 02/19/21 07:16 BUN 16 mg/dL (7-18) 02/19/21 07:16 Creatinine 0.54 mg/dL (0.55-1.02) L 02/19/21 07:16 Est GFR (MDRD) Af Amer 140 mL/min (>60) 02/19/21 07:16 Est GFR (MDRD) Non-Af 115 mL/min (>60) 02/19/21 07:16 BUN/Creatinine Ratio 29.4 RATIO (10-20) H 02/19/21 07:16 Glucose 100 mg/dL (74-106) 02/19/21 07:16 Vancomycin Trough 13.9 ug/mL (5.0-15.0) 02/23/21 11:14 Weight used for dosin.9 kg Estimated Creatinine Clearance: 48.7ml/min Goal Trough: 15-20 mcg/mL Pharmacy Plan for Drug Dosing: The vanc trough drawn at 11:14 today (drawn approx 11.5 hours after the previous dose) came back as 13.9. This is below goal range of 15-20 and the trough has declined from 19.5 to 15.3 to now 13.9 since the dose was decreased to 750mg q12h. As a result, will change the dose back to 1000mg q12h starting at midnight tonight. Will check the trough again before the 4th new dose. Pharmacy Service will continue to monitor and adjust dosing as required. Follow-Up Labs: Trough Vancomycin Labs to be done on [date and time ordered]: 02/25/21 11:30
--- NOTE | 2021-02-23 15:56 | PCM.PN.ID ---
Physical Exam Narrative Several days rash/itching on feet. Worse with vanc infusion. Const alert and no apparent distress General Appearance: cooperative Resp normal air movement and clear to auscultation bilaterally Cardio regular rate and regular rhythm GI normal to inspection, nondistended, normoactive bowel sounds Skin Skin Narrative: feet rash ID ID: Route of nutrition/ use of supplements: [] Nutritional Intake: [] IV Site: [] Baker Catheter: [] Assessment & Plan Assessment/Plan (1) Femur head necrosis: QUALIFIERS: Laterality: right Qualified Code(s): M87.051 - Idiopathic aseptic necrosis of right femur PLAN: Taken to OR 02/02/[address] Sanders for R hip spacer placement. Surg cx neg. Reports hives with PCN. Treating for suspected osteo with 6 weeks iv vanc/ceftriaxone, stop 03/16/21. Wrote rx. New rash on feet, will try to slow vanc infusion and give benadryl to see if that helps. Reports prior h/o covid, encouraged her to get vaccine for prevention. Will follow. ID followup as needed. 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
[2021-02-23 16:59] VITALS: BP 139/53; PULSE 70; RESP 20; TEMP 35.9; O2SAT 94
[2021-02-23 17:21] VITALS: PULSE 68
--- NOTE | 2021-02-23 19:51 | DS.PCM_ITS ---
Providers Date of Admission: 02/04/21 Primary Care Physician: Dr. Kelly Leone DO Consultations 02/04/21 23:48 Consult: Infectious Disease Routine Consulting Provider: Steven Villaseñor Reason for Consult: Right hip infection status post debridement, antibiotic spacer. EMERGENT Consult: No Notified: Yes Date Notified: 02/04/21 Time Notified: 09:20 Method of Notification: Verbal 02/08/21 16:36 Consult: Hospice / Palliative Care Routine Consulting Provider: [facility] Reason for Consult: Palliative EMERGENT Consult: No MD Notified: Yes Date Notified: 02/07/21 Time Notified: 16:37 Method of Notification: Provider Initiated Reason For Visit: RIGHT HIP ATB SPACER Diagnosis Discharge Diagnosis (1) Femur head necrosis: Status: Acute Code(s): M87.059 - Idiopathic aseptic necrosis of unspecified femur Qualifiers: Laterality: right Qualified Code(s): M87.051 - Idiopathic aseptic n ecrosis of right femur (2) 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: Status: Acute Code(s): Z89.621 - Acquired absence of right hip joint Medications at Discharge Home Medications albuterol sulfate 2 puff INHALATION Q6H PRN PRN 01/13/19 ascorbic acid (vitamin C) 1,000 mg PO DAILY 01/13/19 biotin 5 mg PO DAILY 01/13/19 budesonide-formoterol 2 inhaler INHALATION BID 01/13/19 cholecalciferol (vitamin D3) 4,000 unit PO DAILY 01/13/19 metoprolol succinate 25 mg PO BID 01/13/19 sertraline 50 mg PO DAILY 01/13/19 Eliquis 5 mg PO BID 12/10/20 buspirone 5 mg PO BID 12/10/20 calcium carb-mag ox-zinc gluc 1 tab PO DAILY 12/10/20 multivitamin 1 cap PO DAILY 12/10/20 polyethylene glycol 3350 [Miralax] 17 g PO PRN PRN 12/10/20 pramipexole 0.125 mg PO TID 12/10/20 trazodone 50 mg PO QHS 12/10/20 carbidopa-levodopa 1 tab PO BID 01/20/21 acetaminophen 1,000 mg PO TID 09/17/21 ceftriaxone 2 g IV DAILY #40 ea 02/04/21 sennosides-docusate sodium [Stool Softener-Stimulant Laxat] 2 tab PO BID 02/04/21 vancomycin 1 ea IV PRN PRN #0 ea 02/04/21 vancomycin 750 mg IV DAILY 02/04/21 ceftriaxone 2 g IV DAILY #26 ea 02/18/21 vancomycin 750 mg IV Q12H 26 Days #52 ea 02/18/21 polysaccharide iron complex [Ferrex 150] 150 mg PO DAILYCM 30 Days #30 cap 02/23/21 Hospital Course Operations - (right hip debridement, hemiarthroplasty, antibiotic spacer placement) Procedures None Summary of Care Provided Minutes Spent on Discharge: 35 Hospital Course: 76 year old female with below past medical history h ospitalized for aseptic necrosis right hip, underwent right hip debridement, hemiarthroplasty, antibiotic spacer placement 02/02/[address] Sanders, admitted to TCU with debility, here for rehabilitation, strengthening, buttermaker helper intravenous antibiotics, prior to discharge home with . Discharge home with 02/25/2021, [facility] PT/OT/SN. Resident will continue Vancomycin, Ceftriaxone IV at home thru 03/16/2021 right hip osteomyelitis. Weight / BMI Weight Weight: 54.941 kg Body Mass Index (BMI) 20.4 ABG / Lab / Microbiology Data Result Diagrams: 02/21/21 05:26 02/19/21 07:16 Laboratory: Laboratory Results - last 24 hr 02/23/21 11:14: Vancomycin Trough 13.9 D/C Instructions Discharge Diet: No restrictions Discharge Activity: Return to Normal Activity, May Shower and Use Walker Weight Bearing Status: Partial weight bearing (Right lower extremity.) Call your doctor if you observe: Fever of 101 or Higher, Inability to urinate, Inability to have a bowel movement, Shortness of breath, Dizziness, Fainting spells, Swelling in the ankles, Chest pain and Uncontrolled pain Additional Instructions: Discharge home with 02/25/2021, [facility] PT/OT/SN. Resident will continue Vancomycin, Ceftriaxone IV at home thru 03/16/2021 right hip osteomyelitis. Please Follow Up With: NANCY STEVENSON PA-C When: As scheduled. Meaningful Use Info Meaningful Use Diagnoses (Choose all that apply): None applicable Discharge Plan Admission Admit Date/Time: 02/04/21 22:25 Primary Reason for Your Visit: Debility. Attending Provider: Elliott Collier Chi Primary Care Provider: Kelly Leone Consulting Providers: Steven Villaseñor ; Barbara Matt ; Chava Tapia ; Jil Salvador ; Claudette Cintron ; Elva Joseph ; Mariangel Mckinney FUSION OPERATOR Instructions Additional Instructions / Restrictions: Discharge home with 02/25/2021, [facility] PT/OT/SN. Resident will continue Vancomycin, Ceftriaxone IV at home thru 03/16/2021 right hip osteomyelitis. Discharge Orders/Prescriptions Prescriptions: New ceftriaxone 2 gram recon soln 2 g IV DAILY Qty: 26 RF: 0 vancomycin 750 mg recon soln 750 mg IV Q12H 26 Days Qty: 52 RF: 0 polysaccharide iron complex [Ferrex 150] 150 mg iron Capsule 150 mg PO DAILYCM 30 Days Qty: 30 RF: 0 Continued biotin 5 MG capsule 5 mg PO DAILY RF: 0 ascorbic acid (vitamin C) 1,000 MG tablet extended release 1,000 mg PO DAILY RF: 0 metoprolol succinate 25 MG tablet extended release 24 hr 25 mg PO BID RF: 0 albuterol sulfate 1 PUFF inhaler 2 puff INHALATION Q6H PRN PRN (Reason: BREATHING) RF: 0 sertraline 50 MG tablet 50 mg PO DAILY RF: 0 cholecalciferol (vitamin D3) 1,000 UNIT capsule 4,000 unit PO DAILY RF: 0 budesonide-formoterol 1 INHALER inhaler 2 inhaler INHALATION BID RF: 0 polyethylene glycol 3350 [Miralax] 17 gram Powder In Packet 17 g PO PRN PRN (Reason: Constipation) RF: 0 multivitamin Capsule 1 cap PO DAILY RF: 0 Eliquis 5 mg Tablet 5 mg PO BID RF: 0 calcium carb-mag ox-zinc gluc 333-133-5 mg Tablet 1 tab PO DAILY RF: 0 buspirone 5 mg tablet 5 mg PO BID RF: 0 trazodone 50 mg tablet 50 mg PO QHS RF: 0 pramipexole 0.125 mg tablet 0.125 mg PO TID RF: 0 carbidopa-levodopa 25-100 mg tablet 1 tab PO BID RF: 0 sennosides-docusate sodium [Stool Softener-Stimulant Laxat] 8.6-50 mg tablet 2 tab PO BID RF: 0 acetaminophen 500 mg tablet 1,000 mg PO TID RF: 0 Discontinued tramadol 50 mg Tablet 50 mg PO Q6H PRN PRN (Reason: Pain Score 4-10) Qty: 28 RF: 0 No Action vancomycin 1,000 mg Recon Soln 1 ea IV PRN PRN (Reason: Rx To Dose) Qty: 0 RF: 0 ceftriaxone 2 gram recon soln 2 g IV DAILY Qty: 40 RF: 0 vancomycin 1,000 mg recon soln 750 mg IV DAILY RF: 0 Referrals / Follow Up: Kelly Leone DO [Primary Care Provider] - Disposition Disposition (needs filled in before D/C Order can be placed): Home Health Service
[2021-02-23 20:24] VITALS: PULSE 70; RESP 14; O2SAT 96
[2021-02-23] MEDS: traZODone 50 MG Tablet PO (20:42)
[2021-02-23] MEDS: Vancomycin IV 1,000 MG/200 ML BAG 200 MG IV (23:42)
[2021-02-24] MEDS: 0.9% Saline Lock 10 ML Syringe IV ×2 (01:15→10:24)
--- NOTE | 2021-02-24 01:18 | NURSING ---
IV ATB infusion completed. Red lumen flushed with 10ml NS without difficulty, good blood return noted. Patient tolerated well. Both lumens capped. IV dressing dry, intact. Will continue to monitor.
[2021-02-24] MEDS: APIXABAN 5 MG TABLET PO ×2 (05:16→17:06)
[2021-02-24] MEDS: Acetaminophen 500 MG Tablet 1000 MG PO ×3 (05:16→20:32)
[2021-02-24] MEDS: Fluticasone/Salmeterol 232-14 Inhaler 1 PUFF INHALATION ×2 (05:16→17:07)
[2021-02-24] MEDS: Ascorbic Acid 500 MG Tablet 1000 MG PO (05:16)
[2021-02-24 05:17] VITALS: BP 150/60; PULSE 74
[2021-02-24] MEDS: busPIRone 5 MG Tablet PO ×2 (05:17→17:05)
[2021-02-24] MEDS: Pramipexole Di-HCl 0.125 MG Tablet PO ×3 (05:17→20:32)
[2021-02-24] MEDS: Sertraline 50 MG Tablet PO (05:17)
[2021-02-24] MEDS: Senna/Docusate Sodium 1 Tablet 2 TABLET PO ×2 (05:17→17:05)
[2021-02-24] MEDS: Cholecalciferol (VIT D3) 25 MCG TABLET (1,000 UNITS) 100 MCG PO (05:17)
[2021-02-24] MEDS: Metoprolol(XL)Succ 25 MG Tablet PO ×2 (05:17→17:06)
[2021-02-24] MEDS: Calcium Carbonate 500 MG Tablet PO (05:17)
[2021-02-24] MEDS: Menthol/Lanolin/Calamine/Znox 113 GM Tube 1 APPLIC TOPICAL ×2 (05:18→17:07)
[2021-02-24] MEDS: traMADol 50 MG Tablet PO (05:28)
[2021-02-24] MEDS: Iron Polysaccharide Complex 150 MG CAPSULE PO (08:05)
[2021-02-24] MEDS: Carbidopa/Levodopa 25/100 Tablet PO ×2 (08:05→17:04)
[2021-02-24] MEDS: Multivitamins,Therapeutic Tablet 1 TABLET PO (08:05)
[2021-02-24] MEDS: DiphenhydrAMINE 25 MG Capsule PO ×2 (11:23→20:41)
[2021-02-24] MEDS: Vancomycin IV 1,000 MG/200 ML BAG 200 MG IV ×2 (11:23→23:41)
[2021-02-24 12:40] VITALS: BP 110/59; PULSE 78; RESP 18; TEMP 35.8; O2SAT 97
[2021-02-24 17:06] VITALS: PULSE 78
[2021-02-24] MEDS: traZODone 50 MG Tablet PO (20:31)
[2021-02-25 00:27] VITALS: PULSE 75; RESP 12
[2021-02-25] MEDS: traMADol 50 MG Tablet PO (00:55)
[2021-02-25 06:07] VITALS: BP 139/86; PULSE 74; RESP 16; TEMP 36.8; O2SAT 96
[2021-02-25] MEDS: Cholecalciferol (VIT D3) 25 MCG TABLET (1,000 UNITS) 100 MCG PO (06:09)
[2021-02-25] MEDS: Senna/Docusate Sodium 1 Tablet 2 TABLET PO (06:09)
[2021-02-25] MEDS: Fluticasone/Salmeterol 232-14 Inhaler 1 PUFF INHALATION (06:09)
[2021-02-25] MEDS: Sertraline 50 MG Tablet PO (06:10)
[2021-02-25] MEDS: Carbidopa/Levodopa 25/100 Tablet PO (06:10)
[2021-02-25] MEDS: Calcium Carbonate 500 MG Tablet PO (06:10)
[2021-02-25] MEDS: busPIRone 5 MG Tablet PO (06:10)
[2021-02-25] MEDS: APIXABAN 5 MG TABLET PO (06:11)
[2021-02-25] MEDS: Acetaminophen 500 MG Tablet 1000 MG PO (06:11)
[2021-02-25] MEDS: Ascorbic Acid 500 MG Tablet 1000 MG PO (06:11)
[2021-02-25 06:12] VITALS: BP 139/86; PULSE 74
[2021-02-25] MEDS: Metoprolol(XL)Succ 25 MG Tablet PO (06:12)
[2021-02-25] MEDS: Pramipexole Di-HCl 0.125 MG Tablet PO (06:12)
[2021-02-25] MEDS: Iron Polysaccharide Complex 150 MG CAPSULE PO (07:47)
[2021-02-25] MEDS: Multivitamins,Therapeutic Tablet 1 TABLET PO (07:47)
[2021-02-25 08:09] LABS: Vancomycin, Trough Level 21.5 ug/mL (5.0-15.0)
--- NOTE | 2021-02-25 09:08 | NURSING ---
Notified Dr. Villaseñor of patients current vanco trough of 21.5. Dr. Villaseñor stated that was fine and that patient can have the vancomycin administered as scheduled today.
[2021-02-25 09:31] VITALS: BP 131/66; PULSE 77; RESP 18; TEMP 36.6; O2SAT 97
== END 2021-02-25 09:00 | disposition home health service (06) | DRG 949 ==
PROVIDERS: Hospitalist; Admitting Provider Family Medicine Geriatric Medicine; PCP Internal Medicine; Visit Provider Family Medicine Geriatric Medicine
DX: T84.51XD Infection and inflammatory reaction due to internal right hip prosthesis, subsequent encounter (principal); M87.051 Idiopathic aseptic necrosis of right femur; J44.9 Chronic obstructive pulmonary disease, unspecified; G20 Parkinson's disease; I10 Essential (primary) hypertension; K21.9 Gastro-esophageal reflux disease without esophagitis; G25.0 Essential tremor; F41.9 Anxiety disorder, unspecified; M19.90 Unspecified osteoarthritis, unspecified site; F32.9 Major depressive disorder, single episode, unspecified; E55.9 Vitamin D deficiency, unspecified; E78.00 Pure hypercholesterolemia, unspecified; G25.81 Restless legs syndrome; Y79.2 Prosthetic and other implants, materials and accessory orthopedic devices associated with adverse incidents; Z79.899 Other long term (current) drug therapy; Z87.891 Personal history of nicotine dependence; Z79.51 Long term (current) use of inhaled steroids; Z79.01 Long term (current) use of anticoagulants; Z86.711 Personal history of pulmonary embolism; Z86.718 Personal history of other venous thrombosis and embolism; Z86.16 Personal history of COVID-19
CPT/HCPCS: 36415; 80048; 80202; 85014; 85018; 85025; 85652; 92523; 97110; 97116; 97162; 97165; 97530; 97535; J2997; J7050; A4216; J0696

== ENCOUNTER 2021-03-14 12:30 | Outpatient (RCR) | payer MEDICARE, SELFPAY ==
[2021-02-28 13:45] LABS: Anion Gap 7 (5-15); BUN 14 mg/dL (7-18); BUN/Creat Ratio 25.6 RATIO (10-20); Calcium,Total 9.3 mg/dL (8.5-10.1); Chloride 102 mmol/L (98-107); Creatinine, Serum 0.55 mg/dL (0.55-1.02); EST Glomerular Filtration Rate 115 mL/min (>60); Est Glom Filt Rate - Afr Amer 139 mL/min (>60); Glucose 103 mg/dL (74-106); Potassium 3.9 mmol/L (3.5-5.1); Sodium Level 137 mmol/L (136-145)
[2021-02-28 13:48] LABS: Vancomycin, Trough Level 12.4 ug/mL (5.0-15.0)
[2021-02-28 13:49] LABS: Erythrocyte Sedimentation Rate 24 mm/hr (0-30)
[2021-02-28 13:51] LABS: Hematocrit 30.9 % (37-47); Hemoglobin 9.8 g/dL (12.0-15.0); Mean Corp Hgb Conc 31.7 g/dL (32-36); Mean Corpuscular Hgb 31.8 pg (27.0-32.0); Mean Corpuscular Volume 100.3 fL (81-99); Mean Platelet Vol. 11.4 fl (6.2-12.0); Platelet Count 271 K/mm3 (150-450); RBC Distribution Width CV 13.7 % (11.6-14.6); RBC Distribution Width SD 50.5 fl (35.1-43.9); Red Blood Count 3.08 M/mm3 (4.2-5.4); White Blood Count 5.1 K/mm3 (4.4-11.0)
[2021-03-07 10:39] LABS: Erythrocyte Sedimentation Rate 12 mm/hr (0-30)
[2021-03-07 10:41] LABS: Hematocrit 33.5 % (37-47); Hemoglobin 10.5 g/dL (12.0-15.0); Mean Corp Hgb Conc 31.3 g/dL (32-36); Mean Corpuscular Hgb 31.2 pg (27.0-32.0); Mean Corpuscular Volume 99.4 fL (81-99); Mean Platelet Vol. 11.1 fl (6.2-12.0); Platelet Count 290 K/mm3 (150-450); RBC Distribution Width CV 13.4 % (11.6-14.6); RBC Distribution Width SD 49.1 fl (35.1-43.9); Red Blood Count 3.37 M/mm3 (4.2-5.4); White Blood Count 6.9 K/mm3 (4.4-11.0)
[2021-03-07 11:14] LABS: Anion Gap 9 (5-15); BUN 15 mg/dL (7-18); BUN/Creat Ratio 24.6 RATIO (10-20); Calcium,Total 9.1 mg/dL (8.5-10.1); Chloride 99 mmol/L (98-107); Creatinine, Serum 0.61 mg/dL (0.55-1.02); EST Glomerular Filtration Rate 101 mL/min (>60); Est Glom Filt Rate - Afr Amer 123 mL/min (>60); Glucose 92 mg/dL (74-106); Sodium Level 135 mmol/L (136-145)
[2021-03-07 11:17] LABS: Vancomycin, Trough Level 11.7 ug/mL (5.0-15.0)
[2021-03-14 13:01] LABS: Hemoglobin 11.7 g/dL (12.0-15.0); Mean Corp Hgb Conc 31.6 g/dL (32-36); Mean Corpuscular Hgb 31.3 pg (27.0-32.0); Mean Corpuscular Volume 98.9 fL (81-99); Mean Platelet Vol. 11.5 fl (6.2-12.0); Platelet Count 348 K/mm3 (150-450); RBC Distribution Width CV 13.4 % (11.6-14.6); RBC Distribution Width SD 49.1 fl (35.1-43.9); Red Blood Count 3.74 M/mm3 (4.2-5.4)
[2021-03-14 13:10] LABS: Anion Gap 8 (5-15); BUN 20 mg/dL (7-18); BUN/Creat Ratio 28.2 RATIO (10-20); Calcium,Total 9.5 mg/dL (8.5-10.1); Chloride 97 mmol/L (98-107); Creatinine, Serum 0.71 mg/dL (0.55-1.02); EST Glomerular Filtration Rate 85 mL/min (>60); Est Glom Filt Rate - Afr Amer 103 mL/min (>60); Glucose 106 mg/dL (74-106); Potassium 4.5 mmol/L (3.5-5.1); Sodium Level 132 mmol/L (136-145)
[2021-03-14 13:12] LABS: Erythrocyte Sedimentation Rate 9 mm/hr (0-30)
== END 2021-03-20 02:36 | disposition home or self-care (01) ==
LOC: HHLAB 12:30
PROVIDERS: PCP Internal Medicine; Referring Provider Internal Medicine Infectious Disease; Visit Provider Internal Medicine Infectious Disease
DX: Z45.2 Encounter for adjustment and management of vascular access device (principal); Z47.32 Aftercare following explantation of hip joint prosthesis
CPT/HCPCS: 80048; 80202; 85027; 85652

== ENCOUNTER → 2021-04-05 14:50 | Outpatient (CLI) | payer MEDICARE, SELFPAY ==
[2021-04-05 17:45] LABS: Absolute Lymphocyte Count 1.98 X10^3/uL (0.83-4.51); Absolute Neutrophil Count 5.3 X10^3/uL (2.0-7.7); Basophil# 0.08 X10^3/uL; Eosinophil# 0.33 X10^3/uL; Eosinophils% 3.9 % (0-5); Hematocrit 39.2 % (37-47); Hemoglobin 12.4 g/dL (12.0-15.0); Lymphocyte # 1.98 X10^3/ul (0.83-4.51); Lymphocyte % 23.6 % (19-41); Mean Corp Hgb Conc 31.6 g/dL (32-36); Mean Corpuscular Hgb 30.8 pg (27.0-32.0); Mean Corpuscular Volume 97.5 fL (81-99); Mean Platelet Vol. 12.4 fl (6.2-12.0); Monocyte# 0.66 X10^3/uL; Monocyte% 7.9 % (0-10); NRBC Flagged by Analyzer 0 % (0-5); Neutrophil % 63.1 % (47-70); Platelet Count 341 K/mm3 (150-450); RBC Distribution Width CV 13.9 % (11.6-14.6); RBC Distribution Width SD 50.4 fl (35.1-43.9); Red Blood Count 4.02 M/mm3 (4.2-5.4); White Blood Count 8.4 K/mm3 (4.4-11.0)
[2021-04-05 18:04] LABS: CRP < 2.90 mg/L (0.0-3.0)
[2021-04-05 18:25] LABS: Erythrocyte Sedimentation Rate 16 mm/hr (0-30)
== END ==
PROVIDERS: PCP Internal Medicine; Referring Provider Specialist; Visit Provider Specialist
DX: M87.051 Idiopathic aseptic necrosis of right femur (principal)
CPT/HCPCS: 36415; 85025; 85652; 86140

== ENCOUNTER → 2021-05-12 10:29 | Outpatient (CLI) | payer MEDICARE, SELFPAY ==
[2021-05-12 12:22] LABS: Hematocrit 21.4 % (37-47); Hemoglobin 6.6 g/dL (12.0-15.0); Mean Corp Hgb Conc 30.8 g/dL (32-36); Mean Corpuscular Hgb 30.8 pg (27.0-32.0); Mean Platelet Vol. 10.7 fl (6.2-12.0); Platelet Count 481 K/mm3 (150-450); RBC Distribution Width SD 62.3 fl (35.1-43.9); Red Blood Count 2.14 M/mm3 (4.2-5.4); White Blood Count 11.9 K/mm3 (4.4-11.0)
== END ==
PROVIDERS: PCP Internal Medicine
DX: D62 Acute posthemorrhagic anemia (principal)
CPT/HCPCS: 36415; 85027

== ENCOUNTER 2021-08-01 14:00 | Outpatient (RCR) | payer MEDICARE, SELFPAY ==
--- NOTE | 2021-05-12 10:50 | HP.PTEVAL_ITS ---
Patient's Visit Information LYNN MEYERS is a 76 year old F referred to Physical Therapy by Dr. Remigio Sanders MD with a diagnosis of R hip HAYLEY. Date of Evaluation: 05/11/21 Physical Therapist: Keaton Patrick, PT, ATC - Visit Plan Frequency: 2-3x /Week Duration: 4-6 Weeks Plan: R LE strengthening, balance and proprio, core stab ex's, nustep, and HEP - Subjective Pt reports she had a R HAYLEY in November of this year. Pt reports she had an infection in her R hip and they didn't know it at that time. Pt reports once they found the infection, she had to wait about 5 weeks as she was treated with antibiotics. Pt then had a spacer placed into her R hip for 5 weeks until having this surgery performed. DOS: 05/03/21. Pt reports she is still in a lot of pain at this time. Pt also notes she has not been walking secondary to her pain. Pt reports she is not able to sleep in a bed yet, and still has pain sleeping in her recliner. Pt notes she has numbness surrounding her incision, but that is all. Pt notes she has stairs at home and has to negotiate them to leave the house. Pt is onluy able to ambulate grossly 5 feet independently at home. Pt reports she is I with toilet transfers at this time. 5/10 pain while sitting here at rest, 7/10 at worst. - Pain R hip Pain Intensity (Out of 10): 5 Pain Intensity Range: 7 - Objective Neuro: B LE sensation is WNL to light touch. B patellar reflex= 1/3. MMT: R hip flex= 10.2, ext= 20, L hip flex= 19. ext= 21. ROM: R hip flex= 70, ext= 0; L hip flex= 90, ext= 10. Gait: Pt is able to ambulate 60 feet until needing to sit down and rest - Balance/Special Test Scores Lower Extremity Functional Score: 7 - Goals Goal 1:: Decrease R hip pain x 50% to aid with sleep Goal Time Frame: 4-6 Weeks Goal 2:: Increase R hip strength by 5-10 #F to aid with stair negotiation Goal Time Frame: 4-6 Weeks Goal 3:: I with HEP Goal Time Frame: 4-6 Weeks Goal 4:: Pt will be able to ambulate greater than 300' with LRD to aid with community ambulation Goal Time Frame: 4-6 Weeks - Rehabilitation Potential Physical Therapy Diagnosis: R hip pain, weakness, and limited ROM secondary to R HAYLEY Rehabilitation Potential: Good - Anticipated Interventions Patient/Client Instruction: Educate patient on: Condition, Plan of Care For the Purpose of:: To improve self management Therapeutic Exercise to Include: Strength training, Endurance training, Balance training, Gait and locomotor training, Dynamic Lumbar Stabilization For the Purpose of:: To decrease pain, To increase ROM, To improve muscle performance and motor function Cryotherapy (ice pack, ice massage): Yes For the Purpose of:: To decrease pain Thank you for the opportunity to evaluate your patient. For Medicare and Medicare HMO plans, please review the plan of care and approve it. It will need to be FAXED BACK to us at [phone] for Medicare purposes. For Medicare only, by signing this I certify the plan of care. Please let me know if there are questions or concerns regarding this plan of care. Physician Signature: Date:
--- NOTE | 2021-07-21 15:08 | HP.PTREVAL ---
Dr. Remigio Sanders MD, It has been my pleasure to treat LYNN MEYERS over the last 18 visits for R hip HAYLYE. Please see the progress note below for an update on the physical therapy plan of care! Subjective: Pt reports mild pain today Objective/Function: R hip flex ROM=90, ext= 0. MMT: flex= 19, ext= 15. Pain is 2/10. Pt is continuing to show great progress Plan Plan: Cont 2 timnes per week x 1 week for I HEP Balance/Gait/Functional tests - Balance/Special Test Scores Lower Extremity Functional Score: 44 Goals Goal 1:: Decrease R hip pain x 50% to aid with sleep Goal Time Frame: 4-6 Weeks Goal 2:: Increase R hip strength by 5-10 #F to aid with stair negotiation Goal Time Frame: 4-6 Weeks Goal 3:: I with HEP Goal Time Frame: 4-6 Weeks Goal 4:: Pt will be able to ambulate greater than 300' with LRD to aid with community ambulation Goal Time Frame: 4-6 Weeks Anticipated Interventions Patient/Client Instruction: Educate patient on: Condition, Plan of Care For the Purpose of:: To improve self management Therapeutic Exercise to Include: Strength training, Endurance training, Balance training, Gait and locomotor training, Dynamic Lumbar Stabilization For the Purpose of:: To decrease pain, To increase ROM, To improve muscle performance and motor function Cryotherapy (ice pack, ice massage): Yes For the Purpose of:: To decrease pain Please do not hesitate to contact me at [phone] by phone or if you have questions or concerns regarding this new plan of care! Sincerely, Keaton Patrick, PT, ATC
--- NOTE | 2021-08-01 15:02 | HP.PTEVAL_ITS ---
Patient's Visit Information LYNN MEYERS is a 76 year old F referred to Physical Therapy by Dr. Remigio Sanders MD with a diagnosis of R hip HAYLEY. Date of Evaluation: 05/11/21 Physical Therapist: Keaton Patrick, PT, ATC - Visit Plan Frequency: 2-3x /Week Duration: 4-6 Weeks Plan: Discharge to HEP - Subjective Pt reports she had a R HAYLEY in November of this year. Pt reports she had an infection in her R hip and they didn't know it at that time. Pt reports once they found the infection, she had to wait about 5 weeks as she was treated with antibiotics. Pt then had a spacer placed into her R hip for 5 weeks until having this surgery performed. DOS: 05/03/21. Pt reports she is still in a lot of pain at this time. Pt also notes she has not been walking secondary to her pain. Pt reports she is not able to sleep in a bed yet, and still has pain sleeping in her recliner. Pt notes she has numbness surrounding her incision, but that is all. Pt notes she has stairs at home and has to negotiate them to leave the house. Pt is onluy able to ambulate grossly 5 feet independently at home. Pt reports she is I with toilet transfers at this time. 5/10 pain while sitting here at rest, 7/10 at worst. - Pain R hip Pain Intensity (Out of 10): 4 Pain Intensity Range: 7 - Objective Neuro: B LE sensation is WNL to light touch. B patellar reflex= 1/3. MMT: R hip flex= 10.2, ext= 20, L hip flex= 19. ext= 21. ROM: R hip flex= 70, ext= 0; L hip flex= 90, ext= 10. Gait: Pt is able to ambulate 60 feet until needing to sit down and rest - Balance/Special Test Scores Lower Extremity Functional Score: 44 - Goals Goal 1:: Decrease R hip pain x 50% to aid with sleep Goal Time Frame: 4-6 Weeks Goal 2:: Increase R hip strength by 5-10 #F to aid with stair negotiation Goal Time Frame: 4-6 Weeks Goal 3:: I with HEP Goal Time Frame: 4-6 Weeks Goal 4:: Pt will be able to ambulate greater than 300' with LRD to aid with community ambulation Goal Time Frame: 4-6 Weeks - Rehabilitation Potential Physical Therapy Diagnosis: R hip pain, weakness, and limited ROM secondary to R HAYLEY Rehabilitation Potential: Good - Anticipated Interventions Patient/Client Instruction: Educate patient on: Condition, Plan of Care For the Purpose of:: To improve self management Therapeutic Exercise to Include: Strength training, Endurance training, Balance training, Gait and locomotor training, Dynamic Lumbar Stabilization For the Purpose of:: To decrease pain, To increase ROM, To improve muscle performance and motor function Cryotherapy (ice pack, ice massage): Yes For the Purpose of:: To decrease pain Thank you for the opportunity to evaluate your patient. For Medicare and Medicare HMO plans, please review the plan of care and approve it. It will need to be FAXED BACK to us at [phone] for Medicare purposes. For Medicare only, by signing this I certify the plan of care. Please let me know if there are questions or concerns regarding this plan of care. Physician Signature: Date:
--- NOTE | 2021-08-01 15:03 | HP.PTDCSUM ---
It has been my pleasure to treat LYNN MEYERS referred by Dr. Remigio Sanders MD, with the diagnosis of R hip HAYLEY for a total of 20 visit(s). Discharge Date: Please see the following information for a summary of their discharge status. Subjective: I am ready to be finished. Minor pain still exists R hip Pain Intensity (Out of 10): 4 % Improvement: 70 Objective/Function: R hip flex ROM=90, ext= 0. MMT: flex= 19, ext= 15. Pain is 4/10. Pt is continuing to show great progress Goal 1:: Decrease R hip pain x 50% to aid with sleep Goal 2:: Increase R hip strength by 5-10 #F to aid with stair negotiation Goal 3:: I with HEP Goal 4:: Pt will be able to ambulate greater than 300' with LRD to aid with community ambulation Plan: Discharge to HEP If there are questions or concerns regarding this patient's physical therapy, please feel free to call me at [phone]. Thank you for the referral of this patient. Sincerely, Keaton Patrick, PT, ATC Balance/Gait/Functional tests - Balance/Special Test Scores Lower Extremity Functional Score: 44
== END 2021-08-01 19:00 | disposition home or self-care (01) ==
LOC: PT 14:00
PROVIDERS: PCP Internal Medicine; Referring Provider Specialist; Visit Provider Specialist
DX: S72.041 Displaced fracture of base of neck of right femur (principal); M87.051 Idiopathic aseptic necrosis of right femur; M16.51 Unilateral post-traumatic osteoarthritis, right hip; X58.XXXD Exposure to other specified factors, subsequent encounter
CPT/HCPCS: 97110; 97161; 97164

== ENCOUNTER 2021-10-20 10:00 | Outpatient (RCR) | payer MEDICARE, SELFPAY ==
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
--- NOTE | 2021-10-20 10:30 | HP.PTDCSUM ---
It has been my pleasure to treat LYNN MEYERS referred by Thor Juárez PA-C, with the diagnosis of LUMBAR DDD for a total of 8 visit(s). Discharge Date: Please see the following information for a summary of their discharge status. Subjective: PATIENT REPORTS SHE IS NO BETTER AND MAYBE A LITTLE WORSE SINCE STARTING PT. CONSULT PENDING WITH DR. MATHIS NEXT WEEK. SHE REPORTS SHE DOESN'T FEEL LIKE THE THERPAY MAKES HER WORSE BUT THAT SHE IS GETTING WORSE ANYWAY. LOW BACK Pain Intensity (Out of 10): 6 RIGHT LE Pain Intensity (Out of 10): 4 % Improvement: 0 Objective/Function: PATIENT WAS SEEN TODAY FOR RE-ASSESSMENT OF PROGRESS TOWARD THE SET PT GOALS AND THE NEED FOR FURTHER PHYSICAL THERAPY VS READINESS FOR DISCHARGE. UPON EXAM TODAY HER 30 SEC SIT TO STAND TEST AND TUG TIME HAVE IMPROVED. OTHERWISE THERE ARE NO SIGNIFICANT CHANGES SINCE INITIAL EVAL AND PATIENT REPORTS HER PAIN IS NOT GETTING BETTER. SHE IS APPROPRIATE FOR PHYSICIAN RE-ASSESSMENT AT THIS POINT AND SHE IS AGREEABLE. Goal 1:: DECREASE C/O LOW BACK AND LE SX'S. Goal Progress: Not Progressing Goal 2:: IMPROVE PERSONAL CARE, LIFTING, WALKING, SITTING, STANDING, SLEEPING, SOCIAL LIFE, TRAVEL AND HOMEMAKING FUNCTION. Goal Progress: Not Progressing Goal 3:: INSTRUCT IN PROPHYLAXIS Goal Progress: Not Progressing Plan: D/C TO ORTHO CONSULT DUE TO LACK OF PROGRESS. PATIENT IS AGREEABLE. SHE DOES NOT WANT TO TRY AQUATIC THERPAY. If there are questions or concerns regarding this patient's physical therapy, please feel free to call me at [phone]. Thank you for the referral of this patient. Sincerely, Rachel Yeager, PT, Cert MDT Balance/Gait/Functional tests - Balance/Special Test Scores Oswestry Low Back Score: 18 TUG Test Time Seconds: 9.73 Tug Test: <10 sec.=free mobile 30 Second Chair Rise Test Seconds: 14
== END 2021-10-20 19:00 | disposition home or self-care (01) ==
LOC: PT 10:00
PROVIDERS: PCP Internal Medicine; Referring Provider Physician Assistant Surgical; Visit Provider Physician Assistant Surgical
DX: M51.36 Other intervertebral disc degeneration, lumbar region (principal); M41.9 Scoliosis, unspecified
CPT/HCPCS: 97110; 97112; 97162; 97164; 97530

== ENCOUNTER 2022-05-16 09:30 | Outpatient (RCR) | payer MEDICARE, SELFPAY ==
--- NOTE | 2022-04-11 10:14 | HP.PTEVAL_ITS ---
Patient's Visit Information LYNN MEYERS is a 77 year old F referred to Physical Therapy by Dr. Johnny Godinez DO with a diagnosis of spinal stenosis, spondylosis, DDD with radic. Date of Evaluation: 04/11/22 Physical Therapist: MALLORY Laureano - Visit Plan Frequency: 2x /Week Duration: 2 Months Plan: 2X/ week for 6-8 weeks for neutral spine core stability, LE strength, postural exercises, balance activities, gait training with a HEP to do on her off days - Subjective She has a stimulator in her back and she goes back tomm to get it adjusted. She just got the stimulator couple of months ago. She has spinal stenoisis, radic, DDD. She has pain to go down the R leg. She has had back and leg pain for years. The Dr said the best thing they could do it put in a stimulator. She does not want water therapy. She feels that her legs are weak. She has some PD as well. When she first gets up in the AM her LB hurts but then it goes away. She got some pain pills and they did not help so much. She feels that she is wobbly and her new med should help. - Pain back pain Pain Intensity (Out of 10): 3 Pain Intensity Range: 8 Comment: At the end of the day R leg pain Pain Intensity (Out of 10): 3 Pain Intensity Range: 9 - Objective Gait: Walks with normal BETTE but does scissor to correct balance or ER at the hip to correct balance on the Right. She walks with flexed trunk and bent knees. She has a spine shift to the R. Trunk AROM: trunk flex 75%, Ext 50%, SB approx 50% B. LE MMT: R hip flex 12.6# and L hip flex 15.1#. R knee ext 25.4# and L knee ext 32.6#. R knee flex 22.6# and L knee flex 20.2#. Able to bridge. Patella DTR's R 0/3 and L 1/3. Tight HS B. SLUMP test Neg B. SLR: -B. Sit to stand: pt is able to get up out of the chair without using her arms. FGA: 10 - Balance/Special Test Scores Functional Gait Assessment Score: 10 % Disability: 66.6700 Oswestry Low Back Score: 16 - Goals Goal 1:: I HEP Goal Time Frame: 6-8 Weeks Goal 2:: Pt wants to resume walking routine but sometimes she can not walk because the back and leg pain are so bad Goal Time Frame: 6-8 Weeks Goal 3:: Increase B leg strength (at time of the eval: R hip flex 12.6# and L hip flex 15.1#. R knee ext 25.4# and L knee ext 32.6#. R knee flex 22.6# and L knee flex 20.2#) Goal Time Frame: 6-8 Weeks Goal 4:: Increase FGA score (at time of the eval: 10) Goal Time Frame: 6-8 Weeks Goal 5:: Be able to walk with less scissor and veering to correct his balance Goal Time Frame: 6-8 Weeks - Rehabilitation Potential Rehabilitation Potential: Good - Anticipated Interventions Patient/Client Instruction: Educate patient on: Condition, Plan of Care For the Purpose of:: To decrease pain, To improve nutrient delivery to tissue, To improve muscle performance and motor function, To improve ability to perform ADL's, To increase tolerance to activity/condition/position, To improve performance and independence with ADL's, To decrease level of supervision to perform tasks, To improve ability of physical actions for home/community/work/leisure, To improve gait and locomotor functions, To improve endurance, To improve balance, To improve safety with gait Therapeutic Exercise to Include: Strength training, Endurance training, Balance training, Postural training, Flexibilty training, Gait and locomotor training, Neuromotor development, Dynamic Lumbar Stabilization For the Purpose of:: To decrease pain, To increase ROM, To improve muscle performance and motor function, To improve ability to perform ADL's, To increase tolerance to activity/condition/position, To improve performance and independence with ADL's, To decrease level of supervision to perform tasks, To improve ability of physical actions for home/community/work/leisure, To improve gait and locomotor functions, To increase flexibility/ROM, To improve endurance, To improve balance, To improve safety with gait Functional Training to Include: Gait training For the Purpose of:: To improve gait and locomotor functions, To improve safety with gait Thank you for the opportunity to evaluate your patient. For Medicare and Medicare HMO plans, please review the plan of care and approve it. It will need to be FAXED BACK to us at [phone] for Medicare purposes. For Medicare only, by signing this I certify the plan of care. Please let me know if there are questions or concerns regarding this plan of care. Physician Signature: Dat e:
--- NOTE | 2022-08-21 09:53 | HP.PT.NRP ---
LYNN MEYERS was seen in my office for initial evaluation on 04/11/22. The following Plan of Care was established for this patient: Initial Frequency: 2x /Week Initial Duration: 2 Months Patient/Client Instruction: Educate patient on: Condition, Plan of Care For the Purpose of:: To decrease pain, To improve nutrient delivery to tissue, To improve muscle performance and motor function, To improve ability to perform ADL's, To increase tolerance to activity/condition/position, To improve performance and independence with ADL's, To decrease level of supervision to perform tasks, To improve ability of physical actions for home/community/work/leisure, To improve gait and locomotor functions, To improve endurance, To improve balance, To improve safety with gait Therapeutic Exercise to Include: Strength training, Endurance training, Balance training, Postural training, Flexibilty training, Gait and locomotor training, Neuromotor development, Dynamic Lumbar Stabilization For the Purpose of:: To decrease pain, To increase ROM, To improve muscle performance and motor function, To improve ability to perform ADL's, To increase tolerance to activity/condition/position, To improve performance and independence with ADL's, To decrease level of supervision to perform tasks, To improve ability of physical actions for home/community/work/leisure, To improve gait and locomotor functions, To increase flexibility/ROM, To improve endurance, To improve balance, To improve safety with gait Functional Training to Include: Gait training For the Purpose of:: To improve gait and locomotor functions, To improve safety with gait This patient was last seen in our office 05/16/22. Pertinent comments regarding their Physical therapy will appear below: DC PT At this point I will be discontinuing this patient from physical therapy. I would be happy to see this patient again in the future if found appropriate by the physician. Thank you! Cathryn Malloy, MPT Balance/Gait/Functional tests - Balance/Special Test Scores Functional Gait Assessment Score: 10 % Disability: 66.6700 Oswestry Low Back Score: 16
== END 2022-05-16 19:00 | disposition home or self-care (01) ==
LOC: PT 09:30
PROVIDERS: PCP Internal Medicine; Referring Provider Orthopaedic Surgery; Visit Provider Orthopaedic Surgery
DX: M48.061 Spinal stenosis, lumbar region without neurogenic claudication (principal); M47.26 Other spondylosis with radiculopathy, lumbar region; M51.36 Other intervertebral disc degeneration, lumbar region
CPT/HCPCS: 97110; 97162

== ENCOUNTER → 2022-07-11 | Outpatient (CLI) | payer MEDICARE, SELFPAY ==
[2022-07-11 12:26] LABS: Hematocrit 42.3 % (37-47); Hemoglobin 13.4 g/dL (12.0-15.0); Mean Corp Hgb Conc 31.7 g/dL (32-36); Mean Corpuscular Hgb 32.4 pg (27.0-32.0); Mean Corpuscular Volume 102.4 fL (81-99); Mean Platelet Vol. 10.6 fl (6.2-12.0); Platelet Count 362 K/mm3 (150-450); RBC Distribution Width CV 12.9 % (11.6-14.6); Red Blood Count 4.13 M/mm3 (4.2-5.4); White Blood Count 8.2 K/mm3 (4.4-11.0)
[2022-07-11 13:10] LABS: ALB/GLOB Ratio 1.1 RATIO (0.9-2.4); AST(SGOT) 20 U/L (15-37); Alanine Aminotransfer ALT/SGPT 11 U/L (13-56); Albumin, Serum 4.1 g/dL (3.2-5.0); Alkaline Phosphatase 72 U/L (45-117); Anion Gap 9 (5-15); BUN 22 mg/dL (7-18); BUN/Creat Ratio 23.9 RATIO (10-20); Calcium,Total 10.1 mg/dL (8.5-10.1); Chloride 102 mmol/L (98-107); Creatinine, Serum 0.92 mg/dL (0.55-1.02); EST Glomerular Filtration Rate 63 mL/min (>60); Est Glom Filt Rate - Afr Amer 76 mL/min (>60); Globulin 3.9 g/dL (2.2-4.2); Glucose 101 mg/dL (74-106); Magnesium 2.1 mg/dL (1.6-2.6); Potassium 4.2 mmol/L (3.5-5.1); Sodium Level 135 mmol/L (136-145)
== END | disposition home or self-care (01) ==
LOC: MTLAB 10:11
PROVIDERS: PCP Internal Medicine; Referring Provider Psychiatry & Neurology Neurology; Visit Provider Psychiatry & Neurology Neurology
DX: G31.84 Mild cognitive impairment of uncertain or unknown etiology (principal); G20 Parkinson's disease; G47.00 Insomnia, unspecified
CPT/HCPCS: 36415; 80053; 83735; 84443; 85027

== ENCOUNTER 2022-08-15 09:30 | Outpatient (RCR) | payer MEDICARE, SELFPAY ==
--- NOTE | 2022-07-18 13:19 | HP.PTEVAL_ITS ---
Patient's Visit Information LYNN MEYERS is a 77 year old F referred to Physical Therapy by Dr. Thor Terry MD with a diagnosis of Parkinson's Disease. Date of Evaluation: 07/18/22 Physical Therapist: MALLORY Laureano - Visit Plan Frequency: 2x /Week Duration: 2 Months Plan: 2X/ week for 8 weeks for balance activities such as foam with EO/EC and amb with head turns, walking BW, turning 180 degrees etc. Also do some standing core activities with her pain due to her scoliosis with HEP. May also add some dual tasking as well. Pt will likely transition to the PD class. - Subjective Pt reports that her sciatica is really bad and they put a stimulator in and that did not do anything. She was dx with PF about a year ago and was dx with Dr Terry. Dr said wanted her to do PT and the group exercise class. She is on PD med (one small one). She feels that the PD helps with her shaking. The sciatic is the worst and she thinks that she will go to her regular Dr about it. She had 2 hips replaced on the R side (Dr Sanders) and she thinks that that is good. The arthritis from the scoliosis is really bad and they do not want to give her pain pills. Pt reports that she was having some dizzy spells and was taken off one of the pills and her dizzy spells are much better. She has had no falls. She is not having any freezing episodes. When her back is so bad the only thing that helps is Tylenol and laying down for a few hours. - Pain back pain Pain Intensity (Out of 10): 6 back of R leg Pain Intensity (Out of 10): 8 - Objective Gait: walks with decrease heel to toe gait pattern and decrease stride with increase veering with significant scoliosis. Pt is able to heel and toe raise but not raise the R into DF as high as the L. LE MMT: R hip flex 13# and L 14#. R knee ext 26.5 and L knee ext 29.4#. R knee flex 20.6# and L 20.1#. R hip abd 13.1 and L 12.8. sit to stand: X 5 with no arms. FGA: 10. TU:53. CATSIB: 72 - Balance/Special Test Scores Functional Gait Assessment Score: 10 % Disability: 66.6700 CATSIB Score (Max score 120 seconds): 72 Lower Extremity Functional Score: 32 - Rehabilitation Potential Rehabilitation Potential: Good - Anticipated Interventions Patient/Client Instruction: Educate patient on: Condition, Plan of Care For the Purpose of:: To improve muscle performance and motor function, To improve ability to perform ADL's, To increase tolerance to activity/condition/position, To improve performance and independence with ADL's, To decrease level of supervision to perform tasks, To improve ability of physical actions for home/community/work/leisure, To improve gait and locomotor functions, To decrease soft tissue restriction, To increase flexibility/ROM, To improve endurance, To improve balance, To improve safety with gait Therapeutic Exercise to Include: Strength training, Endurance training, Balance training, Coordination, Body mechanics, Postural training, Flexibilty training, Gait and locomotor training, Neuromotor development, Passive ROM, Active ROM, Dynamic Lumbar Stabilization For the Purpose of:: To improve muscle performance and motor function, To improve ability to perform ADL's, To increase tolerance to activity/condition/position, To improve performance and independence with ADL's, To decrease level of supervision to perform tasks, To improve ability of physical actions for home/community/work/leisure, To improve gait and locomotor functions, To improve health of tissue, To decrease soft tissue restriction, To increase flexibility/ROM, To improve endurance, To improve balance, To improve safety with gait Functional Training to Include: Gait training For the Purpose of:: To improve gait and locomotor functions, To improve safety with gait Thank you for the opportunity to evaluate your patient. For Medicare and Medicare HMO plans, please review the plan of care and approve it. It will need to be FAXED BACK to us at [phone] for Medicare purposes. For Medicare only, by signing this I certify the plan of care. Please let me know if there are questions or concerns regarding this plan of care. Physician Signature: Dat e:
--- NOTE | 2022-11-22 15:26 | HP.PT.NRP ---
Patient Information Patient Information: LYNN MEYERS was seen in my office for initial evaluation on 07/18/22. The following Plan of Care was established for this patient: POC Established Initial Frequency: 2x /Week Initial Duration: 2 Months Anticipated Interventions Patient/Client Instruction: Educate patient on: Condition and Plan of Care For the Purpose of:: To improve muscle performance and motor function, To improve ability to perform ADL's, To increase tolerance to activity/condition/position, To improve performance and independence with ADL's, To decrease level of supervision to perform tasks, To improve ability of physical actions for home/community/work/leisure, To improve gait and locomotor functions, To decrease soft tissue restriction, To increase flexibility/ROM, To improve endurance, To improve balance and To improve safety with gait Therapeutic Exercise to Include: Strength training, Endurance training, Balance training, Coordination, Body mechanics, Postural training, Flexibilty training, Gait and locomotor training, Neuromotor development, Passive ROM, Active ROM and Dynamic Lumbar Stabilization For the Purpose of:: To improve muscle performance and motor function, To improve ability to perform ADL's, To increase tolerance to activity/condition/position, To improve performance and independence with ADL's, To decrease level of supervision to perform tasks, To improve ability of physical actions for home/community/work/leisure, To improve gait and locomotor functions, To improve health of tissue, To decrease soft tissue restriction, To increase flexibility/ROM, To improve endurance, To improve balance and To improve safety with gait Functional Training to Include: Gait training For the Purpose of:: To improve gait and locomotor functions and To improve safety with gait Last Seen Last Seen: This patient was last seen in our office 08/15/22. Pertinent comments regarding their Physical therapy will appear below: Pt canceled her last appt with us due to illness and did not reschedule. DC PT At this point I will be discontinuing this patient from physical therapy. I would be happy to see this patient again in the future if found appropriate by the physician. Thank you! Cathryn Malloy, MPT Balance/Gait/Functional tests Balance/Special Test Scores Functional Gait Assessment Score: 10 % Disability: 66.6700 CATSIB Score (Max score 120 seconds): 72 Lower Extremity Functional Score: 32
== END 2022-08-15 19:00 | disposition home or self-care (01) ==
LOC: PT 09:30
PROVIDERS: PCP Internal Medicine; Referring Provider Psychiatry & Neurology Neurology; Visit Provider Psychiatry & Neurology Neurology
DX: G20 Parkinson's disease (principal)
CPT/HCPCS: 97110; 97161

== ENCOUNTER 2022-08-29 08:50 | Emergency (ER) | payer MEDICARE, SELFPAY ==
[2022-08-29 08:51] VITALS: BP 148/82; BP 162/82; PULSE 76; PULSE 88; RESP 14; RESP 16; TEMP 36.4; O2SAT 100; O2SAT 92; BMI 20.7
--- NOTE | 2022-08-29 09:11 | CT_ITS ---
STUDY: CT BRAIN WITHOUT CONTRAST REASON FOR EXAM: Female, 77 years old. Mental status change, confusion RADIATION DOSAGE (If Supplied By Facility): CTDIvol = ( 44.99 ) mGy, DLP = ( 779.24 ) mGycm TECHNIQUE: Transaxial CT imaging of the brain was performed without administration of intravenous contrast material. Individualized dose optimization techniques were used for this CT. COMPARISON: 01/13/2019 FINDINGS: Normal soft tissue structures. Normal calvarium. Normal size ventricles and extra-axial spaces for the patient''s age. Normal white matter tracts of the cerebral hemispheres. Normal basal ganglia and thalami. Normal brainstem. Normal cerebellum. There is no intracranial hemorrhage. There are no findings of an acute ischemic infarction. Normal visualized paranasal sinuses. CT/Brain/Head without Contrast IMPRESSION: Chronic involutional changes of the brain. No acute hemorrhage Electronically Signed: Tae Vazquez MD at 10:06 EDT ,
--- NOTE | 2022-08-29 09:13 | EDS_ITS ---
HPI History of Present Illness Chief Complaint: Confusion Informant: patient and spouse/S.O. Onset/Context/Timing Onset: Days Context: Gradual Onset Timing: Continuous Current Severity: Mild Maximum Severity: Mild Narrative Narrative: 69-year-old female history of TIA, COPD and Parkinson's disease. Recently her neurologist put her on baclofen. states since Sunday she has had more confusion. Denies any nausea, vomiting or diarrhea. No headache. No dysuria but urinary frequency. No fever or chills. states the other day she tried to use a telephone his remote control and tried to use the remote control was a telephone. Prior similar symptoms: No Recent Illness/Hospitalization: No PFSH PFSH Medical History Anxiety Arthritis Cardiology follow-up encounter Chronic back pain Chronic malnutrition Chronic pain Chronic right-sided low back pain with sciatica COPD (chronic obstructive pulmonary disease) Depression Difficulty swallowing DVT (deep venous thrombosis) Easy bruising Essential hypertension Essential tremor Former smoker GERD (gastroesophageal reflux disease) History of pain when walking History of Parkinson's disease Hx of cardiovascular stress test Hypercholesteremia Hypertension Lumbar disc disease with radiculopathy Memory loss Mild cognitive impairment Myalgia, unspecified site Osteopenia Other intervertebral disc degeneration, lumbar region Parkinson's disease Postmenopausal Sciatica Scoliosis Skin tear of left elbow without complication TIA (transient ischemic attack) (01/13/19) Tremor Uses wheelchair Vitamin D deficiency Wears partial dentures Home Medications ascorbic acid (vitamin C) 1,000 mg tablet,extended release 1,000 mg PO DAILY SUPPLEMENT 01/13/19 [History Last Taken Unknown] budesonide-formoterol HFA 160 mcg-4.5 mcg/actuation aerosol inhaler 2 inhaler inhalation BID BREATHING 01/13/19 [History Last Taken Unknown] calcium carbonate 333 mg-magnesium oxide 133 mg-zinc gluc 5 mg tablet 1 tab PO DAILY SUPPLEMENT 12/10/20 [History Last Taken Unknown] acetaminophen 500 mg tablet 1,000 mg PO TID PRN pain 07/04/21 [History Last Taken Unknown] biotin 10,000 mcg capsule 10,000 mcg PO DAILY PRN 07/04/21 [History Last Taken Unknown] cholecalciferol (vitamin D3) 125 mcg (5,000 unit) capsule 125 mcg PO DAILY 07/04/21 [History Last Taken Unknown] docusate sodium 100 mg capsule 100 mg PO DAILY 07/04/21 [History Last Taken Unknown] mecobalamin (vitamin B12) 5,000 mcg disintegrating tablet 5,000 mcg PO DAILY 07/04/21 [History Last Taken Unknown] aspirin 81 mg chewable tablet 81 mg PO DAILY 07/10/22 [History Last Taken Unknown] baclofen 10 mg tablet 10 mg PO TID PRN muscle pain/spasm #90 tabs 08/24/22 [Rx Last Taken Unknown] carbidopa 25 mg-levodopa 100 mg tablet 1 tab PO TID #270 tabs 08/24/22 [Rx Last Taken Unknown] flurbiprofen 100 mg tablet 100 mg PO TID PRN pain #90 tabs 08/24/22 [Rx Last Taken Unknown] hydrocodone-acetaminophen 5-325mg 5mg-325mg 1 tab PO Q6H PRN 08/24/22 [History Last Taken Unknown] tamsulosin 0.4 mg capsule 0.4 mg PO QHS urninary frequency #30 caps 08/24/22 [Rx Last Taken Unknown] Allergy/AdvReac Type Severity Reaction Status Date / Time amoxicillin AdvReac Intermediate Hives Verified 08/29/22 08:53 Penicillins AdvReac Intermediate Hives Verified 08/29/22 08:53 prednisone AdvReac Unknown Verified 08/29/22 08:53 Family History Father H/O ulcer disease Mother Heart disease Sister Cancer Sister Thyroid disorder Surgical History H/O tubal ligation History of appendectomy History of tonsillectomy History of total right hip replacement Social History household members: spouse Smoking Status: Former smoker quit date: 05/21/19 Tobacco: How many years used: 40 alcohol intake: current alcohol intake frequency: holidays/special occasions only substance use type: does not use esdras/uatsdin: [employer] seatbelt use: always ROS ROS ED ROS Narrative No recent illness. Urinary frequency. Confusion. Review of Systems ROS Unobtainable: Denies due to encephalopathy Constitutional Constitutional ED: Denies chills or fever(s) Eyes Eyes: Denies blurry vision ENT ENT ED: Denies ear pain Cardiovascular Cardiovascular: Denies chest pain Respiratory/Chest Respiratory/Chest: Denies cough or dyspnea Gastrointestinal Gastrointestinal: Denies abdominal pain Genitourinary Genitourinary ED: Reports urinary frequency; Denies dysuria or hematuria Musculoskeletal Musculoskeletal: Denies arthralgias or back pain Integumentary Denies abscess Neurologic Neurologic: Denies headache(s) Psychiatric Psychiatric: Denies anxiety or depression Hematologic/Lymphatic Hematologic/Lymphatic: Reports none Allergic/Immunologic Allergic/Immunologic ED: Denies mouth swelling or tongue swelling EXAM Physical Exam Narrative Exam Narrative: 77-year-old female no acute distress. Vital signs stable afebrile. Pulse ox 100% on room air no signs hypoxia. H EENT exam unremarkable. Pupils round reactive light. Extra motions are intact. No facial droop. Normal speech. No trauma. Neck nontender. Lungs clear to auscultation bilaterally. Heart regular rhythm rate about 88 no murmur. Abdomen soft nontender normal bowel sounds no peritoneal signs. No distention. Moving all 4 extremities. 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 Dorsi plantarflexion intact. Able to lift either leg. Back nontender. Neurologically she is awake and alert. Answering questions following commands. She knows the year and place. She was able to pick a current president out of the list. She has no focal motor deficits. present in the room. Const Vital Signs: 08/29/22 08:51 08/29/22 08:51 Temperature 97.6 F L Temperature Source Temporal Pulse Rate 88 76 Respiratory Rate 14 16 Blood Pressure 148/82 H 162/82 H Blood Pressure Mean 104 108 Pulse Ox 100 92 Oxygen Delivery Method Room Air Room Air Positive well nourished and well developed; Negative for obese, cachectic, contractures or unkempt General Appearance ED: well developed and NAD; Negative for unkempt, cachectic, contractures, cyanotic or diaphoretic Nutritional Appearance: Negative for cachectic or obese HEENT Reports moist mucous membranes; Denies dry mucous membranes Negative for trauma or tenderness Mouth ED: No dry mucous membranes Mouth: No dry mucous membranes Eyes PERRL and EOMs intact bilaterally General Eye ED: Negative for pale conjunctiva or scleral icterus Neck no lymphadenopathy, supple and no JVD General: Negative for tenderness Lymph Lymphatic: Negative for other Chest Wall inspection of chest normal and palpation of chest normal Chest: Negative for other Resp normal respiratory effort and clear to auscultation bilaterally Effort and Inspection: Negative for retractions Auscultation: Negative for rales, rhonchi or wheezes Cardio regular rate, regular rhythm, S1 normal heart sound, S2 normal heart sound and no murmurs Rhythm: Negative for abnormal rhythm GI normal to inspection, nondistended, normoactive bowel sounds, non-tender, non- distended and no masses Inspection: Negative for abdominal distention Auscultation: normoactive bowel sounds Palpation: soft; Negative for tender or guarding Back/Spine no CVA tenderness General Back: Negative for CVA tenderness Cervical Spine: Negative for cervical spine tenderness Thoracic Spine / Upper Back: Negative for thoracic spinal tenderness or paraspinal muscle tenderness Lumbar Spine / Lower Back: Negative for lumbar spinal tenderness Extremity normal to inspection General Extremety ED: Negative for edema or tenderness General Extremity: Negative for edema Neuro oriented x3 and CN's II-XII intact bilaterally Sensorium / Orientation: alert; Negative for orientation impaired, lethargic or stuporous Motor Exam: strength 5/5 throughout; Negative for general weakness or strength abnormal Psych mental status grossly normal Appearance: Negative for unkempt Attitude: No agitated Mood & Affect: Negative for depressed, anxious or tearful Skin no rashes or lesions noted, no wounds and skin turgor normal General Skin Exam: Negative for elasticity normal Lesions: No lesion noted Rashes: No rashes noted Trauma: Negative for abrasion Wounds: Negative for wounds noted MDM MDM MDM Narrative Medical decision making narrative: 77-year-old with a recent confusion. Exam is benign and currently she does not seem confused. CAT scan to be obtained with screening labs and urinalysis. Repeat exam the patient is doing well at 10:53 AM. I went over all test results with both her and her at bedside. I explained to both him that we do not have a specific cause. It may or may not be related to the medication. She stopped it yesterday. I have her neurologist currently on page. She will be discharged home with outpatient follow-up. Patient ambulated without any difficulty the restroom with nursing. I spoke with patient's neurologist and he will follow-up with an outpatient and was comfortable with that medication being stopped. I also spoke to her primary care physician's office I spoke to her nurse practitioner in the office and they will ensure follow-up also. History & Record Review Discussion w/independent historian: Patient and Family Lab Data Attestation: I reviewed the patient's lab results. Lab results narrative: CBC normal. White count 6.5. H&H of 14 and 42. Platelets 274 CMP unremarkable. Gap of 3. BUN of 23 creatinine 0.9. LFTs unremarkable. Glucose 108. Urinalysis is negative. EKG is paced. Labs: Laboratory Results - last 24 hr 08/29/22 08/29/22 08/29/22 09:30 09:30 09:30 WBC 6.5 RBC 4.25 Hgb 14.1 Hct 42.3 MCV 99.5 H MCH 33.2 H MCHC 33.3 RDW Std Deviation 47.1 H RDW Coeff of Elvia 12.9 Plt Count 274 MPV 10.1 Immature Gran % (Auto) 0.300 Neut % (Auto) 64.2 Lymph % (Auto) 23.5 [place] % (Auto) 6.6 Eos % (Auto) 4.6 Baso % (Auto) 0.8 Absolute Neuts (auto) 4.2 Absolute Lymphs (auto) 1.53 Nucleated RBC % 0 Sodium 137 Potassium 4.0 Chloride 107 Carbon Dioxide 27.0 Anion Gap 3 L BUN 23 H Creatinine 0.99 Estim Creat Clear Calc 38.74 Est GFR (MDRD) Af Amer 70 Est GFR (MDRD) Non-Af 58 L BUN/Creatinine Ratio 23.3 H Glucose 108 H Calcium 9.8 Total Bilirubin 0.50 AST 19 ALT 31 Alkaline Phosphatase 74 Total Protein 7.7 Albumin 3.8 Globulin 3.9 Albumin/Globulin Ratio 1.0 Urine Color Yellow Urine Clarity Sl. Cloudy Urine pH 7.0 Ur Specific [place] 1.010 Urine Protein Negative Urine Glucose (UA) Normal Urine Ketones Negative Urine Occult Blood 10 H Urine Nitrite Negative Urine Bilirubin Negative Urine Urobilinogen Normal Ur Leukocyte Esterase 25 H Urine RBC 0-5 SEEN Urine WBC 0-5 SEEN Ur Squamous Epith Cells 0-5 SEEN Urine Bacteria 0 SEEN Urine Mucus 0 SEEN Radiography Diagnostic Testing: Clinical Impression(s) from Imaging Studies Brain CT 08/29/22 09:11 IMPRESSION: Chronic involutional changes of the brain. No acute hemorrhage Electronically Signed: Tae Vazquez MD at 10:06 EDT , Rhythm Strip Rhythm Strip: Paced Rate: 76 Ectopy: None EKG Initial EKG: Attestation: I personally reviewed and interpreted this EKG as follows: Interpretation: Paced Comments: Paced rhythm at 76. Unchanged from prior from November 2020. Prior EKG tracings: available for review Prior: Unchanged Discharge Plan Triage Chief Complaint: Confusion ED Provider: Ashok Page Dx/Rx/DC Orders Clinical Impression: Acute confusion, History of COPD, History of Parkinson's disease Instructions: ED Confusion Prescriptions: No Action docusate sodium 100 mg capsule 100 mg PO DAILY cholecalciferol (vitamin D3) 125 mcg (5,000 unit) capsule 125 mcg PO DAILY mecobalamin (vitamin B12) 5,000 mcg tablet,disintegrating 5,000 mcg PO DAILY biotin 10,000 mcg capsule 10,000 mcg PO DAILY PRN hydrocodone-acetaminophen 5-325 mg tablet 1 tab PO Q6H PRN Rx Instructions: Take one or two tabs every 6 hours po PRN per Pain carbidopa-levodopa 25-100 mg tablet 1 tab PO TID Qty: 270 1RF baclofen 10 mg tablet 10 mg PO TID PRN (Reason: muscle pain/spasm) Qty: 90 5RF flurbiprofen 100 mg tablet 100 mg PO TID PRN (Reason: pain) Qty: 90 4RF tamsulosin 0.4 mg capsule 0.4 mg PO QHS Qty: 30 5RF aspirin 81 mg tablet,chewable 81 mg PO DAILY ascorbic acid (vitamin C) 1,000 MG tablet extended release 1,000 mg PO DAILY budesonide-formoterol 1 INHALER inhaler 2 inhaler INHALATION BID Label Comments: INHALE 2 PUFFS INTO THE LUNGS TWICE A DAY calcium carb-mag ox-zinc gluc 333-133-5 mg Tablet 1 tab PO DAILY acetaminophen 500 mg tablet 1,000 mg PO TID PRN (Reason: pain) Rx Instructions: Do not take more than 3000 mg Tylenol in a 24-hour period. Primary Care Provider: Kelly Leone Referrals: Kelly Leone, [Primary Care Provider] - As soon as possible Activity Restrictions/Additional Instructions: Stop the medication baclofen. Your labs and CAT scan today were unremarkable. No specific cause for your confusion. Follow-up with your primary care physician Dr. Kelly Leone and also your neurologist to ensure you are improving. Disposition Disposition: Home, Self Care
[2022-08-29 09:46] LABS: Bacteria 0 SEEN /hpf (None Seen); Mucous, Urine 0 SEEN /hpf (<or=2+)
[2022-08-29 09:55] LABS: Absolute Lymphocyte Count 1.53 X10^3/uL (0.83-4.51); Absolute Neutrophil Count 4.2 X10^3/uL (2.0-7.7); Basophil# 0.05 X10^3/uL; Basophil% 0.8 % (0-1); Eosinophils% 4.6 % (0-5); Hematocrit 42.3 % (37-47); Hemoglobin 14.1 g/dL (12.0-15.0); Lymphocyte # 1.53 X10^3/ul (0.83-4.51); Lymphocyte % 23.5 % (19-41); Mean Corp Hgb Conc 33.3 g/dL (32-36); Mean Corpuscular Hgb 33.2 pg (27.0-32.0); Mean Corpuscular Volume 99.5 fL (81-99); Mean Platelet Vol. 10.1 fl (6.2-12.0); Monocyte# 0.43 X10^3/uL; Monocyte% 6.6 % (0-10); NRBC Flagged by Analyzer 0 % (0-5); Neutrophil # 4.18 X10^3/uL (2.7-7.7); Neutrophil % 64.2 % (47-70); Platelet Count 274 K/mm3 (150-450); RBC Distribution Width CV 12.9 % (11.6-14.6); RBC Distribution Width SD 47.1 fl (35.1-43.9); Red Blood Count 4.25 M/mm3 (4.2-5.4); White Blood Count 6.5 K/mm3 (4.4-11.0)
[2022-08-29 09:56] LABS: Color, Urine Yellow (Yellow); Glucose, Dipstick Normal (Normal); Ketone-Dipstick Negative (Negative); Leukocyte Esterase-Dipstick 25 /ul (Negative); Nitrite-Dipstick Negative (Negative); Occult Blood-Urine 10 /ul (Negative); Protein-Dipstick Negative (Negative); Urine Bilirubin Dipstick Negative (Negative); Urine Clarity Sl. Cloudy (Clear); Urine Urobilinogen Normal (Normal)
[2022-08-29 10:02] LABS: AST(SGOT) 19 U/L (15-37); Alanine Aminotransfer ALT/SGPT 31 U/L (13-56); Albumin, Serum 3.8 g/dL (3.2-5.0); Alkaline Phosphatase 74 U/L (45-117); Anion Gap 3 (5-15); BUN 23 mg/dL (7-18); BUN/Creat Ratio 23.3 RATIO (10-20); Calcium,Total 9.8 mg/dL (8.5-10.1); Chloride 107 mmol/L (98-107); Creatinine, Serum 0.99 mg/dL (0.55-1.02); EST Glomerular Filtration Rate 58 mL/min (>60); Est Glom Filt Rate - Afr Amer 70 mL/min (>60); Estimated Creatinine Clearance 38.74 ml/min; Globulin 3.9 g/dL (2.2-4.2); Glucose 108 mg/dL (74-106); Protein, Total 7.7 g/dL (6.4-8.2); Red Blood Cells-Urine 0-5 SEEN /hpf (0-5); Sodium Level 137 mmol/L (136-145); Squamous Epithelial Cells - UA 0-5 SEEN /hpf (5-10); White Blood Cells 0-5 SEEN /hpf (0-5)
[2022-08-29 11:35] VITALS: BP 158/78; RESP 16; O2SAT 100
== END 2022-08-29 11:37 | disposition home or self-care (01) ==
PROVIDERS: Emergency Provider Emergency Medicine; PCP Internal Medicine; Visit Provider Emergency Medicine
DX: R41.0 Disorientation, unspecified (principal); G20 Parkinson's disease; J44.9 Chronic obstructive pulmonary disease, unspecified; R35.0 Frequency of micturition; I10 Essential (primary) hypertension; E78.00 Pure hypercholesterolemia, unspecified; Z87.891 Personal history of nicotine dependence; Z86.73 Personal history of transient ischemic attack (TIA), and cerebral infarction without residual deficits
CPT/HCPCS: 70450; 80053; 81001; 85025; 93005; 99284; P9612; A4216

== ENCOUNTER → 2023-03-30 | Outpatient (CLI) | payer MEDICARE, SELFPAY ==
--- NOTE | 2023-03-30 09:59 | ECHOD_ITS ---
Reason For Study: Non Rheumatic Aortic Stenosis Procedure This was a 2D Doppler, Color Flow transthoracic echocardiogram. Myocardial strain analysis was performed in this exam to aid in the assessment of cardiac function. Exam performed in department. Left Ventricle Normal LV size. The global longitudinal strain = -13.9% (abnormal). The estimated ejection fraction is 60 %. No evidence for diastolic dysfunction. No regional wall motion abnormalities noted. Right Ventricle Normal RV size. Normal systolic function. Atria The left and right atria are normal. No doppler evidence for ASD. Mitral Valve There is no mitral valve stenosis. Trivial mitral valve insufficiency. Tricuspid Valve There is no tricuspid stenosis. Trivial tricuspid valve insufficiency. Unable to estimate RV systolic pressure due to insufficient tricuspid regurgitant envelope. Aortic Valve Trisinus/trileaflet aortic valve. Mild diffuse aortic valve thickening. Mild aortic stenosis. Mild (1+) aortic valve insufficiency. Pulmonic Valve There is no pulmonic valvular stenosis. No pulmonic valve insufficiency. Great Vessels Normal aortic root. Pericardium/Pleural No pericardial effusion. MMode/2D Measurements & Calculations LVIDd: 5.1 cm IVSd: 1.0 cm LVOT diam: 2.0 cm LVIDs: 4.0 cm LVPWd: 1.0 cm LVOT area: 3.1 cm2 RVDd: 2.5 cm FS: 21.4 % Ao root diam: 3.4 cm LAV(MOD-bp): 37.6 ml LVAd ap4: 22.8 cm2 LA dimension: 3.6 cm LAV(MOD-bp) Indexed: 24.8 ml/m2 LVLd ap4: 6.7 cm LAV(MOD-sp2): 39.1 ml EDV(MOD-sp4): 65.4 ml LAV(MOD-sp4): 34.4 ml EDV(sp4-el): 65.7 ml LVAs ap4: 16.9 cm2 LVLs ap4: 5.7 cm ESV(MOD-sp4): 42.8 ml ESV(sp4-el): 42.5 ml EF(MOD-sp4): 34.6 % EF(sp4-el): 35.3 % LVAd ap2: 22.6 cm2 SV(MOD-sp4): 22.6 ml SV(MOD-sp2): 25.9 ml LVLd ap2: 6.9 cm EDV(MOD-sp2): 62.5 ml EDV(sp2-el): 63.3 ml LVAs ap2: 16.3 cm2 LVLs ap2: 6.4 cm ESV(MOD-sp2): 36.6 ml ESV(sp2-el): 35.3 ml EF(MOD-sp2): 41.4 % SV(sp4-el): 23.2 ml Aortic Valve Planimetry: 1.4 cm2 LA A4 area: 14.2 cm2 RA A4 area: 11.4 cm2 TAPSE: 2.2 cm Time Measurements MV dec time: 0.39 sec Doppler Measurements & Calculations MV E max ashok: 35.5 cm/sec Lat Peak E' Ashok: 3.8 cm/sec Med Peak E' Ashok: 3.1 cm/sec MV A max ashok: 76.2 cm/sec E/E' lat: 9.3 E/E' med: 11.4 MV E/A: 0.47 MV V2 max: 107.1 cm/sec MV P1/2t max ashok: 63.3 cm/sec Ao V2 max: 203.6 cm/sec MV max P.6 mmHg MV P1/2t: 109.0 msec Ao max P.6 mmHg MV V2 mean: 45.9 cm/sec Ao V2 mean: 134.5 cm/sec MV mean P.1 mmHg MV dec slope: 169.9 cm/sec2 Ao mean P.3 mmHg MV V2 VTI: 22.8 cm MVA(P1/2t): 2.0 cm2 Ao V2 VTI: 44.9 cm AV (velocity ratio): 0.45 MVA(VTI): 2.8 cm2 MARYANN(I,D): 1.4 cm2 MARYANN(V,D): 1.4 cm2 AI max ashok: 500.4 cm/sec LV V1 max: 92.5 cm/sec SV(LVOT): 64.0 ml AI max P.2 mmHg LV V1 max P.4 mmHg AI dec slope: 287.1 cm/sec2 LV V1 mean P.5 mmHg AI P1/2t: 510.5 msec LV V1 mean: 54.8 cm/sec LV V1 VTI: 20.4 cm PA V2 max: 118.4 cm/sec TR max ashok: 183.6 cm/sec PA V2 mean: 81.6 cm/sec TR max P.5 mmHg ECHO/Echo Complete Interpretation Summary The estimated ejection fraction is 60 %. No evidence for diastolic dysfunction. Trivial mitral valve insufficiency. Mild aortic stenosis. Mild (1+) aortic valve insufficiency. Ordering Physician: Kelly Leone Referring Physician: Kelly Leone Performed By: Andrae Segal RCS
== END | disposition home or self-care (01) ==
PROVIDERS: PCP Internal Medicine; Referring Provider Internal Medicine; Visit Provider Internal Medicine
DX: I35.0 Nonrheumatic aortic (valve) stenosis (principal)
CPT/HCPCS: 93306

== ENCOUNTER → 2023-04-10 | Outpatient (CLI) | payer MEDICARE, SELFPAY ==
--- NOTE | 2023-04-10 15:15 | BI_ITS ---
MAMMOGRAPHY - BILATERAL SCREENING REASON FOR EXAM: Female, 78 years old. Routine annual screening examination. PERTINENT HISTORY: Aunt with breast cancer. TECHNIQUE: Digital bilateral breast rimma (3D mammographic acquisition) in the CC and MLO projections. 2-D mediolateral oblique (MLO) and craniocaudad (CC) views of both breasts were obtained. CAD: Full Field Digital Mammography with Computer Added Detection was performed. COMPARISON: Comparison is made with prior study dated December 04, 2018 and November 27, 2017. FINDINGS: Breast Composition: The breasts are extremely dense, which lowers the sensitivity of mammography. There are no dominant masses or suspicious calcifications. No other significant abnormalities are identified. There has been no significant change since the prior study. BI/SCRN MAMM (CAD)W/RIMMA BILAT IMPRESSION: Stable bilateral screening mammogram. Yearly follow-up mammogram recommended. (A) ASSESSMENT CATEGORY: BIRADS Category 1: Negative. A letter regarding these results will be sent to the patient by the facility within 30 days. Approximately 10% of breast cancers are not detected by mammography. A normal mammogram should not delay biopsy of a clinically suspicious abnormality. [id number] Electronically Signed: Shun Gallardo MD at 14:06 EST ,
--- NOTE | 2023-04-10 15:25 | BD_ITS ---
STUDY: DUAL ENERGY X-RAY ABSORPTIOMETRY / DXA REASON FOR EXAM: Female, 78 years old. [id number] TECHNIQUE: Bone Mineral Density (BMD) measurements of unilateral hip (left) were obtained. COMPARISON: Comparison is made with prior study near August 08, 2016. FINDINGS: Lumbar Spine (L1-L4): g/cm2 (0.882) / T-score (-1.2) / Z-score (1.3) Findings are suggestive of osteopenia with a low fracture risk. Left Femur Total: g/cm2 (0.691) / T-score (-2.1) / Z-score (0.0) Left Femoral Neck: g/cm2 (0.574) / T-score (-2.5) / Z-score (-0.2) The T-Scores on the most recent prior examination were: Lumbar Spine (L1-L4): There has been worsening of bone density since the previous examination. Left Femur Total: which represents an improvement of 1.7%. BD/Dexa Bone Density Study IMPRESSION: The patient is considered osteopenic as outlined below according to World Kevin Organization (WHO) criteria with a high fracture risk. There has been worsening of bone density since the previous examination. Reference Information: The T-score is the number of standard deviations above or below the standard which is normal for young adults at their peak bone mineral density. The World Health Organization (WHO) interprets the T-scores as follows: Above -1 Normal bone density Between -1 and -2.5 Osteopenia Equal to / or below -2.5 Osteoporosis As a practical clinical guideline, osteopenia may be graded as follows: Mild -1 through -1.5 Moderate -1.6 through -2.0 Severe -2.1 through -2.4 The Z-score is the number of standard deviations above or below age-matched controls. A Z-score of less than -1.5 would be considered abnormal. References: 1. NIH Osteoporosis and Related Bone Diseases www osteo.org 2. International Society for Clinical Densitometry www iscd.org 3. National Osteoporosis Foundation www nof.org Electronically Signed: Shun Gallardo MD at 8:59 EST ,
== END | disposition home or self-care (01) ==
LOC: OPBD 15:15
PROVIDERS: PCP Internal Medicine; Referring Provider Internal Medicine; Visit Provider Internal Medicine
DX: Z12.31 Encounter for screening mammogram for malignant neoplasm of breast (principal); Z78.0 Asymptomatic menopausal state
CPT/HCPCS: 77063; 77067; 77080

== ENCOUNTER → 2023-12-05 | Outpatient (CLI) | payer MEDICARE, SELFPAY ==
--- NOTE | 2023-12-05 12:38 | CDU_ITS ---
Reason For Study: RT CAROTID BRUIT Rt. Velocities/BP Lt. Velocities/BP Prox CCA 47.8/8.1 cm/sec. Prox CCA 40.9/9.5 cm/sec. Mid CCA 50.6/11.0 cm/sec. Mid CCA 47.9/12.1 cm/sec. Dist CCA 49.7/11.9 cm/sec. Dist CCA 52.2/8.6 cm/sec. Prox ICA 76.1/13.8 cm/sec. Prox ICA 44.4/8.6 cm/sec. Mid ICA 67.6/11.0 cm/sec. Mid ICA 68.8/16.5 cm/sec. Dist ICA 80.9/17.1 cm/sec. Dist ICA 64.5/14.7 cm/sec. Rt. ICA/CCA = 80.9/50.6=1.6. Lt. ICA/CCA = 68.8/47.9=1.4. Prox ECA 57.2/13.8 cm/sec. Prox ECA 62.7/9.5 cm/sec. Rt. Vert. 48.8/7.8 cm/sec. Lt. Vert. 40.0/6.9 cm/sec. Right Extracranial There is homogeneous, smooth atherosclerotic plaque noted in the right common carotid artery. The right internal carotid artery is very tortuous. There is homogeneous, irregular atherosclerotic plaque noted in the right internal carotid artery. The right external carotid artery is not well visualized. Antegrade flow is noted in the right vertebral artery. There is heterogeneous, irregular atherosclerotic plaque noted in the right bulb. Left Extracranial There is heterogeneous, irregular atherosclerotic plaque noted in the left common carotid artery. There is heterogeneous, irregular atherosclerotic plaque noted in the left internal carotid artery. There is no significant atherosclerotic plaque noted in the left external carotid artery. Antegrade flow is noted in the left vertebral artery. There is heterogeneous, irregular atherosclerotic plaque noted in the left bulb. Procedure Carotid Duplex [id number]. This is a Carotid Duplex examination using B-mode, color flow and specral Doppler. The study was technically difficult. Exam performed in department. VL/Carotid Duplex Ultrasound Interpretation Summary Mild (<50%) stenosis right extracranial internal carotid. Mild (<50%) stenosis left extracranial internal carotid. Patent and antegrade vertebrals bilaterally. Ordering Physician: Thor Terry Referring Physician: Kelly Leone Performed By: Teresa Mahajan, CARMEN, RVT
== END | disposition home or self-care (01) ==
PROVIDERS: PCP Internal Medicine; Referring Provider Psychiatry & Neurology Neurology; Visit Provider Psychiatry & Neurology Neurology
DX: R09.89 Other specified symptoms and signs involving the circulatory and respiratory systems (principal)
CPT/HCPCS: 93880

== ENCOUNTER → 2024-02-11 | Outpatient (CLI) | payer MEDICARE, SELFPAY ==
--- NOTE | 2024-02-11 08:53 | RAD_ITS ---
INDICATION: pain EXAMINATION/TECHNIQUE: X-RAY - XR Hips Bilateral with Pelvis when performed; 2 Views COMPARISON: Prior study dated: February 02, 2021. FINDINGS: PELVIC BONES: No displaced fracture, destructive or sclerotic lesions. Note that overlapping bowel shadows may however obscure fine detail. Sacroiliac joints are unremarkable. No widening of the pubic symphysis. HIPS: The patient is status post right total hip replacement. This is a revision as compared to prior study. Long femoral stem. SOFT TISSUES: Large amount of fecal material seen in the colon. RAD/Hips B/L min 2 views w/ Pelvis IMPRESSION: Status post right total hip replacement. No acute abnormality is seen. Electronically Signed: Shun Gallardo MD at 9:46 EDT ,
== END | disposition home or self-care (01) ==
PROVIDERS: PCP Internal Medicine; Referring Provider Physician Assistant; Visit Provider Physician Assistant
DX: M25.559 Pain in unspecified hip (principal); Z96.641 Presence of right artificial hip joint
CPT/HCPCS: 73521

== ENCOUNTER → 2024-03-10 | Outpatient (CLI) | payer MEDICARE, SELFPAY ==
[2024-03-10 13:54] LABS: Amphetamine Urine VISTA NEGATIVE (<1000 ng/mL); Barbiturate Urine VISTA NEGATIVE (< 200 ng/mL); Benzodiazepine Urine VISTA NEGATIVE (< 200 ng/mL); Cocaine Urine VISTA NEGATIVE (< 300 ng/mL); Ecstacy Urine VISTA NEGATIVE (< 500 ng/mL); Methadone Urine VISTA NEGATIVE (< 300 ng/mL); PCP Urine VISTA NEGATIVE (< 25 ng/mL); THC Urine VISTA NEGATIVE (< 50 ng/mL); Vista UDS pH Range 6
== END | disposition home or self-care (01) ==
PROVIDERS: PCP Internal Medicine; Referring Provider Anesthesiology Pain Medicine; Visit Provider Anesthesiology Pain Medicine
DX: F11.20 Opioid dependence, uncomplicated (principal)
CPT/HCPCS: 80307

== ENCOUNTER → 2025-01-26 | Outpatient (CLI) | payer MEDICARE, SELFPAY ==
--- NOTE | 2025-01-26 15:18 | RAD_ITS ---
PROCEDURE: KNEE 4 OR MORE VIEWS 01/26/2025 REASON FOR EXAM: RT KNEE OA TECHNIQUE: Procedure Code: RADKN Modality: DX Procedure: KNEE 4 OR MORE VIEWS Laterality: Right COMPARISON: Right knee study dated 08/20/2020 FINDINGS: Bones: Diffuse osteopenia of the osseous structures of the right knee are noted. There are no fractures or dislocations. There is no osteolytic or osteoblastic lesions seen. Joints: Mild osteoarthritic changes are seen involving the medial femorotibial and patellofemoral joints. The lateral femorotibial joint appears to be well preserved. Effusion: There is no suprapatellar bursa effusion. Soft tissues: No soft tissue swelling is seen. Arteriosclerotic vascular disease of the vessels are noted. Other: A radiopaque intramedullary buck is seen in the right femur. The visualized portion appears to be intact without evidence of fracture or loosening. Please note that the most proximal portion is not included on this study. RAD/Knee 4 or More Views IMPRESSION: Mild osteoarthritic changes are seen involving the medial femorotibial and garcia llofemoral joints. Diffuse osteopenia of the osseous structures of the right knee are noted. Reading Location: [id number]
== END | disposition home or self-care (01) ==
LOC: RAD 15:03
PROVIDERS: PCP Internal Medicine; Referring Provider Anesthesiology Pain Medicine; Visit Provider Anesthesiology Pain Medicine
DX: M17.11 Unilateral primary osteoarthritis, right knee (principal)
CPT/HCPCS: 73564

== ENCOUNTER 2025-02-04 16:38 | Emergency (ER) | payer MEDICARE, SELFPAY ==
[2025-02-04 16:34] VITALS: BP 179/81; PULSE 78; RESP 16; TEMP 36.9; O2SAT 98; BMI 19.3
[2025-02-04] MEDS: Lidocaine 1% (20 ml mdv) 20 ML Vial INFILT (17:15)
[2025-02-04 17:18] VITALS: BP 184/81; PULSE 78; RESP 18; O2SAT 96
[2025-02-04 19:00] VITALS: BP 179/81; PULSE 75; RESP 16; O2SAT 96
--- NOTE | 2025-02-04 19:33 | EDS_ITS ---
HPI History of Present Illness Chief Complaint: Laceration Detail of Chief Complaint: Laceration left lateral brow due to blunt trauma Onset/Context/Timing Onset: Today Mechanism/Context: Blunt Injury and Fall Location of pain/injuries: - (Lateral left brow) Quality of Pain: - (None) Current Severity: 0/10 Maximum Severity: 1/10 Worsened by: Blunt trauma/initial injury Relieved by: Not applicable Associated Symptoms Associated Symptoms: Negative for Parasthesias, Weakness, Loss of function, Inability to ambulate, Loss of consciousness or Amnesia Length of loss of consciousness: None Narrative Narrative: Patient 80-year-old woman she is on no antithrombotic or anticoagulant. She was in a hurry trying to button her shorts. She fell forward striking her face against a piece of furniture. She had no loss conscious. She is not not dazed. She is not amnestic. She denies bloody nose. Denies malalignment of her teeth. Eyes ringing or ears decreased hearing. Denies neck pain. She denies paresthesia or anesthesia. Denies problems using her arms or legs. Denies problems with coordination or balance. Prior similar symptoms: No Recent Illness/Hospitalization: No PFSH [facility] Medical History Bilateral hip pain Chronic right-sided low back pain with sciatica Cardiology follow-up encounter Hx of cardiovascular stress test Essential hypertension Wears partial dentures Depression Anxiety Uses wheelchair Arthritis Easy bruising Difficulty swallowing History of Parkinson's disease History of pain when walking Hypertension Chronic pain Former smoker DVT (deep venous thrombosis) Skin tear of left elbow without complication Mild cognitive impairment Parkinson's disease Scoliosis Vitamin D deficiency Hypercholesteremia COPD (chronic obstructive pulmonary disease) GERD (gastroesophageal reflux disease) Lumbar disc disease with radiculopathy Other intervertebral disc degeneration, lumbar region Sciatica Myalgia, unspecified site Osteopenia Tremor Memory loss Postmenopausal Chronic malnutrition Essential tremor Chronic back pain TIA (transient ischemic attack) (01/13/19) Home Medications ?Medication ?Instructions ?Recorded ?Last Taken ?Type ascorbic acid (vitamin C) 1,000 mg 1,000 mg PO DAILY S UPPLEMENT 01/13/19 Unknown History tablet,extended release calcium 333 mg 1 tab PO DAILY SUPPLEMENT Unknown History (carbonate)-magnesium 133 mg (oxide)-zinc 5 mg tablet acetaminophen 500 mg tablet 1,000 mg PO TID PRN pain 0 07/04/21 Unknown History cholecalciferol (vitamin D3) 125 125 mcg PO DAILY 06/21 09/09 Unknown History mcg (5,000 unit) capsule mecobalamin (vitamin B12) 5,000 5,000 mcg PO DAILY Unknown History mcg disintegrating tablet lidocaine 4 % topical patch 1 patch topical DAILY PRN 11/15/23 Unknown History biotin 10,000 mcg capsule 2,000 mcg PO DAILY PRN 02/10 Unknown History mirtazapine 15 mg tablet 15 mg PO QHS PRN insomnia #9 0 tabs 01/15/25 Unknown Rx pramipexole 1 mg tablet 1 mg PO TID #90 tabs 5 Unknown Rx Allergy/AdvReac Type Severity Reaction Status Date / Time prednisone AdvReac Severe Hives Verified 01/15/25 13:54 amoxicillin AdvReac Intermediate Hives Verified 01/15/25 13:54 Penicillins AdvReac Intermediate Hives Verified 01/15/25 13:54 Family History Father H/O ulcer disease Mother Heart disease Sister Cancer Sister Thyroid disorder Surgical History History of total right hip replacement History of tonsillectomy History of appendectomy H/O tubal ligation Social History household members: spouse Smoking Status: Former smoker quit date: 05/21/19 Tobacco: How many years used: 40 alcohol intake: current alcohol intake frequency: holidays/special occasions only substance use type: does not use esdras/mu-ism: [employer] seatbelt use: always ROS ROS ED Constitutional Constitutional ED: Denies chills, fever(s) or subjective Eyes Eyes: Denies blurry vision or change in vision ENT ENT ED: Denies ear pain or rhinorrhea Cardiovascular Cardiovascular: Denies chest pain or palpitations Respiratory/Chest Respiratory/Chest: Denies cough or dyspnea Gastrointestinal Gastrointestinal: Denies abdominal pain, nausea or vomiting Neurologic Neurologic: Denies headache(s), paresthesias or weakness Endocrine Endocrinology: Denies cold intolerance or heat intolerance Hematologic/Lymphatic Hematologic/Lymphatic: Denies easy bleeding or easy bruising EXAM Physical Exam Const Vital Signs: 02/04/25 16:34 02/04/25 17:18 Temperature 98.5 F Temperature Source Oral Pulse Rate 78 78 Respiratory Rate 16 18 Blood Pressure 179/81 H 184/81 H Blood Pressure Mean 113 115 Pulse Ox 98 96 Oxygen Delivery Method Room Air Room Air Positive well nourished and well developed General Appearance ED: well developed and NAD HEENT Reports TM's clear HEENT Narrative: Stellate laceration lateral left parietal. There is no palpable depression. There is no trauma to the head. Ears are normal. TMs are normal. Nares patent. No epistaxis. No dental trauma. No trismus or inability to open close mouth. Nose: Negative for septum abnormal Tympanic Membrane ED: Yes TM's clear Eyes PERRL and EOMs intact bilaterally General Eye ED: Yes other Other Details: There is no diplopia with central gaze or upward gaze. The trauma was to the lateral upper orbit on the left. There is no step-off of the infraorbital rim. There is no esthesia the informal nerve. Neck full ROM Neck Narrative: No posterior midline tenderness. General: tenderness Resp normal respiratory effort Cardio regular rhythm Rate: regular rate Back/Spine normal to inspection Extremity normal to inspection and full ROM Neuro oriented x3, CN's II-XII intact bilaterally, moves all extremities, no focal motor deficits and no sensory deficits noted Neuro Narrative: There is no dysmetria. Somers Coma Scale: document GCS findings Spontaneous Obeys Commands Oriented 15 Deep Tendon Reflexes: Rt Triceps (C7): 1+, Lt Triceps (C7): 1+, Rt Biceps (C5, C6): 1+, Lt Biceps (C5, C6): 1+, Rt Brachioradialis (C6): 1+, Lt Brachioradialis (C6): 1+, Rt Patellar (L4): 1+, Lt Patellar (L4): 1+, Rt Ankle (S1): 1+ and Lt Ankle (S1): 1+ Deep Tendon Reflexes Back: Rt Patellar (L4): 1+, Lt Patellar (L4): 1+, Rt Ankle (S1): 1+ and Lt Ankle (S1): 1+ Plantar Reflex: Downgoing: bilateral (There is no clonus at the ankles.) Psych mental status grossly normal and thought process normal Skin no rashes or lesions noted, No no wounds, skin turgor normal and no jaundice Skin Narrative: Stellate laceration left brow total length 2.0 cm. PROC Procedures Other Procedures Procedure(s): Laceration note. Patient was prepped draped sterile manner. The area was anesthetized with local infiltration using 1% lidocaine without epinephrine. Wound was irrigated with 125 cc of normal saline. Wound was closed tightly. Total of 8 stitches required using 6-0 Ethilon. The edges approximated well. MDM MDM MDM Narrative Medical decision making narrative: Since the trauma was to her face and not her head without loss of conscious or being dazed or being on an anticoagulant or antithrombotic and the fall was [address] of the head was not obtained. This is not a significant injury. Imaging of the neck is not required either. Patient wound was closed. Please see procedure note. Discharge Plan Triage Chief Complaint: Laceration ED Provider: Jeovanny Snider Dx/Rx/DC Orders Clinical Impression: Face lacerations, Facial trauma, Injury due to fall Instructions: ED Laceration, All Closures, ED Laceration Minimize Scars Prescriptions: No Action cholecalciferol (vitamin D3) 125 mcg (5,000 unit) capsule 125 mcg PO DAILY mecobalamin (vitamin B12) 5,000 mcg tablet,disintegrating 5,000 mcg PO DAILY biotin 10,000 mcg capsule 2,000 mcg PO DAILY PRN lidocaine 4 % adhesive patch,medicated 1 patch topical DAILY PRN pramipexole 1 mg tablet 1 mg PO TID Qty: 90 5RF mirtazapine 15 mg tablet 15 mg PO QHS PRN (Reason: insomnia) Qty: 90 0RF ascorbic acid (vitamin C) 1,000 MG tablet extended release 1,000 mg PO DAILY calcium carb-mag ox-zinc gluc 333-133-5 mg Tablet 1 tab PO DAILY acetaminophen 500 mg tablet 1,000 mg PO TID PRN (Reason: pain) Rx Instructions: Do not take more than 3000 mg Tylenol in a 24-hour period. Primary Care Provider: Kelly Leone Referrals: Kelly Leone DO [Primary Care Provider, Internal Medicine] - 5 Days for suture removal Activity Restrictions/Additional Instructions: 1. Apply bacitracin ointment twice a day. 3. Contact Dr. Leone's office to have sutures removed in 5 days Print Language: [place] Zealander Disposition Disposition: Home, Self Care
[2025-02-04 19:49] VITALS: BP 178/89; PULSE 73; RESP 16; TEMP 36.6; O2SAT 96
== END 2025-02-04 19:51 | disposition home or self-care (01) ==
PROVIDERS: Emergency Provider Emergency Medicine; PCP Internal Medicine; Visit Provider Emergency Medicine
DX: S01.112A Laceration without foreign body of left eyelid and periocular area, initial encounter (principal); J44.9 Chronic obstructive pulmonary disease, unspecified; Z87.891 Personal history of nicotine dependence; Z86.718 Personal history of other venous thrombosis and embolism; Z98.51 Tubal ligation status; Z86.73 Personal history of transient ischemic attack (TIA), and cerebral infarction without residual deficits; W08.XXXA Fall from other furniture, initial encounter
CPT/HCPCS: 12011; 99284

== ENCOUNTER → 2025-04-21 | Outpatient (CLI) | payer MEDICARE, SELFPAY | END | disposition home or self-care (01) | PROVIDERS: PCP Internal Medicine; Referring Provider Physician Assistant; Visit Provider Physician Assistant | DX: R41.0 Disorientation, unspecified (principal) | CPT/HCPCS: 87086; 87088 ==